=== PATIENT | female | born 1950 | race Caucasian/White ===

== ENCOUNTER 2021-05-07 15:55 | Outpatient (RCR) | payer SELFPAY ==
--- NOTE | 2021-10-12 13:32 | HP.PT.NRP ---
EFRAIN Omar CARTWRIGHT was seen in my office for initial evaluation on . The following Plan of Care was established for this patient: This patient was last seen in our office 05/07/21. Pertinent comments regarding their Physical therapy will appear below: Pt. was seen in PT for DN. She has not been seen in several months and will be DC from PT at this point in time. At this point I will be discontinuing this patient from physical therapy. I would be happy to see this patient again in the future if found appropriate by the physician. Thank you! Joseluis Mathis, ANNALISET
== END 2021-05-07 19:00 | disposition home or self-care (01) ==
LOC: PT 15:55
PROVIDERS: PCP Family Medicine
DX: R69 Illness, unspecified (principal)

== ENCOUNTER 2021-07-10 18:40 | Emergency (ER) | payer MEDICARE, SELFPAY ==
[2021-07-10 18:42] VITALS: BP 117/84; PULSE 64; RESP 16; TEMP 35.8; O2SAT 100; BMI 28.8
--- NOTE | 2021-07-10 18:45 | EKG12_ITS ---
Test Reason : CP Blood Pressure : / mmHG Vent. Rate : 062 BPM Atrial Rate : 062 BPM P-R Int : 158 ms QRS Dur : 084 ms QT Int : 392 ms P-R-T Axes : 020 -01 038 degrees QTc Int : 397 ms Normal sinus rhythm Poor R wave progression Reconfirmed by FELIX DREW, CASSIUS ([id number]), index editor MIO SOTO ([id number]) on 07/12/2021 8:56:16 AM Referred By: TAHIR Confirmed By:CASSIUS WASHINGTON MD
[2021-07-10 19:12] LABS: Absolute Lymphocyte Count 2.64 X10^3/uL (0.83-4.51); Absolute Neutrophil Count 3.7 X10^3/uL (2.0-7.7); Basophil# 0.03 X10^3/uL; Basophil% 0.4 % (0-1); Eosinophil# 0.26 X10^3/uL; Eosinophils% 3.6 % (0-5); Hematocrit 39.6 % (37-47); Lymphocyte # 2.64 X10^3/ul (0.83-4.51); Lymphocyte % 36.6 % (19-41); Mean Corp Hgb Conc 32.8 g/dL (32-36); Mean Corpuscular Hgb 30.3 pg (27.0-32.0); Mean Corpuscular Volume 92.3 fL (81-99); Mean Platelet Vol. 10.1 fl (6.2-12.0); Monocyte# 0.55 X10^3/uL; Monocyte% 7.6 % (0-10); NRBC Flagged by Analyzer 0 % (0-5); Neutrophil # 3.72 X10^3/uL (2.7-7.7); Neutrophil % 51.7 % (47-70); Platelet Count 226 K/mm3 (150-450); RBC Distribution Width CV 12.4 % (11.6-14.6); RBC Distribution Width SD 41.2 fl (35.1-43.9); Red Blood Count 4.29 M/mm3 (4.2-5.4); White Blood Count 7.2 K/mm3 (4.4-11.0)
--- NOTE | 2021-07-10 19:20 | RAD_ITS ---
STUDY: X-RAY CHEST REASON FOR EXAM: Female, 71 years old. Chest pain TECHNIQUE: Frontal view COMPARISON: 09/21/2013 FINDINGS: The lungs are clear and expanded. There is no demonstrated pleural abnormality. Normal size heart. Normal mediastinum and cristohper. Normal visualized pulmonary arteries. Normal visualized aortic arch and descending thoracic aorta. Normal visualized thoracic spine. Normal visualized ribs, clavicles, and shoulders. There is no demonstrated abnormality of the visualized soft tissue structures of the upper abdomen. RAD/Chest 1 View (Portable) IMPRESSION: Normal x-ray examination of the chest. Electronically Signed: Mark Hurd DO at 20:45 EDT Tel [phone], Service support ,
[2021-07-10 19:30] LABS: Anion Gap 7 (5-15); BUN 28 mg/dL (7-18); BUN/Creat Ratio 33.8 RATIO (10-20); Calcium,Total 9.3 mg/dL (8.5-10.1); Chloride 105 mmol/L (98-107); Creatinine, Serum 0.83 mg/dL (0.55-1.02); EST Glomerular Filtration Rate 72 mL/min (>60); Est Glom Filt Rate - Afr Amer 88 mL/min (>60); Estimated Creatinine Clearance 65.91 ml/min; Glucose 114 mg/dL (74-106); Potassium 4.2 mmol/L (3.5-5.1); Sodium Level 138 mmol/L (136-145); Troponin-I HS 6 pg/mL (3.0-54.0)
--- NOTE | 2021-07-10 20:18 | EDS_ITS ---
HPI History of Present Illness Chief Complaint: Chest Pain Narrative Narrative: 71-year-old female presenting with left-sided chest pain which radiated to the left sternum. Patient states this started about 6 PM. Patient states she has history of PTSD and this feels somewhat similar although not the same location. She was doing breathing exercises and the symptoms went away. She states the symptoms came back. She describes the symptoms as sharp and aching. Patient does state that she was a little short of breath and sweating but states she gets this way with PTSD. She has no cardiac history. She does have hypertension, hyperlipidemia. No history of DVT/PE. She states her family has a strong cardiac history [facility] Medical History (Updated 07/10/21 @ 20:21 by Annalee Pérez) Anxiety Depression GERD (gastroesophageal reflux disease) HTN (hypertension) Hypercholesteremia Nightmare disorder PTSD (post-traumatic stress disorder) Home Medications aspirin 81 mg PO DAILY@0800 09/16/13 [History Last Taken Unknown] cholecalciferol (vitamin D3) [Vitamin D3] 5,000 mg PO DAILY 09/16/13 [History Last Taken Unknown] multivitamin with folic acid [Thera] 1 tab PO DAILY 09/16/13 [History Last Taken Unknown] fexofenadine-pseudoephedrine [Phoebe-D 24 Hour Tablet] 1 tab.sr PO DAILY 06/10/14 [History Last Taken Unknown] omega-3 fatty acids-fish oil 1 ea PO DAILY 06/10/14 [History Last Taken Unknown] atorvastatin 07/10/21 [History Last Taken Unknown] cyproheptadine 4 mg PO DAILY 07/10/21 [History Last Taken Unknown] gabapentin 300 mg PO DAILY 07/10/21 [History Last Taken Unknown] hydrochlorothiazide 25 mg PO DAILY 07/10/21 [History Last Taken Unknown] irbesartan-hydrochlorothiazide 1 tab PO QHS 07/10/21 [History Last Taken Unknown] lisinopril 20 mg PO DAILY 07/10/21 [History Last Taken Unknown] meloxicam 7.5 mg PO BID 07/10/21 [History Last Taken Unknown] omeprazole-sodium bicarbonate 1 cap PO DAILY 07/10/21 [History Last Taken Unk nown] sertraline 50 mg PO DAILY 07/10/21 [History Last Taken Unknown] Allergy/AdvReac Type Severity Reaction Status Date / Time amoxicillin [Amoxicillin] AdvReac Rash Verified 07/10/21 18:41 codeine AdvReac Rash Verified 07/10/21 18:41 naproxen [From Naprosyn] AdvReac Nausea Verified 07/10/21 18:41 Penicillins AdvReac Rash Verified 07/10/21 18:41 NARCOTICS AdvReac Nausea Uncoded 07/10/21 18:41 Surgical History (Updated 07/10/21 @ 20:21 by Annalee Pérez) S/P TKR (total knee replacement) Social History Smoking Status: Never smoker ROS ROS ED Constitutional Constitutional ED: Reports sweats; Denies chills or fever(s) Eyes Eyes: Denies blurry vision or change in vision ENT ENT ED: Denies rhinorrhea or sore throat Cardiovascular Cardiovascular: Reports chest pain and palpitations Respiratory/Chest Respiratory/Chest: Reports dyspnea; Denies cough or sputum Gastrointestinal Gastrointestinal: Denies abdominal pain, nausea or vomiting Genitourinary Genitourinary ED: Denies dysuria Musculoskeletal Musculoskeletal: Denies arthralgias, myalgias or neck pain Integumentary Denies abscess or rash Neurologic Neurologic: Denies headache(s) or paresthesias EXAM Physical Exam Const Vital Signs: 07/10/21 18:42 07/10/21 20:26 07/10/21 20:48 Temperature 96.5 F L Temperature Source Temporal Pulse Rate 64 Respiratory Rate 16 17 Respiratory Effort Normal Non-Labored Blood Pressure 117/84 H 115/91 H Blood Pressure Mean 95 99 Pulse Ox 100 Oxygen Delivery Method Room Air Room Air Positive well nourished General Appearance ED: NAD HEENT normocephalic and trauma Eyes PERRL General Eye ED: Yes pale conjunctiva Resp normal respiratory effort Effort and Inspection: respiratory distress Cardio regular rate and regular rhythm Extremity normal to inspection General Extremety ED: Negative for tenderness Neuro oriented x3 Sensorium / Orientation: awake and alert Psych mental status grossly normal Mood & Affect: anxious Skin no rashes or lesions noted and no wounds Heart Score History: Slightly/Non-Suspicious ECG: Normal Age: >/= 65 years Risk Factors: 1 or 2 Risk Factors Troponin: </= Normal Limit Score: 3 MDM MDM MDM Narrative Medical decision making narrative: Patient presenting with chest discomfort and anxiety. She is concerned that its PTSD but also concerned that it could be cardiac in nature. EKG on arrival shows a normal sinus rhythm at ventricular rate of 62 bpm without sign of ischemic change. Chest x-ray on my interpretation shows no acute cardiopulmonary process the radiologist does agree. Lab work is otherwise unremarkable. First high-sensitivity troponin is 6 the second one is 5. Given this I feel she can be discharged home. I have low suspicion for PE given the patient's pain and she has no risk factors. Patient can return precautions. Impression: 1. Chest pain noncardiac Lab Data Attestation: I reviewed the patient's lab results. Labs: Laboratory Results - last 24 hr 07/10/21 07/10/21 07/10/21 19:10 19:10 20:57 WBC 7.2 RBC 4.29 Hgb 13.0 Hct 39.6 MCV 92.3 MCH 30.3 MCHC 32.8 RDW Std Deviation 41.2 RDW Coeff of Gisela 12.4 Plt Count 226 MPV 10.1 Immature Gran % (Auto) 0.100 Neut % (Auto) 51.7 Lymph % (Auto) 36.6 [place] % (Auto) 7.6 Eos % (Auto) 3.6 Baso % (Auto) 0.4 Absolute Neuts (auto) 3.7 Absolute Lymphs (auto) 2.64 Nucleated RBC % 0 Sodium 138 Potassium 4.2 Chloride 105 Carbon Dioxide 26.0 Anion Gap 7 BUN 28 H Creatinine 0.83 Estim Creat Clear Calc 65.91 Est GFR (MDRD) Af Amer 88 Est GFR (MDRD) Non-Af 72 BUN/Creatinine Ratio 33.8 H Glucose 114 H Calcium 9.3 Troponin I High Sens 6 5 Radiography Diagnostic Testing: Radiology Impression Chest X-Ray 07/10/21 19:20 IMPRESSION: Normal x-ray examination of the chest. Electronically Signed: Mark Hurd DO at 20:45 EDT Tel [phone], Service support , Discharge Plan Triage Chief Complaint: Chest Pain ED Provider: Pop Neri Dx/Rx/DC Orders Instructions: ED Chest Pain, Noncardiac Prescriptions: No Action aspirin 81 MG Tab.Chew 81 mg PO DAILY@0800 RF: 0 cholecalciferol (vitamin D3) [Vitamin D3] 2,000 UNIT tablet 5,000 mg PO DAILY RF: 0 multivitamin with folic acid [Thera] 1 TABLET tablet 1 tab PO DAILY RF: 0 fexofenadine-pseudoephedrine [Phoebe-D 24 Hour] 1 TAB.SR Tab.Sr.24h 1 tab.sr PO DAILY RF: 0 omega-3 fatty acids-fish oil 1 EACH capsule 1 ea PO DAILY RF: 0 gabapentin 300 mg capsule 300 mg PO DAILY RF: 0 hydrochlorothiazide 25 mg tablet 25 mg PO DAILY RF: 0 irbesartan-hydrochlorothiazide 150-12.5 mg tablet 1 tab PO QHS RF: 0 atorvastatin 10 mg tablet RF: 0 lisinopril 20 mg tablet 20 mg PO DAILY RF: 0 cyproheptadine 4 mg tablet 4 mg PO DAILY RF: 0 meloxicam 7.5 mg tablet 7.5 mg PO BID RF: 0 sertraline 50 mg tablet 50 mg PO DAILY RF: 0 omeprazole-sodium bicarbonate 20-1.1 mg-gram capsule 1 cap PO DAILY RF: 0 Primary Care Provider: Ramya Ayala Referrals: Ramya Ayala DO [Primary Care Provider] - Disposition Disposition: Home, Self Care
[2021-07-10 20:48] VITALS: BP 115/91; RESP 17
[2021-07-10 21:29] LABS: Troponin-I HS 5 pg/mL (3.0-54.0)
[2021-07-10 22:11] VITALS: BP 132/74; PULSE 78; RESP 16; O2SAT 98
== END 2021-07-10 22:14 | disposition home or self-care (01) ==
PROVIDERS: Emergency Provider Student in an Organized Health Care Education/Training Program; PCP Family Medicine
DX: R07.89 Other chest pain (principal); I10 Essential (primary) hypertension; K21.9 Gastro-esophageal reflux disease without esophagitis; E78.00 Pure hypercholesterolemia, unspecified; E78.5 Hyperlipidemia, unspecified; Z79.899 Other long term (current) drug therapy
CPT/HCPCS: 71045; 80048; 84484; 85025; 93005; 99284; A4216

== ENCOUNTER 2023-07-17 09:39 | Observation (INO) | payer MEDICARE, OTHER, SELFPAY ==
[2023-07-17] VITALS (13 sets, daily range): BP systolic 102–148; BP diastolic 67–98; PULSE 58–88; RESP 14–19; TEMP 36.2–37; O2SAT 95–100; BMI 28.2
--- NOTE | 2023-07-17 | GASB_PTH ---
PATIENT: EFRAIN CARTWRIGHT LOC: [facility] U#:[id number] AGE/SX: 73/F ROOM: [facility] RE07/17/[address]: Dr. Vazquez Crowley MD : [id number] BED: 1 DIS: 07/18/2023 SPEC #: [id number] RECD: 07/18/23 09:40 STATUS: TERESA REObi #: [id number] UMU: 07/17/23 00:[address]: Amador Montano DEPT: SURGICAL PATHOLOGY RECD BY: Sylvester Krause ENTERED: 07/18/23 09:41 SP TYPE: Gastric Bx OTHR DR: Dr. Ramya Ayala, DO Dr. Vazquez Crowley MD Tissues: A - Duodenum, NOS B - Gastric mucous membrane Procedures: Surgery Specimen Level IV Comments: @ Ordering doctor for SUIV edited from to @ by RGOOD at 07/18/23 1003 @ Submitting doctor edited from to @ by RGOOD at 07/18/23 1003 HEADER OPERATION: EGD PRE-OP DIAGNOSIS: GI bleed TISSUE SUBMITTED: A - Duodenum ulcer biopsy, B - Gastric antrum for H. pylori and path MICROSCOPIC DIAGNOSIS A. Duodenal ulcer, biopsy: Gastric metaplasia. Acute and chronic inflammation consistent with ulcer. B. Gastric antrum, biopsy: Chronic gastritis. See comment. AM:rao 07/21/2023 COMMENT B. The results of immunohistochemistry for Helicobacter pylori will be reported separately ([id number]). MICROSCOPIC DESCRIPTION Slides are reviewed. GROSS DESCRIPTION A - Received in fixative is one container labeled with the patient's name and designated duodenal ulcer biopsy. The specimen consists of multiple irregular fragments of light adams soft tissue that in aggregate measure 1.5 x 0.3 x 0.1 cm. The specimen is totally submitted in one cassette. B - Received in fixative is one container labeled with the patient's name and designated gastric antrum. The specimen consists of two irregular fragments of light adams soft tissue that in aggregate measure 0.6 x 0.3 x 0.1 cm. The specimen is totally submitted in one cassette. / CHRISTIANNE:rao 07/18/2023 TC:3 CPT: 82339 x2
--- NOTE | 2023-07-17 10:14 | EX.ED.DYSGE1 ---
HPI History of Present Illness Chief Complaint: General Illness Detail of Chief Complaint: Black stool. Nausea and vomiting. Informant: patient and spouse/S.O. Onset/Context/Timing Onset: Days Context: Gradual Onset Timing: Continuous Current Severity: Mild Maximum Severity: Mild Narrative Narrative: 73-year-old female history of anxiety, depression, PTSD, hypertension. She is not on any blood thinners. Her and her were vacationing up in [place]. She had nausea and vomiting. No hematemesis. Says for the last 5 to 6 days she has had black stool. Is never had a GI bleed. Denies abdominal pain. Prior similar symptoms: No Recent Illness/Hospitalization: No PFSH PFS Medical History Anxiety Depression GERD (gastroesophageal reflux disease) HTN (hypertension) Hypercholesteremia Nightmare disorder PTSD (post-traumatic stress disorder) Home Medications aspirin 81 mg chewable tablet 81 mg PO DAILY@0800 09/16/13 [History Last Taken Unknown] cholecalciferol (vitamin D3) 50 mcg (2,000 unit) tablet (Vitamin D3) 5,000 mg PO DAILY 09/16/13 [History Last Taken Unknown] multivitamin with folic acid 400 mcg tablet (Thera) 1 tab PO DAILY 09/16/13 [History Last Taken Unknown] fexofenadine-pseudoephedrine ER 180 mg-240 mg tablet,ext.release 24 hr (Phoebe-D 24 Hour) 1 tab.sr PO DAILY 06/10/14 [History Last Taken Unknown] omega-3 fatty acids-fish oil 300 mg-1,000 mg capsule 1 ea PO DAILY 06/10/14 [History Last Taken Unknown] atorvastatin 10 mg tablet 07/10/21 [History Last Taken Unknown] cyproheptadine 4 mg tablet 4 mg PO DAILY 07/10/21 [History Last Taken Unknown] gabapentin 300 mg capsule 300 mg PO DAILY 07/10/21 [History Last Taken Unknown] hydrochlorothiazide 25 mg tablet 25 mg PO DAILY 07/10/21 [History Last Taken Unknown] irbesartan 150 mg-hydrochlorothiazide 12.5 mg tablet 1 tab PO QHS 07/10/21 [History Last Taken Unknown] lisinopril 20 mg tablet 20 mg PO DAILY 07/10/21 [History Last Taken Unknown] meloxicam 7.5 mg tablet 7.5 mg PO BID 07/10/21 [History Last Taken Unknown] omeprazole 20 mg-sodium bicarbonate 1.1 gram capsule 1 cap PO DAILY 07/10/21 [History Last Taken Unknown] sertraline 50 mg tablet 50 mg PO DAILY 07/10/21 [History Last Taken Unknown] Allergy/AdvReac Type Severity Reaction Status Date / Time amoxicillin [Amoxicillin] AdvReac Rash Verified 07/17/23 09:40 codeine AdvReac Rash Verified 07/17/23 09:40 naproxen [From Naprosyn] AdvReac Nausea Verified 07/17/23 09:40 Penicillins AdvReac Rash Verified 07/17/23 09:40 Surgical History S/P TKR (total knee replacement) Social History Smoking Status: Never smoker ROS ROS ED ROS Narrative Vomiting. Black stool. Review of Systems ROS Unobtainable: Denies due to encephalopathy Constitutional Constitutional ED: Denies chills or fever(s) Eyes Eyes: Denies blurry vision ENT ENT ED: Denies ear pain Cardiovascular Cardiovascular: Denies chest pain Respiratory/Chest Respiratory/Chest: Denies cough or dyspnea Gastrointestinal Gastrointestinal: Reports nausea, vomiting and other Details: Black stool. ; Denies abdominal pain Genitourinary Genitourinary ED: Denies dysuria Musculoskeletal Musculoskeletal: Denies arthralgias or back pain Integumentary Denies abscess Neurologic Neurologic: Denies headache(s) Psychiatric Psychiatric: Denies anxiety Endocrine Endocrinology: Denies cold intolerance Hematologic/Lymphatic Hematologic/Lymphatic: Reports none Allergic/Immunologic Allergic/Immunologic ED: Denies mouth swelling, tongue swelling or urticaria EXAM Physical Exam Narrative Exam Narrative: 73-year-old female vital signs stable afebrile. Does not look septic toxic. No distress. Very emotionally upset and tearful. at bedside. H EENT exam unremarkable. Moist extremities. Neck nontender no lymphadenopathy. Lungs clear to auscultation bilaterally. Heart regular rhythm rate about 85 no murmur. Chest wall nontender. Abdomen soft nontender. No peritoneal signs. Moving all 4 extremities. Nontender no edema. Neurologically she is awake and alert with no focal motor deficits. Const Vital Signs: 07/17/23 09:40 07/17/23 11:05 07/17/23 11:06 Temperature 97.6 F L Temperature Source Temporal Pulse Rate 88 65 Respiratory Rate 14 18 Respiratory Effort Normal Non-Labored Respiratory Pattern Normal Blood Pressure 148/98 H 109/69 Blood Pressure Mean 114 82 Pulse Ox 100 95 Oxygen Delivery Method Room Air Room Air Positive well nourished and well developed; Negative for cachectic, contractures or unkempt General Appearance ED: well developed; Negative for unkempt, cachectic, contractures, cyanotic, diaphoretic or pallor Nutritional Appearance: Negative for cachectic HEENT Reports moist mucous membranes Negative for trauma or tenderness Eyes PERRL and EOMs intact bilaterally General Eye ED: Negative for pale conjunctiva, scleral icterus or other Neck no lymphadenopathy, supple and no JVD General: Negative for tenderness Lymph Lymphatic: Negative for other Chest Wall inspection of chest normal and palpation of chest normal Chest: Negative for other Resp normal respiratory effort and clear to auscultation bilaterally Effort and Inspection: Negative for retractions Auscultation: Negative for rales, rhonchi or wheezes Cardio regular rate, regular rhythm, S1 normal heart sound, S2 normal heart sound and no murmurs Palpation: Negative for palpable S3 or palpable S4 Rate: Negative for bradycardia Rhythm: Negative for abnormal rhythm GI normal to inspection, nondistended, normoactive bowel sounds, non-tender, non-distended and no masses Inspection: Negative for abdominal distention Auscultation: normoactive bowel sounds Palpation: soft; Negative for tender, guarding, splenomegaly or mass Back/Spine no CVA tenderness General Back: Negative for CVA tenderness Cervical Spine: Negative for cervical spine tenderness Thoracic Spine / Upper Back: Negative for thoracic spinal tenderness or paraspinal muscle tenderness Lumbar Spine / Lower Back: Negative for lumbar spinal tenderness Extremity normal to inspection General Extremety ED: Negative for edema or tenderness General Extremity: Negative for edema Neuro CN's II-XII intact bilaterally Neuro Narrative: Strength except left leg which is chronically weak from prior surgeries according to the patient. Sensorium / Orientation: alert; Negative for orientation impaired, lethargic or stuporous Motor Exam: strength abnormal; Negative for strength 5/5 throughout Psych mental status grossly normal Appearance: Negative for unkempt Attitude: No agitated Mood & Affect: Negative for depressed, anxious or tearful Skin no rashes or lesions noted, no wounds and skin turgor normal General Skin Exam: elasticity normal; Negative for jaundice, pallor or other Lesions: No lesion noted Rashes: No rashes noted Trauma: Negative for abrasion Wounds: Negative for wounds noted MDM MDM MDM Narrative Medical decision making narrative: 73-year-old female very anxious and upset. Complaining of black stool. She will be worked up for potential GI bleed. Otherwise her exam is benign. Exam patient is doing well at 12:05 PM. She is much more calm after the Ativan. We went over her test results. I did do a rectal exam and there is really minimal stool I only see any blood at this time or black stool but again is in no stool. We discussed the possibility of an upper GI bleed due to black stool. She is not on iron. Her last hemoglobin was 13.12 years ago. I spoke to the hospitalist she will be admitted for further evaluation for possible upper GI bleed. Patient and are comfortable with the plan. History & Record Review Discussion w/independent historian: Patient and Family Additional record(s) reviewed:: Prior inpatient record, Prior outpatient record, Prior ED visit and Prior labs Lab Data Attestation: I reviewed the patient's lab results. Lab results narrative: BC shows a white count 6.4. H&H of 10.2 and 30.7. Platelets of 248. Electrolytes show a gap of 6. BUN and creatinine 23 and 0.8. Liver enzymes are unremarkable. Blood type so positive. Labs: Laboratory Results - last 24 hr 07/17/23 10:15 WBC 6.4 RBC 3.22 L Hgb 10.2 L Hct 30.7 L MCV 95.3 MCH 31.7 MCHC 33.2 RDW Std Deviation 45.2 H RDW Coeff of Gisela 13.2 Plt Count 248 MPV 10.3 Immature Gran % (Auto) 0.500 Neut % (Auto) 60.5 Lymph % (Auto) 28.9 [place] % (Auto) 8.1 Eos % (Auto) 1.4 Baso % (Auto) 0.6 Absolute Neuts (auto) 3.9 Absolute Lymphs (auto) 1.85 Nucleated RBC % 0 Sodium 137 Potassium 4.1 Chloride 107 Carbon Dioxide 24.0 Anion Gap 6 BUN 23 H Creatinine 0.88 Estim Creat Clear Calc 2.30 Est GFR (MDRD) Af Amer 81 Est GFR (MDRD) Non-Af 67 BUN/Creatinine Ratio 26.0 H Glucose 100 Calcium 9.4 Total Bilirubin 0.70 AST 17 ALT 24 Alkaline Phosphatase 79 Total Protein 6.9 Albumin 3.6 Globulin 3.3 Albumin/Globulin Ratio 1.1 Blood Type O POSITIVE Antibody Screen NEGATIVE Discharge Plan Triage Chief Complaint: General Illness ED Provider: Vicente Jasso Dx/Rx/DC Orders Prescriptions: No Action aspirin 81 MG tablet,chewable 81 mg PO DAILY@0800 cholecalciferol (vitamin D3) [Vitamin D3] 2,000 UNIT tablet 5,000 mg PO DAILY multivitamin with folic acid [Thera] 1 TABLET tablet 1 tab PO DAILY fexofenadine-pseudoephedrine [Phoebe-D 24 Hour] 1 TAB.SR tablet extended release 24 hr 1 tab.sr PO DAILY omega-3 fatty acids-fish oil 1 EACH capsule 1 ea PO DAILY gabapentin 300 mg capsule 300 mg PO DAILY Patient Comments: TAKE 1 CAPSULE BY MOUTH 2 TIMES DAILY FOR 90 DAYS. hydrochlorothiazide 25 mg tablet 25 mg PO DAILY Patient Comments: TAKE 1 TABLET BY MOUTH EVERY DAY irbesartan-hydrochlorothiazide 150-12.5 mg tablet 1 tab PO QHS Patient Comments: 1 tablet once daily atorvastatin 10 mg tablet Patient Comments: 1 tablet once daily lisinopril 20 mg tablet 20 mg PO DAILY Patient Comments: TAKE 1 TABLET BY MOUTH EVERY DAY cyproheptadine 4 mg tablet 4 mg PO DAILY Patient Comments: 1 tablet once daily meloxicam 7.5 mg tablet 7.5 mg PO BID sertraline 50 mg tablet 50 mg PO DAILY Patient Comments: 1 tablet once daily omeprazole-sodium bicarbonate 20-1.1 mg-gram capsule 1 cap PO DAILY Patient Comments: 1 capsule once daily Primary Care Provider: aRmya Ayala Referrals: Ramya Ayala DO [Primary Care Provider] -
[2023-07-17] MEDS: LORazepam 2 MG/ML Syringe 1 MG IV (10:24)
[2023-07-17 10:30] LABS: Absolute Lymphocyte Count 1.85 X10^3/uL (0.83-4.51); Absolute Neutrophil Count 3.9 X10^3/uL (2.0-7.7); Basophil# 0.04 X10^3/uL; Basophil% 0.6 % (0-1); Eosinophil# 0.09 X10^3/uL; Eosinophils% 1.4 % (0-5); Hematocrit 30.7 % (37-47); Hemoglobin 10.2 g/dL (12.0-15.0); Lymphocyte # 1.85 X10^3/ul (0.83-4.51); Lymphocyte % 28.9 % (19-41); Mean Corp Hgb Conc 33.2 g/dL (32-36); Mean Corpuscular Hgb 31.7 pg (27.0-32.0); Mean Corpuscular Volume 95.3 fL (81-99); Mean Platelet Vol. 10.3 fl (6.2-12.0); Monocyte# 0.52 X10^3/uL; Monocyte% 8.1 % (0-10); NRBC Flagged by Analyzer 0 % (0-5); Neutrophil # 3.87 X10^3/uL (2.7-7.7); Neutrophil % 60.5 % (47-70); Platelet Count 248 K/mm3 (150-450); RBC Distribution Width CV 13.2 % (11.6-14.6); RBC Distribution Width SD 45.2 fl (35.1-43.9); Red Blood Count 3.22 M/mm3 (4.2-5.4); White Blood Count 6.4 K/mm3 (4.4-11.0)
[2023-07-17 10:48] LABS: ALB/GLOB Ratio 1.1 RATIO (0.9-2.4); AST(SGOT) 17 U/L (15-37); Alanine Aminotransfer ALT/SGPT 24 U/L (13-56); Albumin, Serum 3.6 g/dL (3.2-5.0); Alkaline Phosphatase 79 U/L (45-117); Anion Gap 6 (5-15); BUN 23 mg/dL (7-18); Calcium,Total 9.4 mg/dL (8.5-10.1); Chloride 107 mmol/L (98-107); Creatinine, Serum 0.88 mg/dL (0.55-1.02); EST Glomerular Filtration Rate 67 mL/min (>60); Est Glom Filt Rate - Afr Amer 81 mL/min (>60); Globulin 3.3 g/dL (2.2-4.2); Glucose 100 mg/dL (74-106); Potassium 4.1 mmol/L (3.5-5.1); Protein, Total 6.9 g/dL (6.4-8.2); Sodium Level 137 mmol/L (136-145)
--- NOTE | 2023-07-17 12:12 | PCM.HP.STD ---
HPI - General General Date of Admission: 07/17/23 Date of Service: 07/17/23 Chief Complaint: Black stool/melena for 6 days. Dizziness, tinnitus, panic attack HPI Narrative EFRAIN CARTWRIGHT, is a 73 F came to ED with dizziness tinnitus feeling terrible and crying. She also had headache. Patient had nausea and vomiting but no hematemesis. She she states he had black tarry stool for 6 days. Complain of mild lower abdominal discomfort or pain to 3?4/10 intensity intermittently. In ED, vitals in normal range. Hemoglobin 10.2/30.7. Liver chemistry unremarkable. 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 In ED patient had 1 mg IV Ativan which made her feel good and cope up with anxiety/panic attack. She states he was during the [place] War and has PTSD. She never had EGD but he states she gets screening colonoscopy last 1 5 years ago and was normal as per her GI doctor. Labs reviewed and discussed in assessment plan. [facility] Medical History Anxiety Depression GERD (gastroesophageal reflux disease) HTN (hypertension) Hypercholesteremia Nightmare disorder PTSD (post-traumatic stress disorder) Home Medications aspirin 81 mg chewable tablet 81 mg PO DAILY@0800 09/16/13 [History Last Taken 07/16/23] cholecalciferol (vitamin D3) 50 mcg (2,000 unit) tablet (Vitamin D3) 2,000 unit PO BID 09/16/13 [History Last Taken 07/17/23] multivitamin with folic acid 400 mcg tablet (Thera) 1 tab PO DAILY 09/16/13 [History Last Taken 07/17/23] omega-3 fatty acids-fish oil 300 mg-1,000 mg capsule 1 ea PO DAILY 06/10/14 [History Last Taken 07/17/23] atorvastatin 10 mg tablet 10 mg PO DAILY 07/10/21 [History Last Taken 07/16/23] cyproheptadine 4 mg tablet 4 mg PO DAILY 07/10/21 [History Last Taken 07/16/23] hydrochlorothiazide 25 mg tablet 25 mg PO DAILY 07/10/21 [History Last Taken 07/17/23] lisinopril 20 mg tablet 20 mg PO DAILY 07/10/21 [History Last Taken 07/16/23] sertraline 50 mg tablet 50 mg PO DAILY 07/10/21 [History Last Taken 07/16/23] albuterol sulfate 90 mcg/actuation aerosol inhaler 2 puff inhalation Q6H PRN shortness of breath or wheezing 07/17/23 [History Last Taken 07/17/23] cetirizine 10 mg tablet (All Day Allergy (cetirizine)) 10 mg PO DAILY 07/17/23 [History Last Taken 07/17/23] dextromethorphan-guaifenesin 30 mg-600 mg tablet extended [id number] hr (Mucinex DM) 1 tab PO BID PRN cough 07/17/23 [History Last Taken 07/17/23] docusate sodium 100 mg capsule (Colace) 100 mg PO BID 07/17/23 [History Last Taken 07/17/23] fluticasone propionate 50 mcg/actuation nasal spray,suspension 1 spray intranasal DAILY PRN allergy symptoms 07/17/23 [History Last Taken 07/17/23] omeprazole 20 mg capsule,delayed release 20 mg PO DAILY 07/17/23 [History Last Taken 07/17/23] promethazine 25 mg tablet 25 mg PO DAILY PRN PRN nausea 07/17/23 [History Last Taken 07/16/23] propranolol 80 mg capsule,extended release 24 hr (Inderal XL) 80 mg PO DAILY 07/17/23 [History Last Taken 07/17/23] trospium 20 mg tablet 20 mg PO BID 07/17/23 [History Last Taken 07/17/23] Allergy/AdvReac Type Severity Reaction Status Date / Time amoxicillin [Amoxicillin] AdvReac Rash Verified 07/17/23 09:40 codeine AdvReac Rash Verified 07/17/23 09:40 naproxen [From Naprosyn] AdvReac Nausea Verified 07/17/23 09:40 Penicillins AdvReac Rash Verified 07/17/23 09:40 Surgical History S/P TKR (total knee replacement) Social History Smoking Status: Former smoker ROS ROS Narrative Constitutional: Reports fatigue and weakness. Panic attack. No fever. HEENT: Headache nonspecific. Resolved. Bilateral tinnitus but denies vertigo or acute hearing impairment. Reports systems reviewed and no addt'l complaints, except as documented Respiratory/Chest: No acute shortness of breath or respiratory distress or wheezing. CVS: No chest pain tightness or pressure. Gastrointestinal: Denies coffee ground emesis, hematemesis or vomiting Genitourinary: Denies burning urination or new urinary tract symptoms Musculoskeletal: Denies acute joint pain or limited range of motion. No acute injury Neurologic: Denies seizure-like symptoms. Nonspecific numbness and tingling in hands and feet probably due to panic attack. No focal strokelike symptoms Psychiatric: History of PTSD and chronic generalized anxiety skin: No ulcer. No rash Endocrinology: Reports systems reviewed and no addt'l complaints, except as documented Hematologic/Lymphatic: Reports systems reviewed and no addt'l complaints, except as documented Rest 14 ROS are negative except as mentioned in HPI Vital Signs Vital Signs Vital Signs: 07/17/23 09:40 07/17/23 11:05 07/17/23 11:06 Temperature 97.6 F L Temperature Source Temporal Pulse Rate 88 65 Respiratory Rate 14 18 Respiratory Effort Normal Non-Labored Respiratory Pattern Normal Blood Pressure 148/98 H 109/69 Blood Pressure Mean 114 82 Pulse Ox 100 95 Oxygen Delivery Method Room Air Room Air Weight Weight: 5 lb 9 oz Body Mass Index (BMI) 0.8 Physical Exam Narrative General: Alert, Oriented x3, Cooperative HEENT: Atraumatic, PERRLA, EOMI, Normocephalic Oral: No Gingival or Mucosal Lesions/ Ulcerations Neck: Supple, No JVD, Negative Carotid Bruits Lungs: Air entry diminished in bilateral lung bases. No crepitation/rhonchi Cardiovascular: Regular rate, Regular Rhythm, Normal S1, Normal S2, systolic murmur LLSB Abdomen: Bowel Sounds Present, Soft, Non Tender, Non-Distended. No palpable mass : No renal angle tenderness. No suprapubic tenderness. Extremities: No edema, Capillary Refill Less than 3 Seconds Skin: No rashes, No breakdown Musculoskeletal: No Tenderness to Palpation of Joints or Extremities Neurological: Cranial nerves II-XII grossly intact, DTR 2+/4. No acute focal neurological deficit. Psych/Mental Status: Flat affect, anxious. Results Lab / Micro Data 07/17/23 10:15 07/17/23 10:15 Labs: Laboratory Results - last 24 hr 07/17/23 10:15: WBC 6.4, RBC 3.22 L, Hgb 10.2 L, Hct 30.7 L, MCV 95.3, MCH 31.7, MCHC 33.2, RDW Std Deviation 45.2 H, RDW Coeff of Gisela 13.2, Plt Count 248, MPV 10.3, Immature Gran % (Auto) 0.500, Neut % (Auto) 60.5, Lymph % (Auto) 28.9, Taylor % (Auto) 8.1, Eos % (Auto) 1.4, Baso % (Auto) 0.6, Absolute Neuts (auto) 3.9, Absolute Lymphs (auto) 1.85, Nucleated RBC % 0, Sodium 137, Potassium 4.1, Chloride 107, Carbon Dioxide 24.0, Anion Gap 6, BUN 23 H, Creatinine 0.88, Estim Creat Clear Calc 2.30, Est GFR (MDRD) Af Amer 81, Est GFR (MDRD) Non-Af 67, BUN/Creatinine Ratio 26.0 H, Glucose 100, Calcium 9.4, Total Bilirubin 0.70, AST 17, ALT 24, Alkaline Phosphatase 79, Total Protein 6.9, Albumin 3.6, Globulin 3.3, Albumin/Globulin Ratio 1.1, Blood Type O POSITIVE, Antibody Screen NEGATIVE Assessment & Plan Assessment/Plan (1) Acute upper GI bleed: PLAN: Plan 73-year-old female being admitted for further evaluation of black black tarry stool consistent with melena for 6 days. 1. Acute upper GI bleed: Exact etiology unclear. Patient is being admitted in PCU. Hemodynamically BP and heart, normal range. Started on IV fluid Ringer lactate 150 mill per hour. Patient baseline hemoglobin runs around 13.0 g but it was on 07/10/2021. Hemoglobin dropped to 10.2 g. No recent blood work in our EMR.ER physician tried to do rectal exam but there was no stool in rectum. H&H every 6 hourly. Type and crossmatch. GI consulted. Does not have significant abdominal pain. N.p.o. for EGD. Hold baby aspirin. 2. PTSD/SHANE with acute panic attack: Symptoms are better after Ativan 1 mg IV. Patient on Zoloft continued. Started on BuSpar 10 mg twice daily. 3. Hypertension: Patient on lisinopril and HCTZ, lisinopril continued but hold HCTZ. 4. Dyslipidemia: On atorvastatin. 5. Multiple medications including cetirizine, cyproheptadine, Mucinex DM multivitamin, omega-3 fatty acid and Inderal XL. Exact indication unclear. Patient will be taking Relaxyl for hypertension. Living will/advanced directive/end of life care: Patient does have living will or advanced directive. Her at the bedside is power of prosecuting attorney for health. after discussion of benefits/risks procedures involved with full code, DNR CC arrest and DNR CC, the patient opted for DNRCC arrest with no intubation Patient does't want artificial life support including intubation, tube feed, ventilator and/chest compression, central venous catheter, vasopressor and DC shock if needed Total time spent in [id number] encounter in discussion of advanced directive 17 minutes. Charges/Coding Visit Charges Inpatient E&M: 03722 Init Hosp L3 Procedures Hospitalists Procedures: 43489 Advncd Care Plan 30 Min
[2023-07-17 12:49] LABS: International Normalized Ratio 1.1; Prothrombin Time (Protime)PT. 13.8 SECONDS (11.7-14.9)
--- NOTE | 2023-07-17 13:03 | NURSING ---
MED SURG SAILAJA UPPER GI BLEED, ANEMIA
[2023-07-17] MEDS: Lactated Ringers 1,000 ML 150 ML IV (14:25)
--- NOTE | 2023-07-17 15:09 | CON.PCM.GI_ITS ---
HPI Consult Data Date of Consult: 07/17/23 HPI Narrative Reason for Consultation: GI bleeding HPI Narrative: EFRAIN CARTWRIGHT, is a 73 yo womanwith history of anxiety, depression, PTSD, hypertension. She is not on any blood thinners. Her and her were vacationing up in [place]. She had nausea and vomiting. No hematemesis. Says for the last 5 to 6 days she has had black stool. Denies abdominal pain. I Reviewed her baseline hemoglobin ranges between 13 and 14 when she came into the hospital her blood count was 10.6. She does not take any nonsteroidals on a daily basis 6 except for aspirin therapy. She has never been checked for H. pylori. [facility] Medical History Anxiety Depression GERD (gastroesophageal reflux disease) HTN (hypertension) Hypercholesteremia Nightmare disorder PTSD (post-traumatic stress disorder) Home Medications aspirin 81 mg chewable tablet 81 mg PO DAILY@0800 09/16/13 [History Last Taken 07/16/23] cholecalciferol (vitamin D3) 50 mcg (2,000 unit) tablet (Vitamin D3) 2,000 unit PO BID 09/16/13 [History Last Taken 07/17/23] multivitamin with folic acid 400 mcg tablet (Thera) 1 tab PO DAILY 09/16/13 [History Last Taken 07/17/23] omega-3 fatty acids-fish oil 300 mg-1,000 mg capsule 1 ea PO DAILY 06/10/14 [History Last Taken 07/17/23] atorvastatin 10 mg tablet 10 mg PO DAILY 07/10/21 [History Last Taken 07/16/23] cyproheptadine 4 mg tablet 4 mg PO DAILY 07/10/21 [History Last Taken 07/16/23] hydrochlorothiazide 25 mg tablet 25 mg PO DAILY 07/10/21 [History Last Taken 07/17/23] lisinopril 20 mg tablet 20 mg PO DAILY 07/10/21 [History Last Taken 07/16/23] sertraline 50 mg tablet 50 mg PO DAILY 07/10/21 [History Last Taken 07/16/23] albuterol sulfate 90 mcg/actuation aerosol inhaler 2 puff inhalation Q6H PRN shortness of breath or wheezing 07/17/23 [History Last Taken 07/17/23] cetirizine 10 mg tablet (All Day Allergy (cetirizine)) 10 mg PO DAILY 07/17/23 [History Last Taken 07/17/23] dextromethorphan-guaifenesin 30 mg-600 mg tablet extended [id number] hr (Mucinex DM) 1 tab PO BID PRN cough 07/17/23 [History Last Taken 07/17/23] docusate sodium 100 mg capsule (Colace) 100 mg PO BID 07/17/23 [History Last Taken 07/17/23] fluticasone propionate 50 mcg/actuation nasal spray,suspension 1 spray intranasal DAILY PRN allergy symptoms 07/17/23 [History Last Taken 07/17/23] omeprazole 20 mg capsule,delayed release 20 mg PO DAILY 07/17/23 [History Last Taken 07/17/23] promethazine 25 mg tablet 25 mg PO DAILY PRN PRN nausea 07/17/23 [History Last Taken 07/16/23] propranolol 80 mg capsule,extended release 24 hr (Inderal XL) 80 mg PO DAILY 07/17/23 [History Last Taken 07/17/23] trospium 20 mg tablet 20 mg PO BID 07/17/23 [History Last Taken 07/17/23] Allergy/AdvReac Type Severity Reaction Status Date / Time amoxicillin [Amoxicillin] AdvReac Rash Verified 07/17/23 09:40 codeine AdvReac Rash Verified 07/17/23 09:40 naproxen [From Naprosyn] AdvReac Nausea Verified 07/17/23 09:40 Penicillins AdvReac Rash Verified 07/17/23 09:40 Surgical History S/P TKR (total knee replacement) Social History Smoking Status: Former smoker ROS ROS Narrative Constitutional: Reports fatigue and weakness. Panic attack. No fever. HEENT: Headache nonspecific. Resolved. Bilateral tinnitus but denies vertigo or acute hearing impairment. Reports systems reviewed and no addt'l complaints, except as documented Respiratory/Chest: No acute shortness of breath or respiratory distress or wheezing. CVS: No chest pain tightness or pressure. Gastrointestinal: Denies coffee ground emesis, hematemesis or vomiting Genitourinary: Denies burning urination or new urinary tract symptoms Musculoskeletal: Denies acute joint pain or limited range of motion. No acute injury Neurologic: Denies seizure-like symptoms. Nonspecific numbness and tingling in hands and feet probably due to panic attack. No focal strokelike symptoms Psychiatric: History of PTSD and chronic generalized anxiety skin: No ulcer. No rash Endocrinology: Reports systems reviewed and no addt'l complaints, except as documented Hematologic/Lymphatic: Reports systems reviewed and no addt'l complaints, except as documented Rest 14 ROS are negative except as mentioned in HPI Physical Exam Narrative General: Alert, Oriented x3, Cooperative HEENT: Atraumatic, PERRLA, EOMI, Normocephalic Oral: No Gingival or Mucosal Lesions/ Ulcerations Neck: Supple, No JVD, Negative Carotid Bruits Lungs: Air entry diminished in bilateral lung bases. No crepitation/rhonchi Cardiovascular: Regular rate, Regular Rhythm, Normal S1, Normal S2, systolic murmur LLSB Abdomen: Bowel Sounds Present, Soft, Non Tender, Non-Distended. No palpable mass : No renal angle tenderness. No suprapubic tenderness. Extremities: No edema, Capillary Refill Less than 3 Seconds Skin: No rashes, No breakdown Musculoskeletal: No Tenderness to Palpation of Joints or Extremities Neurological: Cranial nerves II-XII grossly intact, DTR 2+/4. No acute focal neurological deficit. Psych/Mental Status: Flat affect, anxious. Lab / Micro Data 07/17/23 10:15 07/17/23 10:15 Labs: Laboratory Results - last 24 hr 07/17/23 10:15: WBC 6.4, RBC 3.22 L, Hgb 10.2 L, Hct 30.7 L, MCV 95.3, MCH 31.7, MCHC 33.2, RDW Std Deviation 45.2 H, RDW Coeff of Gisela 13.2, Plt Count 248, MPV 10.3, Immature Gran % (Auto) 0.500, Neut % (Auto) 60.5, Lymph % (Auto) 28.9, Menard % (Auto) 8.1, Eos % (Auto) 1.4, Baso % (Auto) 0.6, Absolute Neuts (auto) 3.9, Absolute Lymphs (auto) 1.85, Nucleated RBC % 0, Sodium 137, Potassium 4.1, Chloride 107, Carbon Dioxide 24.0, Anion Gap 6, BUN 23 H, Creatinine 0.88, Estim Creat Clear Calc 2.30, Est GFR (MDRD) Af Amer 81, Est GFR (MDRD) Non-Af 67, BUN/Creatinine Ratio 26.0 H, Glucose 100, Calcium 9.4, Magnesium 2.0, Total Bilirubin 0.70, AST 17, ALT 24, Alkaline Phosphatase 79, Total Protein 6.9, Albumin 3.6, Globulin 3.3, Albumin/Globulin Ratio 1.1, Blood Type O POSITIVE, Antibody Screen NEGATIVE 07/17/23 12:23: PT 13.8, INR 1.1 Assessment & Plan Assessment/Plan (1) Acute upper GI bleed: PLAN: Plan 73-year-old female being admitted for further evaluation of black black tarry stool consistent with melena for 6 days. Acute upper vs lower GI bleed: Exact etiology unclear. Differential diagnosis includes H. pylori associated gastritis, peptic ulcer disease as she does take her aspirin at night., Angiodysplasia, telangiectasias. Hemoglobin dropped to 10.2 g. No recent blood work in our EMR.ER physician tried to do rectal exam but there was no stool in rectum. H&H every 6 hourly. Type and crossmatch. Does not have significant abdominal pain. N.p.o. for EGD. Hold baby aspirin. Charges/Coding Visit Charges Inpatient E&M: 00461 Init Hosp L3
[2023-07-17] MEDS: Lactated Ringers 1,000 ML 15 ML IV (15:35)
--- NOTE | 2023-07-17 16:15 | IMM_PTH ---
PATIENT: EFRAIN CARTWRIGHT LOC: [facility] U#:[id number] AGE/SX: 73/F ROOM: [facility] RE07/17/[address]: Dr. Vazquez Crowley MD : 1950 BED: 1 DIS: 07/18/2023 SPEC #: [id number] RECD: 07/18/23 10:02 STATUS: TERESA REObi #: [id number] UMU: 07/17/23 16:[address]: Ra Dustyhsaan DEPT: IMMUNOHISTOCHEMISTRY RECD BY: Yanna Floyd ENTERED: 07/18/23 10:03 SP TYPE: IMMUNO OTHR DR: DO Dr. Vazquez Gonzales MD Tissues: B - Stomach, NOS Procedures: H Pylori (initial) PHYSICIAN & INSTITUTION [facility] [place] [id number] SPECIMEN INFORMATION: Tissue Source: EGD Clinical Info: GI bleed Specimen Number: [id number] CPT code: 17839 METHODOLOGY: Deparaffinized sections of prefer/formalin-fixed tissue or PAP/DQ stained slides are incubated with monoclonal/polyclonal antibodies/oligonucleotide probes. Localization is made via biotin free immunoperoxidase method. Appropriate controls are performed and reacted as expected. Results on target cell population are indicated in the following table: RESULTS: ANTIBODY / CLONE RESULT Block B H Pylori (polyclonal) negative These tests were developed and their performance characteristics determined by [facility]. They may not have been cleared or approved by the U.S. Food and Drug Administration. The FDA has determined that such clearance or approval is not necessary. The above immunohistochemical/dualISH markers are ordered and reviewed by the Pathologist. INTERPRETATION: B. Gastric antrum, biopsy: Negative for Helicobacter pylori organisms. AM:rao 07/21/2023
[2023-07-17 16:25] LABS: Hematocrit 28.3 % (37-47); Hemoglobin 9.4 g/dL (12.0-15.0)
--- NOTE | 2023-07-17 16:53 | OP.EGD_ITS ---
Patient Name: Meera Anderson Procedure Date: 07/17/2023 4:25 PM Date of : 1950 Age: 73 Procedure: Upper GI endoscopy Indications: Iron deficiency anemia, Melena Providers: Amador Montano DO Medicines: Monitored Anesthesia Care Patient Profile: This is a 73 year old female. Refer to note in patient chart for documentation of history and physical. Patient has symptoms of acute epigastric abdominal pain. Complications: No immediate complications. Procedure: Pre-Anesthesia Assessment: - Prior to the procedure, a History and Physical was performed, and patient medications and allergies were reviewed. The risks and benefits of the procedure and the sedation options and risks were discussed with the patient. All questions were answered and informed consent was obtained. Patient identification and proposed procedure were verified by the physician. Mental Status Examination: normal. Respiratory Examination: clear to auscultation. Prophylactic Antibiotics: The patient does not require prophylactic antibiotics. Prior Anticoagulants: The patient has taken no anticoagulant or antiplatelet agents. ASA Grade Assessment: II - A patient with mild systemic disease. After reviewing the risks and benefits, the patient was deemed in satisfactory condition to undergo the procedure. The anesthesia plan was to use monitored anesthesia care (MAC). Immediately prior to administration of medications, the patient was re-assessed for adequacy to receive sedatives. The heart rate, respiratory rate, oxygen saturations, blood pressure, adequacy of pulmonary ventilation, and response to care were monitored throughout the procedure. The physical status of the patient was re-assessed after the procedure. After obtaining informed consent, the endoscope was passed under direct vision. Throughout the procedure, the patient's blood pressure, pulse, and oxygen saturations were monitored continuously. The Endoscope was introduced through the mouth, and advanced to the second part of duodenum. The upper GI endoscopy was accomplished without difficulty. The patient tolerated the procedure well. Scope In: 4:34:35 PM Scope Out: 4:41:29 PM Total Procedure Duration Time 0 hours 6 minutes 54 seconds Findings: The examined esophagus was normal. Patchy moderate inflammation characterized by erosions and erythema was found in the gastric body. Biopsies were taken with a cold forceps for histology. Verification of patient identification for the specimen was done. Estimated blood loss was minimal. Biopsies were taken with a cold forceps for histology. Verification of patient identification for the specimen was done. Estimated blood loss was minimal. Eight oozing cratered duodenal ulcers with pigmented material were found in the duodenal bulb. The largest lesion was 6 mm in largest dimension. Area was successfully injected with 5 mL of a 0.1 mg/mL solution of epinephrine for drug delivery. Coagulation for hemostasis using heater probe was successful. Estimated blood loss was minimal. Biopsies were taken with a cold forceps for histology. Verification of patient identification for the specimen was done. Estimated blood loss was minimal. Biopsies were taken with a cold forceps for Helicobacter pylori testing. Verification of patient identification for the specimen was done. Estimated blood loss was minimal. Impression: - Normal esophagus. - Acute gastritis. Biopsied. - Oozing duodenal ulcers with pigmented material. Injected. Treated with a heater probe. Biopsied. Recommendation: - [facility]. - Full liquid diet today. - No aspirin, ibuprofen, naproxen, or other non-steroidal anti-inflammatory drugs for 12 weeks. - Await pathology results. - Repeat upper endoscopy in 3 months to check healing. - Use Protonix (pantoprazole) 40 mg PO BID for 12 weeks. - Use sucralfate tablets 1 gram PO TID for 8 weeks. Procedure Code(s): --- Professional --- 50328, 59, Esophagogastroduodenoscopy, flexible, transoral; with control of bleeding, any method 14889, Esophagogastroduodenoscopy, flexible, transoral; with biopsy, single or multiple 25360, 59,51, Esophagogastroduodenoscopy, flexible, transoral; with directed submucosal injection(s), any substance CPT copyright 2021 [employer]. All rights reserved. The codes documented in this report are preliminary and upon student records specialist review may be revised to meet current compliance requirements. Amador Montano DO 07/17/2023 4:53:20 PM This report has been signed electronically. Number of Addenda: 0 Note Initiated On: 07/17/2023 4:25 PM
--- NOTE | 2023-07-17 16:53 | OP.CCLET_ITS ---
07/17/2023 Ramya Estevez Do Re : Upper GI endoscopy procedure for Meera Anderson Dear Zenaida This procedure was performed on July. My impressions and recommendations are as follows: Impressions : - Normal esophagus. - Acute gastritis. Biopsied. - Oozing duodenal ulcers with pigmented material. Injected. Treated with a heater probe. Biopsied. Recommendations : - Return patient to [facility]. - Full liquid diet today. - No aspirin, ibuprofen, naproxen, or other non-steroidal anti-inflammatory drugs for 12 weeks. - Await pathology results. - Repeat upper endoscopy in 3 months to check healing. - Use Protonix (pantoprazole) 40 mg PO BID for 12 weeks. - Use sucralfate tablets 1 gram PO TID for 8 weeks. My findings are described in the full procedure note, which is enclosed. If I can be of further assistance, please feel free to contact me at . Sincerely, Amador Montano, 07/17/2023 4:53:20 PM This report has been signed electronically.
[2023-07-17] MEDS: Sucralfate 1 GM Tablet PO (21:35)
[2023-07-17] MEDS: Cholecalciferol (VIT D3) 25 MCG TABLET (1,000 UNITS) 50 MCG PO (21:35)
[2023-07-17] MEDS: busPIRone 5 MG Tablet 10 MG PO (21:36)
[2023-07-18 03:30] VITALS: BP 117/71; PULSE 69; RESP 16; TEMP 36.7; O2SAT 97
[2023-07-18 06:41] LABS: Anion Gap 4 (5-15); BUN 16 mg/dL (7-18); BUN/Creat Ratio 18.9 RATIO (10-20); Calcium,Total 8.9 mg/dL (8.5-10.1); Chloride 109 mmol/L (98-107); Creatinine, Serum 0.85 mg/dL (0.55-1.02); EST Glomerular Filtration Rate 70 mL/min (>60); Est Glom Filt Rate - Afr Amer 85 mL/min (>60); Estimated Creatinine Clearance 62.52 ml/min; Glucose 87 mg/dL (74-106); Sodium Level 139 mmol/L (136-145)
[2023-07-18] MEDS: Sucralfate 1 GM Tablet PO (06:45)
--- NOTE | 2023-07-18 08:36 | PCM.DC ---
Discharge Instructions Diet Discharge Diet: Light diet - advance as tolerated Activity Discharge Activity: Return to Normal Activity Weight Bearing Status: Weight bearing as tolerated Dressing / Incision Call your doctor if you observe: Fever of 101 or Higher, Coldness, Increased Pain, Numbness or Tingling, Change in Color, Inability to urinate, Inability to have a bowel movement, Using more than 1 pad per hour, Shortness of breath, Dizziness, Fainting spells, Swelling in the ankles, Chest pain, Prolonged hiccupping, Increased palpitations (irregular heartbeat) and Calf discomfort Follow Up Care When: IN 2 WEEKS Test Results: Test results from this visit will be discussed in further detail at your follow-up appointment, if applicable. Discharge Plan Admission Admit Date/Time: 07/17/23 12:04 Attending Provider: Vazquez Crowley Primary Care Provider: Ramya Ayala Discharge Orders/Prescriptions Prescriptions: New sucralfate 1 gram Tablet 1 g PO TID@0700,1100,1600 30 Days Qty: 90 1RF pantoprazole [Protonix] 40 mg tablet,delayed release (DR/EC) 40 mg PO BID 30 Days Qty: 60 2RF Rx Instructions: 40 mg twice daily for 12 weeks. Continued cholecalciferol (vitamin D3) [Vitamin D3] 2,000 UNIT tablet 2,000 unit PO BID multivitamin with folic acid [Thera] 1 TABLET tablet 1 tab PO DAILY omega-3 fatty acids-fish oil 1 EACH capsule 1 ea PO DAILY hydrochlorothiazide 25 mg tablet 25 mg PO DAILY Patient Comments: TAKE 1 TABLET BY MOUTH EVERY DAY atorvastatin 10 mg tablet 10 mg PO DAILY Patient Comments: 1 tablet once daily lisinopril 20 mg tablet 20 mg PO DAILY Patient Comments: TAKE 1 TABLET BY MOUTH EVERY DAY cyproheptadine 4 mg tablet 4 mg PO DAILY Patient Comments: 1 tablet once daily sertraline 50 mg tablet 50 mg PO DAILY Patient Comments: 1 tablet once daily Mucinex DM 30-600 mg tablet extended release 12 hr 1 tab PO BID PRN (Reason: cough) Inderal XL 80 mg capsule,extended release 24hr 80 mg PO DAILY trospium 20 mg tablet 20 mg PO BID Rx Instructions: administer on an empty stomach fluticasone propionate 50 mcg/actuation spray,suspension 1 spray intranasal DAILY PRN (Reason: allergy symptoms) Rx Instructions: administer into each nostril promethazine 25 mg tablet 25 mg PO DAILY PRN PRN (Reason: nausea ) albuterol sulfate 90 mcg/actuation HFA aerosol inhaler 2 puff INHALATION Q6H PRN (Reason: shortness of breath or wheezing) Patient Comments: INHALE 2 PUFFS BY MOUTH EVERY 6 HOURS NEEDED FOR WHEEZING docusate sodium [Colace] 100 mg capsule 100 mg PO BID cetirizine [All Day Allergy (cetirizine)] 10 mg tablet 10 mg PO DAILY Held aspirin 81 MG tablet,chewable 81 mg PO DAILY@0800 Hold Instructions: Hold aspirin for 12 weeks. Discontinued omeprazole 20 mg capsule,delayed release(DR/EC) 20 mg PO DAILY Referrals / Follow Up: Ramya Ayala DO [Primary Care Provider] - Within 2 Weeks FriendAmador DO [Med Staff - Active Staff] - Within 1 Month (Repeat EGD in 3 months to check duodenal ulcer healing.) Disposition Disposition (needs filled in before D/C Order can be placed): Home, Self Care
--- NOTE | 2023-07-18 08:44 | DS.PCM_ITS ---
Providers Date of Admission: 07/17/23 Date of Discharge: 07/18/23 Primary Care Physician: Dr. Ramya Ayala, DO Consultations 07/17/23 13:38 Consult: Gastroenterology Routine Consulting Provider: [facility] Reason for Consult: GI bleed EMERGENT Consult: No MD Notified: Yes Date Notified: 07/17/23 Time Notified: 12:06 Method of Notification: Text Reason For Visit: GI BLEED Diagnosis Discharge Diagnosis (1) Acute upper GI bleed: Status: Acute Code(s): K92.2 - Gastrointestinal hemorrhage, unspecified Plan 73-year-old female being admitted for further evaluation of black black tarry stool consistent with melena for 6 days. 1. Acute blood loss anemia due to acute upper GI bleed: Exact etiology unclear. Patient is being admitted in PCU. Hemodynamically BP and heart, normal range. Started on IV fluid Ringer lactate 150 mill per hour. Patient hemoglobin runs around 13.0 g but it was on 07/10/2021. Hemoglobin dropped to 10.2 g. No recent blood work in our EMR.ER physician tried to do rectal exam but there was no stool in rectum. H&H every 6 hourly. Type and crossmatch. GI consulted. Does not have significant abdominal pain. N.p.o. for EGD. Hold baby aspirin. 07/18/2023: Acute blood loss anemia due to upper GI bleed patient hemoglobin did not had significant drop in hemoglobin. Admitting hemoglobin 10.2 g and decreased to 9.0 but patient is stated in September 2022 her hemoglobin was about 12 g%. EGD was done. It was reported oozing duodenal ulcers with pigmented material, injected treated with heater probe. Patient recommended Protonix 40 mg p.o. twice daily for 12 weeks and sucralfate 1 tablet p.o. 3 times daily for 8 weeks, went over the medications and prescription sent to the patient's preferred pharmacy. Patient also given prescription for ferrous sulfate and ascorbic acid. Patient advised not to take aspirin at least for 3 months or even discontinued as she was taking for preventative/wellbeing health. No history of CAD or stroke or peripheral vascular disease. Advised no NSAIDs. Pa hankcandido cannot take Tylenol. 2. PTSD/SHANE with acute panic attack: Symptoms are better after Ativan 1 mg IV. Patient on Zoloft continued. Started on BuSpar 10 mg twice daily. 3. Hypertension: Patient on lisinopril and HCTZ, discharge medications reconciliation done. 4. Dyslipidemia: On atorvastatin. 5. Multiple medications including cetirizine, cyproheptadine, Mucinex DM multivitamin, omega-3 fatty acid and Inderal XL. Exact indication unclear. Discharge medication reconciliation done. Discharge follow-up instructions completed. Discharge process discussed with the patient and all questions were answered to patient's satisfaction. Total time spent, exact 35 minutes on discharge meds reconciliation, examination, coordination of care with nurses and ancillary staff, review of imaging and blood test and discussion with the patient on follow-up instructions. Living will/advanced directive/end of life care: Patient does have living will or advanced directive. Her at the bedside is power of chief port director for health. after discussion of benefits/risks procedures involved with full code, DNR CC arrest and DNR CC, the patient opted for DNRCC arrest with no intubation Patient does't want artificial life support including intubation, tube feed, ventilator and/chest compression, central venous catheter, vasopressor and DC shock if needed Medications at Discharge Home Medications aspirin 81 mg chewable tablet 81 mg PO DAILY@0800 09/16/13 cholecalciferol (vitamin D3) 50 mcg (2,000 unit) tablet (Vitamin D3) 2,000 unit PO BID 09/16/13 multivitamin with folic acid 400 mcg tablet (Thera) 1 tab PO DAILY 09/16/13 omega-3 fatty acids-fish oil 300 mg-1,000 mg capsule 1 ea PO DAILY 06/10/14 atorvastatin 10 mg tablet 10 mg PO DAILY 07/10/21 cyproheptadine 4 mg tablet 4 mg PO DAILY 07/10/21 hydrochlorothiazide 25 mg tablet 25 mg PO DAILY 07/10/21 lisinopril 20 mg tablet 20 mg PO DAILY 07/10/21 sertraline 50 mg tablet 50 mg PO DAILY 07/10/21 albuterol sulfate 90 mcg/actuation aerosol inhaler 2 puff inhalation Q6H PRN shortness of breath or wheezing 07/17/23 cetirizine 10 mg tablet (All Day Allergy (cetirizine)) 10 mg PO DAILY 07/17/23 dextromethorphan-guaifenesin 30 mg-600 mg tablet extended [id number] hr (Mucinex DM) 1 tab PO BID PRN cough 07/17/23 docusate sodium 100 mg capsule (Colace) 100 mg PO BID 07/17/23 fluticasone propionate 50 mcg/actuation nasal spray,suspension 1 spray intranasal DAILY PRN allergy symptoms 07/17/23 promethazine 25 mg tablet 25 mg PO DAILY PRN PRN nausea 07/17/23 propranolol 80 mg capsule,extended release 24 hr (Inderal XL) 80 mg PO DAILY 07/17/23 trospium 20 mg tablet 20 mg PO BID 07/17/23 ascorbic acid (vitamin C) 500 mg tablet 500 mg PO BID #60 tabs 07/18/23 ferrous sulfate 325 mg (65 mg iron) tablet,delayed release 325 mg PO QODAY #30 tabs 07/18/23 pantoprazole 40 mg tablet,delayed release (Protonix) 40 mg PO BID 30 days #60 tabs 07/18/23 sucralfate 1 gram tablet 1 g PO TID@0700,1100,1600 30 days #90 tabs 07/18/23 Physical Exam Narrative General: Alert, Oriented x3, Cooperative HEENT: Atraumatic, PERRLA, EOMI, Normocephalic Oral: No Gingival or Mucosal Lesions/ Ulcerations Neck: Supple, No JVD, Negative Carotid Bruits Lungs: Air entry diminished in bilateral lung bases. No crepitation/rhonchi Cardiovascular: Regular rate, Regular Rhythm, Normal S1, Normal S2, systolic murmur LLSB Abdomen: Bowel Sounds Present, Soft, Non Tender, Non-Distended. No palpable mass : No renal angle tenderness. No suprapubic tenderness. Extremities: No edema, Capillary Refill Less than 3 Seconds Skin: No rashes, No breakdown Musculoskeletal: No Tenderness to Palpation of Joints or Extremities Neurological: Cranial nerves II-XII grossly intact, DTR 2+/4. No acute focal neurological deficit. Psych/Mental Status: Flat affect, anxious. Weight / BMI Weight Weight: 190 lb 14.725 oz Body Mass Index (BMI) 28.2 ABG / Lab / Microbiology Data 07/17/23 22:10 07/18/23 05:10 Laboratory: Laboratory Results - last 24 hr 07/17/23 10:15: WBC 6.4, RBC 3.22 L, Hgb 10.2 L, Hct 30.7 L, MCV 95.3, MCH 31.7, MCHC 33.2, RDW Std Deviation 45.2 H, RDW Coeff of Gisela 13.2, Plt Count 248, MPV 10.3, Immature Gran % (Auto) 0.500, Neut % (Auto) 60.5, Lymph % (Auto) 28.9, Island % (Auto) 8.1, Eos % (Auto) 1.4, Baso % (Auto) 0.6, Absolute Neuts (auto) 3.9, Absolute Lymphs (auto) 1.85, Nucleated RBC % 0, Sodium 137, Potassium 4.1, Chloride 107, Carbon Dioxide 24.0, Anion Gap 6, BUN 23 H, Creatinine 0.88, Estim Creat Clear Calc 2.30, Est GFR (MDRD) Af Amer 81, Est GFR (MDRD) Non-Af 67, BUN/Creatinine Ratio 26.0 H, Glucose 100, Calcium 9.4, Magnesium 2.0, Total Bilirubin 0.70, AST 17, ALT 24, Alkaline Phosphatase 79, Total Protein 6.9, Albumin 3.6, Globulin 3.3, Albumin/Globulin Ratio 1.1, Blood Type O POSITIVE, Antibody Screen NEGATIVE 07/17/23 12:23: PT 13.8, INR 1.1 07/17/23 16:05: Hgb 9.4 L, Hct 28.3 L 07/17/23 22:10: Hgb 9.0 L, Hct 28.0 L 07/18/23 05:10: Sodium 139, Potassium 4.0, Chloride 109 H, Carbon Dioxide 26.0, Anion Gap 4 L, BUN 16, Creatinine 0.85, Estim Creat Clear Calc 62.52, Est GFR (MDRD) Af Amer 85, Est GFR (MDRD) Non-Af 70, BUN/Creatinine Ratio 18.9, Glucose 87, Calcium 8.9 D/C Instructions Discharge Diet: Light diet - advance as tolerated Weight Bearing Status: Weight bearing as tolerated Call your doctor if you observe: Fever of 101 or Higher, Coldness, Increased Pain, Numbness or Tingling, Change in Color, Inability to urinate, Inability to have a bowel movement, Using more than 1 pad per hour, Shortness of breath, Dizziness, Fainting spells, Swelling in the ankles, Chest pain, Prolonged hiccupping, Increased palpitations (irregular heartbeat) and Calf discomfort When: IN 2 WEEKS Meaningful Use Info Meaningful Use Diagnoses (Choose all that apply): None applicable Discharge Plan Admission Admit Date/Time: 07/17/23 12:04 Primary Reason for Your Visit: Acute upper GI bleed Attending Provider: Vazquez Crowley Primary Care Provider: Ramya Ayala Discharge Orders/Prescriptions Prescriptions: New sucralfate 1 gram Tablet 1 g PO TID@0700,1100,1600 30 Days Qty: 90 1RF pantoprazole [Protonix] 40 mg tablet,delayed release (DR/EC) 40 mg PO BID 30 Days Qty: 60 2RF Rx Instructions: 40 mg twice daily for 12 weeks. ferrous sulfate 325 mg (65 mg iron) tablet,delayed release (DR/EC) 325 mg PO QODAY Qty: 30 0RF ascorbic acid (vitamin C) 500 mg tablet 500 mg PO BID Qty: 60 2RF Continued cholecalciferol (vitamin D3) [Vitamin D3] 2,000 UNIT tablet 2,000 unit PO BID multivitamin with folic acid [Thera] 1 TABLET tablet 1 tab PO DAILY omega-3 fatty acids-fish oil 1 EACH capsule 1 ea PO DAILY hydrochlorothiazide 25 mg tablet 25 mg PO DAILY Patient Comments: TAKE 1 TABLET BY MOUTH EVERY DAY atorvastatin 10 mg tablet 10 mg PO DAILY Patient Comments: 1 tablet once daily lisinopril 20 mg tablet 20 mg PO DAILY Patient Comments: TAKE 1 TABLET BY MOUTH EVERY DAY cyproheptadine 4 mg tablet 4 mg PO DAILY Patient Comments: 1 tablet once daily sertraline 50 mg tablet 50 mg PO DAILY Patient Comments: 1 tablet once daily Mucinex DM 30-600 mg tablet extended release 12 hr 1 tab PO BID PRN (Reason: cough) Inderal XL 80 mg capsule,extended release 24hr 80 mg PO DAILY trospium 20 mg tablet 20 mg PO BID Rx Instructions: administer on an empty stomach fluticasone propionate 50 mcg/actuation spray,suspension 1 spray intranasal DAILY PRN (Reason: allergy symptoms) Rx Instructions: administer into each nostril promethazine 25 mg tablet 25 mg PO DAILY PRN PRN (Reason: nausea ) albuterol sulfate 90 mcg/actuation HFA aerosol inhaler 2 puff INHALATION Q6H PRN (Reason: shortness of breath or wheezing) Patient Comments: INHALE 2 PUFFS BY MOUTH EVERY 6 HOURS NEEDED FOR WHEEZING docusate sodium [Colace] 100 mg capsule 100 mg PO BID cetirizine [All Day Allergy (cetirizine)] 10 mg tablet 10 mg PO DAILY Held aspirin 81 MG tablet,chewable 81 mg PO DAILY@0800 Hold Instructions: Hold aspirin for 12 weeks. Discontinued omeprazole 20 mg capsule,delayed release(DR/EC) 20 mg PO DAILY Referrals / Follow Up: Ramya Ayala DO [Primary Care Provider] - Within 2 Weeks FriendAmador DO [Med Staff - Active Staff] - Within 1 Month (Repeat EGD in 3 months to check duodenal ulcer healing.) Disposition Disposition (needs filled in before D/C Order can be placed): Home, Self Care Charges/Coding Visit Charges Inpatient E&M: 92372 Disch Hosp >30min
[2023-07-18 09:15] VITALS: BP 108/74; PULSE 68; RESP 15; TEMP 36.6; O2SAT 97
[2023-07-18] MEDS: busPIRone 5 MG Tablet 10 MG PO (09:56)
[2023-07-18] MEDS: Pantoprazole Sodium 40 MG Tablet PO (09:56)
[2023-07-18] MEDS: Multivitamins,Therapeutic Tablet 1 TABLET PO (09:57)
[2023-07-18] MEDS: Omega-3 Acid Ethyl Esters 1 GM Capsule PO (09:57)
[2023-07-18] MEDS: Cholecalciferol (VIT D3) 25 MCG TABLET (1,000 UNITS) 50 MCG PO (09:57)
[2023-07-18] MEDS: Sertraline 50 MG Tablet PO (09:57)
[2023-07-18] MEDS: Tolterodine Tartrate 2 MG CAP.SA PO (09:58)
[2023-07-18] MEDS: Propranolol LA 80 MG Capsule PO (09:58)
[2023-07-18] MEDS: Atorvastatin Calcium 10 MG Tablet PO (09:58)
[2023-07-18] MEDS: Lisinopril 20 MG Tablet PO (10:02)
[2023-07-18] MEDS: Acetaminophen 325 MG Tablet 650 MG PO (10:11)
--- NOTE | 2023-07-18 11:52 | CHAPLAIN ---
Type of Pastoral Visit _x__ Initial Visit ___ Follow-up Visit ___ On-call Visit ___ General Patient Visit ___ Spiritual Assessment ___ Family Conference ___ Bereavement ___ Rapid Response ___ Code Blue ___ Other (describe below) Pastoral Care Referral From _x__ Patient ___ Family ___ Nurse ___ Physician ___ Animal Physiology Teacher ___ Hose Suspender Cutter ___ Other (describe below) Sacrament/Intervention _x__ Active listening ___ Anointing ___ Tenriism ___ Bereavement ___ Communion _x__ Ashley exploration ___ _x__ Life review _x__ Prayer ___ Reconciliation ___ Sacrament of Sick ___ Supportive presence ___ Wedding ___ Other (describe below) Pastoral Comments supportive visit with patient and spouse prior to her discharge; presence and prayer requested and given
== END 2023-07-18 08:42 | disposition home or self-care (01) ==
LOC: ED 12:04 → PCU 12:17
PROVIDERS: Internal Medicine Gastroenterology; Admitting Provider Internal Medicine; Emergency Provider Emergency Medicine; PCP Family Medicine; Visit Provider Internal Medicine
PROC: 0DJ08ZZ Inspection of Upper Intestinal Tract, Via Natural or Artificial Opening Endoscopic (ICD-10-PCS; CPT 43235; principal; 2023-07-17 16:10)
DX: K26.4 Chronic or unspecified duodenal ulcer with hemorrhage (principal); R51.9 Headache, unspecified; K29.00 Acute gastritis without bleeding; D62 Acute posthemorrhagic anemia; Z79.82 Long term (current) use of aspirin; E78.00 Pure hypercholesterolemia, unspecified; F41.0 Panic disorder [episodic paroxysmal anxiety]; Z87.891 Personal history of nicotine dependence; I10 Essential (primary) hypertension; Z79.899 Other long term (current) drug therapy; K21.9 Gastro-esophageal reflux disease without esophagitis; F41.9 Anxiety disorder, unspecified; F32.A Depression, unspecified; F43.10 Post-traumatic stress disorder, unspecified; J45.909 Unspecified asthma, uncomplicated
CPT/HCPCS: 43255; 43239; 36415; 80048; 80053; 83735; 85014; 85018; 85025; 85610; 86850; 86900; 86901; 88305; 88342; 94668; 96361; 96365; 96366; 96375; 99221; 99285; J7050; J7120; A4216; G0378; J2405

== ENCOUNTER 2023-11-11 00:17 | Emergency (ER) | payer MEDICARE, SELFPAY ==
[2023-11-11 00:18] VITALS: BP 155/105; PULSE 54; RESP 16; TEMP 36.3; O2SAT 99; BMI 29.0
[2023-11-11] MEDS: Ondansetron ODT 4 MG Tablet PO (00:53)
[2023-11-11] MEDS: HYDROmorphone 1 MG/ML Syringe IM (00:54)
--- OUTSIDE RECORDS SUMMARY | 2023-11-11 01:00 | XMS RPT_ITS | CCD ---
Author Name Unknown Address [id number] [facility] [address] [place] [address] Organization [facility] Care Team Providers Care Therapist Respiratory Name Role Phone REFERRINGMUSHTAQ ID Unavailable Unavailable KEYONA POST Unavailable Unavailable BLAIRE DANIELS Unavailable Unavailable Jeffery WYMAN, Chris Zaragoza Unavailable [phone] BLAIRE ESTEBAN DO Primary Care Physician MARISELA CANTOR DO Attending Unavailable BLAIRE ESTEBAN DO Primary Care Unavailable BLAIRE ESTEBAN DO Attending Unavailable BLAIRE ESTEBAN DO Primary Care Unavailable BLAIRE ESTEBAN DO Attending Unavailable BLAIRE ESTEBAN DO Primary Care Unavailable MARISELA CANTOR DO Attending Unavailable BLAIRE ESTEBAN DO Primary Care Unavailable Allergies Allergy Classification Reported Allergen(s) Allergy Type Date of Onset Reaction(s) Facility (2 sources) Codeine Drug Allergy 1 [facility] Work Phone: (2 sources) Kingdom Animalia; Translations: [ANIMALS] allergy to substance 1 [facility] Work Phone: (2 sources) Mold Extract; Translations: [MOLD] Drug Allergy 8 [facility] Work Phone: (2 sources) Opioid Agonists drug allergy 8 sensitivity (per patient) [facility] Work Phone: (6 sources) Penicillin G; Translations: [penicillin] Drug Allergy 8 hives and rash, Welts [facility] Work Phone: (2 sources) Sulfacetamide Drug Allergy 8 rash and hives [facility] Work Phone: (2 sources) STINGING INSECTS; Translations: [STINGING INSECTS] allergy to substance 1 [facility] Work Phone: (2 sources) PLANT POLLENS (HAY FEVER); Translations: [PLANT POLLENS (HAY FEVER)] allergy to substance 8 [facility] Work Phone: (4 sources) Cephalexin; Translations: [cephalexin] Drug Allergy Unknown (qualifier value) [facility] (4 sources) Codeine; Translations: [codeine] Drug Allergy Nausea [facility] Medications Current Medications Medication Drug Class(es) Dates Sig (Normalized) Sig (Original) albuterol MDI (90 mcg/inh) CFC free inhalation aerosol (6 sources) Start: 11-14-2022 take 2 puff(s) by inhalation every six hours as needed for wheezing albuterol MDI (90 mcg/inh) CFC free inhalation aerosol 2 puff(s), Inhalation, q6hr, PRN as needed for wheezing, # 1 EA, 1 Refill(s), Pharmacy: [facility]/pharmacy #[id number], COVID-19 kim krishnan manifesting chronic cough Seasonal allergy, 173.5, cm, 11/14/22 14:15:00 EST, Height Start Date: 11/14/22 Status: Ordered Completed/Discontinued Medications Medication Drug Class(es) Dates Sig (Normalized) Sig (Original) acetaminophen 325 mg oral tablet (2 sources) Start: 09-08-2018 ACETAMINOPHEN 325 MG TABS 2 tablets twice a day as needed ACETAMINOPHEN [id number] Marcelino FELIPE aspirin 81 mg delayed release oral tablet (6 sources) Platelet Aggregation Inhibitor, Nonsteroidal Anti-inflammatory Drug Start: 11-24-2020 ASPIRIN 81 MG TBEC 1 tablet once daily ASPIRIN [id number] Bailee Willingham Problems Active Problems Problem Classification Problem Date Documented Da te Episodic/Chronic Abdominal pain (4 sources) Abdominal pain - cause unknown 03-21-2021 Episodic Anxiety disorders (8 sources) Anxiety; Translations: [Posttraumatic stress disorder] 03-02-2018 Chronic Past or Other Problems Problem Classification Problem Date Documented Da te Episodic/Chronic Other connective tissue disease (2 sources) Tendinitis; Translations: [Iliotibial band syndrome, right leg] Onset: 09-09-2020 09-09-2020 Episodic Other connective tissue disease (2 sources) Trochanteric bursitis; Translations: [Trochanteric bursitis, right hip] Onset: 09-09-2020 09-09-2020 Episodic Other connective tissue disease (2 sources) Trochanteric bursitis, left hip; Translations: [Enthesopathy of hip region] Onset: 09-08-2018 09-08-2018 Episodic Other non-traumatic joint disorders (2 sources) Other specified joint disorders, left hip; Translations: [Other specified disorders of joint, pelvic region and thigh] Onset: 04-28-2018 04-28-2018 Episodic Sprains and strains (4 sources) Strain of muscle of lower limb; Translations: [Strain of muscle, fascia and tendon of left hip, subsequent encounter] Onset: 04-28-2018 07-11-2021 Episodic Unclassified (1 source) OTHER BURSITIS OF HIP LEFT Onset: 05-22-2017 Unclassified (2 sources) Problem Results Test Name Value Interpretation Reference Range Facil ity Vital Signs Date Time Vital Sign Value Performing Clinician Facility 01-01-2023 16:24-0500 Diastolic Blood Pressure Non-Invasive 88 1 MARISELA JOHNSONTTLE DO [facility] 01-01-2023 16:24-0500 Heart rate 54 /min MARISELA JOHNSONTTLE DO [facility] 01-01-2023 16:24-0500 Respiratory rate 14 /min MARISELA STANTONLE DO [facility] 01-01-2023 16:24-0500 Systolic Blood Pressure Non-Invasive 143 1 MARISELA JOHNSONTTLE DO [facility] 01-01-2023 16:00-0500 Diastolic Blood Pressure Non-Invasive 80 1 MARISELA SPITTLE DO [facility] 01-01-2023 16:00-0500 Respiratory rate 12 /min MARISELA SPITTLE DO [facility] 01-01-2023 16:00-0500 Systolic Blood Pressure Non-Invasive 139 1 MARISELA SPITTLE DO [facility] 01-01-2023 15:45-0500 Diastolic Blood Pressure Non-Invasive 81 1 MARISELA SPITTLE DO [facility] 01-01-2023 15:45-0500 Heart rate 52 /min MARISELA SPITTLE DO [facility] 01-01-2023 15:45-0500 Respiratory rate 14 /min MARISELA SPITTLE DO [facility] 01-01-2023 15:45-0500 Systolic Blood Pressure Non-Invasive 151 1 MARISELA SPITTLE DO [facility] 01-01-2023 15:07-0500 Body temperature 95.18 [degF] MARISELA SPITTLE DO [facility] 01-01-2023 15:00-0500 Respiratory Rate - Anes 3 br/min MARISELA SPITTLE DO [facility] 01-01-2023 14:55-0500 Respiratory Rate - Anes 10 br/min MARISELA SPITTLE DO [facility] 01-01-2023 14:50-0500 Respiratory Rate - Anes 16 br/min MARISELA SPITTLE DO [facility] 01-01-2023 12:01-0500 Heart rate 59 /min MARISELA SPITTLE DO [facility] 01-01-2023 11:18-0500 Blood Pressure Cuff Size MARISELA SPITTLE DO [facility] 01-01-2023 11:18-0500 Blood Pressure Location MARISELA SPITTLE DO [facility] 01-01-2023 11:18-0500 Blood Pressure Method MARISELA SPITTLE DO [facility] 01-01-2023 11:18-0500 Body height 175.3 cm MARISELA SPITTLE DO [facility] 01-01-2023 11:18-0500 Body temperature 96.08 [degF] MARISELA SPITTLE DO [facility] 01-01-2023 11:18-0500 Body weight 88 kg MARISELA SPITTLE DO [facility] 01-01-2023 11:18-0500 Body weight 28.64 kg/m2 MARISELA SPITTLE DO [facility] 01-01-2023 11:18-0500 Heart rate 62 /min MARISELA SPITTLE DO [facility] 12-23-2022 13:15-0500 Blood Pressure Location MARISELA SPITTLE DO [facility] 12-23-2022 13:15-0500 Body height 175.3 cm MARISELA SPITTLE DO [facility] 12-23-2022 13:15-0500 Body weight 88.6 kg MARISELA SPITTLE DO [facility] 12-23-2022 13:15-0500 Body weight 28.83 kg/m2 MARISELA SPITTLE DO [facility] 12-23-2022 13:15-0500 Diastolic Blood Pressure Non-Invasive 68 1 MARISELA SPITTLE DO [facility] 12-23-2022 13:15-0500 Heart rate 66 /min MARISELA SPITTLE DO [facility] 12-23-2022 13:15-0500 Respiratory rate 18 /min MARISELA SPITTLE DO [facility] 12-23-2022 13:15-0500 Systolic Blood Pressure Non-Invasive 108 1 MARISELA SPITTLE DO [facility] NEGATED: Highlighted [id number] 09:47-0400 Body height 175.26 cm Lia Lucio AT [facility] Work Phone: NEGATED: Highlighted [id number] 09:47-0400 Body height 175 cm Lia Lucio AT [facility] Work Phone: NEGATED: Highlighted [id number] 09:47-0400 Body mass index (BMI) [Ratio] 28.9 kg/m2 Lia Lucio AT [facility] Work Phone: NEGATED: Highlighted [id number] 09:47-0400 Body weight 88.45 kg Lia Lucio AT [facility] Work Phone: NEGATED: Highlighted [id number] 09:47-0400 Body weight 89 kg Lia Lucio AT [facility] Work Phone: NEGATED: Highlighted [id number] 09:12-0500 Body height 175.26 cm Lia Lucio AT [facility] Work Phone: NEGATED: Highlighted [id number] 09:12-0500 Body height 175 cm Lia Lucio AT [facility] Work Phone: NEGATED: Highlighted [id number] 09:12-0500 Body mass index (BMI) [Ratio] 28.9 kg/m2 Lia Lucio AT [facility] Work Phone: NEGATED: Highlighted [id number] 09:12-0500 Body weight 88.45 kg Lia Lucio AT [facility] Work Phone: NEGATED: Highlighted [id number] 09:12-0500 Body weight 89 kg Lia Lucio AT [facility] Work Phone: Encounters Encounter Date Encounter Type Care Provider Facility Start: 01-22-2023 End: 01-27-2023 ambulatory BLAIRE ESTEBAN DO Facility:B Start: 01-22-2023 End: 01-26-2023 Outreach Lab BLAIRE ESTEBAN DO [facility] Start: 01-01-2023 End: 01-01-2023 ambulatory MARISELA SPITTLE DO Facility:B Start: 01-01-2023 End: 01-01-2023 SAME DAY STAY MARISELA SPITTLE DO [facility] Start: 12-23-2022 End: 12-24-2022 ambulatory MARISELA SPITTLE DO Facility:B Start: 12-23-2022 End: 12-23-2022 Admission to establishment MARISELA SPITTLE DO [facility] Start: 05-09-2022 End: 05-10-2022 ambulatory BLAIRE ESTEBAN DO Facility:B Start: 05-09-2022 End: 05-09-2022 Patient encounter procedure BLAIRE ESTEBAN DO [facility] Start: 05-22-2017 Ambulatory PHY WO ID REFERRING Fac ility:[facility] Procedures Date Procedure Procedure Detail Performing Clinician Start: 01-01-2023 Arthroscopy of shoulder MARISELA JOHNSONELISE DO Start: 02-05-2022 End: 02-05-2022 Arthrocentesis aspir&/inj major jt/bursa w/o us Chris Gil PA-C Work Phone: Start: 02-05-2022 End: 02-05-2022 Betamethasone acet&sod phosp [facility] Work Phone: Start: 02-05-2022 End: 02-05-2022 BP scrn no perf at interval [facility] Work Phone: Start: 02-05-2022 End: 02-05-2022 Calc BMI abv up volodymyr f/u Chris MATSON-C Work Phone: Start: 02-05-2022 End: 02-05-2022 Current tobacco non-user cad cap copd pv dm [facility] Work Phone: Start: 02-05-2022 End: 02-05-2022 Docrev cur meds by elig clin [facility] Work Phone: Start: 02-05-2022 End: 02-05-2022 Pain doc pos and plan Chris [facility] Work Phone: Start: 02-05-2022 End: 02-05-2022 Patient encounter procedure Chris [facility] Work Phone: Start: 12-25-2021 End: 12-25-2021 BP scrn no perf at interval [facility] Work Phone: Start: 12-25-2021 End: 12-25-2021 Calc BMI abv up volodymyr f/u Chris colby PA-C Work Phone: Start: 12-25-2021 End: 12-25-2021 Current tobacco non-user cad cap copd pv dm [facility] Work Phone: Start: 12-25-2021 End: 12-25-2021 Docrev cur meds by elig clin [facility] Work Phone: Start: 12-25-2021 End: 12-25-2021 Pain neg no plan Chris Gil PA-C Work Phone: Start: 12-25-2021 End: 12-25-2021 Patient encounter procedure Chris zuniga PA-C Work Phone: Start: 04-17-2021 Arthroplasty of knee LILIANA ESTEBAN DO Plan of Treatment Date Care Activity Detail Author Start: 02-05-2022 End: 02-05-2022 Patient encounter procedure Appointment [facility] Work Phone: Start: 12-25-2021 End: 12-25-2021 Patient encounter procedure Appointment [facility] Work Phone: Start: 12-25-2021 End: 12-25-2021 Radex hip unilateral with pelvis 2-3 views XR PELVIS W HIP 2-3 VWS-LT [facility] Work Phone: Immunizations Immunization Date Immunization Notes Care Provider Gema carrera 08-30-2021 pneumococcal polysaccharide vaccine, 23 valent; Translations: [Pneumovax 23] BLAIRE ESTEBAN DO [facility] 12-12-2020 SARS-CoV-2 (COVID-19 ) [id number] vaccine BLAIRE ESTEBAN DO [facility] Payers Date Payer Category Payer Medicare [id number] 2022 Private Health Insurance [id number] 2012 Unknown [id number] 1950 Unknown [id number] 1950 Unknown [id number] 1950 Unknown [id number] 1950 Unknown [id number] Social History Date Type Detail Facility Start: 12-25-2021 End: 02-05-2022 Assertion Unknown if ever smoked [facility] Work Phone: Start: 07-25-2020 Tobacco smoking status Never smoked tobacco (finding) [facility] Sex Assigned At Female [facility] NEGATED: Highlighted rowStart: 12-25-2021 End: 02-05-2022 Employment detail Employment detail [facility] Work Phone: Functional Status Date Assessment Result Facility 01-01-2023 Functional Status Activity Statu s ADL Up to bathroom [facility] 01-01-2023 Functional Status ice on [facility] 01-01-2023 Functional Status Maintained [facility] Mental Status Date Assessment Result Facility 01-01-2023 Mental Status Oriented x 4 [facility] Clinical Notes 01-01-2023 LaboratoryLaboratory Note Date & Type Note Facility 01-01-2023 Hospital Discharge instructions Patient Education 01/01/2023 16:19:16 Nausea and Vomiting, Adult Nausea and Vomiting, Adult Nausea is the feeling that you have an upset stomach or that you are about to vomit. Vomiting is when stomach contents are thrown up and out of the mouth as a result of nausea. Vomiting can make you feel weak and cause you to become dehydrated. Dehydration can make you feel tired and thirsty, cause you to have a dry mouth, and decrease how often you urinate. Older adults and people with other diseases or a weak disease-fighting system (immune system) are at higher risk for dehydration. It is important to treat your nausea and vomiting as told by your health care provider. Follow these instructions at home: Watch your symptoms for any changes. Tell your health care provider about them. Follow these instructions to care for yourself at home. Eating and drinking Take an oral rehydration solution (ORS). This is a drink that is sold at pharmacies and retail stores. Drink clear fluids slowly and in small amounts as you are able. Clear fluids include water, ice chips, low-calorie sports drinks, and fruit juice that has water added (diluted fruit juice). Eat bland, dpfj-dl-yvigrp foods in small amounts as you are able. These foods include bananas, applesauce, rice, lean meats, toast, and crackers. Avoid fluids that contain a lot of sugar or caffeine, such as energy drinks, sports drinks, and soda. Avoid alcohol. Avoid spicy or fatty foods. General instructions Take evow-hbq-xepszsr and prescription medicines only as told by your health care provider. Drink enough fluid to keep your urine pale yellow. Wash your hands often using soap and water. If soap and water are not available, use hand power sweeper operator. Make sure that all people in your household wash their hands well and often. Rest at home while you recover. Watch your condition for any changes. Breathe slowly and deeply when you feel nauseated. Keep all follow-up visits as told by your health care provider. This is important. Contact a health care provider if: Your symptoms get worse. You have new symptoms. You have a fever. You cannot drink fluids without vomiting. Your nausea does not go away after 2 days. You feel light-headed or dizzy. You have a headache. You have muscle cramps. You have a rash. You have pain while urinating. Get help right away if: You have pain in your chest, neck, arm, or jaw. You feel extremely weak or you faint. You have persistent vomiting. You have vomit that is bright red or looks like black coffee grounds. You have bloody or black stools or stools that look like tar. You have a severe headache, a stiff neck, or both. You have severe pain, cramping, or bloating in your abdomen. You have difficulty breathing, or you are breathing very quickly. Your heart is beating very quickly. Your skin feels cold and clammy. You feel confused. You have signs of dehydration, such as: ?Dark urine, very little urine, or no urine. ?Cracked lips. ?Dry mouth. ?Sunken eyes. ?Sleepiness. ?Weakness. These symptoms may represent a serious problem that is an emergency. Do not wait to see if the symptoms will go away. Get medical help right away. Call your local emergency services (911 in the [place] Do not drive yourself to the hospital. Summary Nausea is the feeling that you have an upset stomach or that you are about to vomit. As nausea gets worse, it can lead to vomiting. Vomiting can make you feel weak and cause you to become dehydrated. Follow instructions from your health care provider about eating and drinking to prevent dehydration. Take klak-kqm-loydlyk and prescription medicines only as told by your health care provider. Contact your health care provider if your symptoms get worse, or you have new symptoms. Keep all follow-up visits as told by your health care provider. This is important. This information is not intended to replace advice given to you by your health care provider. Make sure you discuss any questions you have with your health care provider. Document Released: 10/27/2006 Document Revised: 02/18/2020 Document Reviewed: 04/06/2019 [employer] Patient Education 2020 [employer]. 01/01/2023 16:19:03 General Anesthesia, Adult, Care After General Anesthesia, Adult, Care After This sheet gives you information about how to care for yourself after your procedure. Your health care provider may also give you more specific instructions. If you have problems or questions, contact your health care provider. What can I expect after the procedure? After the procedure, the following side effects are common: Pain or discomfort at the IV site. Nausea. Vomiting. Sore throat. Trouble concentrating. Feeling cold or chills. Weak or tired. Sleepiness and fatigue. Soreness and body aches. These side effects can affect parts of the body that were not involved in surgery. Follow these instructions at home: For at least 24 hours after the procedure: Have a responsible adult stay with you. It is important to have someone help care for you until you are awake and alert. Rest as needed. Do not: ?Participate in activities in which you could fall or become injured. ?Drive. ?Use heavy machinery. ?Drink alcohol. ?Take sleeping pills or medicines that cause drowsiness. ?Make important decisions or sign legal documents. ?Take care of children on your own. Eating and drinking Follow any instructions from your health care provider about eating or drinking restrictions. When you feel hungry, start by eating small amounts of foods that are soft and easy to digest (bland), such as toast. Gradually return to your regular diet. Drink enough fluid to keep your urine pale yellow. If you vomit, rehydrate by drinking water, juice, or clear broth. General instructions If you have sleep apnea, surgery and certain medicines can increase your risk for breathing problems. Follow instructions from your health care provider about wearing your sleep device: ?Anytime you are sleeping, including during daytime naps. ?While taking prescription pain medicines, sleeping medicines, or medicines that make you drowsy. Return to your normal activities as told by your health care provider. Ask your health care provider what activities are safe for you. Take xpgb-tqz-djawzer and prescription medicines only as told by your health care provider. If you smoke, do not smoke without supervision. Keep all follow-up visits as told by your health care provider. This is important. Contact a health care provider if: You have nausea or vomiting that does not get better with medicine. You cannot eat or drink without vomiting. You have pain that does not get better with medicine. You are unable to pass urine. You develop a skin rash. You have a fever. You have redness around your IV site that gets worse. Get help right away if: You have difficulty breathing. You have chest pain. You have blood in your urine or stool, or you vomit blood. Summary After the procedure, it is common to have a sore throat or nausea. It is also common to feel tired. Have a responsible adult stay with you for the first 24 hours after general anesthesia. It is important to have someone help care for you until you are awake and alert. When you feel hungry, start by eating small amounts of foods that are soft and easy to digest (bland), such as toast. Gradually return to your regular diet. Drink enough fluid to keep your urine pale yellow. Return to your normal activities as told by your health care provider. Ask your health care provider what activities are safe for you. This information is not intended to replace advice given to you by your health care provider. Make sure you discuss any questions you have with your health care provider. Document Released: 02/02/2002 Document Revised: 10/30/2018 Document Reviewed: 06/12/2018 [employer] Patient Education 2020 [employer]. 01/01/2023 16:18:39 Shoulder Arthroscopy, Care After Shoulder Arthroscopy, Care After This sheet gives you information about how to care for yourself after your procedure. Your health care provider may also give you more specific instructions. If you have problems or questions, contact your health care provider. What can I expect after the procedure? After the procedure, it is common to have: Pain that can be relieved by taking pain medicine. Swelling. A small amount of fluid from the incision. Stiffness that improves over time. Follow these instructions at home: If you have a sling or immobilizer: Wear the sling or immobilizer as told by your health care provider. Remove it only as told by your health care provider. These devices protect your shoulder and help it heal by keeping it in place. Loosen the sling or immobilizer if your fingers tingle, become numb, or turn cold and blue. Keep the sling or immobilizer clean. Ask if you may remove the sling or immobilizer for bathing. If you need to keep it on while bathing and it is not waterproof: ?Do not let it get wet. ?Cover it with a watertight covering when you take a bath or a shower. Incision care Follow instructions from your health care provider about how to take care of your incisions. Make sure you: ?Wash your hands with soap and water before you change your bandage (dressing). If soap and water are not available, use hand power sweeper operator. ?Change your dressing as told by your health care provider. ?Leave stitches (sutures), mikal, skin glue, or adhesive strips in place. These skin closures may need to stay in place for 2 weeks or longer. If adhesive strip edges start to loosen and curl up, you may trim the loose edges. Do not remove adhesive strips completely unless your health care provider tells you to do that. Check your incision areas every day for signs of infection. Check for: ?Redness ?More swelling or pain. ?Blood or more fluid. ?Warmth. ?Pus or a bad smell. Bathing Do not take baths, swim, or use a hot tub until your health care provider approves. Ask your health care provider if you may take showers. You may only be allowed to take sponge baths. Activity Ask your health care provider what activities are safe for you during recovery, and ask what activities you need to avoid. Do not lift with your affected shoulder until your health care provider approves. Avoid pulling and pushing with the arm on your affected side. If physical therapy was prescribed, do exercises as directed. Doing exercises may help to improve shoulder movement and flexibility (range of motion). Driving Do not drive until your health care provider approves. Do not drive or use heavy machinery while taking prescription pain medicine. Managing pain, stiffness, and swelling If lying down flat causes shoulder discomfort, it may help to sleep in a sitting position for a few days after your procedure. Try sleeping in a reclining chair or propping yourself up with extra pillows in bed. If directed, put ice on the affected area: ?Put ice in a plastic bag or use the icing device (cold therapy unit) that you were given. Follow instructions from your health care provider about how to use the icing device. ?Place a towel between your skin and the bag or between your skin and the icing device. ?Leave the ice on for 20 minutes, 2 3 times a day. Move your fingers often to avoid stiffness and to lessen swelling. General instructions Take igly-uxh-fkkxrxu and prescription medicines only as told by your health care provider. If you are taking prescription pain medicine, take actions to prevent or treat constipation. Your health care provider may recommend that you: ?Drink enough fluid to keep your urine pale yellow. ?Eat foods that are high in fiber, such as fresh fruits and vegetables, whole grains, and beans. ?Limit foods that are high in fat and processed sugars, such as fried or sweet foods. ?Take an nppv-cxz-ltpbciw or prescription medicine for constipation. Do not use any products that contain nicotine or tobacco, such as cigarettes and e-cigarettes. These can delay incision or bone healing. If you need help quitting, ask your health care provider. Keep all follow-up visits as told by your health care provider. This is important. Contact a health care provider if you: Have a fever. Have severe pain. Have redness around an incision. Have more swelling or pain in an incision area. Have blood or more fluid coming from an incision. Notice that an incision feels warm to the touch. Notice pus or a bad smell coming from an incision. Notice that an incision has opened up. Develop a rash. Get help right away if you: Have difficulty breathing. Have chest pain. Notice that your fingers tingle, are numb, or are cold and blue even after you loosen your sling or immobilizer. Develop pain in your lower leg or at the back of your knee. Summary If you have a sling or immobilizer, wear it as told by your health care provider. These devices protect your shoulder and help it heal by keeping it in place. If lying down flat causes shoulder discomfort, it may help to sleep in a sitting position for a few days after your procedure. Try sleeping in a reclining chair, or try propping yourself up with extra pillows in bed. If physical therapy was prescribed, do exercises as directed. Doing exercises may help to improve shoulder movement and flexibility (range of motion). Keep all follow-up visits as told by your health care provider. This is important. This information is not intended to replace advice given to you by your health care provider. Make sure you discuss any questions you have with your health care provider. Document Released: 05/24/2015 Document Revised: 10/09/2018 Document Reviewed: 09/11/2018 [employer] Patient Education 2020 [employer] Follow Up Care 12/18/2022 08:00:59 With:MARISELA CANTOR Address: [address] [place] [address], [address] [place] [phone] Business (1) When:01/17/2023 09:15:00 [facility] 01-01-2023 Summary of episode note Discharge Instructions Thank you for allowing [facility] to assist you with your healthcare needs. The following is important discharge information regarding your hospital visit. Your Care Team BLAIRE ESTEBAN DO, DR. Your Diagnosis Other acute postprocedural pain What to do next Scheduled Follow-Up Appointments Appointment Type When With Where Contact InformationPC OV Follow Up 01/22/2023 11:00 AM EDT BLAIRE ESTEBAN DO [facility] [address] [place] [address] Follow Up Appointments Follow Up with MARISELA CANTOR When 01/17/2023 09:15 AM EST Where: [address] [place] [address] [address] [place] [phone] Business (1) The Following Activity and Diet Have Been Ordered for You Discharge Activity - Ordered -- Follow the post-operative/post-procedure activity instructions provided by your physician's office., 01/01/23 15:48:00 EST Discharge Diet - Ordered -- Follow the post-operative/post-procedure diet instructions provided by your physician's office., 01/01/23 15:48:00 EST The Following Equipment Has Been Ordered for You Discharge Home Equipment Discharge Wound Care - Ordered -- Follow the post-operative/post-procedure wound care instructions provided by your physician's office., 01/01/23 15:48:00 EST Allergies Bactrim (Hives) Keflex (Unknown) Naprosyn (Dizziness) amoxicillin codeine (Nausea) penicillin (Welts) sulfamethoxazole (Welts) Medications Please ask your primary doctor or pharmacist before taking any other medication not listed, including over the counter drugs, herbal medications, vitamins and or supplements as they may interact with your home medications. What How Much When Why Instructions Last Dose New ondansetron (ondansetron 4 mg oral tablet, disintegrating) 1 tab(s) by mouth Every 8 hours as needed for as needed for nausea/vomiting Duration: 5 Days Pickup at [facility]/pharmacy #[id number] New oxyCODONE (oxyCODONE 5 mg oral tablet ( IMMEDIATE release )) See instructions Other acute postprocedural pain 1-2 tablets by mouth every 6 hours as needed for pain Pickup at [facility]/pharmacy #[id number] Unchanged albuterol (albuterol MDI (90 mcg/ inh) CFC free inhalation aerosol) 2 puff(s) by inhalation Every 6 hours as needed for as needed for wheezing COVID-19 long hasuzy manifesting chronic cough Seasonal allergy Unchanged albuterol (albuterol MDI (90 mcg/ inh) CFC free inhalation aerosol) 2 puff(s) by inhalation Every 4 hours as needed for as needed for wheezing Telehealth encounter for confirmed COVID-19 Unchanged aspirin (aspirin 81 mg oral delayed release tablet) 1 tab(s) by mouth Every day Unchanged atorvastatin (atorvastatin 10 mg oral tablet) 1 tab(s) by mouth Once a day Unchanged cholecalciferol (Vitamin D3 5000 intl units oral tablet) 1 tab(s) by mouth Once a day Unchanged cyproheptadine (cyproheptadine 4 mg oral tablet) 1 tab(s) by mouth Once a day Unchanged dextromethorphan-guaifenesin (Mucinex DM) by mouth Every 12 hours Unchanged docusate (Colace 100 mg oral capsule) 1 cap by mouth Two (2) times a day Unchanged fluticasone nasal (Flonase 50 mcg/ inh nasal spray) 1 spray(s) each nostril Two (2) times a day Unchanged hydroCHLOROthiazide (hydroCHLOROthiazide 25 mg oral tablet) 1 tab(s) by mouth Once a day Hypertension Unchanged lisinopril (lisinopril 20 mg oral tablet) 1 tab(s) by mouth Once a day Hypertension Unchanged multivitamin (Multivitamin) 1 tab(s) by mouth Every day Unchanged omega-3 polyunsaturated fatty acids ([place]-3 1000 mg oral capsule) 1 cap by mouth Once a day Unchanged omeprazole (omeprazole 20 mg oral delayed release capsule) 1 cap by mouth Once a day Unchanged promethazine See instructions 25 mg Oral as needed Unchanged propranolol 80 Milligram by mouth Once a day Unchanged sertraline (sertraline 50 mg oral tablet) 1 tab(s) by mouth Once a day Unchanged trospium (trospium 20 mg oral tablet) 1 tab(s) by mouth Two (2) times a day Pharmacy Information [facility]/pharmacy #[id number]: [address] [place], [place] [phone] Please take this list to your next doctor s visit. Bring all medications you take, including over the counter medications, herbals and other supplements with you to your doctor s visit. Patients and families are reminded to discard old lists and to update any records with all medication providers or retail pharmacies. Education Materials Nausea and Vomiting, Adult Nausea is the feeling that you have an upset stomach or that you are about to vomit. Vomiting is when stomach contents are thrown up and out of the mouth as a result of nausea. Vomiting can make you feel weak and cause you to become dehydrated. Dehydration can make you feel tired and thirsty, cause you to have a dry mouth, and decrease how often you urinate. Older adults and people with other diseases or a weak disease-fighting system (immune system) are at higher risk for dehydration. It is important to treat your nausea and vomiting as told by your health care provider. Follow these instructions at home: Watch your symptoms for any changes. Tell your health care provider about them. Follow these instructions to care for yourself at home. Eating and drinking Take an oral rehydration solution (ORS). This is a drink that is sold at pharmacies and retail stores. Drink clear fluids slowly and in small amounts as you are able. Clear fluids include water, ice chips, low-calorie sports drinks, and fruit juice that has water added (diluted fruit juice). Eat bland, wtox-bz-lhypzb foods in small amounts as you are able. These foods include bananas, applesauce, rice, lean meats, toast, and crackers. Avoid fluids that contain a lot of sugar or caffeine, such as energy drinks, sports drinks, and soda. Avoid alcohol. Avoid spicy or fatty foods. General instructions Take pglx-eae-zsizchk and prescription medicines only as told by your health care provider. Drink enough fluid to keep your urine pale yellow. Wash your hands often using soap and water. If soap and water are not available, use hand power sweeper operator. Make sure that all people in your household wash their hands well and often. Rest at home while you recover. Watch your condition for any changes. Breathe slowly and deeply when you feel nauseated. Keep all follow-up visits as told by your health care provider. This is important. Contact a health care provider if: Your symptoms get worse. You have new symptoms. You have a fever. You cannot drink fluids without vomiting. Your nausea does not go away after 2 days. You feel light-headed or dizzy. You have a headache. You have muscle cramps. You have a rash. You have pain while urinating. Get help right away if: You have pain in your chest, neck, arm, or jaw. You feel extremely weak or you faint. You have persistent vomiting. You have vomit that is bright red or looks like black coffee grounds. You have bloody or black stools or stools that look like tar. You have a severe headache, a stiff neck, or both. You have severe pain, cramping, or bloating in your abdomen. You have difficulty breathing, or you are breathing very quickly. Your heart is beating very quickly. Your skin feels cold and clammy. You feel confused. You have signs of dehydration, such as: ? Dark urine, very little urine, or no urine. ? Cracked lips. ? Dry mouth. ? Sunken eyes. ? Sleepiness. ? Weakness. These symptoms may represent a serious problem that is an emergency. Do not wait to see if the symptoms will go away. Get medical help right away. Call your local emergency services (911 in the [place] Do not drive yourself to the hospital. Summary Nausea is the feeling that you have an upset stomach or that you are about to vomit. As nausea gets worse, it can lead to vomiting. Vomiting can make you feel weak and cause you to become dehydrated. Follow instructions from your health care provider about eating and drinking to prevent dehydration. Take vbqf-jhe-syylwcc and prescription medicines only as told by your health care provider. Contact your health care provider if your symptoms get worse, or you have new symptoms. Keep all follow-up visits as told by your health care provider. This is important. This information is not intended to replace advice given to you by your health care provider. Make sure you discuss any questions you have with your health care provider. Document Released: 10/27/2006 Document Revised: 02/18/2020 Document Reviewed: 04/06/2019 [employer] Patient Education 2020 [employer] General Anesthesia, Adult, Care After This sheet gives you information about how to care for yourself after your procedure. Your health care provider may also give you more specific instructions. If you have problems or questions, contact your health care provider. What can I expect after the procedure? After the procedure, the following side effects are common: Pain or discomfort at the IV site. Nausea. Vomiting. Sore throat. Trouble concentrating. Feeling cold or chills. Weak or tired. Sleepiness and fatigue. Soreness and body aches. These side effects can affect parts of the body that were not involved in surgery. Follow these instructions at home: For at least 24 hours after the procedure: Have a responsible adult stay with you. It is important to have someone help care for you until you are awake and alert. Rest as needed. Do not: ? Participate in activities in which you could fall or become injured. ? Drive. ? Use heavy machinery. ? Drink alcohol. ? Take sleeping pills or medicines that cause drowsiness. ? Make important decisions or sign legal documents. ? Take care of children on your own. Eating and drinking Follow any instructions from your health care provider about eating or drinking restrictions. When you feel hungry, start by eating small amounts of foods that are soft and easy to digest (bland), such as toast. Gradually return to your regular diet. Drink enough fluid to keep your urine pale yellow. If you vomit, rehydrate by drinking water, juice, or clear broth. General instructions If you have sleep apnea, surgery and certain medicines can increase your risk for breathing problems. Follow instructions from your health care provider about wearing your sleep device: ? Anytime you are sleeping, including during daytime naps. ? While taking prescription pain medicines, sleeping medicines, or medicines that make you drowsy. Return to your normal activities as told by your health care provider. Ask your health care provider what activities are safe for you. Take iani-zrh-bfyptln and prescription medicines only as told by your health care provider. If you smoke, do not smoke without supervision. Keep all follow-up visits as told by your health care provider. This is important. Contact a health care provider if: You have nausea or vomiting that does not get better with medicine. You cannot eat or drink without vomiting. You have pain that does not get better with medicine. You are unable to pass urine. You develop a skin rash. You have a fever. You have redness around your IV site that gets worse. Get help right away if: You have difficulty breathing. You have chest pain. You have blood in your urine or stool, or you vomit blood. Summary After the procedure, it is common to have a sore throat or nausea. It is also common to feel tired. Have a responsible adult stay with you for the first 24 hours after general anesthesia. It is important to have someone help care for you until you are awake and alert. When you feel hungry, start by eating small amounts of foods that are soft and easy to digest (bland), such as toast. Gradually return to your regular diet. Drink enough fluid to keep your urine pale yellow. Return to your normal activities as told by your health care provider. Ask your health care provider what activities are safe for you. This information is not intended to replace advice given to you by your health care provider. Make sure you discuss any questions you have with your health care provider. Document Released: 02/02/2002 Document Revised: 10/30/2018 Document Reviewed: 06/12/2018 [employer] Patient Education 2020 [employer]. Shoulder Arthroscopy, Care After This sheet gives you information about how to care for yourself after your procedure. Your health care provider may also give you more specific instructions. If you have problems or questions, contact your health care provider. What can I expect after the procedure? After the procedure, it is common to have: Pain that can be relieved by taking pain medicine. Swelling. A small amount of fluid from the incision. Stiffness that improves over time. Follow these instructions at home: If you have a sling or immobilizer: Wear the sling or immobilizer as told by your health care provider. Remove it only as told by your health care provider. These devices protect your shoulder and help it heal by keeping it in place. Loosen the sling or immobilizer if your fingers tingle, become numb, or turn cold and blue. Keep the sling or immobilizer clean. Ask if you may remove the sling or immobilizer for bathing. If you need to keep it on while bathing and it is not waterproof: ? Do not let it get wet. ? Cover it with a watertight covering when you take a bath or a shower. Incision care Follow instructions from your health care provider about how to take care of your incisions. Make sure you: ? Wash your hands with soap and water before you change your bandage (dressing). If soap and water are not available, use hand power sweeper operator. ? Change your dressing as told by your health care provider. ? Leave stitches (sutures), mikal, skin glue, or adhesive strips in place. These skin closures may need to stay in place for 2 weeks or longer. If adhesive strip edges start to loosen and curl up, you may trim the loose edges. Do not remove adhesive strips completely unless your health care provider tells you to do that. Check your incision areas every day for signs of infection. Check for: ? Redness ? More swelling or pain. ? Blood or more fluid. ? Warmth. ? Pus or a bad smell. Bathing Do not take baths, swim, or use a hot tub until your health care provider approves. Ask your health care provider if you may take showers. You may only be allowed to take sponge baths. Activity Ask your health care provider what activities are safe for you during recovery, and ask what activities you need to avoid. Do not lift with your affected shoulder until your health care provider approves. Avoid pulling and pushing with the arm on your affected side. If physical therapy was prescribed, do exercises as directed. Doing exercises may help to improve shoulder movement and flexibility (range of motion). Driving Do not drive until your health care provider approves. Do not drive or use heavy machinery while taking prescription pain medicine. Managing pain, stiffness, and swelling If lying down flat causes shoulder discomfort, it may help to sleep in a sitting position for a few days after your procedure. Try sleeping in a reclining chair or propping yourself up with extra pillows in bed. If directed, put ice on the affected area: ? Put ice in a plastic bag or use the icing device (cold therapy unit) that you were given. Follow instructions from your health care provider about how to use the icing device. ? Place a towel between your skin and the bag or between your skin and the icing device. ? Leave the ice on for 20 minutes, 2 3 times a day. Move your fingers often to avoid stiffness and to lessen swelling. General instructions Take tlpb-uev-zurahoi and prescription medicines only as told by your health care provider. If you are taking prescription pain medicine, take actions to prevent or treat constipation. Your health care provider may recommend that you: ? Drink enough fluid to keep your urine pale yellow. ? Eat foods that are high in fiber, such as fresh fruits and vegetables, whole grains, and beans. ? Limit foods that are high in fat and processed sugars, such as fried or sweet foods. ? Take an ggej-dmk-dmuifar or prescription medicine for constipation. Do not use any products that contain nicotine or tobacco, such as cigarettes and e-cigarettes. These can delay incision or bone healing. If you need help quitting, ask your health care provider. Keep all follow-up visits as told by your health care provider. This is important. Contact a health care provider if you: Have a fever. Have severe pain. Have redness around an incision. Have more swelling or pain in an incision area. Have blood or more fluid coming from an incision. Notice that an incision feels warm to the touch. Notice pus or a bad smell coming from an incision. Notice that an incision has opened up. Develop a rash. Get help right away if you: Have difficulty breathing. Have chest pain. Notice that your fingers tingle, are numb, or are cold and blue even after you loosen your sling or immobilizer. Develop pain in your lower leg or at the back of your knee. Summary If you have a sling or immobilizer, wear it as told by your health care provider. These devices protect your shoulder and help it heal by keeping it in place. If lying down flat causes shoulder discomfort, it may help to sleep in a sitting position for a few days after your procedure. Try sleeping in a reclining chair, or try propping yourself up with extra pillows in bed. If physical therapy was prescribed, do exercises as directed. Doing exercises may help to improve shoulder movement and flexibility (range of motion). Keep all follow-up visits as told by your health care provider. This is important. This information is not intended to replace advice given to you by your health care provider. Make sure you discuss any questions you have with your health care provider. Document Released: 05/24/2015 Document Revised: 10/09/2018 Document Reviewed: 09/11/2018 [employer] Patient Education 2020 [employer] Additional Information VACCINATE! IT SAVES LIVES! Members of the community who have not yet received the COVID-19 vaccine and would like to receive it can visit one of [facility] vaccine clinics. There are many vaccine clinic locations within the [facility]. For locations and available times, please visit https://gettheshot.coronavirus.[place].gov/. It is important to note that some COVID mobile vaccine clinics are held outdoors and may be canceled in rainy or stormy conditions. To learn more about pediatric vaccinations (ages 5-11), we invite you to visit the [facility] webpage. https://www.[facility].org/pa ges/2581-Vetmj-Xoebkmvafsd-Freque erhd-Exusg-Rfhevolfj.html To learn more about the COVID-19 vaccine, we invite you to visit the CDC website for a list of frequently asked questions. https://www.cdc.gov/coronavirus/2 019-ncov/vaccines/faq.html [email or web address] Patient Portal Access Instructions: Stay connected with your healthcare team and access your personal medical information anytime with the [facility] Patient Portal.If you would like a full copy of your medical records, please contact the [facility] Medical Records Department, Friday through Friday between 8a.m. and 4:30p.m. Please follow the directions below to access the portal: 1.Access the email account you provided upon registration to the [facility].2.Look for an invitation email from [facility].3.Open the email and access the invitation link: Accept Invitation to [facility].Fill in the required reyes to create your account. Sign into [email or web address] with your username and password that you created in the above steps to stay up to date. You can then view a summary of results, a summary of your visits, and the ability to download your summaries to your computer or send the information securely to a physician. Remember that your healthcare information is confidential, so carefully consider who you will allow to register on the [facility] Patient Portal for access to your information. You can also access the [employer] Patient Portal on the [employer] deandre. Simply click on Health Records under Health Data and then click on the [employer] logo. HOW TO SAFELY DISPOSE OF PRESCRIPTION MEDICATIONS Please use one of the following methods to safely dispose of your unused medications. 1.Use a drug disposal kit: the drug disposal pouch allows you to safely discard your old and unused drugs. Ask your nurse to give you one when you are discharged.2.Visit a local take-back location: Many local pharmacies and police departments have programs that collect old and unwanted prescription drugs. Call your local pharmacy or go to http://Radico.The Chapar/3D0Et8m to find one close to you.3.Make use of household items: Use cat litter or old coffee grounds to dispose medications if other options are not available. Mix your drugs with these household products, seal them in an airtight container and throw it into the garbage. Call [facility]: [phone] to be sure your drugs can be disposed of in this way. Some medicines may require a different approach.4.Never flush your medications down the toilet. IF YOU HAVE BEEN PRESCRIBED AN OPIOID FOR PAIN If you have been prescribed an opioid (such as hydrocodone, oxycodone or morphine), it is critical to understand the possible side effects and risks of opioid pain medications. Even when taken as directed, opioids can have several side effects including: Tolerance, meaning you might need to take more of a medication for the same pain relief. Nausea, vomiting and/or constipation. Sleepiness, dizziness, dry mouth, confusion, depression or itching. Physical dependence, meaning you have withdrawal symptoms when a medication is stopped, can develop within a few days. KNOW YOUR RESPONSIBILITIES It is important to know exactly how much and how often to take the opioid pain medications you are prescribed. Never take opioids in higher amounts or more often than prescribed. Do not combine opioids with alcohol or other drugs that cause drowsiness, such as benzodiazepines, also known as benzos, including diazepam and alprazolam, muscle relaxants or sleep aids. Never sell or share prescription opioids. This is illegal. Store opioids in a secure place and out of reach of others (including children, family, friends and visitors). The last page of this document has been signed and retained as a CHART COPY. Signatures Patient Education Materials Nausea and Vomiting, Adult General Anesthesia, Adult, Care After Shoulder Arthroscopy, Care After Medication Leaflets My discharge plan and instructions have been reviewed and explained to me and IGABBIE ROBERTA B understand my current condition and have read and understand these discharge instructions. I have received a written copy of the plan/instructions. If I have questions, I am aware that I should contact my doctor. 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 Family's history: negative. Review of Systems Ear/Nose/Mouth/Throat: Negative. Respiratory: Negative. Cardiovascular: htn. Gastrointestinal: obese. Genitourinary: Negative. Endocrine: Negative. Musculoskeletal: OP. Integumentary: Negative. Neurologic: anxiety. Health Status Allergies: Allergic Reactions (Selected) Severity Not Documented Amoxicillin- No reactions were documented. Bactrim- Hives. Keflex- Unknown. Naprosyn- Dizziness. Penicillin- Welts. Sulfamethoxazole- Welts. Nonallergic Reactions (Selected) Severity Not Documented Codeine- Nausea., Allergies (7) ActiveReaction amoxicillinNone Documented BactrimHives codeineNausea KeflexUnknown NaprosynDizziness penicillinWelts sulfamethoxazoleWelts Current medications: (Selected) Inpatient Medications Ordered Bicitra: 30 mL, Oral, PREOP pharm Kefzol: 2 gram(s), 200 mL/hr, IV Piggyback, PREOP pharm LR 1000 mL: 125 mL/hr, Intravenous, Stop: 01/02/23 17:59:00 EST LR 1000 mL: 20 mL/hr, Intravenous Zofran ( PACU ): 4 mg, 2 mL, IV Push, AsDirected, PRN: Nausea/Vomiting morphine ( PACU ): 2 mg, 1 mL, IV Push, q5min, PRN: Pain, scale 4-6 Prescriptions Prescribed albuterol MDI (90 mcg/inh) CFC free inhalation aerosol: 2 puff(s), Inhalation, q4h, PRN: as needed for wheezing, 18 gram(s), 0 Refill(s) albuterol MDI (90 mcg/inh) CFC free inhalation aerosol: 2 puff(s), Inhalation, q6hr, PRN: as needed for wheezing, 1 EA, 1 Refill(s) hydroCHLOROthiazide 25 mg oral tablet: 25 mg, 1 tab(s), Oral, qDay, 90 tab(s), 1 Refill(s) lisinopril 20 mg oral tablet: 20 mg, 1 tab(s), Oral, qDay, 90 tab(s), 1 Refill(s) Documented Medications Documented Colace 100 mg oral capsule: 100 mg, 1 cap(s), Oral, BID, 20 cap(s), 0 Refill(s) Flonase 50 mcg/inh nasal spray: 1 spray(s), Nostril, each, BID, 0 Refill(s) Mucinex DM: Oral, q12h, 0 Refill(s) Multivitamin: 1 tab(s), Oral, Daily, 0 Refill(s) [place]-3 1000 mg oral capsule: 1,000 mg, 1 cap(s), Oral, qDay, 0 Refill(s) Vitamin D3 5000 intl units oral tablet: 5,000 International_Unit, 1 tab(s), Oral, qDay, 100 tab(s), 0 Refill(s) aspirin 81 mg oral delayed release tablet: 81 mg, 1 tab(s), Oral, Daily, 0 Refill(s) atorvastatin 10 mg oral tablet: 10 mg, 1 tab(s), Oral, qDay, 30 tab(s), 0 Refill(s) cyproheptadine 4 mg oral tablet: 4 mg, 1 tab(s), Oral, qDay, 0 Refill(s) omeprazole 20 mg oral delayed release capsule: 20 mg, 1 cap(s), Oral, qDay, 30 cap(s), 0 Refill(s) promethazine: See Instructions, 25 mg Oral as needed, 0 Refill(s) propranolol: 80 mg, Oral, qDay, 0 Refill(s) sertraline 50 mg oral tablet: 50 mg, 1 tab(s), Oral, qDay, 30 tab(s), 0 Refill(s) trospium 20 mg oral tablet: 20 mg, 1 tab(s), Oral, BID, 180 tab(s), 0 Refill(s), Medications (6) Active Scheduled: (2) ceFAZolin 2 gram(s), IV Piggyback, PREOP pharm citric acid-sodium citrate 334 mg-500 mg/5 mL (30 mL) Jamilah UD 30 mL, Oral, PREOP pharm Continuous: (2) Lactated Ringers 1000 mL 1,000 mL, Intravenous, 125 mL/hr Lactated Ringers Infusion 1000 mL 1,000 mL, Intravenous, 20 mL/hr PRN: (2) morphine 2 mg/mL 1 mL syringe 2 mg 1 mL, IV Push, q5min ondansetron 2 mg/ 1 mL 2 mL INJ 4 mg 2 mL, IV Push, AsDirected Problem list: Medical Left-sided abdominal pain of unknown etiology / SNOMED CT 483359735 / Confirmed Allergy-induced asthma / SNOMED CT 3566916496 / Confirmed Anxiety / SNOMED CT 17196513 / Confirmed 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 / SNOMED CT 1176623105 / Confirmed GI symptoms / SNOMED CT 6829586864 / Confirmed Glasses / SNOMED CT 1709508886 / Confirmed H/O osteopenia / SNOMED CT 092219213 / Confirmed Tear of left hamstring / SNOMED CT 799011613 / Confirmed Headache / SNOMED CT 65841306 / Confirmed Pain in left hip / SNOMED CT 96474178 / Confirmed Hypercholesterolemia / SNOMED CT 07086034 / Confirmed Hypertension / SNOMED CT 6464255468 / Confirmed Right knee pain / SNOMED CT 94934928 / Confirmed Need for influenza vaccination / SNOMED CT 445155052 / Confirmed Never used tobacco / SNOMED CT 0881564156 / Confirmed Osteoarthritis / SNOMED CT 0495223301 / Confirmed Osteopenia / SNOMED CT 596403661 / Confirmed BMI 29.0-29.9,adult / SNOMED CT 4068249315 / Confirmed Pain of finger of right hand / SNOMED CT 72875659 / Confirmed Preop examination / SNOMED CT 150500960 / Confirmed Medicare annual wellness visit, initial / SNOMED CT 311601834 / Confirmed Screening for ischemic heart disease / SNOMED CT 282522888 / Confirmed Screening for diabetes mellitus / SNOMED CT 032500792 / Confirmed Screening for breast cancer / SNOMED CT 784127648 / Confirmed Screening for osteoporosis / SNOMED CT 084989350 / Confirmed Screening for colon cancer / SNOMED CT 383932650 / Confirmed Medicare annual wellness visit, subsequent / SNOMED CT 823927630 / Confirmed PPD positive / SNOMED CT 00879101 / Confirmed Post traumatic stress disorder (PTSD) / SNOMED CT 06540087 / Confirmed 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 / Confirmed Need for Streptococcus pneumoniae vaccination / SNOMED CT 8543513003 / Confirmed Seasonal allergy / SNOMED CT 9384882620 / Confirmed TMJ (temporomandibular joint disorder) / SNOMED CT 79468456 / Confirmed Urinary calculus / SNOMED CT 0171264377 / Confirmed Need for hepatitis C screening test / SNOMED CT 606352378 / Confirmed Viral wart on finger / SNOMED CT 7346360141 / Confirmed, Active Problems (36) Allergy-induced asthma Anxiety BMI 29.0-29.9,adult 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 GI symptoms Glasses H/O osteopenia Headache Hypercholesterolemia Hypertension Left-sided abdominal pain of unknown etiology Medicare annual wellness visit, initial Medicare annual wellness visit, subsequent Need for hepatitis C screening test Need for influenza vaccination Need for Streptococcus pneumoniae vaccination Never used tobacco Osteoarthritis Osteopenia Pain in left hip Pain of finger of right hand Post traumatic stress disorder (PTSD) PPD positive Preop examination Pudendal neuralgia Right knee pain Screening for breast cancer Screening for colon cancer Screening for diabetes mellitus Screening for ischemic heart disease Screening for osteoporosis Seasonal allergy Tear of left hamstring TMJ (temporomandibular joint disorder) Urinary calculus Viral wart on finger Histories Past Medical History: Active 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 Comments: 03/02/2018 EDT 12:23 EDT FLOR Gregory was treated 03/02/2018 EDT 12:32 NAKITAT FLOR Gregory 04/13/2012 CXR KATHERYN CANDACE: NO EVIDENCE OF ACTIVE PULMONARY TUBERCULOSIS, MILD CHRONIC CHANGES ARE STABLE, NO ACUTE PROCESS Hypercholesterolemia (23782851) Seasonal allergy (0563381937) Headache (11530226) Comments: 09/12/2016 EDT 10:39 EDT - FLOR Weber Yolis SINUS Glasses (3874287636) Post traumatic stress disorder (PTSD) (92406498) Comments: 03/02/2018 EDT 12:32 FLOR Francisco IS IN THERAPY, NO MEDS TMJ (temporomandibular joint disorder) (93226623) Osteoarthritis (3232132666) Urinary calculus (9621804055) Allergy-induced asthma (1894745764) Comments: 03/02/2018 EDT 12:18 FLOR Francisco no inhaler H/O osteopenia (164416688) Anxiety (67786725) Tear of left hamstring (207467453) Resolved Sinusitis (23199176): Resolved. Comments: 09/12/2016 EDT 10:37 FLOR Barnes ALLERGY INDUCED Constipation (47531615): Resolved. Urinary incontinence (9508069567): Resolved. Increased urinary frequency (058077562): Resolved. Comments: 03/02/2018 EDT 12:16 FLOR Francisco had a sling Cataract (179041319): Resolved. Family History: Kidney stone Brother Heart disease Father Arthritis Mother Brother Stroke Father HTN - Hypertension Father Procedure history: Arthroscopy of shoulder (615451155) on 01/01/2023 at 72 Years. Arthroplasty of knee (46895569) on 04/17/2021 at 70 Years. Comments: 04/17/2021 8:09 Heaven Monge RN Right, with bursectomy Cystoscopy (46159275) in the month of 02/2018 at 67 Years. Comments: 07/25/2020 15:34 Nikki Smith LPN w/ removal of left ureteral stent, bilateral retrograde ureteral pyelograms Bunionectomy (14335546) in the month of 10/2017 at 67 Years. Comments: 07/25/2022 11:21 Nikki Smith LPN and left 03/02/2018 12:20 FLOR Francisco right Hysterectomy (475837374) on 09/24/2016 at 66 Years. Osteoplasty of carpal or metacarpal (022836897) on 10/13/2010 at 60 Years. Comments: 02/26/2018 15:00 FLOR Francisco LEFT THUMB Phacoemulsification with intraocular lens implantation (9848567487). Comments: 03/02/2018 12:21 FLOR Francisco both eyes section (67451660). Comments: 09/12/2016 10:42 FLOR Barnes TWO ORIF - Open reduction and internal fixation of fracture (905728482). Comments: 03/02/2018 12:21 FLOR Francisco right forearm 09/12/2016 10:43 FLOR Barnes RFA Thumb (149754263). Comments: 09/12/2016 10:44 FLOR Barnes RIGHT Colonoscopy (929561024). History of tonsillectomy (8684681358). Hamstring release procedure (9540824714). Comments: 07/25/2022 11:20 Nikki Smith LPN done twice 07/25/2020 15:09 Nikki Smith LPN left Knee replacement (829461305). 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 Physical Examination Vital Signs 01/01/2023 12:45 EST Heart Rate Monitored 56 bpm bpm Respiratory Rate - Anes 10 br/min br/min Systolic Blood Pressure Non-Invasive 74 mmHg mmHg Diastolic Blood Pressure Non-Invasive 50 mmHg mmHg 01/01/2023 12:40 EST Heart Rate Monitored 62 bpm bpm Respiratory Rate - Anes 10 br/min br/min Systolic Blood Pressure Non-Invasive 95 mmHg mmHg Diastolic Blood Pressure Non-Invasive 62 mmHg mmHg 01/01/2023 12:35 EST Heart Rate Monitored 72 bpm bpm Respiratory Rate - Anes 10 br/min br/min Systolic Blood Pressure Non-Invasive 126 mmHg mmHg Diastolic Blood Pressure Non-Invasive 72 mmHg mmHg 01/01/2023 12:32 EST Systolic Blood Pressure Non-Invasive 158 mmHg mmHg Diastolic Blood Pressure Non-Invasive 96 mmHg mmHg 01/01/2023 12:30 EST Heart Rate Monitored 82 bpm bpm Respiratory Rate - Anes 0 br/min br/min 01/01/2023 12:25 EST Heart Rate Monitored 57 bpm bpm Respiratory Rate - Anes 0 br/min br/min 01/01/2023 12:01 EST Apical Heart Rate 59 bpm LOW 01/01/2023 11:18 EST Temperature Temporal Artery 35.6 DegC Temperature Oral 35.6 DegC LOW Apical Heart Rate 62 bpm Respiratory Rate 10 br/min Systolic Blood Pressure Non-Invasive 98 mmHg Diastolic Blood Pressure Non-Invasive 64 mmHg Blood Pressure Method Automatic Blood Pressure Location Left arm Blood Pressure Cuff Size Large Vital Signs(last 24 hrs) Last Charted Temp OralL 35.6DegC (JAN 01 11:18) Heart Rate Vfzbeycdl73 bpm (JAN 01 12:45) Resp Rate C 10br/min (JAN 01 11:18) SBP74 mmHg (JAN 01 12:45) DBP50 mmHg (JAN 01 12:45) BMI28.64 (JAN 01 11:18) Measurements from flowsheet : Measurements 01/01/2023 11:18 EST Height 175.3 cm Admission Weight 88 kg Weight Method Stated [place] Body Weight 66.24 kg BSA Admission 2.04 Body Mass Index 28.64 kg/m2 Pain assessment: Pain Assessment 01/01/2023 11:18 EST Primary Pain Location Shoulder Primary Pain Laterality Right Primary Pain Intensity 3 Pain Scale Type 0-10 Pain scale . General: Alert and oriented. Airway: Normal temporomandibular joint mobility. Mallampati classification: II (soft palate, fauces, uvula visible). Head: Normocephalic. Dentition Evaluation: Own teeth. Neck: Supple. Respiratory: Lungs are clear to auscultation. Cardiovascular: Normal rate. Heart Sounds: Normal. Gastrointestinal: Soft. Musculoskeletal Normal range of motion. Integumentary: Intact. Neurologic: Alert, Oriented. Review / Management Results review: No qualifying data available , Lab results 01/01/2023 12:55 EST SN - Implant - Implant/Explant Implant 01/01/2023 12:52 EST SN - Proc - Anesthesia Type General, Regional 01/01/2023 12:52 EST SN - PP - Body Position Lateral Right Side-up Standard Intra-op 01/01/2023 12:51 EST SN - GCD - Post-operative Diagnosis SUPERIOR GLENOID LABRUM LESION OF RIGHT SHOULDER, INITIAL ENCOUNTER; STRAIN OF MUSCLE AND TENDON OF THE ROTATOR CUFF OF RIGHT SHOULDER, INITIAL ENCOUNTER; PRIMARY OSTEOARTHRITIS RIGHT SHOULDER; IMPINGEMENT SYNDROME OF RIGHT SHOULDER; BICIPITAL TENDINITIS 01/01/2023 12:51 EST SN - Cul - Culture Type No Specimen per Surgeon 01/01/2023 12:51 EST SN - GCD - ASA Class 3 01/01/2023 12:50 EST SN - PTCare - Thermals Forced Air Warming Device Lower Body 01/01/2023 12:49 EST SN - PTCare - Anti-thromboembolism Ariela Sequential Compression Device (SCD) 01/01/2023 12:49 EST SN - Irl - Irrigant Normal Saline SN - Irl - Additive EPINEPHRINE 1ML PF (LAO REG 01/01/2023 12:49 EST SN - SP - Prep Agents Chloraprep SN - SP - HR - Method N/A 01/01/2023 12:48 EST SN - CAt - Case Attendee SN - CAt - Case Attendee SN - CAt - Role Performed Entertainment Dancer 2 01/01/2023 12:47 EST SN - CTm - Surgery Start 01/01/2023 12:45 01/01/2023 12:45 EST Heart Rate Monitored 56 bpm bpm Respiratory Rate - Anes 10 br/min br/min Systolic Blood Pressure Non-Invasive 74 mmHg mmHg Diastolic Blood Pressure Non-Invasive 50 mmHg mmHg Oxygen Saturation 97.8 % % SN - CTm - Surgery Start Surgery Start Set Rate Anes 10 br/min br/min 01/01/2023 12:44 EST dexamethasone 4 mg mg ondansetron 4 mg mg 01/01/2023 12:40 EST Heart Rate Monitored 62 bpm bpm Respiratory Rate - Anes 10 br/min br/min Systolic Blood Pressure Non-Invasive 95 mmHg mmHg Diastolic Blood Pressure Non-Invasive 62 mmHg mmHg Oxygen Saturation 100 % % Set Rate Anes 10 br/min br/min 01/01/2023 12:35 EST Heart Rate Monitored 72 bpm bpm Respiratory Rate - Anes 10 br/min br/min Systolic Blood Pressure Non-Invasive 126 mmHg mmHg Diastolic Blood Pressure Non-Invasive 72 mmHg mmHg Oxygen Saturation 100 % % Set Rate Anes 10 br/min br/min 01/01/2023 12:32 EST Systolic Blood Pressure Non-Invasive 158 mmHg mmHg Diastolic Blood Pressure Non-Invasive 96 mmHg mmHg 01/01/2023 12:30 EST Heart Rate Monitored 82 bpm bpm Respiratory Rate - Anes 0 br/min br/min Oxygen Saturation 100 % % Set Rate Anes 10 br/min br/min 01/01/2023 12:26 EST lidocaine 80 mg mg propofol 150 mg mg rocuronium 30 mg mg 01/01/2023 12:25 EST Heart Rate Monitored 57 bpm bpm Respiratory Rate - Anes 0 br/min br/min Oxygen Saturation 100 % % 01/01/2023 12:21 EST SN - CTm - Anesthesia Start Time Anesthesia Start 01/01/2023 12:20 EST Armstrong History and Physical History and Physical Update Note 01/01/2023 12:09 EST SN - Proc - Actual Procedure RIGHT SHOULDER DIAGNOSTIC AND OPERATIVE ARTHROSCOPY WITH ROTATOR CUFF DEBRIDEMENT VERSUS REPAIR, SUBACROMIAL DECOMPRESSION, DISTAL CLAVICLE EXCISION, BICEPS TENODESIS VERSUS TENOTOMY 01/01/2023 12:06 EST SN - GCD - Case Level Level 3 01/01/2023 12:02 EST SN - Assess - LOC Alert, Awake SN - Assess - Orientation Oriented X 3 SN - Assess - Post-op Skin Integrity Intact/Dry 01/01/2023 12:02 EST SN - CAt - Case Attendee SN - CAt - Case Attendee SN - CAt - Case Attendee SN - CAt - Case Attendee SN - CAt - Case Attendee SN - CAt - Case Attendee SN - CAt - Case Attendee SN - CAt - Case Attendee SN - CAt - Case Attendee SN - CAt - Case Attendee SN - CAt - Case Attendee SN - CAt - Case Attendee SN - CAt - Role Performed Primary Surgeon SN - CAt - Role Performed PROFESSIONAL VOLLEYBALL PLAYER SN - CAt - Role Performed Field Geologist 1 SN - CAt - Role Performed Scrub 1 SN - CAt - Role Performed Entertainment Dancer 1 SN - CAt - Role Performed Peanut Farmer 01/01/2023 12:01 EST Apical Heart Rate 59 bpm LOW Time Out Procedure Verified Time Out Procedure Site Verified Yes Time Out Correct Patient Position Yes Heart Rhythm Regular Oxygen Therapy Nasal cannula 0L-6L Oxygen Saturation 99 % Oxygen Flow Rate 4 Consent Form Signed Yes Bedside Procedure Nerve Block Provider #1 Bedside Time Out Keila Mancilla RN Provider #2 Bedside Time Out CHELLE STEARNS ASSISTANT MEDIA BUYER-PROFESSIONAL VOLLEYBALL PLAYER NPO Status Maintained Allergy Band on and Verified Yes Patient ID Band on and Verified Yes Anesthesia Consent Signed Yes Blood Consent Signed Yes 01/01/2023 11:58 EST SN - Preop - CTm Pt in SDS Room 01/01/2023 11:01 SN - Preop - CTm Pt Ready for OR/Proced 01/01/2023 11:58 01/01/2023 11:54 EST famotidine 20 mg mg 01/01/2023 11:50 EST Lactated Ringers Injection Begin Bag 1,000 mL mL 01/01/2023 11:47 EST Antecubital Left 01/01/2023 20 gauge Peripheral IV Activity: Insert new site Peripheral IV Dressing Condition: Clean, Dry, Intact Peripheral IV Dressing Activity: Applied, Transparent dressing Peripheral IV Line Status/Patency: Flushes easily Peripheral IV Line Care: Secured with tape Peripheral IV Site Condition: No complications Peripheral IV Equipment: Extension set, PRN Adaptor Peripheral IV Number of Attempts: 1 01/01/2023 11:18 EST Designated Person #1 We May Share [facility] Designated Person #1 We May Share [facility] Designated Person #1 Relationship Spouse Height 175.3 cm Admission Weight 88 kg Weight Method Stated [place] Body Weight 66.24 kg BSA Admission 2.04 Body Mass Index 28.64 kg/m2 Temperature Temporal Artery 35.6 DegC Temperature Oral 35.6 DegC LOW Apical Heart Rate 62 bpm Respiratory Rate 10 br/min Systolic Blood Pressure Non-Invasive 98 mmHg Diastolic Blood Pressure Non-Invasive 64 mmHg Blood Pressure Method Automatic Blood Pressure Location Left arm Blood Pressure Cuff Size Large Primary Pain Location Shoulder Primary Pain Laterality Right Primary Pain Intensity 3 Pain Scale Type 0-10 Pain scale Heart Rhythm Regular Oxygen Therapy Room air Oxygen Saturation 97 % Abdomen Description Non-distended, Soft Bowel Sounds All Quadrants Present Status N/A Skin Integrity Intact IV Present Present Neurological Symptoms Patient denies Characteristics of Speech Clear Level of Consciousness Alert Sensation All Extremities Intact Affect/Behavior Appropriate, Calm, Cooperative Orientation Oriented x 4 Sensory Deficits None Infectious Disease Symptoms Patient states no symptoms Infectious Disease Recent Exposure No Alcohol and Drug Use No Employee of Institutional Living No Health Care Employee Yes History of Exposure to TB Yes History of Positive Chest X-Ray for TB Yes 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 Homeless No Known Immunosuppression No Recent Immigrant No Resident of Institutional Living No Bloody Sputum No Fatigue No Fever No Loss of Appetite No Night Sweats No Persistent Cough > 3 Weeks No Weight Loss No 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 Consent Form Signed Yes Patient Dressed In Hospital gown CHG Preoperative Wash/Wipe Night before procedure, Day of procedure, Site specific wipe CHG Skin Prep Completed for Eligible Surgery History & Physical Update On Chart Yes History & Physical On Chart Yes Obstructive Sleep Apnea Assess Completed Yes Orientation Assessment Oriented x 4 Barriers to Learning None evident Teaching Method Explanation Preferred Written Language [place]e Preferred Spoken Language [place]e Information Given by Patient Patient's Current Physicians Patient's Current Physicians Discharge To, Anticipated Home with family care Activity Status ADL Awake, Repositions self SCD On/Re-applied bilateral knee high Antiembolism Stocking On/Re-applied bilateral knee high NPO Status Maintained, More than 8 hours Standard Safety ID band on, Allergy Band on, Call device within reach, Bed in low position, Wheels locked, Visitor at bedside, Safety level maintained Prev Test Positive/Diagnosis w/COVID-19 Yes Previous COVID-19 Positive Date 08/31 Current Quarantine/Isolated any Illness No Any Contact with Sick Animals/Birds No Traveled Anywhere in Last 30 Days No Allergy Band on and Verified Yes Patient ID Band on and Verified Yes Implants Verified Yes Pacemaker/AICD Verified No Anesthesia Consent Signed Yes Blood Consent Signed Yes Last Fluid Intake 12/31/2022 22:00 Last Food Intake 12/31/2022 22:00 Last Void 01/01/2023 10:30 N/A Personal Devices, Patient Valuables None Admission Note-Nursing Procedure/Therapy Intake . Assessment and Plan [place] [employer]hesi[employer] (ASA) physical status classification: Class III. Anesthetic Preoperative Plan Premedication: intravenous. Anesthetic technique: General. Induction: intravenously. Maintenance airway: Oral endotracheal tube. Regional: Interscalene Block. Postoperative pain management: Per surgeon. Risks discussed: nausea, vomiting, sore throat. Informed consent: signed by patient. Digitally Signed by CHELLE STEARNS on 01/01/2023 12:57 PM [facility] 01-01-2023 Note Date of Service 01/01/23 History and Physical Update I have examined the patient; reviewed the History and Physical and there are no changes to the History and Physical unless noted below. Digitally Signed by MARISELA CANTOR DO on 01/01/2023 12:21 PM [facility] 01-01-2023 Anesthesiology Consult note CHELLE STEARNS: PERFORM, SIGN, VERIFY Event Display: Anesthesiology Consultation Authored Date: [id number] Patient: EFRAIN CARTWRIGHT Age: 72 years Sex: Female : 1950 Associated Diagnoses: None Author: CHELLE STEARNS Preoperative Information Time of last food or liquid consumption: 01/01/2023 00:00:00 Anesthesia history Patient's history: nausea and vomiting with anesthesia. Family's history: negative. Review of Systems Ear/Nose/Mouth/Throat: Negative. Respiratory: Negative. Cardiovascular: htn. Gastrointestinal: obese. Genitourinary: Negative. Endocrine: Negative. Musculoskeletal: OP. Integumentary: Negative. Neurologic: anxiety. Health Status Allergies: Allergic Reactions (Selected) Severity Not Documented Amoxicillin- No reactions were documented. Bactrim- Hives. Keflex- Unknown. Naprosyn- Dizziness. Penicillin- Welts. Sulfamethoxazole- Welts. Nonallergic Reactions (Selected) Severity Not Documented Codeine- Nausea., Allergies (7) ActiveReaction amoxicillinNone Documented BactrimHives codeineNausea KeflexUnknown NaprosynDizziness penicillinWelts sulfamethoxazoleWelts Current medications: (Selected) Inpatient Medications Ordered Bicitra: 30 mL, Oral, PREOP pharm Kefzol: 2 gram(s), 200 mL/hr, IV Piggyback, PREOP pharm LR 1000 mL: 125 mL/hr, Intravenous, Stop: 01/02/23 17:59:00 EST LR 1000 mL: 20 mL/hr, Intravenous Zofran ( PACU ): 4 mg, 2 mL, IV Push, AsDirected, PRN: Nausea/Vomiting morphine ( PACU ): 2 mg, 1 mL, IV Push, q5min, PRN: Pain, scale 4-6 Prescriptions Prescribed albuterol MDI (90 mcg/inh) CFC free inhalation aerosol: 2 puff(s), Inhalation, q4h, PRN: as needed for wheezing, 18 gram(s), 0 Refill(s) albuterol MDI (90 mcg/inh) CFC free inhalation aerosol: 2 puff(s), Inhalation, q6hr, PRN: as needed for wheezing, 1 EA, 1 Refill(s) hydroCHLOROthiazide 25 mg oral tablet: 25 mg, 1 tab(s), Oral, qDay, 90 tab(s), 1 Refill(s) lisinopril 20 mg oral tablet: 20 mg, 1 tab(s), Oral, qDay, 90 tab(s), 1 Refill(s) Documented Medications Documented Colace 100 mg oral capsule: 100 mg, 1 cap(s), Oral, BID, 20 cap(s), 0 Refill(s) Flonase 50 mcg/inh nasal spray: 1 spray(s), Nostril, each, BID, 0 Refill(s) Mucinex DM: Oral, q12h, 0 Refill(s) Multivitamin: 1 tab(s), Oral, Daily, 0 Refill(s) [place]-3 1000 mg oral capsule: 1,000 mg, 1 cap(s), Oral, qDay, 0 Refill(s) Vitamin D3 5000 intl units oral tablet: 5,000 International_Unit, 1 tab(s), Oral, qDay, 100 tab(s), 0 Refill(s) aspirin 81 mg oral delayed release tablet: 81 mg, 1 tab(s), Oral, Daily, 0 Refill(s) atorvastatin 10 mg oral tablet: 10 mg, 1 tab(s), Oral, qDay, 30 tab(s), 0 Refill(s) cyproheptadine 4 mg oral tablet: 4 mg, 1 tab(s), Oral, qDay, 0 Refill(s) omeprazole 20 mg oral delayed release capsule: 20 mg, 1 cap(s), Oral, qDay, 30 cap(s), 0 Refill(s) promethazine: See Instructions, 25 mg Oral as needed, 0 Refill(s) propranolol: 80 mg, Oral, qDay, 0 Refill(s) sertraline 50 mg oral tablet: 50 mg, 1 tab(s), Oral, qDay, 30 tab(s), 0 Refill(s) trospium 20 mg oral tablet: 20 mg, 1 tab(s), Oral, BID, 180 tab(s), 0 Refill(s), Medications (6) Active Scheduled: (2) ceFAZolin 2 gram(s), IV Piggyback, PREOP pharm citric acid-sodium citrate 334 mg-500 mg/5 mL (30 mL) Jamilah UD 30 mL, Oral, PREOP pharm Continuous: (2) Lactated Ringers 1000 mL 1,000 mL, Intravenous, 125 mL/hr Lactated Ringers Infusion 1000 mL 1,000 mL, Intravenous, 20 mL/hr PRN: (2) morphine 2 mg/mL 1 mL syringe 2 mg 1 mL, IV Push, q5min ondansetron 2 mg/ 1 mL 2 mL INJ 4 mg 2 mL, IV Push, AsDirected Problem list: Medical Left-sided abdominal pain of unknown etiology / SNOMED CT 079799916 / Confirmed Allergy-induced asthma / SNOMED CT 3723001209 / Confirmed Anxiety / SNOMED CT 69296577 / Confirmed 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 / SNOMED CT 7377203533 / Confirmed GI symptoms / SNOMED CT 4003129639 / Confirmed Glasses / SNOMED CT 6608128425 / Confirmed H/O osteopenia / SNOMED CT 985544245 / Confirmed Tear of left hamstring / SNOMED CT 248388618 / Confirmed Headache / SNOMED CT 34106018 / Confirmed Pain in left hip / SNOMED CT 31729916 / Confirmed Hypercholesterolemia / SNOMED CT 73100711 / Confirmed Hypertension / SNOMED CT 9039821092 / Confirmed Right knee pain / SNOMED CT 69485456 / Confirmed Need for influenza vaccination / SNOMED CT 296058175 / Confirmed Never used tobacco / SNOMED CT 3027761350 / Confirmed Osteoarthritis / SNOMED CT 2827727612 / Confirmed Osteopenia / SNOMED CT 922441213 / Confirmed BMI 29.0-29.9,adult / SNOMED CT 9866868439 / Confirmed Pain of finger of right hand / SNOMED CT 28933055 / Confirmed Preop examination / SNOMED CT 521331398 / Confirmed Medicare annual wellness visit, initial / SNOMED CT 098841236 / Confirmed Screening for ischemic heart disease / SNOMED CT 695231379 / Confirmed Screening for diabetes mellitus / SNOMED CT 999849600 / Confirmed Screening for breast cancer / SNOMED CT 892850959 / Confirmed Screening for osteoporosis / SNOMED CT 307190254 / Confirmed Screening for colon cancer / SNOMED CT 925718911 / Confirmed Medicare annual wellness visit, subsequent / SNOMED CT 268681887 / Confirmed PPD positive / SNOMED CT 12943770 / Confirmed Post traumatic stress disorder (PTSD) / SNOMED CT 47503524 / Confirmed 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 / Confirmed Need for Streptococcus pneumoniae vaccination / SNOMED CT 4632164299 / Confirmed Seasonal allergy / SNOMED CT 0144570344 / Confirmed TMJ (temporomandibular joint disorder) / SNOMED CT 75129626 / Confirmed Urinary calculus / SNOMED CT 0667483293 / Confirmed Need for hepatitis C screening test / SNOMED CT 271950285 / Confirmed Viral wart on finger / SNOMED CT 0359254431 / Confirmed, Active Problems (36) Allergy-induced asthma Anxiety BMI 29.0-29.9,adult 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 GI symptoms Glasses H/O osteopenia Headache Hypercholesterolemia Hypertension Left-sided abdominal pain of unknown etiology Medicare annual wellness visit, initial Medicare annual wellness visit, subsequent Need for hepatitis C screening test Need for influenza vaccination Need for Streptococcus pneumoniae vaccination Never used tobacco Osteoarthritis Osteopenia Pain in left hip Pain of finger of right hand Post traumatic stress disorder (PTSD) PPD positive Preop examination Pudendal neuralgia Right knee pain Screening for breast cancer Screening for colon cancer Screening for diabetes mellitus Screening for ischemic heart disease Screening for osteoporosis Seasonal allergy Tear of left hamstring TMJ (temporomandibular joint disorder) Urinary calculus Viral wart on finger Histories Past Medical History: Active 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 Comments: 03/02/2018 EDT 12:23 FLOR Francisco was treated 03/02/2018 EDT 12:32 FLOR Francisco 04/13/2012 CXR KATHERYN MARIA: NO EVIDENCE OF ACTIVE PULMONARY TUBERCULOSIS, MILD CHRONIC CHANGES ARE STABLE, NO ACUTE PROCESS Hypercholesterolemia (37830791) Seasonal allergy (4065837272) Headache (18018687) Comments: 09/12/2016 EDT 10:39 NAKITAT - FLOR Weber SINUS Glasses (5248403276) Post traumatic stress disorder (PTSD) (41263032) Comments: 03/02/2018 EDT 12:32 FLOR Francisco IS IN THERAPY, NO MEDS TMJ (temporomandibular joint disorder) (59785594) Osteoarthritis (7406184868) Urinary calculus (1911849868) Allergy-induced asthma (1642935300) Comments: 03/02/2018 EDT 12:18 FLOR Francisco no inhaler H/O osteopenia (666146950) Anxiety (20674121) Tear of left hamstring (971186733) Resolved Sinusitis (43434309): Resolved. Comments: 09/12/2016 EDT 10:37 EDT - FLOR Weber ALLERGY INDUCED Constipation (09276504): Resolved. Urinary incontinence (8356891245): Resolved. Increased urinary frequency (772601996): Resolved. Comments: 03/02/2018 EDT 12:16 FLOR Francisco Lindsay had a sling Cataract (628770062): Resolved. Family History: Kidney stone Brother Heart disease Father Arthritis Mother Brother Stroke Father HTN - Hypertension Father Procedure history: Arthroscopy of shoulder ([id number]) on 01/01/2023 at 72 Years. Arthroplasty of knee ([id number]) on 04/17/2021 at 70 Years. Comments: 04/17/2021 8:09 EDT - Heaven Lara RN Right, with bursectomy Cystoscopy ([id number]) in the month of 02/2018 at 67 Years. Comments: 07/25/2020 15:34 EDT - Nikki Sanchez LPN w/ removal of left ureteral stent, bilateral retrograde ureteral pyelograms Bunionectomy ([id number]) in the month of 10/2017 at 67 Years. Comments: 07/25/2022 11:21 Nikki Smith LPN and left 03/02/2018 12:20 FLOR Francisco right Hysterectomy ([id number]) on 09/24/2016 at 66 Years. Osteoplasty of carpal or metacarpal (203232350) on 10/13/2010 at 60 Years. Comments: 02/26/2018 15:00 FLOR Francisco LEFT THUMB Phacoemulsification with intraocular lens implantation (8258536452). Comments: 03/02/2018 12:21 FLOR Francisco both eyes section (37050521). Comments: 09/12/2016 10:42 FLOR Barnes TWO ORIF - Open reduction and internal fixation of fracture (587862741). Comments: 03/02/2018 12:21 FLOR Francisco right forearm 09/12/2016 10:43 FLOR Barnes RFA Thumb (846658990). Comments: 09/12/2016 10:44 FLOR Barnes RIGHT Colonoscopy (610654134). History of tonsillectomy (2986891009). Hamstring release procedure (5185070579). Comments: 07/25/2022 11:20 Nikki Smith LPN done twice 07/25/2020 15:09 Nikki Smith LPN left Knee replacement ([id number]). 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 Physical Examination Vital Signs 01/01/2023 12:45 EST Heart Rate Monitored 56 bpm bpm Respiratory Rate - Anes 10 br/min br/min Systolic Blood Pressure Non-Invasive 74 mmHg mmHg Diastolic Blood Pressure Non-Invasive 50 mmHg mmHg 01/01/2023 12:40 EST Heart Rate Monitored 62 bpm bpm Respiratory Rate - Anes 10 br/min br/min Systolic Blood Pressure Non-Invasive 95 mmHg mmHg Diastolic Blood Pressure Non-Invasive 62 mmHg mmHg 01/01/2023 12:35 EST Heart Rate Monitored 72 bpm bpm Respiratory Rate - Anes 10 br/min br/min Systolic Blood Pressure Non-Invasive 126 mmHg mmHg Diastolic Blood Pressure Non-Invasive 72 mmHg mmHg 01/01/2023 12:32 EST Systolic Blood Pressure Non-Invasive 158 mmHg mmHg Diastolic Blood Pressure Non-Invasive 96 mmHg mmHg 01/01/2023 12:30 EST Heart Rate Monitored 82 bpm bpm Respiratory Rate - Anes 0 br/min br/min 01/01/2023 12:25 EST Heart Rate Monitored 57 bpm bpm Respiratory Rate - Anes 0 br/min br/min 01/01/2023 12:01 EST Apical Heart Rate 59 bpm LOW 01/01/2023 11:18 EST Temperature Temporal Artery 35.6 DegC Temperature Oral 35.6 DegC LOW Apical Heart Rate 62 bpm Respiratory Rate 10 br/min <LLOW Systolic Blood Pressure Non-Invasive 98 mmHg Diastolic Blood Pressure Non-Invasive 64 mmHg Blood Pressure Method Automatic Blood Pressure Location Left arm Blood Pressure Cuff Size Large Vital Signs(last 24 hrs) Last Charted Temp OralL 35.6DegC (JAN 01 11:18) Heart Rate Byatehajc18 bpm (JAN 01 12:45) Resp Rate C 10br/min (JAN 01 11:18) SBP74 mmHg (JAN 01 12:45) DBP50 mmHg (JAN 01 12:45) BMI28.64 (JAN 01 11:18) Measurements from flowsheet : Measurements 01/01/2023 11:18 EST Height 175.3 cm Admission Weight 88 kg Weight Method Stated [place] Body Weight 66.24 kg BSA Admission 2.04 Body Mass Index 28.64 kg/m2 Pain assessment: Pain Assessment 01/01/2023 11:18 EST Primary Pain Location Shoulder Primary Pain Laterality Right Primary Pain Intensity 3 Pain Scale Type 0-10 Pain scale . General: Alert and oriented. Airway: Normal temporomandibular joint mobility. Mallampati classification: II (soft palate, fauces, uvula visible). Head: Normocephalic. Dentition Evaluation: Own teeth. Neck: Supple. Respiratory: Lungs are clear to auscultation. Cardiovascular: Normal rate. Heart Sounds: Normal. Gastrointestinal: Soft. Musculoskeletal Normal range of motion. Integumentary: Intact. Neurologic: Alert, Oriented. Review / Management Results review: No qualifying data available , Lab results 01/01/2023 12:55 EST SN - Implant - Implant/Explant Implant 01/01/2023 12:52 EST SN - Proc - Anesthesia Type General, Regional 01/01/2023 12:52 EST SN - PP - Body Position Lateral Right Side-up Standard Intra-op 01/01/2023 12:51 EST SN - GCD - Post-operative Diagnosis SUPERIOR GLENOID LABRUM LESION OF RIGHT SHOULDER, INITIAL ENCOUNTER; STRAIN OF MUSCLE AND TENDON OF THE ROTATOR CUFF OF RIGHT SHOULDER, INITIAL ENCOUNTER; PRIMARY OSTEOARTHRITIS RIGHT SHOULDER; IMPINGEMENT SYNDROME OF RIGHT SHOULDER; BICIPITAL TENDINITIS 01/01/2023 12:51 EST SN - Cul - Culture Type No Specimen per Surgeon 01/01/2023 12:51 EST SN - GCD - ASA Class 3 01/01/2023 12:50 EST SN - PTCare - Thermals Forced Air Warming Device Lower Body 01/01/2023 12:49 EST SN - PTCare - Anti-thromboembolism Ariela Sequential Compression Device (SCD) 01/01/2023 12:49 EST SN - Irl - Irrigant Normal Saline SN - Irl - Additive EPINEPHRINE 1ML PF (LAO REG 01/01/2023 12:49 EST SN - SP - Prep Agents Chloraprep SN - SP - HR - Method N/A 01/01/2023 12:48 EST SN - CAt - Case Attendee SN - CAt - Case Attendee SN - CAt - Role Performed Entertainment Dancer 2 01/01/2023 12:47 EST SN - CTm - Surgery Start 01/01/2023 12:45 01/01/2023 12:45 EST Heart Rate Monitored 56 bpm bpm Respiratory Rate - Anes 10 br/min br/min Systolic Blood Pressure Non-Invasive 74 mmHg mmHg Diastolic Blood Pressure Non-Invasive 50 mmHg mmHg Oxygen Saturation 97.8 % % SN - CTm - Surgery Start Surgery Start Set Rate Anes 10 br/min br/min 01/01/2023 12:44 EST dexamethasone 4 mg mg ondansetron 4 mg mg 01/01/2023 12:40 EST Heart Rate Monitored 62 bpm bpm Respiratory Rate - Anes 10 br/min br/min Systolic Blood Pressure Non-Invasive 95 mmHg mmHg Diastolic Blood Pressure Non-Invasive 62 mmHg mmHg Oxygen Saturation 100 % % Set Rate Anes 10 br/min br/min 01/01/2023 12:35 EST Heart Rate Monitored 72 bpm bpm Respiratory Rate - Anes 10 br/min br/min Systolic Blood Pressure Non-Invasive 126 mmHg mmHg Diastolic Blood Pressure Non-Invasive 72 mmHg mmHg Oxygen Saturation 100 % % Set Rate Anes 10 br/min br/min 01/01/2023 12:32 EST Systolic Blood Pressure Non-Invasive 158 mmHg mmHg Diastolic Blood Pressure Non-Invasive 96 mmHg mmHg 01/01/2023 12:30 EST Heart Rate Monitored 82 bpm bpm Respiratory Rate - Anes 0 br/min br/min Oxygen Saturation 100 % % Set Rate Anes 10 br/min br/min 01/01/2023 12:26 EST lidocaine 80 mg mg propofol 150 mg mg rocuronium 30 mg mg 01/01/2023 12:25 EST Heart Rate Monitored 57 bpm bpm Respiratory Rate - Anes 0 br/min br/min Oxygen Saturation 100 % % 01/01/2023 12:21 EST SN - CTm - Anesthesia Start Time Anesthesia Start 01/01/2023 12:20 EST Evy History and Physical History and Physical Update Note 01/01/2023 12:09 EST SN - Proc - Actual Procedure RIGHT SHOULDER DIAGNOSTIC AND OPERATIVE ARTHROSCOPY WITH ROTATOR CUFF DEBRIDEMENT VERSUS REPAIR, SUBACROMIAL DECOMPRESSION, DISTAL CLAVICLE EXCISION, BICEPS TENODESIS VERSUS TENOTOMY 01/01/2023 12:06 EST SN - GCD - Case Level Level 3 01/01/2023 12:02 EST SN - Assess - LOC Alert, Awake SN - Assess - Orientation Oriented X 3 SN - Assess - Post-op Skin Integrity Intact/Dry 01/01/2023 12:02 EST SN - CAt - Case Attendee SN - CAt - Case Attendee SN - CAt - Case Attendee SN - CAt - Case Attendee SN - CAt - Case Attendee SN - CAt - Case Attendee SN - CAt - Case Attendee SN - CAt - Case Attendee SN - CAt - Case Attendee SN - CAt - Case Attendee SN - CAt - Case Attendee SN - CAt - Case Attendee SN - CAt - Role Performed Primary Surgeon SN - CAt - Role Performed PROFESSIONAL VOLLEYBALL PLAYER SN - CAt - Role Performed Field Geologist 1 SN - CAt - Role Performed Scrub 1 SN - CAt - Role Performed Entertainment Dancer 1 SN - CAt - Role Performed Peanut Farmer 01/01/2023 12:01 EST Apical Heart Rate 59 bpm LOW Time Out Procedure Verified Time Out Procedure Site Verified Yes Time Out Correct Patient Position Yes Heart Rhythm Regular Oxygen Therapy Nasal cannula 0L-6L Oxygen Saturation 99 % Oxygen Flow Rate 4 Consent Form Signed Yes Bedside Procedure Nerve Block Provider #1 Bedside Time Out Keila Mancilla RN Provider #2 Bedside Time Out CHELLE STEARNS APRN-PROFESSIONAL VOLLEYBALL PLAYER NPO Status Maintained Allergy Band on and Verified Yes Patient ID Band on and Verified Yes Anesthesia Consent Signed Yes Blood Consent Signed Yes 01/01/2023 11:58 EST SN - Preop - CTm Pt in SDS Room 01/01/2023 11:01 SN - Preop - CTm Pt Ready for OR/Proced 01/01/2023 11:58 01/01/2023 11:54 EST famotidine 20 mg mg 01/01/2023 11:50 EST Lactated Ringers Injection Begin Bag 1,000 mL mL 01/01/2023 11:47 EST Antecubital Left 01/01/2023 20 gauge Peripheral IV Activity: Insert new site Peripheral IV Dressing Condition: Clean, Dry, Intact Peripheral IV Dressing Activity: Applied, Transparent dressing Peripheral IV Line Status/Patency: Flushes easily Peripheral IV Line Care: Secured with tape Peripheral IV Site Condition: No complications Peripheral IV Equipment: Extension set, PRN Adaptor Peripheral IV Number of Attempts: 1 01/01/2023 11:18 EST Designated Person #1 We May Share PHI Designated Person #1 We May Share PHI Designated Person #1 Relationship Spouse Height 175.3 cm Admission Weight 88 kg Weight Method Stated [place] Body Weight 66.24 kg BSA Admission 2.04 Body Mass Index 28.64 kg/m2 Temperature Temporal Artery 35.6 DegC Temperature Oral 35.6 DegC LOW Apical Heart Rate 62 bpm Respiratory Rate 10 br/min <LLOW Systolic Blood Pressure Non-Invasive 98 mmHg Diastolic Blood Pressure Non-Invasive 64 mmHg Blood Pressure Method Automatic Blood Pressure Location Left arm Blood Pressure Cuff Size Large Primary Pain Location Shoulder Primary Pain Laterality Right Primary Pain Intensity 3 Pain Scale Type 0-10 Pain scale Heart Rhythm Regular Oxygen Therapy Room air Oxygen Saturation 97 % Abdomen Description Non-distended, Soft Bowel Sounds All Quadrants Present Status N/A Skin Integrity Intact IV Present Present Neurological Symptoms Patient denies Characteristics of Speech Clear Level of Consciousness Alert Sensation All Extremities Intact Affect/Behavior Appropriate, Calm, Cooperative Orientation Oriented x 4 Sensory Deficits None Infectious Disease Symptoms Patient states no symptoms Infectious Disease Recent Exposure No Alcohol and Drug Use No Employee of Institutional Living No 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 Employee Yes History of Exposure to TB Yes History of Positive Chest X-Ray for TB Yes 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 Homeless No Known Immunosuppression No Recent Immigrant No Resident of Institutional Living No Bloody Sputum No Fatigue No Fever No Loss of Appetite No Night Sweats No Persistent Cough > 3 Weeks No Weight Loss No 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 Consent Form Signed Yes Patient Dressed In Hospital gown CHG Preoperative Wash/Wipe Night before procedure, Day of procedure, Site specific wipe CHG Skin Prep Completed for Eligible Surgery History & Physical Update On Chart Yes History & Physical On Chart Yes Obstructive Sleep Apnea Assess Completed Yes Orientation Assessment Oriented x 4 Barriers to Learning None evident Teaching Method Explanation Preferred Written Language [place]e Preferred Spoken Language [place]amese Information Given by Patient Patient's Current Physicians Patient's Current Physicians Discharge To, Anticipated Home with family care Activity Status ADL Awake, Repositions self SCD On/Re-applied bilateral knee high Antiembolism Stocking On/Re-applied bilateral knee high NPO Status Maintained, More than 8 hours Standard Safety ID band on, Allergy Band on, Call device within reach, Bed in low position, Wheels locked, Visitor at bedside, Safety level maintained Prev Test Positive/Diagnosis w/COVID-19 Yes Previous COVID-19 Positive Date 08/31 Current Quarantine/Isolated any Illness No Any Contact with Sick Animals/Birds No Traveled Anywhere in Last 30 Days No Allergy Band on and Verified Yes Patient ID Band on and Verified Yes Implants Verified Yes Pacemaker/AICD Verified No Anesthesia Consent Signed Yes Blood Consent Signed Yes Last Fluid Intake 12/31/2022 22:00 Last Food Intake 12/31/2022 22:00 Last Void 01/01/2023 10:30 N/A Personal Devices, Patient Valuables None Admission Note-Nursing Procedure/Therapy Intake . Assessment and Plan [place] [employer]esthesiologists (ASA) physical status classification: Class III. Anesthetic Preoperative Plan Premedication: intravenous. Anesthetic technique: General. Induction: intravenously. Maintenance airway: Oral endotracheal tube. Regional: Interscalene Block. Postoperative pain management: Per surgeon. Risks discussed: nausea, vomiting, sore throat. Informed consent: signed by patient. Digitally Signed by CHELLE STEARNS on 01/01/2023 12:57 PM [facility] Evaluation + Plan note Future Appointments Appointment Date:07/25/2022 11:00:00 AM Scheduled Provider:BLAIRE ESTEBAN DO Location:[facility] Appointment Type:PC Wellness Medicare [facility] Evaluation + Plan note Future Appointments Appointment Date:01/22/2023 11:00:00 AM Scheduled Provider:BLAIRE ESTEBAN DO Location:[facility] Appointment Type:[facility] Follow Up Future Scheduled TestsThyroid Stimulating Hormone 07/25/22Lipid Profile 07/25/22Hepatitis C Antibody IgG 07/25/22Complete Metabolic Panel 07/25/22 [facility] Evaluation + Plan note Future Appointments Appointment Date:07/29/2023 11:00:00 AM Scheduled Provider:BLAIRE ESTEBAN DO Location:[facility] Appointment Type:PC Wellness Medicare Future Scheduled TestsThyroid Stimulating Hormone 07/25/22Lipid Profile 07/25/22Hepatitis C Antibody IgG 07/25/22Complete Metabolic Panel 07/25/22 [facility] Evaluation note There may be informa tion available, but it has not been provided by the sender. [facility] Work Phone: Hospital course Narrative No data available for this section [facility] Hospital Discharge instructions No data available for this section [facility] Work Phone: Instructions* Instruction Description Start Date CompletedPatient advised to follow-up with Primary Care Physician for BMI management. [facility] Work Phone: Progress note No data available for this section [facility] Summary Purpose Family History No Family History Records FoundNo Family History Records FoundThere may be information available, but it has not been provided by the sender.There may be information available, but it has not been provided by the sender.No Family History Records Found Advance Directives No Advanced Directives Records FoundNo Advanced Directives Records FoundThere may be information available, but it has not been provided by the sender.There may be information available, but it has not been provided by the sender.No Advanced Directives Records Found Chief Complaint Chief Complaint Description Start Date left hip post Left hip flakito ion with gluteus medius and minimus repair.Allograft augmentation 28 x 28 x 2.2 mm thickness rotium augmentation Trochanteric bursectomy. Iliotibial band resection. on 09/27/2021 Preliminary chief co mplaint data, not yet signed by the author as of Chief Complaint Description Start Date left hip post Left hip flakito ion with gluteus medius and minimus repair.Allograft augmentation 28 x 28 x 2.2 mm thickness rotium augmentation Trochanteric bursectomy. Iliotibial band resection. on 09/27/2021 Preliminary chief co mplaint data, not yet signed by the author as of Additional Source Comments INFORMATION SOURCE (unrecogn ized section and content) DATE CREATED AUTHOR AUTHOR'S ORGANIZ ATION 07/16/2019 [facility] Margarita Vogel DATE CREATED AUTHOR AUTHOR'S ORGANIZ ATION 01/26/2023 [facility] ([place]) Reason for Visit (unrecogniz ed section and content) Reason For Visit Description Start Date Postop - 1st visit Preliminary reason f or visit data, not yet signed by the author as of left hip post Left hip flakito ion with gluteus medius and minimus repair.Allograft augmentation 28 x 28 x 2.2 mm thickness rotium augmentation Trochanteric bursectomy. Iliotibial band resection. on 09/27/2021 Care Team (unrecognized sect ion and content) Care Team Personnel Name: APOORVA LOPEZ PA-C Position: Physician Pressure Control Supervisor Med Service: Admitting Member Role: Orthopaedist Address: Address: [facility] [address] [address]- Name: RICCARDO ROGERS MD Member Role: Surgeon Address: Address: [address] [place] [address] Name: BLAIRE ESTEBAN DO Position: P4 Physician - Primary Care Med Service: Active Provider Member Role: Primary Care Physician Address: Address: [address] [place] [address] [place] [address]- [facility]: [facility] [place] Med Service: Hospitalist Medicine Member Role: Family Medicine Address: Address: [address] [address] Name: KEYONA POST MD Position: P3 Physician - Orthopedics Med Service: Admitting Member Role: Orthopaedist Address: Address: [address] [place] [address] [facility] [place] [address]- Care Team Related Persons Name: MARGARITA CARTWRIGHT Address: Home [address] [place] [phone] Care Team Personnel Name: APOORVA LOPEZ PA-C Position: Physician Pressure Control Supervisor Member Role: Orthopaedist Address: Address: [facility] [address] [place] [id number] Name: RICCARDO ROGERS MD Member Role: Surgeon Address: Address: [address] [place] [id number] [place] [address] Name: BLAIER ESTEBAN DO Position: P4 Physician - Primary Care Member Role: Primary Care Physician Address: Address: [address] [place] [address] [place] [address]- Name: NIYA NAVARRO MSN, GASTROENTEROLOGY TECHNICIAN Member Role: Family Medicine Address: Address: [address] [address]- [place] Name: MELVIN NAVARRO DPM Position: Physician Member Role: Public Address Announcer Address: Address: [address] [place] [address], [address] [facility] [place] [id number]- [place] Name: KEYONA POST MD Position: P3 Physician - Orthopedics Member Role: Orthopaedist Address: Address: [address] [place] [address] [facility] [place] [address]- Care Team Related Persons Name: GABBIE MARGARITA Address: Home [address] [facility], [phone] Care Team Personnel Name: APOORVA LOPEZ PA-C Position: Physician Pressure Control Supervisor Member Role: Orthopaedist Address: Address: [facility] [address] [place] [address]- [place] Name: RICCARDO ROGERS MD Member Role: Surgeon Address: Address: [address] [place] [address]- Name: BLAIRE ESTEBAN DO Position: P4 Physician - Primary Care Member Role: Primary Care Physician Address: Address: [address] [place], [place] [address]- Name: NIYA NAVARRO, GASTROENTEROLOGY TECHNICIAN Member Role: Family Medicine Address: Address: [place] [id number]- [place] Name: MELVIN NAVARRO DPM Position: Physician Member Role: Public Address Announcer Address: Address: [address] [place] [address], [address] [facility] [place] [address]- [place] Name: KEYONA POST MD Position: P3 Physician - Orthopedics Member Role: Orthopaedist Address: Address: [address] [place] [address] [address] [facility] [place] [address]- [place] Care Team Related Persons Name: MARGARITA CARTWRIGHT Address: Home [address] [place], [place] [id number] Patient Care team informatio n (unrecognized section and content) Care Team Personnel Name: APOORVA LOPEZ PA-C Position: [facility] [employer] Member Role: Orthopaedist Address: Address: [facility] [address] [place] [id number] Name: RICCARDO ROGERS MD Member Role: Surgeon Address: Address: [address] [place] [address]- Name: BLAIRE ESTEBAN DO Position: P4 Physician - Primary Care Member Role: Primary Care Physician Address: Address: [address] [place] [address] [place] [address]- Name: NIYA NAVARRO MSN, GASTROENTEROLOGY TECHNICIAN Member Role: Family Medicine Address: Address: [address] [address] Name: MELVIN NAVARRO DPM Position: Physician Member Role: Public Address Announcer Address: Address: [address] [place] [address], [address] [facility] [place], [place] [id number] [place] [address] Name: KEYONA POST MD Position: P3 Physician - Orthopedics Member Role: Orthopaedist Address: Address: [address] [place] [address] [place] [address]- Care Team Related Persons Name: MARGARITA CARTWRIGHT Address: Home [address] [place] [phone] FOR RECORDS PERTAINING TO PATIENTS WHO ARE OR HAVE BEEN ENROLLED IN A CHEMICAL DEPENDENCY/SUBSTANCEABUSE PROGRAM, SOME INFORMATION MAY BE OMITTED. This clinical summary was aggregated from multiple sources. Caution should be exercised in using it in the provision of clinical care. This summary normalizes information from multiple sources, and as a consequence, information in this document may materially change the coding, format and clinical context of patient data. In addition, data may be omitted in some cases. CLINICAL DECISIONS SHOULD BE BASED ON THE PRIMARY CLINICAL RECORDS. [employer] provides no warranty or guarantee of the accuracy or completeness of information in this document.
--- NOTE | 2023-11-11 01:06 | EX.ED.DYSGE1 ---
HPI History of Present Illness Chief Complaint: Chest Other Informant: patient and spouse/S.O. Narrative Narrative: Patient is a 73-year-old female with past medical history of hypertension hyperlipidemia and GERD. She states roughly 30 minutes prior to arrival she was in the kitchen when she got tripped up by her dog. She states that she lost her balance and stumbled backwards and struck the table or counter with the right side of her lower ribs. She states she had instantaneous pain and since that time has not been able to get comfortable or take deep breaths and without any severe pain. She states she urinated roughly 20 minutes after the event and there was no blood or pain with this. She denies striking her head or any loss of consciousness or history of bleeding disorder but secondary concern for rib fracture and associated pain control she presents for evaluation [facility] Medical History Anxiety Arthritis Depression GERD (gastroesophageal reflux disease) HTN (hypertension) Hypercholesteremia Nightmare disorder PTSD (post-traumatic stress disorder) Home Medications cholecalciferol (vitamin D3) 50 mcg (2,000 unit) tablet (Vitamin D3) 2,000 unit PO BID 09/16/13 [History Last Taken 07/17/23] omega-3 fatty acids-fish oil 300 mg-1,000 mg capsule 1 ea PO DAILY 06/10/14 [History Last Taken 07/17/23] atorvastatin 10 mg tablet 10 mg PO DAILY 07/10/21 [History Last Taken 07/16/23] cyproheptadine 4 mg tablet 4 mg PO DAILY 07/10/21 [History Last Taken 07/16/23] hydrochlorothiazide 25 mg tablet 25 mg PO DAILY 07/10/21 [History Last Taken 07/17/23] lisinopril 20 mg tablet 20 mg PO DAILY 07/10/21 [History Last Taken 07/16/23] sertraline 50 mg tablet 50 mg PO DAILY 07/10/21 [History Last Taken 07/16/23] albuterol sulfate 90 mcg/actuation aerosol inhaler 2 puff inhalation Q6H PRN shortness of breath or wheezing 07/17/23 [History Last Taken 07/17/23] cetirizine 10 mg tablet (All Day Allergy (cetirizine)) 10 mg PO DAILY 07/17/23 [History Last Taken 07/17/23] dextromethorphan-guaifenesin 30 mg-600 mg tablet extended [id number] hr (Mucinex DM) 1 tab PO BID PRN cough 07/17/23 [History Last Taken 07/17/23] docusate sodium 100 mg capsule (Colace) 100 mg PO BID 07/17/23 [History Last Taken 07/17/23] fluticasone propionate 50 mcg/actuation nasal spray,suspension 1 spray intranasal DAILY PRN allergy symptoms 07/17/23 [History Last Taken 07/17/23] promethazine 25 mg tablet 25 mg PO DAILY PRN PRN nausea 07/17/23 [History Last Taken 07/16/23] propranolol 80 mg capsule,extended release 24 hr (Inderal XL) 80 mg PO DAILY 07/17/23 [History Last Taken 07/17/23] trospium 20 mg tablet 20 mg PO BID 07/17/23 [History Last Taken 07/17/23] ferrous sulfate 325 mg (65 mg iron) tablet,delayed release 325 mg PO QODAY #30 tabs 07/18/23 [Rx Last Taken Unknown] pantoprazole 40 mg tablet,delayed release (Protonix) 40 mg PO BID 30 days #60 tabs 07/18/23 [Rx Last Taken Unknown] sucralfate 1 gram tablet 1 g PO TID@0700,1100,1600 30 days #90 tabs 07/18/23 [Rx Last Taken Unknown] diazepam 5 mg tablet (Valium) 5 mg PO TID PRN muscle spasm 5 days #15 tabs 11/11/23 [Rx Last Taken Unknown] ondansetron 4 mg disintegrating tablet 4 mg PO TID PRN nausea and vomiting #21 tabs 11/11/23 [Rx Last Taken Unknown] oxycodone-acetaminophen 5 mg-325 mg tablet (Percocet) 1 tab PO Q6H PRN pain 5 days #20 tabs 11/11/23 [Rx Last Taken Unknown] tramadol 50 mg tablet 50 mg PO Q6H PRN pain 11/11/23 [History Last Taken Unknown] Allergy/AdvReac Type Severity Reaction Status Date / Time amoxicillin [Amoxicillin] AdvReac Rash Verified 11/11/23 00:18 codeine AdvReac Rash Verified 11/11/23 00:18 naproxen [From Naprosyn] AdvReac Nausea Verified 11/11/23 00:18 Penicillins AdvReac Rash Verified 11/11/23 00:18 Surgical History (Updated 11/11/23 @ 00:21 by Kimberly Deleon) H/O toe surgery S/P TKR (total knee replacement) Social History Smoking Status: Former smoker ROS ROS ED Constitutional Constitutional ED: Denies chills or fever(s) Eyes Eyes: Denies blurry vision or change in vision ENT ENT ED: Denies sore throat Cardiovascular Cardiovascular: Denies chest pain Respiratory/Chest Respiratory/Chest: Denies cough or dyspnea Gastrointestinal Gastrointestinal: Denies abdominal pain, diarrhea, nausea or vomiting Genitourinary Genitourinary ED: Denies dysuria or hematuria Musculoskeletal Musculoskeletal: Reports back pain; Denies neck pain Integumentary Reports Abrasions Neurologic Neurologic: Denies headache(s) or paresthesias Hematologic/Lymphatic Hematologic/Lymphatic: Denies easy bleeding or easy bruising EXAM Physical Exam Const Vital Signs: 11/11/23 00:18 Temperature 97.3 F L Temperature Source Temporal Pulse Rate 54 L Respiratory Rate 16 Blood Pressure 155/105 H Blood Pressure Mean 121 Pulse Ox 99 Positive well nourished and well developed General Appearance ED: well developed HEENT HEENT Narrative: Normocephalic atraumatic Eyes PERRL and EOMs intact bilaterally Neck supple Chest Wall Chest Narrative: On the right posterior rib cage regions 10-12 there is pain with palpation without bony deformity or crepitance. There is also overlying superficial abrasion consistent with a history of trauma. Resp normal respiratory effort and clear to auscultation bilaterally Resp Narrative: Breath sounds are diminished secondary to recent injury/pain but overall clear to auscultation without signs of distress Cardio regular rate and regular rhythm Back/Spine Back/Spine Narrative: No bony deformity or step-off of the thoracic or lumbar spine no midline pain on palpation Extremity normal to inspection Neuro oriented x3, CN's II-XII intact bilaterally and no sensory deficits noted Sensorium / Orientation: alert Motor Exam: strength 5/5 throughout Psych mental status grossly normal Skin Skin Narrative: Superficial abrasion to the right mid back/lower rib cage as documented above MDM MDM MDM Narrative Medical decision making narrative: Patient presented to the ER mildly hypertensive but this is most likely secondary to pain and otherwise with stable vitals. She reported a accidental fall leading to direct trauma to her lower back/rib cage region. With the sudden onset of pain following this there is concern for rib fracture versus pulmonary contusion versus pneumothorax or kidney laceration. As the patient reported a mechanical fall I felt no need for cardiac or syncope workup. Without pain in the abdomen my concern for liver injury is low and as the patient states she did not urinate blood I have low concern for a kidney laceration. A right rib series was ordered and this shows an 8th and 9th rib fracture without pneumothorax. Therefore at this time as patient does not have signs of internal injury and pain has improved with treatment in the ER I feel she is safe for discharge with symptomatic medications and can follow-up on an outpatient basis Radiography Diagnostic Testing: Clinical Impression(s) from Imaging Studies Ribs w/Chest X-Ray 11/11/23 01:10 IMPRESSION: 1. Fractures of the right 8th and ninth ribs. 2. No evidence for acute cardiopulmonary pathology. Electronically Signed: Oziel Rocha MD at 2:09 EST Reading Location ID and State: [facility] / [place] , Service support , Right rib series with 1 view chest as interpreted by the emergency medicine physician reveals a displaced eighth and ninth rib fracture without pneumothorax or pulmonary contusion Discharge Plan Triage Chief Complaint: Chest Other ED Provider: Bijan Odell Dx/Rx/DC Orders Clinical Impression: Multiple fractures of ribs of right side with routine healing, Accidental fall, Hypertension Instructions: ED Rib Fracture Prescriptions: New oxycodone-acetaminophen [Percocet] 5-325 mg tablet 1 tab PO Q6H PRN (Reason: pain) 5 Days Qty: 20 0RF ondansetron 4 mg tablet,disintegrating 4 mg PO TID PRN (Reason: nausea and vomiting) Qty: 21 0RF diazepam [Valium] 5 mg tablet 5 mg PO TID PRN (Reason: muscle spasm) 5 Days Qty: 15 0RF No Action cholecalciferol (vitamin D3) [Vitamin D3] 2,000 UNIT tablet 2,000 unit PO BID omega-3 fatty acids-fish oil 1 EACH capsule 1 ea PO DAILY hydrochlorothiazide 25 mg tablet 25 mg PO DAILY Patient Comments: TAKE 1 TABLET BY MOUTH EVERY DAY atorvastatin 10 mg tablet 10 mg PO DAILY Patient Comments: 1 tablet once daily lisinopril 20 mg tablet 20 mg PO DAILY Patient Comments: TAKE 1 TABLET BY MOUTH EVERY DAY cyproheptadine 4 mg tablet 4 mg PO DAILY Patient Comments: 1 tablet once daily sertraline 50 mg tablet 50 mg PO DAILY Patient Comments: 1 tablet once daily Mucinex DM 30-600 mg tablet extended release 12 hr 1 tab PO BID PRN (Reason: cough) Inderal XL 80 mg capsule,extended release 24hr 80 mg PO DAILY trospium 20 mg tablet 20 mg PO BID Rx Instructions: administer on an empty stomach fluticasone propionate 50 mcg/actuation spray,suspension 1 spray intranasal DAILY PRN (Reason: allergy symptoms) Rx Instructions: administer into each nostril promethazine 25 mg tablet 25 mg PO DAILY PRN PRN (Reason: nausea ) albuterol sulfate 90 mcg/actuation HFA aerosol inhaler 2 puff INHALATION Q6H PRN (Reason: shortness of breath or wheezing) Patient Comments: INHALE 2 PUFFS BY MOUTH EVERY 6 HOURS NEEDED FOR WHEEZING docusate sodium [Colace] 100 mg capsule 100 mg PO BID cetirizine [All Day Allergy (cetirizine)] 10 mg tablet 10 mg PO DAILY sucralfate 1 gram Tablet 1 g PO TID@0700,1100,1600 30 Days Qty: 90 1RF pantoprazole [Protonix] 40 mg tablet,delayed release (DR/EC) 40 mg PO BID 30 Days Qty: 60 2RF Rx Instructions: 40 mg twice daily for 12 weeks. ferrous sulfate 325 mg (65 mg iron) tablet,delayed release (DR/EC) 325 mg PO QODAY Qty: 30 0RF tramadol 50 mg tablet 50 mg PO Q6H PRN (Reason: pain) Patient Comments: TAKE 1 CAPSULE BY MOUTH EVERY 6 HOURS NEEDED Primary Care Provider: Ramya Ayala Referrals: Ramya Ayala DO [Primary Care Provider] - Activity Restrictions/Additional Instructions: Your x-ray shows that you have 2 broken ribs causing your pain but no signs of internal injury. In order to prevent pneumonia using incentive spirometer every hour while awake to make sure you are taking deep breaths in. Take the prescribed medication as directed to help control pain and follow-up with your family doctor for repeat evaluation and potential refill of medication. It would typically take 4 to 6 weeks for ribs to heal. Disposition Disposition: Home, Self Care Discharge Date/Time: 11/11/23 02:22
--- NOTE | 2023-11-11 01:10 | RAD_ITS ---
EXAM: XR RIGHT RIBS AND AP CHEST, 3 OR MORE VIEWS CLINICAL INDICATION: pain pain TECHNIQUE: Frontal and oblique views of the right ribs and frontal view of the chest. COMPARISON: Chest x-ray 07/10/2021. FINDINGS: LUNGS AND PLEURAL SPACES: There is mild bilateral basilar atelectasis. There is no visualized pulmonary infiltrate. No pneumothorax. No effusion. HEART: Unremarkable. Cardiac silhouette not enlarged. MEDIASTINUM: Central airways and mediastinal contour are unremarkable. BONES/JOINTS: There are acute traumatic fractures to the lateral segments of the right eighth and ninth ribs. RAD/Ribs Uni Min 3V w/PA Chest IMPRESSION: 1. Fractures of the right 8th and ninth ribs. 2. No evidence for acute cardiopulmonary pathology. Electronically Signed: Oziel Rocha MD at 2:09 EST Reading Location ID and State: [facility] / [place] , Service support ,
[2023-11-11] MEDS: diazePAM 5 MG Tablet PO (01:55)
== END 2023-11-11 02:22 | disposition home or self-care (01) ==
PROVIDERS: Emergency Provider Emergency Medicine; PCP Family Medicine; Visit Provider Emergency Medicine
DX: S22.41XA Multiple fractures of ribs, right side, initial encounter for closed fracture (principal); I10 Essential (primary) hypertension; W01.0XXA Fall on same level from slipping, tripping and stumbling without subsequent striking against object, initial encounter; E78.00 Pure hypercholesterolemia, unspecified; K21.9 Gastro-esophageal reflux disease without esophagitis; Z87.891 Personal history of nicotine dependence
CPT/HCPCS: 71101; 96372; 99283

== ENCOUNTER → 2025-05-26 | Outpatient (CLI) | payer MEDICARE, SELFPAY ==
--- NOTE | 2025-05-26 15:52 | CT_ITS ---
PROCEDURE: EXTREMITY UPPER WITHOUT CONTRA 05/26/2025 REASON FOR EXAM: CHRONIC SHOULDER PAIN/ OA TECHNIQUE: EXTREMITY UPPER WITHOUT CONTRA Coronal and Sagittal reconstruction series were provided. One or more dose reduction techniques were used (e.g., Automated exposure control, adjustment of the mA and/or kV according to patient size, use of iterative reconstruction technique. RADIATION DOSE SUMMARY: CTDlvol: 27.9 mGy DLP: 871 mGycm COMPARISON: None FINDINGS: No acute fracture or traumatic malalignment. Chronic appearing right-sided rib fractures, including an unfused fracture of the 9th rib. Moderate joint space narrowing and osteophyte formation at the acromioclavicular and glenohumeral joints. There is subchondral cystic formation in the humeral head. Prominent osteophyte at the inferomedial humeral head. There is a cyst located superior to the acromioclavicular joint which measures up to 2.4 cm (series 3, image 12) and contains a calcification inferiorly. Slightly high-riding humeral head. Atrophy of the supraspinatus muscle. Visualized right hemithorax is unremarkable. Coronary calcifications are partially seen. CT/Extremity Upper without Contra IMPRESSION: 1. Acromioclavicular joint cyst measuring up to 2.4 cm, suggestive of full-thi ckness rotator cuff tear (geyser sign). There is atrophy of the supraspinatus muscle body. 2. 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 Of note, there is a large osteophyte at the inferomedial humeral head. Reading Location: [facility]
== END | disposition home or self-care (01) ==
LOC: CT 15:50
PROVIDERS: PCP Family Medicine; Referring Provider Student in an Organized Health Care Education/Training Program; Visit Provider Student in an Organized Health Care Education/Training Program
DX: M19.011 Primary osteoarthritis, right shoulder (principal); G89.29 Other chronic pain
CPT/HCPCS: 73200

== ENCOUNTER 2025-06-16 05:44 | Day surgery (SDC) | payer MEDICARE, SELFPAY ==
--- NOTE | 2025-05-30 08:17 | EKG12_ITS ---
Test Reason : PREOP Blood Pressure : */* mmHG Vent. Rate : 58 BPM Atrial Rate : 58 BPM P-R Int : 158 ms QRS Dur : 80 ms QT Int : 402 ms P-R-T Axes : 33 27 52 degrees QTcB Int : 394 ms Sinus bradycardia Otherwise normal ECG Confirmed by Jian Johnson ([id number]), fan mail editor MIO SOTO ([id number]) on 05/31/2025 5:42:12 AM Referred By: Slava Salinas Confirmed By: Jian Johnson
[2025-05-30 09:59] LABS: Hematocrit 39.9 % (37-47); Hemoglobin 13.3 g/dL (12.0-15.0); Immature Granulocytes Count 0.010 X10^3/uL (0.0-0.0); Mean Corp Hgb Conc 33.3 g/dL (32-36); Mean Corpuscular Volume 93.4 fL (81-99); Mean Platelet Vol. 10.5 fl (6.2-12.0); NRBC Flagged by Analyzer 0 % (0-5); Platelet Count 206 K/mm3 (150-450); RBC Distribution Width CV 12.3 % (11.6-14.6); RBC Distribution Width SD 42.1 fl (35.1-43.9); Red Blood Count 4.27 M/mm3 (4.2-5.4); White Blood Count 5.5 K/mm3 (4.4-11.0)
[2025-05-30 10:56] LABS: Albumin, Serum 4.3 g/dL (3.4-4.8); Anion Gap 12 (5-15); BUN 30 mg/dL (4-19); BUN/Creat Ratio 32.9 RATIO (10-20); Calcium,Total 9.6 mg/dL (7.6-11.0); Carbon Dioxide 23.2 mmol/L (21.0-32.0); Chloride 103 mmol/L (98-108); Glucose 69 mg/dL (70-99); Potassium 4.3 mmol/L (3.3-5.1)
[2025-06-16] VITALS (11 sets, daily range): BP systolic 118–155; BP diastolic 62–83; PULSE 64–75; RESP 16–18; TEMP 36.1–37; O2SAT 93–100; BMI 29.3
--- OUTSIDE RECORDS SUMMARY | 2025-06-16 05:47 | XMS RPT_ITS | CCD ---
Author Organization [facility] Care Team Providers Care [employer] Name Role Phone REFERRING, MUSHTAQ IBARRA Unavailable Unavailable KEYONA POST Elo Unavailable Unavailable BLAIRE DANIELS Unavailable Unavailable Jeffery WYMAN, Chris Zaragoza Unavailable [phone] BLAIRE ESTEBAN DO Primary Care Physician [phone] Dr. Blaire Esteban Primary Care Provider Dr. Vicente Jasso Emergency Provider Dr. Vazquez Crowley Admit Provider [phone] Dr. Vazquez Crowley Attending Provider [phone] Vazquez Crowley Other Provider [phone] Dr. Amador Montano Attending Provider Dr. Blaire Esteban Primary Care Provider Dr. Vicente Jasso Emergency Provider Dr. Vazquez Crowley Admit Provider Dr. Vazquez Crowley Attending Provider Dr. Vazquez Crowley Other Provider Dr. Vazquez Crowley Referring Provider [phone] Amador Montano Attending Provider Dr. Blaire Esteban Referring Provider [phone] BLAIRE ESTEBAN DO Primary Care Physician [phone] BLAIRE ESTEBAN DO Unavailable BLAIRE ESTEBAN DO Primary Care Unavailable BLAIRE ESTEBAN DO Primary Care Unavailable BLAIRE ESTEBAN DO Attending Unavailable BLAIRE ESTEBAN DO Unavailable BLAIRE ESTEBAN DO Primary Care Unavailable BLAIRE ESTEBAN DO Attending Unavailable BLAIRE ESTEBAN DO Primary Care Unavailable Dr. Blaire Esteban DO Primary Care Provider [phone] Brad CHAVEZ, Dr. Pedersen Attending Provider Brad CHAVEZ, Dr. Pedersen Referring Provider Blaire Esteban Primary Care Unavailable Slava Cantor Referring Unavailable Slava Cantor Attending Unavailable Slava Cantor Referring Unavailable Slava Cantor Attending Unavailable Blaire Esteban Primary Care Unavailable Nova Lua Referring Unavailable Nova Lua Attending Unavailable Blaire Esteban Primary Care Unavailable Blaire Esteban Primary Care Unavailable Slava Cantor Referring Unavailable Jian Johnson Attending Unavailable Allergies Allergy Classification Reported Allergen(s) Allergy Type Date of Onset Reaction(s) Facility (2 sources) Codeine Drug Allergy 03-15-20 21 [facility] Work Phone: (2 sources) [employer] Animal[employer]; Translations: [ANIMALS] allergy to substance 03-15-20 [facility] Work Phone: (2 sources) Mold Extract; Translations: [MOLD] Drug Allergy 04-28-20 18 [facility] Work Phone: (2 sources) Opioid Agonists drug allergy 04-28-20 18 sensitivity (per patient) [facility] Work Phone: (9 sources) Penicillin G; Translations: [penicillin] Drug Allergy 04-28-20 18 hives and rash, Welts [facility] Work Phone: (2 sources) Sulfacetamide Drug Allergy 04-28-20 18 rash and hives [facility] Work Phone: (2 sources) STINGING INSECTS; Translations: [STINGING INSECTS] allergy to substance 03-15-20 [facility] Work Phone: (2 sources) PLANT POLLENS (HAY FEVER); Translations: [PLANT POLLENS (HAY FEVER)] allergy to substance 04-28-20 [facility] Work Phone: (7 sources) Cephalexin; Translations: [cephalexin] Drug Allergy Unknown (qualifier value) [facility] (11 sources) Codeine; Translations: [codeine] Drug Allergy 07-17-20 Nausea, Rash [facility] Comment on above: n/v (11 sources) Naproxen; Translations: [naproxen] Drug Allergy 07-17-20 Dizziness, Nausea [facility] (7 sources) Sulfamethoxazole; Translations: [sulfamethoxazole] Drug Allergy [facility] (7 sources) Sulfamethoxazole / Trimethoprim; Translations: [sulfamethoxazole-t rimethoprim] Drug Allergy Weal (disorder) [facility] (9 sources) Amoxicillin; Translations: [amoxicillin] Drug Allergy 07-17-20 Rash [facility] (4 sources) Penicillins Propensity to adverse reactions 07-17-20 [facility] (1 source) Amoxicillin Drug Allergy 05-27-20 25 [facility] (1 source) Codeine Drug Allergy 05-27-20 25 [facility] (1 source) Naproxen Drug Allergy 05-27-20 25 [facility] (1 source) Penicillins Drug allergy (disorder) 05-27-20 25 [facility] Medications Current Medications Medication Drug Class(es) Dates Sig (Normalized) Sig (Original) acetaminophen 325 mg oral capsule (3 sources) Start: 05-27-2025 take 2 capsules by mouth twice daily Acetaminophen 325 mg capsule Active 650 mg PO TWICE A DAY May 27, 2025 12:00am Start: 09-08-2018 ACETAMINOPHEN 325 MG TABS 2 tablets twice a day as needed ACETAMINOPHEN [id number] Marcelino Elo [facility] [id number] 200 actuat albuterol 0.09 mg/actuat metered dose inhaler (4 sources) beta2-Adrenergic Agonist Start: 07-17-2023 Albut davida Sulfate 90 mcg/actuation HFA aerosol inhaler Active 2 NMA INHALATION EVERY 6 HOURS as needed for shortness of breath or wheezing July 17, 2023 12:00am Start: 07-17-2023 take 1 puff(s) by in halation every six hours Albuterol Sulfate Active 2 PUFF INHALATION EVERY 6 HOURS July 16, 2023 11:00pm albuterol MDI (90 mcg/inh) CFC free inhalation aerosol (8 sources) Start: 02-01-2023 take 2 puff(s) by inhalation every six hours as needed for wheezing albuterol MDI (90 mcg/inh) CFC free inhalation aerosol 2 puff(s), Inhalation, q6hr, PRN as needed for wheezing, # 1 EA, 1 Refill(s), Pharmacy: [facility]/pharmacy #[id number], Acute bronchitis Allergy-induced asthma, 175, cm, 01/22/23 11:07:00 EDT, Height, kg, 02/01/23 9:02:00 EDT, Dosing Weight Start Date: 02/01/23 Status: Ordered Start: 11-14-2022 take 2 puff(s) by in halation every six hours as needed for wheezing albuterol MDI (90 mcg/inh) CFC free inhalation aerosol 2 puff(s), Inhalation, q6hr, PRN as needed for wheezing, # 1 EA, 1 Refill(s), Pharmacy: [facility]/pharmacy #[id number], 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 Seasonal allergy, 173.5, cm, 11/14/22 14:15:00 EST, Height Start Date: 11/14/22 Status: Ordered Start: 09-05-2022 take 2 puff(s) by in halation every four hours as needed for wheezing albuterol MDI (90 mcg/inh) CFC free inhalation aerosol 2 puff(s), Inhalation, q4h, PRN as needed for wheezing, # 18 gram(s), 0 Refill(s), Pharmacy: [facility]/pharmacy #[id number], Telehealth encounter for confirmed COVID-19, 173.5, cm, 09/05/22 8:58:00 EDT, Height Start Date: 09/05/22 Status: Ordered atorvastatin 10 mg oral tablet (12 sources) HMG-CoA Reductase Inhibitor Start: 07-25-2020 take 1 tablet by mouth at bedtime Atorvastatin 10 mg tablet Active 10 mg PO AT BEDTIME July 10, 2021 12:00am cetirizine hydrochloride 10 mg oral tablet (4 sources) Histamine-1 Receptor Antagonist Start: 07-17-2023 take 1 tablet by mouth once daily Cetirizine (All Day Allergy (Cetirizine)) 10 mg tablet Active 10 mg PO DAILY July 17, 2023 12:00am 12 hr dextromethorphan hydrobromide 30 mg / guaiFENesin 600 mg extended release oral tablet (4 sources) Uncompetitive G-ugpsbq-H-aspartat e Receptor Antagonist, Sigma-1 Agonist Start: 07-17-2023 Dextromethorphan- Guaifenesin (Mucinex Dm) 30-600 mg tablet extended release 12 hr Active 1 {tbl} PO TWICE A DAY as needed for cough July 17, 2023 12:00am docusate sodium 100 mg oral capsule (12 sources) Start: 03-02-2018 take 1 capsule by mouth twice daily Docusate Sodium (Colace) 100 mg capsule Active 100 mg PO TWICE A DAY July 17, 2023 12:00am ferrous sulfate 325 mg delayed release oral tablet (4 sources) Start: 08-18-2024 take 1 tablet by mouth once daily ferrous sulfate 325 mg (65 mg elemental iron) oral delayed release tablet mg = tab(s), Oral, qDay, 0 Refill(s) Start Date: 08/18/24 Status: Ordered Start: 07-18-2023 End: 05-27-2025 take 1 tablet by mouth every other day Ferrous Sulfate 325 mg (65 mg iron) tablet,delayed release (DR/EC) Discontinued 325 mg PO EVERY OTHER DAY 30 0 July 18, 2023 12:00am May 27, 2025 8:28am fluticasone propionate 0.05 mg/actuat metered dose nasal spray (13 sources) Corticosteroid Start: 07-17-2023 Fluticasone Pr opionate 50 mcg/actuation spray,suspension Active 1 NMA INTRANASAL DAILY as needed for allergy symptoms July 17, 2023 12:00am administer into each nostril Start: 07-17-2023 take 1 spray(s) nasa l route once daily Fluticasone Propionate Active 1 SPRAY INTRANASAL DAILY Shanell 6th, 2023 11:00pm administer into each nostril Start: 03-15-2021 FLONASE ALLERG Y RELIEF 50 MCG/ACT SUSP 1 spray once daily as directed FLUTICASONE PROPIONATE [id number] Bailee Willingham Start: 01-18-2021 take 1 dose nasal ro otoe-missouria twice daily Flonase 50 mcg/inh nasal spray Dose = 1 spray(s), Nostril, each, BID, 0 Refill(s) Start Date: 01/18/21 Status: Ordered guaiFENesin (5 sources) Start: 09-05-2022 Mucinex DM Oral, q12h, 0 Refill(s) Start Date: 09/05/22 Status: Ordered hydroCHLOROthiazide 25 mg oral tablet (10 sources) Thiazide Diuretic Start: 01-18-2021 take 1 tablet by mouth once daily Hydrochlorothiazide 25 mg tablet Active 25 mg PO DAILY July 10, 2021 12:00am ibuprofen 800 mg oral tablet (2 sources) Nonsteroidal Anti-inflammator y Drug Start: 04-14-2024 ibuprofen 800 mg oral tablet Dose : 800 mg = 1 tab(s), Oral, TID, PRN for pain, # 30 tab(s), 0 Refill(s) Start Date: 04/14/24 Status: Ordered lisinopril 20 mg oral tablet (10 sources) Angiotensin Converting Enzyme Inhibitor Start: 07-10-2021 take 1 tablet by mouth once daily Lisinopril 20 mg tablet Active 20 mg PO DAILY July 10, 2021 12:00am loratadine 10 mg oral capsule (1 source) Start: 07-29-2022 loratadine 10 mg oral capsule Dose : 10 mg = 1 cap(s), Oral, qDay, # 10 cap(s), 0 Refill(s), Pharmacy: [facility]/pharmacy #[id number], Dental abscess, 173.5, cm, 07/29/22 8:39:00 EDT, Height Start Date: 07/29/22 Status: Ordered magnesium oxide 400 mg oral tablet (1 source) Start: 08-18-2024 magnesium oxide 400 mg oral tablet Dose : 400 mg = 1 tab(s), Oral, qDay, 0 Refill(s) Start Date: 08/18/24 Status: Ordered meloxicam 15 mg oral tablet (6 sources) Nonsteroidal Anti-inflammator y Drug Start: 01-22-2023 meloxicam 15 mg oral tablet Dose : 15 mg = 1 tab(s), Oral, qDay, PRN, 0 Refill(s) Start Date: 01/22/23 Status: Ordered Start: 12-25-2021 take 1 tablet by raymond th once daily as needed for pain MELOXICAM 15 MG TABS Take 1 tablet by mouth once a day as needed for pain meloxicam [id number] Chris Gil PA-C Start: 07-10-2021 End: 07-17-2023 take 1 tablet by mouth twice daily Meloxicam 7.5 mg tablet Discontinued 7.5 mg PO TWICE A DAY July 10, 2021 12:00am July 17, 2023 12:16pm Multivitamin preparation (6 sources) Start: 09-12-2016 take 1 tablet by mouth once daily Multivitamin Dose = 1 tab(s), Oral, Daily, 0 Refill(s) Start Date: 09/12/16 Status: Ordered Multivitamin tablet (1 source) Start: 05-27-2025 Multivitamin t ablet Active 1 {tbl} PO DAILY May 27, 2025 12:00am Hendrum-3 1000 mg oral capsule (6 sources) Start: 09-12-2016 Hendrum-3 1000 m g oral capsule Dose : 1,000 mg = 1 cap(s), Oral, qDay, 0 Refill(s) Start Date: 09/12/16 Status: Ordered Hendrum-3 Fatty Acids-Fish Oil (3 sources) Start: 06-10-2014 Hendrum-3 Fatty Acids-Fish Oil Active 1 EACH PO DAILY June 09, 2014 11:00pm Start: 06-10-2014 Hendrum-3 Fatty Acids-Fish Oil Active 1 EACH PO DAILY June 10, 2014 12:00am Hendrum-3 Fatty Acids-Fish Oil 1 EACH capsule (1 source) Start: 06-10-2014 Hendrum-3 Fatty Acids-Fish Oil 1 EACH capsule Active 1 NMA PO DAILY June 10, 2014 12:00am oxyCODONE hydrochloride 5 mg oral tablet (1 source) Opioid Agonist Start: 01-01-2023 End: 01-08-2023 take 1-2 tablets by mouth every six hours as needed for pain oxyCODONE 5 mg oral tablet ( IMMEDIATE release ) See Instructions, PRN as needed for pain, 1-2 tablets by mouth every 6 hours as needed for pain, # 42 tab(s), 0 Refill(s), 01/08/23 16:15:00 EST, Pharmacy: [facility]/pharmacy #[id number], Other acute postprocedural pain, 175.3, cm, 01/01/23 11:18:00 EST, Height, 88 Start Date: 01/01/23 Stop Date: 01/08/23 Status: Ordered pantoprazole 40 mg delayed release oral tablet (6 sources) Proton Pump Inhibitor Start: 07-18-2023 End: 05-27-2025 take 1 tablet by mouth twice daily at bedtime Pantoprazole (Protonix) 40 mg tablet,delayed release (DR/EC) Active 40 mg PO AT BEDTIME May 27, 2025 12:00am 40 mg twice daily for 12 weeks. sertraline 50 mg oral tablet (12 sources) Serotonin Reuptake Inhibitor Start: 09-09-2020 take 1 tablet by mouth once daily Sertraline 50 mg tablet Active 50 mg PO DAILY July 10, 2021 12:00am sucralfate 1000 mg oral tablet (2 sources) Aluminum Complex Start: 07-18-2023 take 1 g by mouth three times daily Sucralfate Active 1 GM PO TID@0700,1100,1600 90 30 July 17, 2023 11:00pm traMADol hydrochloride 50 mg oral tablet (4 sources) Opioid Agonist Start: 11-11-2023 End: 05-27-2025 traMADol 50 mg oral tablet 0 Refill(s), 87.8 Start Date: 11/14/23 Status: Ordered Start: 01-22-2023 traMADol 50 mg oral tablet Dose : 50 mg = 1 tab(s), Oral, q6hr, PRN, 0 Refill(s), 88 Start Date: 01/22/23 Status: Ordered trospium chloride 20 mg oral tablet (12 sources) Cholinergic Muscarinic Antagonist Start: 01-18-2021 take 1 tablet by mouth twice daily Trospium 20 mg tablet Active 20 mg PO TWICE A DAY July 17, 2023 12:00am administer on an empty stomach Vitamin D3 5000 intl units oral tablet (6 sources) Start: 09-12-2016 Vitamin D3 500 0 intl units oral tablet Dose : 5,000 International_Unit = 1 tab(s), Oral, qDay, # 100 tab(s), 0 Refill(s) Start Date: 09/12/16 Status: Ordered Completed/Discontinued Medications Medication Drug Class(es) Dates Sig (Normalized) Sig (Original) acetaminophen 325 mg / oxyCODONE hydrochloride 5 mg oral tablet (2 sources) Opioid Agonist Start: 11-11-2023 End: 05-27-2025 Oxycodone-Acetamin ophen (Percocet) 5-325 mg tablet Discontinued 1 {tbl} PO EVERY 6 HOURS as needed for pain 20 5 0 November 11, 2023 May 27, 2025 8:29am Multiple fractures of ribs of right side with routine healing ascorbic acid 500 mg oral tablet (3 sources) Vitamin C Start: 07-18-2023 End: 11-11-2023 take 1 tablet by mouth twice daily Ascorbic Acid (Vitamin C) 500 mg tablet Discontinued 500 mg PO TWICE A DAY 60 2 July 18, 2023 12:00am November 11, 2023 1:23am aspirin 81 mg delayed release oral tablet (10 sources) Platelet Aggregation Inhibitor, Nonsteroidal Anti-inflammatory Drug Start: 11-24-2020 ASPIRIN 81 MG TBEC 1 tablet once daily ASPIRIN [id number] Bailee Willingham Start: 07-25-2020 aspirin 81 mg oral delayed release tablet Dose : 81 mg = 1 tab(s), Oral, Daily, 0 Refill(s) Start Date: 07/25/20 Status: Ordered Start: 09-16-2013 End: 11-11-2023 take 1 tablet by mouth once daily Aspirin 81 MG tablet,chewable Discontinued 81 mg PO DAILY@0800 September 16, 2013 1:00am November 11, 2023 1:23am On Hold: Hold aspirin for 12 weeks. baclofen 10 mg oral tablet (1 source) gamma-Aminobutyric Acid-ergic Agonist Start: 12-25-2021 take 1 tablet by mouth every eight hours as needed for muscle spasms BACLOFEN 10 MG TABS Take 1 tablet by mouth every eight hours as needed Take as needed for muscle spasm baclofen [id number] Chris Gil PA-C cholecalciferol 0.025 mg oral tablet (6 sources) Vitamin D Start: 11-24-2020 VITAMIN D 25 MCG (1000 UT) TABS 1 tablet three times daily as directed CHOLECALCIFEROL [id number] Bailee Willingham Start: 09-16-2013 End: 05-27-2025 take 1 tablet by mouth twice daily Cholecalciferol (Vitamin D3) (Vitamin D3) 2,000 UNIT tablet Discontinued 2000 U PO TWICE A DAY September 16, 2013 1:00am May 27, 2025 8:27am clindamycin 150 mg oral capsule (1 source) Lincosamide Antibacterial Start: 04-14-2024 clindamycin 150 mg oral capsule mg = cap(s), Oral, q6hr, 0 Refill(s), 90.1 Start Date: 04/14/24 Status: Ordered cyproheptadine hydrochloride 4 mg oral tablet (12 sources) Start: 12-26-2020 End: 05-27-2025 take 1 tablet by mouth once daily Cyproheptadine 4 mg tablet Discontinued 4 mg PO DAILY July 10, 2021 12:00am May 27, 2025 8:27am diazePAM 5 mg oral tablet (2 sources) Benzodiazepine Start: 11-11-2023 End: 05-27-2025 take 1 tablet by mouth three times daily as needed for muscle spasms Diazepam (Valium) 5 mg tablet Discontinued 5 mg PO THREE TIMES A DAY as needed for muscle spasm 15 5 0 November 11, 2023 2:41am May 27, 2025 8:28am Multiple fractures of ribs of right side with routine healing diclofenac sodium 75 mg delayed release oral tablet (1 source) Nonsteroidal Anti-inflammatory Drug Start: 11-14-2023 End: 01-13-2024 diclofenac sodium 75 mg oral delayed release tablet Dose : 75 mg = 1 tab(s), Oral, BID, # 60 tab(s), 1 Refill(s), Pharmacy: [facility]/pharmacy #[id number], Fracture of rib Pain, 175, cm, 11/14/23 13:21:00 EST, Height, kg, 11/14/23 13:21:00 EST, Dosing Weight Start Date: 11/14/23 Stop Date: 01/13/24 Status: Ordered famotidine 20 mg oral tablet (1 source) Histamine-2 Receptor Antagonist Start: 07-29-2022 End: 08-08-2022 Pepcid 20 mg oral tablet Dose : 20 mg = 1 tab(s), Oral, BID, # 20 tab(s), 0 Refill(s), Pharmacy: [facility]/pharmacy #[id number], Dental abscess, 173.5, cm, 07/29/22 8:39:00 EDT, Height Start Date: 07/29/22 Stop Date: 08/08/22 Status: Ordered Fexofenadine-Pseudoe phedrine (Phoebe-D 24 Hour Tablet) 1 TAB.SR tablet extended release 24 hr (4 sources) Start: 06-10-2014 End: 07-17-2023 take 1 tablet by mouth every twenty-four hours Fexofenadine-Pseudo ephedrine (Phoebe-D 24 Hour Tablet) 1 TAB.SR tablet extended release 24 hr Discontinued 1 NMA PO DAILY June 10, 2014 12:00am July 17, 2023 12:16pm Start: 06-10-2014 End: 07-17-2023 take 1 tablet by mouth once daily, then take 1 tablet by mouth every twenty-four hours Fexofenadine-Pseudoephedrine (Phoebe-D 24 Hour Tablet) 1 TAB.SR tablet extended release 24 hr Discontinued 1 TAB.SR PO DAILY June 09, 2014 11:00pm July 17, 2023 11:16am Start: 06-10-2014 End: 07-17-2023 take 1 tablet by mouth once daily, then take 1 tablet by mouth every twenty-four hours Fexofenadine-Pseudoephedrine (Phoebe-D 24 Hour Tablet) 1 TAB.SR tablet extended release 24 hr Discontinued 1 TAB.SR PO DAILY June 10, 2014 12:00am July 17, 2023 12:16pm gabapentin 300 mg oral capsule (6 sources) Anti-epileptic Agent Start: 07-10-2021 End: 07-17-2023 take 1 capsule by mouth once daily Gabapentin 300 mg capsule Discontinued 300 mg PO DAILY July 10, 2021 12:00am July 17, 2023 12:16pm Start: 02-06-2021 GABAPENTIN 300 MG CAPS 1 capsule three times daily GABAPENTIN [id number] Chris Gil PA-C [id number] C-MN (2 sources) Start: 09-29-2018 GLUCOSAMINE CHONDR 1500 COMPLX CAPS 1 capsule once daily [id number] C-MN [id number] Bailee Willingham hydroCHLOROthiazide 12.5 mg / irbesartan 150 mg oral tablet (6 sources) Thiazide Diuretic, Angiotensin 2 Receptor Amandeep Start: 07-10-2021 End: 07-17-2023 Irbesartan-Hydrochlorothiazi de 150-12.5 mg tablet Discontinued 1 {tbl} PO AT BEDTIME July 10, 2021 12:00am July 17, 2023 12:16pm Start: 07-10-2021 End: 07-17-2023 take 1 tablet by mouth at bedtime Irbesartan-Hydrochlorothiazide Discontin ued 1 TABLET PO AT BEDTIME July 09, 2021 11:00pm July 17, 2023 11:16am Start: 03-15-2021 IRBESARTAN-HYD ROCHLOROTHIAZIDE TABS 1 tablet once daily IRBESARTAN-HYDROCHLOROTHIAZIDE TABS [id number] Bailee Willingham MULTIPLE VITAMINS-MINERALS (2 sources) Start: 03-15-2021 ONE DAILY MULT IVITAMIN ADULT TABS 1 tablet once daily MULTIPLE VITAMINS-MINERALS [id number] Bailee Willingham Multivitamin With Folic Acid (Thera) 1 TABLET tablet (4 sources) Start: 09-16-2013 End: 11-11-2023 take 1 tablet by mouth once daily Multivitamin With Folic Acid (Thera) 1 TABLET tablet Discontinued 1 {tbl} PO DAILY September 16, 2013 1:00am November 11, 2023 1:24am Start: 09-16-2013 End: 11-11-2023 take 1 tablet by mouth once daily Multivitamin With Folic Acid (Thera) 1 TABLET tablet Discontinued 1 TABLET PO DAILY September 16, 2013 12:00am November 11, 2023 12:24am Start: 09-16-2013 take 1 tablet by raymond th once daily Multivitamin With Folic Acid (Thera) 1 TABLET tablet Active 1 TABLET PO DAILY September 16, 2013 1:00am OMEGA-3 FATTY ACIDS (4 sources) Start: 11-24-2020 OMEGA III EPA+ DHA 1000 MG CAPS 1 capsule once daily OMEGA-3 FATTY ACIDS [id number] Bailee Willingham Start: 11-24-2020 FISH OIL 500 M G CAPS 1 capsule once daily OMEGA-3 FATTY ACIDS [id number] Bailee Willingham omeprazole 20 mg delayed release oral capsule (8 sources) Proton Pump Inhibitor Start: 07-17-2023 End: 07-18-2023 take 1 capsule by mouth once daily Omeprazole 20 mg capsule,delayed release(DR/EC) Discontinued 20 mg PO DAILY July 17, 2023 12:00am July 18, 2023 8:38am Start: 01-18-2021 omeprazole 20 mg oral delayed release capsule Dose : 20 mg = 1 cap(s), Oral, qDay, # 30 cap(s), 0 Refill(s) Start Date: 01/18/21 Status: Ordered omeprazole 20 mg / sodium bicarbonate 1100 mg oral capsule (6 sources) Proton Pump Inhibitor Start: 07-10-2021 End: 07-17-2023 take 1 capsule by mouth once daily Omeprazole-Sodium Bicarbonate Discontinued 1 CAP PO DAILY July 09, 2021 11:00pm July 17, 2023 11:16am Start: 03-15-2021 End: 07-17-2023 Omeprazole-Sodium Bicarbonat e 20-1.1 mg-gram capsule Discontinued 1 NMA PO DAILY July 10, 2021 12:00am July 17, 2023 12:16pm ondansetron 4 mg disintegrating oral tablet (3 sources) Serotonin-3 Receptor Antagonist Start: 11-11-2023 End: 05-27-2025 take 1 tablet by mouth three times daily as needed for nausea and vomiting Ondansetron 4 mg tablet,disintegrating Discontinued 4 mg PO THREE TIMES A DAY as needed for nausea and vomiting 21 0 November 11, 2023 2:41am May 27, 2025 8:29am Start: 01-01-2023 End: 01-06-2023 ondansetron 4 mg oral tablet , disintegrating Dose : 4 mg = 1 tab(s), Oral, q8h, PRN as needed for nausea/vomiting, X 5 day(s), # 15 tab(s), 0 Refill(s), 01/06/23 15:31:00 EST, Pharmacy: [facility]/pharmacy #[id number], 175.3, cm, 01/01/23 11:18:00 EST, Height Start Date: 01/01/23 Stop Date: 01/06/23 Status: Ordered promethazine hydrochloride 25 mg oral tablet (10 sources) Phenothiazine Start: 07-17-2023 End: 05-27-2025 take 1 tablet by mouth once daily as needed for nausea Promethazine 25 mg tablet Discontinued 25 mg PO DAILY NEEDED as needed for nausea July 17, 2023 12:00am May 27, 2025 8:29am Start: 12-26-2020 promethazine S ee Instructions, 25 mg Oral as needed, 0 Refill(s) Start Date: 01/18/21 Status: Ordered 24 hr propranolol hydrochloride 80 mg extended release oral capsule (12 sources) beta-Adrenergic Amandeep Start: 07-17-2023 End: 05-27-2025 take 1 capsule by mouth once daily Propranolol (Inderal Xl) 80 mg capsule,extended release 24hr Discontinued 80 mg PO DAILY July 17, 2023 12:00am May 27, 2025 8:29am Start: 11-24-2020 take 1 dose by mouth once jasmina y propranolol Dose : 80 mg =, Oral, qDay, 0 Refill(s) Start Date: 01/18/21 Status: Ordered Problems Active Problems Problem Classification Problem Date Documented Date Episodic/Chronic Abdominal pain (7 sources) Abdominal pain - cause unknown 03-21-2021 Episodic Acute bronchitis (3 sources) Acute bronchitis 02-01-2023 Episodic Anxiety disorders (14 sources) Anxiety; Translations: [Posttraumatic stress disorder] 03-02-2018 Chronic Comment on above: IS IN THERAPY, NO ME DS Asthma (7 sources) Allergic asthma 03-02-2018 Chronic Comment on above: no inhaler Calculus of urinary tract (7 sources) Urolith 02-26-2018 Episodic Chronic kidney disease (3 sources) Chronic kidney disease stage 3A 08-01-2023 Chronic Deficiency and other anemia (3 sources) Anemia 08-01-2023 Episodic Disorders of lipid metabolism (7 sources) Hypercholesterolemia 09-12-2016 Chronic Disorders of teeth and jaw (7 sources) Temporomandibular joint disorder 09-29-2017 Episodic E Codes: Fall (2 sources) Accidental fall ; Translations: [Unspecified fall, initial encounter] 11-11-2023 Episodic Essential hypertension (13 sources) Hypertensive disorder; Translations: [Essential (primary) hypertension] Onset: 04-15-20 24 05-12-2016 Chronic Gastrointestinal hemorrhage (3 sources) Duodenal ulcer with hemorrhage 08-01-2023 Chronic Gastrointestinal hemorrhage (8 sources) Acute upper gastrointestinal hemorrhage; Translations: [Gastrointestinal hemorrhage, unspecified] 07-17-2023 Episodic Headache; including migraine (7 sources) Headache 09-12-2016 Episodic Comment on above: SINUS Nausea and vomiting (3 sources) Nausea 11-14-2023 Episodic Nutritional deficiencies (2 sources) Vitamin D deficiency 08-18-2024 Chronic Osteoarthritis (8 sources) Osteoarthritis; Translations: [Primary osteoarthritis, right shoulder] Onset: 05-31-20 25 09-29-2017 Chronic Other bone disease and musculoskeletal deformities (7 sources) Osteopenia 07-25-2020 Episodic Other connective tissue disease (9 sources) Hamstring injury; Translations: [Other specified enthesopathies of right lower limb, excluding foot] Onset: 09-09-20 20 09-09-2020 Episodic Other connective tissue disease (7 sources) H/O: musculoskeletal disease 03-02-2018 Episodic Other connective tissue disease (7 sources) Pain in finger 12-06-2020 Episodic Other fractures (1 source) Fracture of multiple ribs ; Translations: [Multiple fractures of ribs, right side, subsequent encounter for fracture with routine healing] 11-11-2023 Episodic Other fractures (3 sources) Fracture of rib 11-14-2023 Episodic Other fractures (1 source) Multiple fractures of ribs, right side, subsequent encounter for fracture with routine healing; Translations: [Multiple fractures of ribs of right side with routine healing] 11-19-2023 Episodic Other gastrointestinal disorders (7 sources) Gastrointestinal symptom 12-06-2020 Episodi c Other gastrointestinal disorders (3 sources) Constipation 11-14-2023 Episodic Other nervous system disorders (7 sources) 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 Other non-traumatic joint disorders (8 sources) Hip pain 08-30-2021 Episodic Other non-traumatic joint disorders (7 sources) Knee pain 04-11-2021 Episodic Other nutritional; endocrine; and metabolic disorders (6 sources) Overweight in adulthood with body mass index of 25 or more but less than 30 11-14-2022 Episodic Other screening for suspected conditions (not mental disorders or infectious disease) (13 sources) Positive skin test reaction; Translations: [Viral screening status] Onset: 11-10-18 79 03-02-2018 Episodic Comment on above: 04/13/2012 CXR JEWEL MARIA: NO EVIDENCE OF ACTIVE PULMONARY TUBERCULOSIS, MILD CHRONIC CHANGES ARE STABLE, NO ACUTE PROCESS was treated Other upper respiratory disease (7 sources) Seasonal allergy 09-12-2016 Chronic Residual codes; unclassified (7 sources) Needs influenza immunization 08-30-2021 Episodic Residual codes; unclassified (7 sources) Requires vaccination 08-30-2021 Episodic Residual codes; unclassified (3 sources) Pain 11-14-2023 Episodic Sprains and strains (8 sources) Strain of muscle of lower limb; Translations: [Strain of muscle, fascia and tendon of left hip, subsequent encounter] Onset: 04-28-20 18 07-11-2021 Episodic Unclassified (1 source) Unknown / UNK(Unknown) Onset: 05-22-20 17 Unclassified (7 sources) Eye glasses, device (physical object) 09-12-2016 Unclassified (20 sources) Patient encounter status 10-31-2020 Unclassified (6 sources) 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 AUREUS S. aureus Negative Normal [facility] Comment on above: Performed By: #### L 100.0100, L501.1800, M100.651, L500.2500 #### [facility] [address] [place], [address] 12 Lead EKGon 05-30-2025 12 Lead EKG [facility] Cardi[facility] Services [address] [place] [address] 12 Lead EKG 05/30/25 0823 MR#: [id number] Acct: [id number] Name: EFRAIN CARTWRIGHT Rep #: [id number] : 1950 75 From: Jian Johnson MD Attending Dr: Dr. Slava Cantor DO Status: PRE [facility] Ordering Dr: Slava Cantor DO Date: 05/30/25 Location: [facility] Sex: F C Admitted: Test Reason : PREOP Blood Pressure : */* mmHG Vent. Rate : 58 BPM Atrial Rate : 58 BPM P-R Int : 158 ms QRS Dur : 80 ms QT Int : 402 ms P-R-T Axes : 33 27 52 degrees QTcB Int : 394 ms Sinus bradycardia Otherwise normal ECG Confirmed by Jian Johnson ([id number]), make up editor MIO SOTO ([id number]) on 05/31/2025 5:42:12 AM Referred By: Slava Cantor Confirmed By: Jian Johnson 05/31/25 0542 Date Jian Johnson MD CC: Dr. Blaire Esteban, ; Dr. Slava Cantor DO Signed Normal [facility] Albumin, Serumon 05-30-2025 Albumin [Mass/Vol] 4.3 g/dL Normal 3.4-4.8 [facility] Comment on above: Performed By: #### L 100.0100, L501.1800, M100.651, L500.2500 #### [facility] [address] [place], [address] Basic Metabolic Profile (BMP )on 05-30-2025 BUN/CRE 32.9 RATIO High 10-20 [facility] Comment on above: Performed By: #### L 100.0100, L501.1800, M100.651, L500.2500 #### [facility] [address] [place], [address] Calcium [Mass/Vol] 9.6 mg/dL Normal 7.6-11.0 [facility] Comment on above: Performed By: #### L 100.0100, L501.1800, M100.651, L500.2500 #### [facility] [address] [place], [address] Chloride [Moles/Vol] 103 mmol/L Normal 98-108 [facility] Comment on above: Performed By: #### L 100.0100, L501.1800, M100.651, L500.2500 #### [facility] [address] [place], [address] CO2 [Moles/Vol] 23.2 mmol/L Normal 21.0-32.0 [facility] Comment on above: Performed By: #### L 100.0100, L501.1800, M100.651, L500.2500 #### [facility] [address] [place], [address] Creatinine [Mass/Vol] 0.90 mg/dL Normal 0.70-1.20 [facility] Comment on above: Performed By: #### L 100.0100, L501.1800, M100.651, L500.2500 #### [facility] [address] [place], [address] GAP 12 Normal 5-15 [facility] Comment on above: Performed By: #### L 100.0100, L501.1800, M100.651, L500.2500 #### [facility] [address] [place], [address] GFR/1.73 sq M.predicted among non-blacks MDRD (S/P/Bld) [Vol rate/Area] 67 mL/min/{1.73_m2} Normal >60 [facility] Comment on above: Result Comment: mL/m in/1.73m2 CKD-EPI Creatinine Equation (2020) Performed By: #### L 100.0100, L501.1800, M100.651, L500.2500 #### [facility] [address] [place], [address] Glucose [Mass/Vol] 69 mg/dL Low 70-99 [facility] Comment on above: Performed By: #### L 100.0100, L501.1800, M100.651, L500.2500 #### [facility] [address] [place], [address] Potassium [Moles/Vol] 4.3 mmol/L Normal 3.3-5.1 [facility] Comment on above: Result Comment: Hemo lysis present, Results??could be affected. ?? Performed By: #### L 100.0100, L501.1800, M100.651, L500.2500 #### [facility] [address] [place], [address] Sodium [Moles/Vol] 139 mmol/L Normal 133-145 [facility] Comment on above: Performed By: #### L 100.0100, L501.1800, M100.651, L500.2500 #### [facility] [address] [place], [address] Urea nitrogen [Mass/Vol] 30 mg/dL High 4-19 [facility] Comment on above: Performed By: #### L 100.0100, L501.1800, M100.651, L500.2500 #### [facility] [address] [place], [address] CBC W/Diff, Automatedon 07-2 Absolute Lymph 1.70 X10 3/uL Normal 0.83-4.51 [facility] Comment on above: Performed By: #### L 100.0100, L501.1800, M100.651, L500.2500 #### [facility] [address] [place], [address] Absolute Neut 3.2 X10 3/uL Normal 2.0-7.7 [facility] Comment on above: Performed By: #### L 100.0100, L501.1800, M100.651, L500.2500 #### [facility] [address] [place], [address] Basophils/100 WBC (Bld) 0.9 % Normal 0-1 [facility] Comment on above: Performed By: #### L 100.0100, L501.1800, M100.651, L500.2500 #### [facility] [address] [place], [address] Eosinophils/100 WBC (Bld) 2.4 % Normal 0-5 [facility] Comment on above: Performed By: #### L 100.0100, L501.1800, M100.651, L500.2500 #### [facility] [address] [place], [address] Erythrocyte distribution width (RBC) [Ratio] 12.3 % Normal 11.6-14.6 [facility] Comment on above: Performed By: #### L 100.0100, L501.1800, M100.651, L500.2500 #### [facility] [address] [place], [address] Hematocrit (Bld) [Volume fraction] 39.9 % Normal 37-47 [facility] Comment on above: Performed By: #### L 100.0100, L501.1800, M100.651, L500.2500 #### [facility] [address] [place], [address] Hemoglobin (Bld) [Mass/Vol] 13.3 g/dL Normal 12.0-15.0 [facility] Comment on above: Performed By: #### L 100.0100, L501.1800, M100.651, L500.2500 #### [facility] [address] [place] [place], [address] IG% 0.200 Normal 0.0-0.9 [facility] Comment on above: Result Comment: IG% - Immature Granulocytes (promyelocytes, myelocytes and metamyelocytes) > 1% indicates that a LEFT SHIFT is Present. Performed By: #### L 100.0100, L501.1800, M100.651, L500.2500 #### [facility] [address] [place], [address] Lymphocytes/100 WBC (Bld) 30.7 % Normal 19-41 [facility] Comment on above: Performed By: #### L 100.0100, L501.1800, M100.651, L500.2500 #### [facility] [address] [place], [address] MCH (RBC) [Entitic mass] 31.1 pg Normal 27.0-32.0 [facility] Comment on above: Performed By: #### L 100.0100, L501.1800, M100.651, L500.2500 #### [facility] [address] [place], [address] MCHC (RBC) [Mass/Vol] 33.3 g/dL Normal 32-36 [facility] Comment on above: Performed By: #### L 100.0100, L501.1800, M100.651, L500.2500 #### [facility] [address] [place], [address] MCV (RBC) [Entitic vol] 93.4 fL Normal 81-99 [facility] Comment on above: Performed By: #### L 100.0100, L501.1800, M100.651, L500.2500 #### [facility] [address] [place], [address] Monocytes/100 WBC (Bld) 7.6 % Normal 0-10 [facility] Comment on above: Performed By: #### L 100.0100, L501.1800, M100.651, L500.2500 #### [facility] [address] [place], [address] Neutrophils/100 WBC (Bld) 58.2 % Normal 47-70 [facility] Comment on above: Performed By: #### L 100.0100, L501.1800, M100.651, L500.2500 #### [facility] [address] [place], [address] Nucleated RBC (Bld) [#/Vol] 0 10*3/uL Normal 0-5 [facility] Comment on above: Performed By: #### L 100.0100, L501.1800, M100.651, L500.2500 #### [facility] [address] [place], [address] Platelet mean volume (Bld) [Entitic vol] 10.5 fL Normal 6.2-12.0 [facility] Comment on above: Performed By: #### L 100.0100, L501.1800, M100.651, L500.2500 #### [facility] [address] [place], [address] Platelets (Bld) [#/Vol] 206 10*3/uL Normal 150-450 [facility] Comment on above: Performed By: #### L 100.0100, L501.1800, M100.651, L500.2500 #### [facility] [address] [place], [address] RBC (Bld) [#/Vol] 4.27 10*6/uL Normal 4.2-5.4 [facility] Comment on above: Performed By: #### L 100.0100, L501.1800, M100.651, L500.2500 #### [facility] [address] [place], [address] RDW SD 42.1 fl Normal 35.1-43.9 [facility] Comment on above: Performed By: #### L 100.0100, L501.1800, M100.651, L500.2500 #### [facility] [address] [place], [address] WBC (Bld) [#/Vol] 5.5 10*3/uL Normal 4.4-11.0 [facility] Comment on above: Performed By: #### L 100.0100, L501.1800, M100.651, L500.2500 #### [facility] [address] [place], [address] Extremity Upper without Cont raon 05-26-2025 Extremity Upper without Contra [facility] Imaging Services [address] [place] [address] Extremity Upper without Contra MR#: [id number] Acct: [id number] Name: EFRAIN CARTWRIGHT Rep #: [id number] : 1950 F 75 From: Sea Sanchez MD PCP: Dr. Blaire Esteban, Status: REG CLI Study: Extremity Upper without Contra Date of Exam: 0 05/26/25 Exam# [id number] Ordering Dr: Slava Cantor DO PROCEDURE: EXTREMITY UPPER WITHOUT CONTRA 05/26/2025 REASON FOR EXAM: CHRONIC SHOULDER PAIN/ OA TECHNIQUE: EXTREMITY UPPER WITHOUT CONTRA Coronal and Sagittal reconstruction series were provided. One or more dose reduction techniques were used (e.g., Automated exposure control, adjustment of the mA and/or kV according to patient size, use of iterative reconstruction technique. RADIATION DOSE SUMMARY: CTDlvol: 27.9 mGy DLP: 871 mGycm COMPARISON: None FINDINGS: No acute fracture or traumatic malalignment. Chronic appearing right-sided rib fractures, including an unfused fracture of the 9th rib. Moderate joint space narrowing and osteophyte formation at the acromioclavicular and glenohumeral joints. There is subchondral cystic formation in the humeral head. Prominent osteophyte at the inferomedial humeral head. There is a cyst located superior to the acromioclavicular joint which measures up to 2.4 cm (series 3, image 12) and contains a calcification inferiorly. Slightly high-riding humeral head. Atrophy of the supraspinatus muscle. Visualized right hemithorax is unremarkable. Coronary calcifications are partially seen. CT/Extremity Upper without Contra IMPRESSION: 1. Acromioclavicular joint cyst measuring up to 2.4 cm, suggestive of full-thickness rotator cuff tear (geyser sign). There is atrophy of the supraspinatus muscle body. 2. 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 Of note, there is a large osteophyte at the inferomedial humeral head. Reading Location: [id number] CC: Dr. Blaire Esteban, DO; Dr. Slava Cantor, DO Application Manager: Signed Normal [facility] 02-16-2025 U Creatinine 65.1 mg/dL Normal [facility] Comment on above: Performed By: #### M ALBR #### [address] [address] U Microalb 5.4 mg/L Normal [facility] Comment on above: Performed By: #### M ALBR #### [address] [place], [place] [address] U Ratio Alb/Cre 8 mg/G Normal 0-30 [facility] Comment on above: Performed By: #### M ALBR #### [address] [place], [place] [address] .Auto Diffon 08-25-2024 Basophil, Absolute 0.0 10 3/mcL Normal 0.0-0.2 [facility] Comment on above: Performed By: #### C MP, LIPID, TSH, ANEU, ADIFF, VIDH, GFR, CBC #### [address] [address] #### HCV1 #### [address] [address] Basophils/100 WBC (Bld) 0.8 % Normal 0.0-2.5 [facility] Comment on above: Performed By: #### C MP, LIPID, TSH, ANEU, ADIFF, VIDH, GFR, CBC #### [address] [address] #### HCV1 #### [address] [address] Eosinophil, Absolute 0.2 10 3/mcL Normal 0.0-0.7 [facility] Comment on above: Performed By: #### C MP, LIPID, TSH, ANEU, ADIFF, VIDH, GFR, CBC #### [address] [address] #### HCV1 #### [address] [address] Eosinophils/100 WBC (Bld) 2.9 % Normal 0.0-7.0 [facility] Comment on above: Performed By: #### C MP, LIPID, TSH, ANEU, ADIFF, VIDH, GFR, CBC #### [place] [address] #### HCV1 #### [address] [address] Lymphocyte, Absolute 1.9 10 3/mcL Normal 0.9-4.3 [facility] Comment on above: Performed By: #### C MP, LIPID, TSH, ANEU, ADIFF, VIDH, GFR, CBC #### [address] [address] #### HCV1 #### [address] [address] Lymphocytes/100 WBC (Bld) 35.5 % Normal 20.0-40.0 [facility] Comment on above: Performed By: #### C MP, LIPID, TSH, ANEU, ADIFF, VIDH, GFR, CBC #### [address] [address] #### HCV1 #### [address] [address] Monocyte, Absolute 0.5 10 3/mcL Normal 0.1-1.4 [facility] Comment on above: Performed By: #### C MP, LIPID, TSH, ANEU, ADIFF, VIDH, GFR, CBC #### [address] [address] #### HCV1 #### [address] [address] Monocytes/100 WBC (Bld) 9.1 % Normal 2.0-13.0 [facility] Comment on above: Performed By: #### C MP, LIPID, TSH, ANEU, ADIFF, VIDH, GFR, CBC #### [address] [address] #### HCV1 #### [address] [address] Neutrophils/100 WBC (Bld) 51.7 % Normal 50.0-75.0 [facility] Comment on above: Performed By: #### C MP, LIPID, TSH, ANEU, ADIFF, VIDH, GFR, CBC #### [place] [address] #### HCV1 #### [address] [address] .GFRon 08-25-2024 GFR Non- 68 ml/min/1.73sqm Normal [facility] Comment on above: Result Comment: GFR Population mean for , Non- Americans Ages 20-29 = 116 mL/min/1.73 sq.m. Ages 30-39 = 107 mL/min/1.73 sq.m. Ages 40-49 = 99 mL/min/1.73 sq.m. Ages 50-59 = 93 mL/min/1.73 sq.m. Ages 60-69 = 85 mL/min/1.73 sq.m. Ages 70+ = 75 mL/min/1.73 sq.m. Chronic Kidney Disease: Less than 60 mL/min/1.73 square meters End Stage Renal Disease: Less than 15 mL/min/1.73 square meters Performed By: #### C MP, LIPID, TSH, ANEU, ADIFF, VIDH, GFR, CBC #### [address] [address] #### HCV1 #### [address] [address] GFR 83 ml/min/1.73sqm Normal [facility] Comment on above: Result Comment: GFR Population mean for , Non- Americans Ages 20-29 = 116 mL/min/1.73 sq.m. Ages 30-39 = 107 mL/min/1.73 sq.m. Ages 40-49 = 99 mL/min/1.73 sq.m. Ages 50-59 = 93 mL/min/1.73 sq.m. Ages 60-69 = 85 mL/min/1.73 sq.m. Ages 70+ = 75 mL/min/1.73 sq.m. Chronic Kidney Disease: Less than 60 mL/min/1.73 square meters End Stage Renal Disease: Less than 15 mL/min/1.73 square meters Performed By: #### C MP, LIPID, TSH, ANEU, ADIFF, VIDH, GFR, CBC #### [address] [address] #### HCV1 #### [address] [address] .NEUABSon 08-25-2024 Neutrophil, Absolute 2.8 10 3/mcL Normal 2.3-8.1 [facility] Comment on above: Performed By: #### C MP, LIPID, TSH, ANEU, ADIFF, VIDH, GFR, CBC #### [address] [address] #### HCV1 #### [address] [address] CBCon 08-25-2024 Erythrocyte distribution width (RBC) [Ratio] 12.3 % Normal 11.5-15.5 [facility] Comment on above: Performed By: #### C MP, LIPID, TSH, ANEU, ADIFF, VIDH, GFR, CBC #### [address] [address] #### HCV1 #### [place] [address] Hematocrit (Bld) [Volume fraction] 39.8 % Normal 34.0-46.0 [facility] Comment on above: Performed By: #### C MP, LIPID, TSH, ANEU, ADIFF, VIDH, GFR, CBC #### [place] [address] #### HCV1 #### [address] [place] [address] Hgb 13.5 G/dL Normal 12.0-16.0 [facility] Comment on above: Performed By: #### C MP, LIPID, TSH, ANEU, ADIFF, VIDH, GFR, CBC #### [place] [address] #### HCV1 #### [place] [address] MCH (RBC) [Entitic mass] 32.0 pg Normal 27.0-33.0 [facility] Comment on above: Performed By: #### C MP, LIPID, TSH, ANEU, ADIFF, VIDH, GFR, CBC #### [place] [address] #### HCV1 #### [place] [address] MCHC 34.0 G/dL Normal 32.0-36.0 [facility] Comment on above: Performed By: #### C MP, LIPID, TSH, ANEU, ADIFF, VIDH, GFR, CBC #### [place] [address] #### HCV1 #### [place] [address] MCV (RBC) [Entitic vol] 94.1 fL Normal 80.0-99.0 [facility] Comment on above: Performed By: #### C MP, LIPID, TSH, ANEU, ADIFF, VIDH, GFR, CBC #### [place] [address] #### HCV1 #### [place] [address] Platelet 204 10 3/mcL Normal 150-450 [facility] Comment on above: Performed By: #### C MP, LIPID, TSH, ANEU, ADIFF, VIDH, GFR, CBC #### [place] [address] #### HCV1 #### [place] [address] Platelet mean volume (Bld) [Entitic vol] 8.6 fL Normal 6.6-10.5 [facility] Comment on above: Performed By: #### C MP, LIPID, TSH, ANEU, ADIFF, VIDH, GFR, CBC #### [place] [address] #### HCV1 #### [place] [address] RBC 4.23 10 6/mcL Normal 4.10-5.30 [facility] Comment on above: Performed By: #### C MP, LIPID, TSH, ANEU, ADIFF, VIDH, GFR, CBC #### [place] [address] #### HCV1 #### [place] [address] WBC 5.3 10 3/mcL Normal 4.5-10.8 [facility] Comment on above: Performed By: #### C MP, LIPID, TSH, ANEU, ADIFF, VIDH, GFR, CBC #### [place] [address] #### HCV1 #### [address] [address] CMPon 08-25-2024 Albumin Level 3.8 G/dL Normal 3.4-4.8 [facility] Comment on above: Performed By: #### C MP, LIPID, TSH, ANEU, ADIFF, VIDH, GFR, CBC #### [address] [address] #### HCV1 #### [address] [address] Albumin/Globulin [Mass ratio] 1.4 {ratio} Normal 1.1-2.5 [facility] Comment on above: Performed By: #### C MP, LIPID, TSH, ANEU, ADIFF, VIDH, GFR, CBC #### [address] [address] #### HCV1 #### [address] [address] ALP [Catalytic activity/Vol] 86 U/L Normal 40-135 [facility] Comment on above: Performed By: #### C MP, LIPID, TSH, ANEU, ADIFF, VIDH, GFR, CBC #### [address] [address] #### HCV1 #### [address] [address] ALT [Catalytic activity/Vol] 32 U/L Normal 14-59 [facility] Comment on above: Performed By: #### C MP, LIPID, TSH, ANEU, ADIFF, VIDH, GFR, CBC #### [address] [address] #### HCV1 #### [address] [address] AST [Catalytic activity/Vol] 14 U/L Normal 10-40 [facility] Comment on above: Performed By: #### C MP, LIPID, TSH, ANEU, ADIFF, VIDH, GFR, CBC #### [address] [address] #### HCV1 #### [address] [address] Bili Total 0.7 mg/dL Normal 0.2-1.0 [facility] Comment on above: Result Comment: Use of this assay is not recommended for patients undergoing treatment with eltrombopag due to the potential for falsely elevated results. Performed By: #### C MP, LIPID, TSH, ANEU, ADIFF, VIDH, GFR, CBC #### [place] [address] #### HCV1 #### [place] [address] BUN/Creatinine Ratio 28 ratio High 7-27 [facility] Comment on above: Performed By: #### C MP, LIPID, TSH, ANEU, ADIFF, VIDH, GFR, CBC #### [place] [address] #### HCV1 #### [place] [address] Calcium [Mass/Vol] 9.3 mg/dL Normal 8.4-10.2 [facility] Comment on above: Performed By: #### C MP, LIPID, TSH, ANEU, ADIFF, VIDH, GFR, CBC #### [place] [address] #### HCV1 #### [place] [address] Chloride [Moles/Vol] 102 mmol/L Normal 98-107 [facility] Comment on above: Performed By: #### C MP, LIPID, TSH, ANEU, ADIFF, VIDH, GFR, CBC #### [place] [address] #### HCV1 #### [place] [id number] CO2 [Moles/Vol] 31 mmol/L Normal 23-31 [facility] Comment on above: Performed By: #### C MP, LIPID, TSH, ANEU, ADIFF, VIDH, GFR, CBC #### [place] [address] #### HCV1 #### [place] [address] Creatinine [Mass/Vol] 0.82 mg/dL Normal 0.55-1.02 [facility] Comment on above: Result Comment: Test ing performed on Siemens Dimension EXL analyzer using a modified kinetic Kevin technique. Performed By: #### C MP, LIPID, TSH, ANEU, ADIFF, VIDH, GFR, CBC #### [place] [address] #### HCV1 #### [place] [address] Electrolyte Balance 5.0 mEq/L Normal 4.0-15.0 [facility] [place] Comment on above: Performed By: #### C MP, LIPID, TSH, ANEU, ADIFF, VIDH, GFR, CBC #### [place] [address] #### HCV1 #### [place] [address] Globulin 2.7 G/dL Normal [facility] Comment on above: Performed By: #### C MP, LIPID, TSH, ANEU, ADIFF, VIDH, GFR, CBC #### [place] [address] #### HCV1 #### [place] [address] Glucose [Mass/Vol] 82 mg/dL Low 83-110 [facility] Comment on above: Performed By: #### C MP, LIPID, TSH, ANEU, ADIFF, VIDH, GFR, CBC #### [place] [address] #### HCV1 #### [place] [id number] Potassium [Moles/Vol] 4.4 mmol/L Normal 3.5-5.1 [facility] Comment on above: Performed By: #### C MP, LIPID, TSH, ANEU, ADIFF, VIDH, GFR, CBC #### [place] [address] #### HCV1 #### [place] [address] Sodium [Moles/Vol] 138 mmol/L Normal 136-145 [facility] Comment on above: Performed By: #### C MP, LIPID, TSH, ANEU, ADIFF, VIDH, GFR, CBC #### [place] [address] #### HCV1 #### [place] [address] Total Protein 6.5 G/dL Normal 6.4-8.2 [facility] Comment on above: Performed By: #### C MP, LIPID, TSH, ANEU, ADIFF, VIDH, GFR, CBC #### [place] [address] #### HCV1 #### [place] [address] Urea nitrogen [Mass/Vol] 23 mg/dL High 7-18 [facility] Comment on above: Performed By: #### C MP, LIPID, TSH, ANEU, ADIFF, VIDH, GFR, CBC #### [place] [address] #### HCV1 #### [place] [address] HCVon 08-25-2024 Hep C Ab Non-Reactive Normal Non-Reactive [facility] Comment on above: Performed By: #### C MP, LIPID, TSH, ANEU, ADIFF, VIDH, GFR, CBC #### [place] [address] #### HCV1 #### [place] [address] Hep C Ab Int Normal [facility] Comment on above: Result Comment: Nonr eactive: Samples with a value < 0.80 are considered nonreactive (negative) for antibodies to HCV. A negative test result does not exclude the possibility of exposure to or infection with HCV. HCV antibodies may be undetectable in some stages of the infection and in some clinical conditions. See Interp Performed By: #### C MP, LIPID, TSH, ANEU, ADIFF, VIDH, GFR, CBC #### [place] [id number] [place], [place] [address] #### HCV1 #### [address] [address] LABORATORYOrdered By: SYSTEM SYSTEM on 08-25-2024 25-hydroxyvitamin D3 [Mass/Vol] 60.7 ng/mL Invalid Interpretation Code AO ADM SS Comment on above: Interpretive Data: I nterpretive Values Based on Total 25(OH) Vitamin D: Deficient <20 ng/mL Insufficient 20 - <30 ng/mL Sufficient 30-100 ng/mL Albumin BCP dye [Mass/Vol] 3.8 G/dL Normal 3.4 - 4.8 G/dL AO ADM SS Albumin/Globulin [Mass ratio] 1.4 {ratio} Normal 1.1 - 2.5 ratio AO ADM SS ALP [Catalytic activity/Vol] 86 U/L Normal 40 - 135 U/L AO ADM SS ALT With P-5'-P [Catalytic activity/Vol] 32 U/L Normal 14 - 59 U/L AO ADM SS AST With P-5'-P [Catalytic activity/Vol] 14 U/L Normal 10 - 40 U/L AO ADM SS Basophils (Bld) [#/Vol] 0.0 103/mcL Normal 0.0 - 0.2 10^3/mcL AO Workflow SS Basophils/100 WBC (Bld) 0.8 % Normal 0.0 - 2.5 % AO Workflow SS Bilirubin [Mass/Vol] 0.7 mg/dL Normal 0.2 - 1 .0 mg/dL AO ADM SS Comment on above: Interpretive Data: U se of this assay is not recommended for patients undergoing treatment with eltrombopag due to the potential for falsely elevated results. Calcium [Mass/Vol] 9.3 mg/dL Normal 8.4 - 10. 2 mg/dL AO ADM SS Chloride [Moles/Vol] 102 mmol/L Normal 98 - 10 7 mmol/L AO ADM SS CO2 [Moles/Vol] 31 mmol/L Normal 23 - 31 mmol/L AO ADM SS Creatinine [Mass/Vol] 0.82 mg/dL Normal 0.55 - 1.02 mg/dL AO ADM SS Comment on above: Interpretive Data: T esting performed on Siemens Dimension EXL analyzer using a modified kinetic Kevin technique. Electrolyte Balance 5.0 mEq/L Normal 4.0 - 15 .0 mEq/L AO ADM SS Eosinophil, Absolute 0.2 103/mcL Normal 0.0 - 0 .7 10^3/mcL AO Workflow SS Eosinophils/100 WBC (Bld) 2.9 % Normal 0.0 - 7.0 % AO Workflow SS Erythrocyte distribution width (RBC) [Ratio] 12.3 % Normal 11.5 - 15.5 % AO Workflow SS GFR/1.73 sq M.predicted among blacks MDRD (S/P/Bld) [Vol rate/Area] 83 ml/min/1.73sqm Invalid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 Work Phone: [facility] 11-11-2023 00:18-0500 Diastolic blood pressure 105 mm[Hg] Dr. Blaire Esteban Work Phone: [facility] 11-11-2023 00:18-0500 Heart rate 54 /min Dr. Blaire Esteban Work Phone: [facility] 11-11-2023 00:18-0500 Respiratory rate 16 /min Dr. Blaire Esteban Work Phone: [facility] 11-11-2023 00:18-0500 SaO2% (BldA) [Mass fraction] 99 % Dr. Blaire Esteban Work Phone: [facility] 11-11-2023 00:18-0500 Systolic blood pressure 155 mm[Hg] Dr. Blaire Esteban Work Phone: [facility] 07-18-2023 09:15-0400 Body temperature 97.8 [degF] Dr. Blaire Esteban Work Phone: [facility] 07-18-2023 09:15-0400 Diastolic blood pressure 74 mm[Hg] Dr. Blaire Esteban Work Phone: [facility] 07-18-2023 09:15-0400 Heart rate 68 /min Dr. Blaire Esteban Work Phone: [facility] 07-18-2023 09:15-0400 Respiratory rate 15 /min Dr. Blaire Esteban Work Phone: [facility] 07-18-2023 09:15-0400 SaO2% (BldA) [Mass fraction] 97 % Dr. Blaire Esteban Work Phone: [facility] 07-18-2023 09:15-0400 Systolic blood pressure 108 mm[Hg] Dr. Blaire Esteban Work Phone: [facility] 07-17-2023 16:11-0400 Body height 175.[address] Blaire Esteban Work Phone: [facility] 07-17-2023 16:11-0400 Body weight 86.[address] Blaire Esteban Work Phone: [facility] 07-17-2023 13:39-0400 Body mass index (BMI) [Ratio] 28.2 kg/m2 Dr. Blaire Esteban Work Phone: [facility] 07-17-2023 13:08-0400 Diastolic blood pressure 98 mm[Hg] [facility] 07-17-2023 13:08-0400 Heart rate 58 /min [facility] 07-17-2023 13:08-0400 Respiratory rate 19 /min [facility] 07-17-2023 13:08-0400 Systolic blood pressure 111 mm[Hg] [facility] 07-17-2023 12:26-0400 Body temperature 97.8 [degF] [facility] 07-17-2023 11:05-0400 SaO2% (BldA) [Mass fraction] 95 % [facility] 07-17-2023 09:40-0400 Body height 175.26 cm [facility] 07-17-2023 09:40-0400 Body mass index (BMI) [Ratio] 0.8 kg/m2 [facility] 07-17-2023 09:40-0400 Body weight 2.52 kg [facility] 01-01-2023 16:24-0500 Diastolic Blood Pressure Non-Invasive 88 1 SLAVA SPITTLE DO [facility] 01-01-2023 16:24-0500 Heart rate 54 /min SLAVA SPITTLE DO [facility] 01-01-2023 16:24-0500 Respiratory rate 14 /min SLAVA SPITTLE DO [facility] 01-01-2023 16:24-0500 Systolic Blood Pressure Non-Invasive 143 1 SLAVA SPITTLE DO [facility] 01-01-2023 16:00-0500 Diastolic Blood Pressure Non-Invasive 80 1 SLAVA SPITTLE DO [facility] 01-01-2023 16:00-0500 Respiratory rate 12 /min SLAVA SPITTLE DO [facility] 01-01-2023 16:00-0500 Systolic Blood Pressure Non-Invasive 139 1 SLAVA SPITTLE DO [facility] 01-01-2023 15:45-0500 Diastolic Blood Pressure Non-Invasive 81 1 SLAVA SPITTLE DO [facility] 01-01-2023 15:45-0500 Heart rate 52 /min SLAVA SPITTLE DO [facility] 01-01-2023 15:45-0500 Respiratory rate 14 /min SLAVA SPITTLE DO [facility] 01-01-2023 15:45-0500 Systolic Blood Pressure Non-Invasive 151 1 SLAVA SPITTLE DO [facility] 01-01-2023 15:07-0500 Body temperature 95.18 [degF] SLAVA SPITTLE DO [facility] 01-01-2023 15:00-0500 Respiratory Rate - Anes 3 br/min SLAVA SPITTLE DO [facility] 01-01-2023 14:55-0500 Respiratory Rate - Anes 10 br/min SLAVA SPITTLE DO [facility] 01-01-2023 14:50-0500 Respiratory Rate - Anes 16 br/min SLAVA SPITTLE DO [facility] 01-01-2023 12:01-0500 Heart rate 59 /min SLAVA SPITTLE DO [facility] 01-01-2023 11:18-0500 Blood Pressure Cuff Size SLAVA SPITTLE DO [facility] 01-01-2023 11:18-0500 Blood Pressure Location SLAVA SPITTLE DO [facility] 01-01-2023 11:18-0500 Blood Pressure Method SLAVA SPITTLE DO [facility] 01-01-2023 11:18-0500 Body height 175.3 cm SLAVA SPITTLE DO [facility] 01-01-2023 11:18-0500 Body temperature 96.08 [degF] SLAVA SPITTLE DO [facility] 01-01-2023 11:18-0500 Body weight 88 kg SLAVA SPITTLE DO [facility] 01-01-2023 11:18-0500 Body weight 28.64 kg/m2 SLAVA SPITTLE DO [facility] 01-01-2023 11:18-0500 Heart rate 62 /min SLAVA SPITTLE DO [facility] 12-23-2022 13:15-0500 Blood Pressure Location SLAVA SPITTLE DO [facility] 12-23-2022 13:15-0500 Body height 175.3 cm SLAVA SPITTLE DO [facility] 12-23-2022 13:15-0500 Body weight 88.6 kg SLAVA SPITTLE DO [facility] 12-23-2022 13:15-0500 Body weight 28.83 kg/m2 SLAVA SPITTLE DO [facility] 12-23-2022 13:15-0500 Diastolic Blood Pressure Non-Invasive 68 1 SLAVA SPITTLE DO [facility] 12-23-2022 13:15-0500 Heart rate 66 /min SLAVA SPITTLE DO [facility] 12-23-2022 13:15-0500 Respiratory rate 18 /min SLAVA CANTOR DO [facility] 12-23-2022 13:15-0500 Systolic Blood Pressure Non-Invasive 108 1 SLAVA CANTOR DO [facility] NEGATED: Highlighted [id number] 09:47-0400 Body height 175.26 cm Lia Lucio AT [facility] Work Phone: NEGATED: Highlighted [id number] 09:47-0400 Body height 175 cm Lia Lucio AT [facility] Work Phone: NEGATED: Highlighted [id number] 09:47-0400 Body mass index (BMI) [Ratio] 28.9 kg/m2 Lia Lucio AT [facility] Work Phone: NEGATED: Highlighted [id number] 09:47-0400 Body weight 88.45 kg Lia Lucio AT [facility] Work Phone: NEGATED: Highlighted [id number] 09:47-0400 Body weight 89 kg Lia Lucio AT [facility] Work Phone: NEGATED: Highlighted [id number] 09:12-0500 Body height 175.26 cm Lia Lucio AT [facility] Work Phone: NEGATED: Highlighted [id number] 09:12-0500 Body height 175 cm Lia Lucio AT [facility] Work Phone: NEGATED: Highlighted [id number] 09:12-0500 Body mass index (BMI) [Ratio] 28.9 kg/m2 Lia Lucio AT [facility] Work Phone: NEGATED: Highlighted [id number] 09:12-0500 Body weight 88.45 kg Lia Valdes AT [facility] Work Phone: NEGATED: Highlighted [id number] 09:12-0500 Body weight 89 kg Lia Valdes AT [facility] Work Phone: Encounters Encounter Date Encounter Type Care Provider Facility Start: 07-01-2025 ambulatory Nova Lua Facility:[facility] Start: 06-16-2025 ambulatory Blaire Esteban Facility :[facility] Start: 06-06-2025 Encounter for other preprocedural examination Slava Cantor [facility] Start: 05-30-2025 End: 05-30-2025 ambulatory Blaire Esteban Facility:[facility] Start: 05-26-2025 End: 05-26-[address] Blaire Esteban DO Work Phone: -Cat Scan [facility] Start: 05-26-2025 End: 05-26-[address] Slava Cantor DO -Cat Scan [facility] [place] Work Phone: Start: 05-26-2025 End: 05-26-2025 ambulatory Slava Cantor Facility:[facility] Start: 02-16-2025 End: 02-20-2025 ambulatory BLAIRE ESTEBAN DO Facility:[facility] Start: 11-17-2024 End: 11-17-2024 ambulatory BLAIRE ESTEBAN DO Facility:[facility] Start: 11-17-2024 End: 11-17-2024 Patient encounter procedure BLAIRE ESTEBAN DO [facility] Start: 08-25-2024 End: 08-25-2024 ambulatory BLAIRE ESTEBAN DO Facility:[facility] Start: 08-25-2024 End: 08-25-2024 Patient encounter procedure BLAIER ESTEBAN DO [facility] Start: 04-15-2024 End: 04-19-2024 ambulatory BLAIRE ESTEBAN DO Facility:[facility] Start: 04-15-2024 End: 04-19-2024 Outreach Lab BLAIRE ESTEBAN DO [facility] Start: 11-11-2023 End: 11-11-2023 Emergency department patient visit Dr. Blaire Esteban Work Phone: [facility]-Emergency Department Work Phone: Start: 08-19-2023 End: 08-19-[address] Blaire Esteban Work Phone: [facility] Work Phone: Start: 07-18-2023 Non-patient / Non-visit Dr. Joe Esteban Work Phone: [facility] Work Phone: Start: 07-17-2023 Non-patient / Non-visit Dr. Joe Esteban Work Phone: [facility] Start: 07-17-2023 Non-patient / Non-visit Dr. Joe Esteban Work Phone: [facility] Work Phone: Start: 07-17-2023 End: 07-18-2023 Evaluation and management of inpatient [facility]-Progressive Care Unit Work Phone: Start: 07-17-2023 End: 07-18-[address] Blaire Esteban Work Phone: [facility] Work Phone: Start: 01-22-2023 End: 01-26-2023 Outreach Lab BLAIRE ESTEBAN DO [facility] Start: 01-01-2023 End: 01-01-2023 SAME DAY STAY SLAVA CANTOR DO [facility] Start: 12-23-2022 End: 12-23-2022 Admission to establishment SLAVA CANTOR DO [facility] Start: 05-09-2022 End: 05-09-2022 Patient encounter procedure BLAIRE ESTEBAN DO [facility] Start: 05-22-2017 Ambulatory PHY WO ID REFERRING Fac ility:[facility] Procedures Date Procedure Procedure Detail Performing Clinician Start: 05-26-2025 CT of upper limb without contrast Dr. Blaire Esteban DO Work Phone: Start: 11-11-2023 X-ray of chest poste roanterior view Dr. Blaire Esteban Work Phone: Start: 07-17-[address] Blaire Esteban Work Phone: Start: 01-01-2023 Arthroscopy of shoulder SLAVA CANTOR DO Start: 02-05-2022 End: 02-05-2022 Arthrocentesis aspir&/inj major jt/bursa w/o us Chris Gil PA-C Work Phone: Start: 02-05-2022 End: 02-05-2022 Betamethasone acet&sod phosp Chris pardo PA-C Work Phone: Start: 02-05-2022 End: 02-05-2022 BP scrn no perf at interval Chris campok PA-C Work Phone: Start: 02-05-2022 End: 02-05-2022 Calc BMI abv up volodymyr f/u Chris Zaragoza Clar k PA-C Work Phone: Start: 02-05-2022 End: 02-05-2022 Current tobacco non-user cad cap copd pv dm Chris Gil PA-C Work Phone: Start: 02-05-2022 End: 02-05-2022 Docrev cur meds by elmira pardo PA-C Work Phone: Start: 02-05-2022 End: 02-05-2022 Pain doc pos and plan Chris Gil PA-C Work Phone: Start: 02-05-2022 End: 02-05-2022 Patient encounter procedure Chris campok PA-C Work Phone: Start: 12-25-2021 End: 12-25-2021 BP scrn no perf at interval Chris campok PA-C Work Phone: Start: 12-25-2021 End: 12-25-2021 Calc BMI abv up volodymyr f/u Chris Collins k PA-C Work Phone: Start: 12-25-2021 End: 12-25-2021 Current tobacco non-user cad cap copd pv dm Chris Gil PA-C Work Phone: Start: 12-25-2021 End: 12-25-2021 Docrev cur meds by [facility] amada pardo PA-C Work Phone: Start: 12-25-2021 End: 12-25-2021 Pain neg no plan Chris Gil PA-C Work Phone: Start: 12-25-2021 End: 12-25-2021 Patient encounter procedure Chris campok PA-C Work Phone: Start: 04-17-2021 Arthroplasty of knee JOE ESTEBAN DO Comment on above: Right, with bursecto my Start: 02-08-2018 Cystoscopy BLAIRE BRAVO DO Comment on above: w/ removal of left u reteral stent, bilateral retrograde ureteral pyelograms Start: 10-10-2017 Excision of bunion PACO ESTEBAN DO Comment on above: right and left Start: 09-24-2016 Hysterectomy BLAIRE BRAVO DO Start: 10-13-2010 Osteoplasty of carpa l or metacarpal BLAIRE CARLITO DO Comment on above: LEFT THUMB Arthroplasty of knee SHAYLA CANTOR DO Comment on above: right Bleeding ulcer (morp hologic abnormality) BLAIRE CARLITO DO Comment on above: CAUTERIZED 8 BLEEDIN G ULCERS IN DUODENUM section BLAIRE SHAKA KENNETH DO Comment on above: TWO Colonoscopy BLAIRE CARLITO DO Entire thumb (body structure) BLAIRE CARLITO DO Comment on above: RIGHT Hamstring release procedure BLAIRE CARLITO DO Comment on above: left Hamstring release procedure SLAVA CANTOR DO Comment on above: done twice left History of tonsillectomy TATYANA ANDREWS CARLITO DO Open reduction of fr acture with internal fixation BLAIRE CARLITO DO Comment on above: RFA right forearm Small incision phacoemulsification of cataract and insertion of intraocular lens BLAIRE CARLITO DO Comment on above: both eyes NEGATED: Highlighted rowStart: 02-05-2022 End: 02-05-2022 Documentation of current medications Lia Lucio AT NEGATED: Highlighted rowStart: 12-25-2021 End: 12-25-2021 Documentation of current medications Lia Valdes AT Plan of Treatment Date Care Activity Detail Author Start: 11-11-2023 [facility] Start: 11-11-2023 Incentive spirometry [facility] Start: 07-18-2023 Patient discharge [facility] Start: 07-17-2023 Verification routine [facility] Start: 07-17-2023 Application of intermittent pneumatic compression device [facility] Start: 07-17-2023 Egd transoral biopsy single/multiple EGD BIOPSY SINGLE/MULTIPLE [facility] Start: 07-17-2023 Egd transoral control bleeding any method EGD CONTROL BLEEDING ANY [facility] Start: 07-17-2023 Following clinical pathway protocol [facility] Start: 07-17-2023 Ambulation without limitation [facility] Start: 07-17-2023 Assessment of risk of venous thromboembolism [facility] Start: 07-17-2023 Documentation procedure [facility] Start: 07-17-2023 Incentive spirometry [facility] Start: 07-17-2023 Insertion of catheter into peripheral vein [facility] Start: 07-17-2023 Measuring intake and output [facility] Start: 07-17-2023 Oxygen therapy [facility] Start: 07-17-2023 Providing care according to standard [facility] Start: 07-17-2023 Referral to gastroenterology service [facility] Start: 07-17-2023 [facility] Start: 07-17-2023 Catheterization of vein [facility] Start: 07-17-2023 Verification routine [facility] Start: 07-17-2023 Admission procedure [facility] Start: 07-17-2023 [facility] Start: 07-17-2023 Patient referral to dietitian [facility] Start: 02-05-2022 End: 02-05-2022 Patient encounter procedure Appointment [facility] Work Phone: Start: 12-25-2021 End: 12-25-2021 Patient encounter procedure Appointment [facility] Work Phone: Start: 12-25-2021 End: 12-25-2021 Radex hip unilateral with pelvis 2-3 views XR PELVIS W HIP 2-3 VWS-LT [facility] Work Phone: Bilirubin measuremen t, urine [facility] Hematocrit [Volume Fraction] of Blood [facility] Hemoglobin [Mass/vol ume] in Blood [facility] Hemoglobin [Presence ] in Urine [facility] Leukocytes [#/volume ] in Blood [facility] Mean corpuscular hem oglobin concentration determination [facility] Mean corpuscular hem oglobin determination [facility] Measurement of keton es in urine using dipstick [facility] Microscopic urinalysis [facility] Neutrophil count [facility] Neutrophil percent differential count [facility] Patient Education ED Rib Fracture [facility] Work Phone: Patient referral [facility] Work Phone: pH of Urine [facility] Platelets [#/volume] in Blood [facility] Red blood cell count [facility] Red cell distributio n width determination [facility] Specific gravity of Urine [facility] Urinalysis, blood, qualitative [facility] Urine dipstick for glucose [facility] Urine dipstick for leukocyte esterase [facility] Urine dipstick for nitrite [facility] Urine dipstick for protein [facility] Urine examination [facility] Urine microscopy: epithelial cells [facility] Urine Microscopy: wh ite cells [facility] Urobilinogen [Presen ce] in Urine [facility] Immunizations Immunization Date Immunization Notes Care Provider Gema carrera 08-27-2023 influenza virus vacc ine, unspecified formulation BLAIRE ESTEBAN DO [facility] Comment on above: Result Comment: [facility] 08-30-2021 pneumococcal polysaccharide vaccine, 23 valent; Translations: [Pneumovax 23] [facility] Sebastien Ratliff 12-12-2020 SARS-CoV-2 (COVID-19 ) mRNA-1273 vaccine BLAIRE ESTEBAN DO [facility] Comment on above: Result Comment: 2020: TPV17 11-16-2020 SARS-CoV-2 (COVID-19 ) mRNA-1273 vaccine BLAIRE ESTEBAN DO [facility] Comment on above: Result Comment: 2020: [id number] 08-10-2017 influenza virus vacc ine, unspecified formulation BLAIRE ESTEBAN DO [facility] 08-10-2016 influenza virus vacc ine, unspecified formulation BLAIRE ESTEBAN DO [facility] 01-09-2016 zoster vaccine, live BLAIRE ESTEBAN DO [facility] Payers Date Payer Category Payer Self-pay [id number] 2024 Unknown [id number] 2024 Medicare [id number] 2023 Unknown [id number] 2012 Unknown [id number] 1950 Unknown [id number] 1950 Unknown [id number] 1950 Unknown [id number] 1950 Unknown [id number] Medicare MEDICARE PART A B [id number] Private Health Insurance [id number] Unknown [employer] AUTH REQUIR ED SEE NOTE [id number] Unknown [facility] SEE NOTE [id number] Unknown [id number] Unknown [id number] Unknown [id number] Unknown [id number] Social History Date Type Detail Facility Start: 07-17-2023 End: 11-11-2023 Assertion Unknown if ever smoked [facility] Work Phone: Start: 07-25-2020 Tobacco smoking status Never s moked tobacco (finding) [facility] Start: 1950 Sex Assigned At Female A [facility] Sexual Orientation [facility] Start: 07-04-2020 Sex Female (finding) [facility] Start: 05-27-2025 [facility] NEGATED: Highlighted rowStart: 12-25-2021 End: 02-05-2022 Employment detail Employment detail [facility] Work Phone: Goals Date Patient Goal Desired Activity /State Functional Status Date Assessment Result Facility 07-18-2023 Functional status Up ad kaleb [facility] Work Phone: 01-01-2023 Functional Status Activity Statu s ADL Up to bathroom [facility] 01-01-2023 Functional Status ice on [facility] 01-01-2023 Functional Status Maintained [facility] Mental Status Date Assessment Result Facility 11-11-2023 Cognitive function Level Of Cons ciousness Awake;Alert;Appropriate [facility] Work Phone: 07-17-2023 Cognitive function Awake;Alert;F ollows Commands;Disoriented [facility] Work Phone: 01-01-2023 Mental Status Oriented x [address] [facility] 01-01-2023 to 05-28-2025 Note Date & Type Note Facility 05-28-2025 Radiology Diagnostic study note [facility] Imaging Services [address] [place], [place] [address] Extremity Upper without Contra MR#: [id number] Acct: [id number] Name: EFRAIN CARTWRIGHT Rep #: [id number] : 1950 F 75 From: Louisa Sanchez MD PCP: Dr. Blaire Esteban DO Status: REG CLI Study:Extremity Upper without Contra Date of Exam: 05/26/25 Exam# [id number] Ordering Dr: Slava Cantor DO PROCEDURE: EXTREMITY UPPER WITHOUT CONTRA 05/26/2025 REASON FOR EXAM: CHRONIC SHOULDER PAIN/ OA TECHNIQUE: EXTREMITY UPPER WITHOUT CONTRA Coronal and Sagittal reconstruction series were provided. One or more dose reduction techniques were used (e.g., Automated exposure control, adjustment of the mA and/or kV according to patient size, use of iterative reconstruction technique. RADIATION DOSE SUMMARY: CTDlvol: 27.9 mGy DLP: 871 mGycm COMPARISON: None FINDINGS: No acute fracture or traumatic malalignment. Chronic appearing right-sided rib fractures, including an unfused fracture of the 9th rib. Moderate joint space narrowing and osteophyte formation at the acromioclavicularand glenohumeral joints. There is subchondral cystic formation in the humeral head. Prominent osteophyte at the inferomedial humeral head. There is a cyst located superior to the acromioclavicular joint which measures up to 2.4 cm (series 3, image 12) and contains a calcification inferiorly. Slightly high-riding humeral head. Atrophy of the supraspinatus muscle. Visualized right hemithorax is unremarkable. Coronary calcifications are partially seen. CT/Extremity Upper without Contra IMPRESSION: 1. Acromioclavicular joint cyst measuring up to 2.4 cm, suggestive of full-thickness rotator cuff tear (geyser sign). There is atrophy of the supraspinatus muscle body. 2. 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 Of note, there is a large osteophyte at the inferomedial humeral head. Reading Location: [id number] CC: Dr. Blaire Esteban DO; Dr. Slava Cantor DO ~ Application Manager: Signed [facility] 07-18-2023 Discharge summary Note Date/Time July 18, 2023 10:16am [facility] Medical Records Department [address] [place] [address] Discharge Summary 07/18/23 0844 MR#: [id number] Acct: [id number] Name: EFRAIN CARTWRIGHT Rep #:[id number] : 1950 73 From: Vazquez Montilla PCP: Dr. Blaire Esteban DO Status:ADM LILY Location: PCU [place] [address] Providers Date of Admission: 07/17/23 Date of Discharge: 07/18/23 Primary Care Physician: Dr. Blaire Esteban DO Consultations 07/17/23 13:38 Consult: Gastroenterology Routine Consulting Provider: [facility] Reason for Consult: GI bleed EMERGENT Consult: No MD Notified: Yes Date Notified: 07/17/23 Time Notified: 12:06 Method of Notification: Text Reason For Visit: GI BLEED Diagnosis Discharge Diagnosis (1) Acute upper GI bleed: Status: Acute Code(s): K92.2 - Gastrointestinal hemorrhage, unspecified Plan 73-year-old female being admitted for further evaluation of black black tarry stool consistent with melena for 6 days. 1. Acute blood loss anemia due to acute upper GI bleed: Exact etiology unclear. Patient is being admitted in PCU. Hemodynamically BP and heart, normal range. Started on IV fluid Ringer lactate 150 mill per hour. Patient hemoglobin runs around 13.0 g but it was on 07/10/2021. Hemoglobin dropped to 10.2 g. No recentblood work in our EMR.ER physician tried to do rectal exam but there was no stool in rectum. H&H every 6 hourly. Type and crossmatch. GI consulted. Does nothave significant abdominal pain. N.p.o. for EGD. Hold baby aspirin. 07/18/2023: Acute blood loss anemia due to upper GI bleed patient hemoglobin did not had significant drop in hemoglobin. Admitting hemoglobin 10.2 g and decreased to 9.0 but patient is stated in September 2022 her hemoglobin was about12 g%. EGD was done. It was reported oozing duodenal ulcers with pigmented material, injected treated with heater probe. Patient recommended Protonix 40 mg p.o. twice daily for 12 weeks and sucralfate 1 tablet p.o. 3 times daily for 8 weeks, went over the medications and prescription sent to the patient's preferred pharmacy. Patient also given prescription for ferrous sulfate and ascorbicacid. Patient advised not to take aspirin at least for 3 months or even discontinued as she was taking for preventative/wellbeing health. No history ofCAD or stroke or peripheral vascular disease. Advised no NSAIDs. Patient cannot take Tylenol. 2. PTSD/SHANE with acute panic attack: Symptoms are better after Ativan 1 mg IV. Patient on Zoloft continued. Started on BuSpar 10 mg twice daily. 3. Hypertension: Patient on lisinopril and HCTZ, discharge medications reconciliation done. 4. Dyslipidemia: On atorvastatin. 5. Multiple medications including cetirizine, cyproheptadine, Mucinex DM multivitamin, omega-3 fatty acid and Inderal XL. Exact indication unclear. Discharge medication reconciliation done. Discharge follow-up instructions completed. Discharge process discussed with the patient and all questions wereanswered to patient's satisfaction. Total time spent, exact 35 minutes on discharge meds reconciliation, examination, coordination of care with nurses and ancillary staff, review of imaging and blood test and discussion with the patient on follow-up instructions. Living will/advanced directive/end of life care: Patient does have living will or advanced directive. Her at the bedside is power of marine steamfitter for health. after discussion of benefits/risks procedures involved with full code, DNR CC arrest and DNR CC, the patient opted for DNRCC arrest with no intubation Patient does't want artificial life support including intubation, tube feed, ventilator and/chest compression, central venous catheter, vasopressor and DC shock if needed Medications at Discharge Home Medications aspirin 81 mg chewable tablet 81 mg PO DAILY@0800 09/16/13 cholecalciferol (vitamin D3) 50 mcg (2,000 unit) tablet (Vitamin D3) 2,000 unit PO BID 09/16/13 multivitamin with folic acid 400 mcg tablet (Thera) 1 tab PO DAILY 09/16/13 omega-3 fatty acids-fish oil 300 mg-1,000 mg capsule 1 ea PO DAILY 06/10/14 atorvastatin 10 mg tablet 10 mg PO DAILY 07/10/21 cyproheptadine 4 mg tablet 4 mg PO DAILY 07/10/21 hydrochlorothiazide 25 mg tablet 25 mg PO DAILY 07/10/21 lisinopril 20 mg tablet 20 mg PO DAILY 07/10/21 sertraline 50 mg tablet 50 mg PO DAILY 07/10/21 albuterol sulfate 90 mcg/actuation aerosol inhaler 2 puff inhalation Q6H PRN shortness of breath or wheezing 07/17/23 cetirizine 10 mg tablet (All Day Allergy (cetirizine)) 10 mg PO DAILY 07/17/23 dextromethorphan-guaifenesin 30 mg-600 mg tablet extended [id number] hr (Mucinex DM) 1 tab PO BID PRN cough 07/17/23 docusate sodium 100 mg capsule (Colace) 100 mg PO BID 07/17/23 fluticasone propionate 50 mcg/actuation nasal spray,suspension 1 spray intranasal DAILY PRN allergy symptoms 07/17/23 promethazine 25 mg tablet 25 mg PO DAILY PRN PRN nausea 07/17/23 propranolol 80 mg capsule,extended release 24 hr (Inderal XL) 80 mg PO DAILY 07/17/23 trospium 20 mg tablet 20 mg PO BID 07/17/23 ascorbic acid (vitamin C) 500 mg tablet 500 mg PO BID #60 tabs 07/18/23 ferrous sulfate 325 mg (65 mg iron) tablet,delayed release 325 mg PO QODAY #30 tabs 07/18/23 pantoprazole 40 mg tablet,delayed release (Protonix) 40 mg PO BID 30 days #60 tabs 07/18/23 sucralfate 1 gram tablet 1 g PO TID@0700,1100,1600 30 days #90 tabs 07/18/23 Physical Exam Narrative General: Alert, Oriented x3, Cooperative HEENT: Atraumatic, PERRLA, EOMI, Normocephalic Oral: No Gingival or Mucosal Lesions/ Ulcerations Neck: Supple, No JVD, Negative Carotid Bruits Lungs: Air entry diminished in bilateral lung bases. No crepitation/rhonchi Cardiovascular: Regular rate, Regular Rhythm, Normal S1, Normal S2, systolic murmur LLSB Abdomen: Bowel Sounds Present, Soft, Non Tender, Non-Distended. No palpable mass : No renal angle tenderness. No suprapubic tenderness. Extremities: No edema, Capillary Refill Less than 3 Seconds Skin: No rashes, No breakdown Musculoskeletal: No Tenderness to Palpation of Joints or Extremities Neurological: Cranial nerves II-XII grossly intact, DTR 2+/4. No acute focal neurological deficit. Psych/Mental Status: Flat affect, anxious. Weight / BMI Weight Weight: 190 lb 14.725 oz Body Mass Index (BMI) 28.2 ABG / Lab / Microbiology Data 07/17/23 22:10 07/18/23 05:10 Laboratory: Laboratory Results - last 24 hr 07/17/23 10:15: WBC 6.4, RBC 3.22 L, Hgb 10.2 L, Hct 30.7 L, MCV 95.3, MCH 31.7,MCHC 33.2, RDW Std Deviation 45.2 H, RDW Coeff of Gisela 13.2, Plt Count 248, MPV 10.3, Immature Gran % (Auto) 0.500, Neut % (Auto) 60.5, Lymph % (Auto) 28.9, Bland % (Auto) 8.1, Eos % (Auto) 1.4, Baso % (Auto) 0.6, Absolute Neuts (auto) 3.9, Absolute Lymphs (auto) 1.85, Nucleated RBC % 0, Sodium 137, Potassium 4.1, Chloride 107, Carbon Dioxide 24.0, Anion Gap 6, BUN 23 H, Creatinine 0.88, EstimCreat Clear Calc 2.30, Est GFR (MDRD) Af Amer 81, Est GFR (MDRD) Non-Af 67, BUN/Creatinine Ratio 26.0 H, Glucose 100, Calcium 9.4, Magnesium 2.0, Total Bilirubin 0.70, AST 17, ALT 24, Alkaline Phosphatase 79, Total Protein 6.9, Albumin 3.6, Globulin 3.3, Albumin/Globulin Ratio 1.1, Blood Type O POSITIVE, Antibody Screen NEGATIVE 07/17/23 12:23: PT 13.8, INR 1.1 07/17/23 16:05: Hgb 9.4 L, Hct 28.3 L 07/17/23 22:10: Hgb 9.0 L, Hct 28.0 L 07/18/23 05:10: Sodium 139, Potassium 4.0, Chloride 109 H, Carbon Dioxide 26.0, Anion Gap 4 L, BUN 16, Creatinine 0.85, Estim Creat Clear Calc 62.52, Est GFR (MDRD) Af Amer 85, Est GFR (MDRD) Non-Af 70, BUN/Creatinine Ratio 18.9, Glucose 87, Calcium 8.9 D/C Instructions Discharge Diet: Light diet - advance as tolerated Weight Bearing Status: Weight bearing as tolerated Call your doctor if you observe: Fever of 101 or Higher, Coldness, Increased Pain, Numbness or Tingling, Change in Color, Inability to urinate, Inability to have a bowel movement, Using more than 1 pad per hour, Shortness of breath, Dizziness, Fainting spells, Swelling in the ankles, Chest pain, Prolonged hiccupping, Increased palpitations (irregular heartbeat) and Calf discomfort When: IN 2 WEEKS Meaningful Use Info Meaningful Use Diagnoses (Choose all that apply): None applicable Discharge Plan Admission Admit Date/Time: 07/17/23 12:04 Primary Reason for Your Visit: Acute upper GI bleed Attending Provider: Vazquez Crowley Primary Care Provider: Blaire Esteban Discharge Orders/Prescriptions Prescriptions: New sucralfate 1 gram Tablet 1 g PO TID@0700,1100,1600 30 Days Qty: 90 1RF pantoprazole [Protonix] 40 mg tablet,delayed release (DR/EC) 40 mg PO BID 30 Days Qty: 60 2RF Rx Instructions: 40 mg twice daily for 12 weeks. ferrous sulfate 325 mg (65 mg iron) tablet,delayed release (DR/EC) 325 mg PO QODAY Qty: 30 0RF ascorbic acid (vitamin C) 500 mg tablet 500 mg PO BID Qty: 60 2RF Continued cholecalciferol (vitamin D3) [Vitamin D3] 2,000 UNIT tablet 2,000 unit PO BID multivitamin with folic acid [Thera] 1 TABLET tablet 1 tab PO DAILY omega-3 fatty acids-fish oil 1 EACH capsule 1 ea PO DAILY hydrochlorothiazide 25 mg tablet 25 mg PO DAILY Patient Comments: TAKE 1 TABLET BY MOUTH EVERY DAY atorvastatin 10 mg tablet 10 mg PO DAILY Patient Comments: 1 tablet once daily lisinopril 20 mg tablet 20 mg PO DAILY Patient Comments: TAKE 1 TABLET BY MOUTH EVERY DAY cyproheptadine 4 mg tablet 4 mg PO DAILY Patient Comments: 1 tablet once daily sertraline 50 mg tablet 50 mg PO DAILY Patient Comments: 1 tablet once daily Mucinex DM 30-600 mg tablet extended release 12 hr 1 tab PO BID PRN (Reason: cough) Inderal XL 80 mg capsule,extended release 24hr 80 mg PO DAILY trospium 20 mg tablet 20 mg PO BID Rx Instructions: administer on an empty stomach fluticasone propionate 50 mcg/actuation spray,suspension 1 spray intranasal DAILY PRN (Reason: allergy symptoms) Rx Instructions: administer into each nostril promethazine 25 mg tablet 25 mg PO DAILY PRN PRN (Reason: nausea ) albuterol sulfate 90 mcg/actuation HFA aerosol inhaler 2 puff INHALATION Q6H PRN (Reason: shortness of breath or wheezing) Patient Comments: INHALE 2 PUFFS BY MOUTH EVERY 6 HOURS NEEDED FOR WHEEZING docusate sodium [Colace] 100 mg capsule 100 mg PO BID cetirizine [All Day Allergy (cetirizine)] 10 mg tablet 10 mg PO DAILY Held aspirin 81 MG tablet,chewable 81 mg PO DAILY@0800 Hold Instructions: Hold aspirin for 12 weeks. Discontinued omeprazole 20 mg capsule,delayed release(DR/EC) 20 mg PO DAILY Referrals / Follow Up: Blaire Esteban DO [Primary Care Provider] - Within 2 Weeks FriendAmador DO [Med Staff - Active Staff] - Within 1 Month (Repeat EGD in 3 months to check duodenal ulcer healing.) Disposition Disposition (needs filled in before D/C Order can be placed): Home, Self Care Charges/Coding Visit Charges Inpatient E&M: 71226 Disch Hosp >30min 07/18/23 1016 <Electronically signed by Vazquez Crowley MD> Cosigner Signature (if applicable): CC: Dr. Blaire Esteban DO; Dr. Vazquez Crowley MD~ Signed [facility] Work Phone: 1(641) 781-934109-08-2023 Discharge summary Author Vazquez Crowley [facility] July 18, 2023 8:42am Note Date/Time July 18, 2023 8:37am [facility] Medical Records Department [address] [place] [address] Instructions for Home/Discharge Instructions 07/18/23 0836 MR#: [id number] Acct: [id number] Name: EFRAIN CARTWRIGHT Rep #:[id number] : 1950 73 From: Vazquez Montilla PCP: Dr. Blaire Esteban DO Status:ADM LIYL Discharge Instructions Diet Discharge Diet: Light diet - advance as tolerated Activity Discharge Activity: Return to Normal Activity Weight Bearing Status: Weight bearing as tolerated Dressing / Incision Call your doctor if you observe: Fever of 101 or Higher, Coldness, Increased Pain, Numbness or Tingling, Change in Color, Inability to urinate, Inability to have a bowel movement, Using more than 1 pad per hour, Shortness of breath, Dizziness, Fainting spells, Swelling in the ankles, Chest pain, Prolonged hiccupping, Increased palpitations (irregular heartbeat) and Calf discomfort Follow Up Care When: IN 2 WEEKS Test Results: Test results from this visit will be discussed in further detail at your follow- up appointment, if applicable. Discharge Plan Admission Admit Date/Time: 07/17/23 12:04 Attending Provider: Vazquez Crowley Primary Care Provider: Blaire Esteban Discharge Orders/Prescriptions Prescriptions: New sucralfate 1 gram Tablet 1 g PO TID@0700,1100,1600 30 Days Qty: 90 1RF pantoprazole [Protonix] 40 mg tablet,delayed release (DR/EC) 40 mg PO BID 30 Days Qty: 60 2RF Rx Instructions: 40 mg twice daily for 12 weeks. Continued cholecalciferol (vitamin D3) [Vitamin D3] 2,000 UNIT tablet 2,000 unit PO BID multivitamin with folic acid [Thera] 1 TABLET tablet 1 tab PO DAILY omega-3 fatty acids-fish oil 1 EACH capsule 1 ea PO DAILY hydrochlorothiazide 25 mg tablet 25 mg PO DAILY Patient Comments: TAKE 1 TABLET BY MOUTH EVERY DAY atorvastatin 10 mg tablet 10 mg PO DAILY Patient Comments: 1 tablet once daily lisinopril 20 mg tablet 20 mg PO DAILY Patient Comments: TAKE 1 TABLET BY MOUTH EVERY DAY cyproheptadine 4 mg tablet 4 mg PO DAILY Patient Comments: 1 tablet once daily sertraline 50 mg tablet 50 mg PO DAILY Patient Comments: 1 tablet once daily Mucinex DM 30-600 mg tablet extended release 12 hr 1 tab PO BID PRN (Reason: cough) Inderal XL 80 mg capsule,extended release 24hr 80 mg PO DAILY trospium 20 mg tablet 20 mg PO BID Rx Instructions: administer on an empty stomach fluticasone propionate 50 mcg/actuation spray,suspension 1 spray intranasal DAILY PRN (Reason: allergy symptoms) Rx Instructions: administer into each nostril promethazine 25 mg tablet 25 mg PO DAILY PRN PRN (Reason: nausea ) albuterol sulfate 90 mcg/actuation HFA aerosol inhaler 2 puff INHALATION Q6H PRN (Reason: shortness of breath or wheezing) Patient Comments: INHALE 2 PUFFS BY MOUTH EVERY 6 HOURS NEEDED FOR WHEEZING docusate sodium [Colace] 100 mg capsule 100 mg PO BID cetirizine [All Day Allergy (cetirizine)] 10 mg tablet 10 mg PO DAILY Held aspirin 81 MG tablet,chewable 81 mg PO DAILY@0800 Hold Instructions: Hold aspirin for 12 weeks. Discontinued omeprazole 20 mg capsule,delayed release(DR/EC) 20 mg PO DAILY Referrals / Follow Up: Blaire Esteban DO [Primary Care Provider] - Within 2 Weeks FriendAmador DO [Med Staff - Active Staff] - Within 1 Month (Repeat EGD in 3 months to check duodenal ulcer healing.) Disposition Disposition (needs filled in before D/C Order can be placed): Home, Self Care 07/18/23 0842<Electronically signed by Vazquez Crowley MD>Vazquez Crowley MD CC: Dr. Blaire Esteban DO ~ Signed [facility] Work Phone: [phone]) 389-255409-07-2023 Consult note Author Amador Friend [facility] July 17, 2023 3:13pm Note Date/Time July 17, 2023 3:13pm [facility] Medical Records Department [address] [place] [address] Consultation - GI 07/17/23 1509 MR#: [id number] Acct: [id number] Name: EFRAIN CARTWRIGHT Rep #:[id number] : 1950 73 From: Amador Friend DO PCP: Dr. Blaire Esteban, DO Status:ADM LILY Location: [place] [address] HPI Consult Data Date of Consult: 07/17/23 HPI Narrative Reason for Consultation: GI bleeding HPI Narrative: EFRAIN CARTWRIGHT, is a 73 yo womanwith history of anxiety, depression, PTSD, hypertension. She is not on any blood thinners. Her and her were vacationing up in [place]. She had nausea and vomiting. No hematemesis. Saysfor the last 5 to 6 days she has had black stool. Denies abdominal pain. I Reviewed her baseline hemoglobin ranges between 13 and 14 when she came into the hospital her blood count was 10.6. She does not take any nonsteroidals on adaily basis 6 except for aspirin therapy. She has never been checked for H. pylori. [facility] Medical History Anxiety Depression GERD (gastroesophageal reflux disease) HTN (hypertension) Hypercholesteremia Nightmare disorder PTSD (post-traumatic stress disorder) Home Medications aspirin 81 mg chewable tablet 81 mg PO DAILY@0800 09/16/13 [History Last Taken 07/16/23] cholecalciferol (vitamin D3) 50 mcg (2,000 unit) tablet (Vitamin D3) 2,000 unit PO BID 09/16/13 [History Last Taken 07/17/23] multivitamin with folic acid 400 mcg tablet (Thera) 1 tab PO DAILY 09/16/13 [History Last Taken 07/17/23] omega-3 fatty acids-fish oil 300 mg-1,000 mg capsule 1 ea PO DAILY 06/10/14 [History Last Taken 07/17/23] atorvastatin 10 mg tablet 10 mg PO DAILY 07/10/21 [History Last Taken 07/16/23] cyproheptadine 4 mg tablet 4 mg PO DAILY 07/10/21 [History Last Taken 07/16/23] hydrochlorothiazide 25 mg tablet 25 mg PO DAILY 07/10/21 [History Last Taken 07/17/23] lisinopril 20 mg tablet 20 mg PO DAILY 07/10/21 [History Last Taken 07/16/23] sertraline 50 mg tablet 50 mg PO DAILY 07/10/21 [History Last Taken 07/16/23] albuterol sulfate 90 mcg/actuation aerosol inhaler 2 puff inhalation Q6H PRN shortness of breath or wheezing 07/17/23 [History Last Taken 07/17/23] cetirizine 10 mg tablet (All Day Allergy (cetirizine)) 10 mg PO DAILY 07/17/23 [History Last Taken 07/17/23] dextromethorphan-guaifenesin 30 mg-600 mg tablet extended [id number] hr (Mucinex DM) 1 tab PO BID PRN cough 07/17/23 [History Last Taken 07/17/23] docusate sodium 100 mg capsule (Colace) 100 mg PO BID 07/17/23 [History Last Taken 07/17/23] fluticasone propionate 50 mcg/actuation nasal spray,suspension 1 spray intranasal DAILY PRN allergy symptoms 07/17/23 [History Last Taken 07/17/23] omeprazole 20 mg capsule,delayed release 20 mg PO DAILY 07/17/23 [History Last Taken 07/17/23] promethazine 25 mg tablet 25 mg PO DAILY PRN PRN nausea 07/17/23 [History Last Taken 07/16/23] propranolol 80 mg capsule,extended release 24 hr (Inderal XL) 80 mg PO DAILY 07/17/23 [History Last Taken 07/17/23] trospium 20 mg tablet 20 mg PO BID 07/17/23 [History Last Taken 07/17/23] Allergy/AdvReac Type Severity Reaction Status Date / Time amoxicillin [Amoxicillin] AdvReac Rash Verified 07/17/23 09:40 codeine AdvReac Rash Verified 07/17/23 09:40 naproxen [From Naprosyn] AdvReac Nausea Verified 07/17/23 09:40 Penicillins AdvReac Rash Verified 07/17/23 09:40 Surgical History S/P TKR (total knee replacement) Social History Smoking Status: Former smoker ROS ROS Narrative Constitutional: Reports fatigue and weakness. Panic attack. No fever. HEENT: Headache nonspecific. Resolved. Bilateral tinnitus but denies vertigo or acute hearing impairment. Reports systems reviewed and no addt'l complaints,except as documented Respiratory/Chest: No acute shortness of breath or respiratory distress or wheezing. CVS: No chest pain tightness or pressure. Gastrointestinal: Denies coffee ground emesis, hematemesis or vomiting Genitourinary: Denies burning urination or new urinary tract symptoms Musculoskeletal: Denies acute joint pain or limited range of motion. No acute injury Neurologic: Denies seizure-like symptoms. Nonspecific numbness and tingling in hands and feet probably due to panic attack. No focal strokelike symptoms Psychiatric: History of PTSD and chronic generalized anxiety skin: No ulcer. No rash Endocrinology: Reports systems reviewed and no addt'l complaints, except as documented Hematologic/Lymphatic: Reports systems reviewed and no addt'l complaints, exceptas documented Rest 14 ROS are negative except as mentioned in HPI Physical Exam Narrative General: Alert, Oriented x3, Cooperative HEENT: Atraumatic, PERRLA, EOMI, Normocephalic Oral: No Gingival or Mucosal Lesions/ Ulcerations Neck: Supple, No JVD, Negative Carotid Bruits Lungs: Air entry diminished in bilateral lung bases. No crepitation/rhonchi Cardiovascular: Regular rate, Regular Rhythm, Normal S1, Normal S2, systolic murmur LLSB Abdomen: Bowel Sounds Present, Soft, Non Tender, Non-Distended. No palpable mass : No renal angle tenderness. No suprapubic tenderness. Extremities: No edema, Capillary Refill Less than 3 Seconds Skin: No rashes, No breakdown Musculoskeletal: No Tenderness to Palpation of Joints or Extremities Neurological: Cranial nerves II-XII grossly intact, DTR 2+/4. No acute focal neurological deficit. Psych/Mental Status: Flat affect, anxious. Lab / Micro Data 07/17/23 10:15 07/17/23 10:15 Labs: Laboratory Results - last 24 hr 07/17/23 10:15: WBC 6.4, RBC 3.22 L, Hgb 10.2 L, Hct 30.7 L, MCV 95.3, MCH 31.7,MCHC 33.2, RDW Std Deviation 45.2 H, RDW Coeff of Gisela 13.2, Plt Count 248, MPV 10.3, Immature Gran % (Auto) 0.500, Neut % (Auto) 60.5, Lymph % (Auto) 28.9, Bland % (Auto) 8.1, Eos % (Auto) 1.4, Baso % (Auto) 0.6, Absolute Neuts (auto) 3.9, Absolute Lymphs (auto) 1.85, Nucleated RBC % 0, Sodium 137, Potassium 4.1, Chloride 107, Carbon Dioxide 24.0, Anion Gap 6, BUN 23 H, Creatinine 0.88, EstimCreat Clear Calc 2.30, Est GFR (MDRD) Af Amer 81, Est GFR (MDRD) Non-Af 67, BUN/Creatinine Ratio 26.0 H, Glucose 100, Calcium 9.4, Magnesium 2.0, Total Bilirubin 0.70, AST 17, ALT 24, Alkaline Phosphatase 79, Total Protein 6.9, Albumin 3.6, Globulin 3.3, Albumin/Globulin Ratio 1.1, Blood Type O POSITIVE, Antibody Screen NEGATIVE 07/17/23 12:23: PT 13.8, INR 1.1 Assessment & Plan Assessment/Plan (1) Acute upper GI bleed: PLAN: Plan 73-year-old female being admitted for further evaluation of black black tarry stool consistent with melena for 6 days. Acute upper vs lower GI bleed: Exact etiology unclear. Differential diagnosis includes H. pylori associated gastritis, peptic ulcer disease as she does take her aspirin at night., Angiodysplasia, telangiectasias. Hemoglobin dropped to10.2 g. No recent blood work in our EMR.ER physician tried to do rectal exam but there was no stool in rectum. H&H every 6 hourly. Type and crossmatch. Does not have significant abdominal pain. N.p.o. for EGD. Hold baby aspirin. Charges/Coding Visit Charges Inpatient E&M: 35472 Init Hosp L3 07/17/23 1516 <Electronically signed by Amador Montano DO> Cosigner Signature (if applicable): CC: Dr. Blaire Esteban DO~ Signed [facility] Work Phone: [phone]) 162-285209-07-2023 Procedure [facility] 07-17-2023 Procedure [facility]09-07-2023 History and physical note Author Vazquez Crowley [facility] July 17, 2023 2:40pm Note Date/Time July 17, 2023 2:35pm [facility] Medical Records Department [address] [place] [address] H&P Exam - Hospitalist 07/17/23 1212 MR#: [id number] Acct: [id number] Name: EFRAIN CARTWRIGHT Rep #:[id number] : 1950 73 From: Vazquez Montilla PCP: Dr. Blaire Esteban, DO Status:ADM LILY Location: [place] [address] HPI - General General Date of Admission: 07/17/23 Date of Service: 07/17/23 Chief Complaint: Black stool/melena for 6 days. Dizziness, tinnitus, panic attack HPI Narrative EFRAIN CARTWRIGHT, is a 73 F came to ED with dizziness tinnitus feeling terrible and crying. She also had headache. Patient had nausea and vomiting but no hematemesis. She she states he had black tarry stool for 6 days. Complain of mild lower abdominal discomfort or pain to 3?4/10 intensity intermittently. In ED, vitals in normal range. Hemoglobin 10.2/30.7. Liver chemistry unremarkable. 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 In ED patient had 1 mg IV Ativanwhich made her feel good and cope up with anxiety/panic attack. She states he was during the [place] War and has PTSD. She never had EGD but he states she gets screening colonoscopy last 1 5 years ago and was normal as per her GI doctor. Labs reviewed and discussed in assessment plan. [facility] Medical History Anxiety Depression GERD (gastroesophageal reflux disease) HTN (hypertension) Hypercholesteremia Nightmare disorder PTSD (post-traumatic stress disorder) Home Medications aspirin 81 mg chewable tablet 81 mg PO DAILY@0800 09/16/13 [History Last Taken 07/16/23] cholecalciferol (vitamin D3) 50 mcg (2,000 unit) tablet (Vitamin D3) 2,000 unit PO BID 09/16/13 [History Last Taken 07/17/23] multivitamin with folic acid 400 mcg tablet (Thera) 1 tab PO DAILY 09/16/13 [History Last Taken 07/17/23] omega-3 fatty acids-fish oil 300 mg-1,000 mg capsule 1 ea PO DAILY 06/10/14 [History Last Taken 07/17/23] atorvastatin 10 mg tablet 10 mg PO DAILY 07/10/21 [History Last Taken 07/16/23] cyproheptadine 4 mg tablet 4 mg PO DAILY 07/10/21 [History Last Taken 07/16/23] hydrochlorothiazide 25 mg tablet 25 mg PO DAILY 07/10/21 [History Last Taken 07/17/23] lisinopril 20 mg tablet 20 mg PO DAILY 07/10/21 [History Last Taken 07/16/23] sertraline 50 mg tablet 50 mg PO DAILY 07/10/21 [History Last Taken 07/16/23] albuterol sulfate 90 mcg/actuation aerosol inhaler 2 puff inhalation Q6H PRN shortness of breath or wheezing 07/17/23 [History Last Taken 07/17/23] cetirizine 10 mg tablet (All Day Allergy (cetirizine)) 10 mg PO DAILY 07/17/23 [History Last Taken 07/17/23] dextromethorphan-guaifenesin 30 mg-600 mg tablet extended hebmaxg78 hr (Mucinex DM) 1 tab PO BID PRN cough 07/17/23 [History Last Taken 07/17/23] docusate sodium 100 mg capsule (Colace) 100 mg PO BID 07/17/23 [History Last Taken 07/17/23] fluticasone propionate 50 mcg/actuation nasal spray,suspension 1 spray intranasal DAILY PRN allergy symptoms 07/17/23 [History Last Taken 07/17/23] omeprazole 20 mg capsule,delayed release 20 mg PO DAILY 07/17/23 [History Last Taken 07/17/23] promethazine 25 mg tablet 25 mg PO DAILY PRN PRN nausea 07/17/23 [History Last Taken 07/16/23] propranolol 80 mg capsule,extended release 24 hr (Inderal XL) 80 mg PO DAILY 07/17/23 [History Last Taken 07/17/23] trospium 20 mg tablet 20 mg PO BID 07/17/23 [History Last Taken 07/17/23] Allergy/AdvReac Type Severity Reaction Status Date / Time amoxicillin [Amoxicillin] AdvReac Rash Verified 07/17/23 09:40 codeine AdvReac Rash Verified 07/17/23 09:40 naproxen [From Naprosyn] AdvReac Nausea Verified 07/17/23 09:40 Penicillins AdvReac Rash Verified 07/17/23 09:40 Surgical History S/P TKR (total knee replacement) Social History Smoking Status: Former smoker ROS ROS Narrative Constitutional: Reports fatigue and weakness. Panic attack. No fever. HEENT: Headache nonspecific. Resolved. Bilateral tinnitus but denies vertigo or acute hearing impairment. Reports systems reviewed and no addt'l complaints,except as documented Respiratory/Chest: No acute shortness of breath or respiratory distress or wheezing. CVS: No chest pain tightness or pressure. Gastrointestinal: Denies coffee ground emesis, hematemesis or vomiting Genitourinary: Denies burning urination or new urinary tract symptoms Musculoskeletal: Denies acute joint pain or limited range of motion. No acute injury Neurologic: Denies seizure-like symptoms. Nonspecific numbness and tingling in hands and feet probably due to panic attack. No focal strokelike symptoms Psychiatric: History of PTSD and chronic generalized anxiety skin: No ulcer. No rash Endocrinology: Reports systems reviewed and no addt'l complaints, except as documented Hematologic/Lymphatic: Reports systems reviewed and no addt'l complaints, exceptas documented Rest 14 ROS are negative except as mentioned in HPI Vital Signs Vital Signs Vital Signs: 07/17/23 09:40 07/17/23 11:05 07/17/23 11:06 Temperature 97.6 F L Temperature Source Temporal Pulse Rate 88 65 Respiratory Rate 14 18 Respiratory Effort Normal Non-Labored Respiratory Pattern Normal Blood Pressure 148/98 H 109/69 Blood Pressure Mean 114 82 Pulse Ox 100 95 Oxygen Delivery Method Room Air Room Air Weight Weight: 5 lb 9 oz Body Mass Index (BMI) 0.8 Physical Exam Narrative General: Alert, Oriented x3, Cooperative HEENT: Atraumatic, PERRLA, EOMI, Normocephalic Oral: No Gingival or Mucosal Lesions/ Ulcerations Neck: Supple, No JVD, Negative Carotid Bruits Lungs: Air entry diminished in bilateral lung bases. No crepitation/rhonchi Cardiovascular: Regular rate, Regular Rhythm, Normal S1, Normal S2, systolic murmur LLSB Abdomen: Bowel Sounds Present, Soft, Non Tender, Non-Distended. No palpable mass : No renal angle tenderness. No suprapubic tenderness. Extremities: No edema, Capillary Refill Less than 3 Seconds Skin: No rashes, No breakdown Musculoskeletal: No Tenderness to Palpation of Joints or Extremities Neurological: Cranial nerves II-XII grossly intact, DTR 2+/4. No acute focal neurological deficit. Psych/Mental Status: Flat affect, anxious. Results Lab / Micro Data 07/17/23 10:15 07/17/23 10:15 Labs: Laboratory Results - last 24 hr 07/17/23 10:15: WBC 6.4, RBC 3.22 L, Hgb 10.2 L, Hct 30.7 L, MCV 95.3, MCH 31.7,MCHC 33.2, RDW Std Deviation 45.2 H, RDW Coeff of Gisela 13.2, Plt Count 248, MPV 10.3, Immature Gran % (Auto) 0.500, Neut % (Auto) 60.5, Lymph % (Auto) 28.9, Bland % (Auto) 8.1, Eos % (Auto) 1.4, Baso % (Auto) 0.6, Absolute Neuts (auto) 3.9, Absolute Lymphs (auto) 1.85, Nucleated RBC % 0, Sodium 137, Potassium 4.1, Chloride 107, Carbon Dioxide 24.0, Anion Gap 6, BUN 23 H, Creatinine 0.88, EstimCreat Clear Calc 2.30, Est GFR (MDRD) Af Amer 81, Est GFR (MDRD) Non-Af 67, BUN/Creatinine Ratio 26.0 H, Glucose 100, Calcium 9.4, Total Bilirubin 0.70, AST17, ALT 24, Alkaline Phosphatase 79, Total Protein 6.9, Albumin 3.6, Globulin 3.3, Albumin/Globulin Ratio 1.1, Blood Type O POSITIVE, Antibody Screen NEGATIVE Assessment & Plan Assessment/Plan (1) Acute upper GI bleed: PLAN: Plan 73-year-old female being admitted for further evaluation of black black tarry stool consistent with melena for 6 days. 1. Acute upper GI bleed: Exact etiology unclear. Patient is being admitted in PCU. Hemodynamically BP and heart, normal range. Started on IV fluid Ringer lactate 150 mill per hour. Patient baseline hemoglobin runs around 13.0 g but it was on 07/10/2021. Hemoglobin dropped to 10.2 g. No recent blood work in ourEMR.ER physician tried to do rectal exam but there was no stool in rectum. H&H every 6 hourly. Type and crossmatch. GI consulted. Does not have significant abdominal pain. N.p.o. for EGD. Hold baby aspirin. 2. PTSD/SHANE with acute panic attack: Symptoms are better after Ativan 1 mg IV. Patient on Zoloft continued. Started on BuSpar 10 mg twice daily. 3. Hypertension: Patient on lisinopril and HCTZ, lisinopril continued but hold HCTZ. 4. Dyslipidemia: On atorvastatin. 5. Multiple medications including cetirizine, cyproheptadine, Mucinex DM multivitamin, omega-3 fatty acid and Inderal XL. Exact indication unclear. Patient will be taking Relaxyl for hypertension. Living will/advanced directive/end of life care: Patient does have living will or advanced directive. Her at the bedside is power of marine steamfitter for health. after discussion of benefits/risks procedures involved with full code, DNR CC arrest and DNR CC, the patient opted for DNRCC arrest with no intubation Patient does't want artificial life support including intubation, tube feed, ventilator and/chest compression, central venous catheter, vasopressor and DC shock if needed Total time spent in pyht-by-fcfh encounter in discussion of advanced directive 17 minutes. Charges/Coding Visit Charges Inpatient E&M: 59058 Init Hosp L3 Procedures Hospitalists Procedures: 03278 Advncd Care Plan 30 Min 07/17/23 1440 <Electronically signed by Vazquez Crowley MD> Cosigner Signature (if applicable): CC: Dr. Blaire Esteban DO; Dr. Vazquez Crowley MD~ Signed [facility] Work Phone: 1(430) 786-529509-07-2023 Discharge summary Author Vicente Jasso [facility] July 17, 2023 12:07pm Note Date/Time July 17, 2023 10:20am [facility] Medical Records Department [address] [place] [address] Emergency Department Summary 07/17/23 MR#: [id number] Acct: [id number] Name: EFRAIN CARTWRIGHT Rep #:[id number] : 1950 73 From: Vicente Jasso MD PCP: Dr. Blaire Esteban, DO Status:REG ER Location: ED HPI History of Present Illness Chief Complaint: General Illness Detail of Chief Complaint: Black stool. Nausea and vomiting. Informant: patient and spouse/S.O. Onset/Context/Timing Onset: Days Context: Gradual Onset Timing: Continuous Current Severity: Mild Maximum Severity: Mild Narrative Narrative: 73-year-old female history of anxiety, depression, PTSD, hypertension. She is not on any blood thinners. Her and her were vacationing up in [place]. She had nausea and vomiting. No hematemesis. Says for the last 5 to 6 days she has had black stool. Is never had a GI bleed. Denies abdominal pain. Prior similar symptoms: No Recent Illness/Hospitalization: No PFSH PFSH Medical History Anxiety Depression GERD (gastroesophageal reflux disease) HTN (hypertension) Hypercholesteremia Nightmare disorder PTSD (post-traumatic stress disorder) Home Medications aspirin 81 mg chewable tablet 81 mg PO DAILY@0800 09/16/13 [History Last Taken Unknown] cholecalciferol (vitamin D3) 50 mcg (2,000 unit) tablet (Vitamin D3) 5,000 mg PODAILY 09/16/13 [History Last Taken Unknown] multivitamin with folic acid 400 mcg tablet (Thera) 1 tab PO DAILY 09/16/13 [History Last Taken Unknown] fexofenadine-pseudoephedrine ER 180 mg-240 mg tablet,ext.release 24 hr (Phoebe- D 24 Hour) 1 tab.sr PO DAILY 06/10/14 [History Last Taken Unknown] omega-3 fatty acids-fish oil 300 mg-1,000 mg capsule 1 ea PO DAILY 06/10/14 [History Last Taken Unknown] atorvastatin 10 mg tablet 07/10/21 [History Last Taken Unknown] cyproheptadine 4 mg tablet 4 mg PO DAILY 07/10/21 [History Last Taken Unknown] gabapentin 300 mg capsule 300 mg PO DAILY 07/10/21 [History Last Taken Unknown] hydrochlorothiazide 25 mg tablet 25 mg PO DAILY 07/10/21 [History Last Taken Unknown] irbesartan 150 mg-hydrochlorothiazide 12.5 mg tablet 1 tab PO QHS 07/10/21 [History Last Taken Unknown] lisinopril 20 mg tablet 20 mg PO DAILY 07/10/21 [History Last Taken Unknown] meloxicam 7.5 mg tablet 7.5 mg PO BID 07/10/21 [History Last Taken Unknown] omeprazole 20 mg-sodium bicarbonate 1.1 gram capsule 1 cap PO DAILY 07/10/21 [History Last Taken Unknown] sertraline 50 mg tablet 50 mg PO DAILY 07/10/21 [History Last Taken Unknown] Allergy/AdvReac Type Severity Reaction Status Date / Time amoxicillin [Amoxicillin] AdvReac Rash Verified 07/17/23 09:40 codeine AdvReac Rash Verified 07/17/23 09:40 naproxen [From Naprosyn] AdvReac Nausea Verified 07/17/23 09:40 Penicillins AdvReac Rash Verified 07/17/23 09:40 Surgical History S/P TKR (total knee replacement) Social History Smoking Status: Never smoker ROS ROS ED ROS Narrative Vomiting. Black stool. Review of Systems ROS Unobtainable: Denies due to encephalopathy Constitutional Constitutional ED: Denies chills or fever(s) Eyes Eyes: Denies blurry vision ENT ENT ED: Denies ear pain Cardiovascular Cardiovascular: Denies chest pain Respiratory/Chest Respiratory/Chest: Denies cough or dyspnea Gastrointestinal Gastrointestinal: Reports nausea, vomiting and other Details: Black stool. ; Denies abdominal pain Genitourinary Genitourinary ED: Denies dysuria Musculoskeletal Musculoskeletal: Denies arthralgias or back pain Integumentary Denies abscess Neurologic Neurologic: Denies headache(s) Psychiatric Psychiatric: Denies anxiety Endocrine Endocrinology: Denies cold intolerance Hematologic/Lymphatic Hematologic/Lymphatic: Reports none Allergic/Immunologic Allergic/Immunologic ED: Denies mouth swelling, tongue swelling or urticaria EXAM Physical Exam Narrative Exam Narrative: 73-year-old female vital signs stable afebrile. Does not look septic toxic. Nodistress. Very emotionally upset and tearful. at bedside. H EENT examunremarkable. Moist extremities. Neck nontender no lymphadenopathy. Lungs clear to auscultation bilaterally. Heart regular rhythm rate about 85 no murmur. Chest wall nontender. Abdomen soft nontender. No peritoneal signs. Moving all 4 extremities. Nontender no edema. Neurologically she is awake and alert with no focal motor deficits. Const Vital Signs: 07/17/23 09:40 07/17/23 11:05 07/17/23 11:06 Temperature 97.6 F L Temperature Source Temporal Pulse Rate 88 65 Respiratory Rate 14 18 Respiratory Effort Normal Non-Labored Respiratory Pattern Normal Blood Pressure 148/98 H 109/69 Blood Pressure Mean 114 82 Pulse Ox 100 95 Oxygen Delivery Method Room Air Room Air Positive well nourished and well developed; Negative for cachectic, contracturesor unkempt General Appearance ED: well developed; Negative for unkempt, cachectic, contractures, cyanotic, diaphoretic or pallor Nutritional Appearance: Negative for cachectic HEENT Reports moist mucous membranes Negative for trauma or tenderness Eyes PERRL and EOMs intact bilaterally General Eye ED: Negative for pale conjunctiva, scleral icterus or other Neck no lymphadenopathy, supple and no JVD General: Negative for tenderness Lymph Lymphatic: Negative for other Chest Wall inspection of chest normal and palpation of chest normal Chest: Negative for other Resp normal respiratory effort and clear to auscultation bilaterally Effort and Inspection: Negative for retractions Auscultation: Negative for rales, rhonchi or wheezes Cardio regular rate, regular rhythm, S1 normal heart sound, S2 normal heart sound and no murmurs Palpation: Negative for palpable S3 or palpable S4 Rate: Negative for bradycardia Rhythm: Negative for abnormal rhythm GI normal to inspection, nondistended, normoactive bowel sounds, non-tender, non-distended and no masses Inspection: Negative for abdominal distention Auscultation: normoactive bowel sounds Palpation: soft; Negative for tender, guarding, splenomegaly or mass Back/Spine no CVA tenderness General Back: Negative for CVA tenderness Cervical Spine: Negative for cervical spine tenderness Thoracic Spine / Upper Back: Negative for thoracic spinal tenderness or paraspinal muscle tenderness Lumbar Spine / Lower Back: Negative for lumbar spinal tenderness Extremity normal to inspection General Extremety ED: Negative for edema or tenderness General Extremity: Negative for edema Neuro CN's II-XII intact bilaterally Neuro Narrative: Strength except left leg which is chronically weak from prior surgeries according to the patient. Sensorium / Orientation: alert; Negative for orientation impaired, lethargic or stuporous Motor Exam: strength abnormal; Negative for strength 5/5 throughout Psych mental status grossly normal Appearance: Negative for unkempt Attitude: No agitated Mood & Affect: Negative for depressed, anxious or tearful Skin no rashes or lesions noted, no wounds and skin turgor normal General Skin Exam: elasticity normal; Negative for jaundice, pallor or other Lesions: No lesion noted Rashes: No rashes noted Trauma: Negative for abrasion Wounds: Negative for wounds noted MDM MDM MDM Narrative Medical decision making narrative: 73-year-old female very anxious and upset. Complaining of black stool. She will be worked up for potential GI bleed. Otherwise her exam is benign. Exam patient is doing well at 12:05 PM. She is much more calm after the Ativan. We went over her test results. I did do a rectal exam and there is really minimal stool I only see any blood at this time or black stool but again is in no stool. We discussed the possibility of an upper GI bleed due to black stool. She is not on iron. Her last hemoglobin was 13.12 years ago. I spoke to the hospitalist she will be admitted for further evaluation for possible upper GI bleed. Patient and are comfortable with the plan. History & Record Review Discussion w/independent historian: Patient and Family Additional record(s) reviewed:: Prior inpatient record, Prior outpatient record,Prior ED visit and Prior labs Lab Data Attestation: I reviewed the patient's lab results. Lab results narrative: BC shows a white count 6.4. H&H of 10.2 and 30.7. Platelets of 248. Electrolytes show a gap of 6. BUN and creatinine 23 and 0.8. Liver enzymes areunremarkable. Blood type so positive. Labs: Laboratory Results - last 24 hr 07/17/23 10:15 WBC 6.4 RBC 3.22 L Hgb 10.2 L Hct 30.7 L MCV 95.3 MCH 31.7 MCHC 33.2 RDW Std Deviation 45.2 H RDW Coeff of Gisela 13.2 Plt Count 248 MPV 10.3 Immature Gran % (Auto) 0.500 Neut % (Auto) 60.5 Lymph % (Auto) 28.9 Bland % (Auto) 8.1 Eos % (Auto) 1.4 Baso % (Auto) 0.6 Absolute Neuts (auto) 3.9 Absolute Lymphs (auto) 1.85 Nucleated RBC % 0 Sodium 137 Potassium 4.1 Chloride 107 Carbon Dioxide 24.0 Anion Gap 6 BUN 23 H Creatinine 0.88 Estim Creat Clear Calc 2.30 Est GFR (MDRD) Af Amer 81 Est GFR (MDRD) Non-Af 67 BUN/Creatinine Ratio 26.0 H Glucose 100 Calcium 9.4 Total Bilirubin 0.70 AST 17 ALT 24 Alkaline Phosphatase 79 Total Protein 6.9 Albumin 3.6 Globulin 3.3 Albumin/Globulin Ratio 1.1 Blood Type O POSITIVE Antibody Screen NEGATIVE Discharge Plan Triage Chief Complaint: General Illness ED Provider: Vicente Jasso Dx/Rx/DC Orders Prescriptions: No Action aspirin 81 MG tablet,chewable 81 mg PO DAILY@0800 cholecalciferol (vitamin D3) [Vitamin D3] 2,000 UNIT tablet 5,000 mg PO DAILY multivitamin with folic acid [Thera] 1 TABLET tablet 1 tab PO DAILY fexofenadine-pseudoephedrine [Phoebe-D 24 Hour] 1 TAB.SR tablet extended release 24 hr 1 tab.sr PO DAILY omega-3 fatty acids-fish oil 1 EACH capsule 1 ea PO DAILY gabapentin 300 mg capsule 300 mg PO DAILY Patient Comments: TAKE 1 CAPSULE BY MOUTH 2 TIMES DAILY FOR 90 DAYS. hydrochlorothiazide 25 mg tablet 25 mg PO DAILY Patient Comments: TAKE 1 TABLET BY MOUTH EVERY DAY irbesartan-hydrochlorothiazide 150-12.5 mg tablet 1 tab PO QHS Patient Comments: 1 tablet once daily atorvastatin 10 mg tablet Patient Comments: 1 tablet once daily lisinopril 20 mg tablet 20 mg PO DAILY Patient Comments: TAKE 1 TABLET BY MOUTH EVERY DAY cyproheptadine 4 mg tablet 4 mg PO DAILY Patient Comments: 1 tablet once daily meloxicam 7.5 mg tablet 7.5 mg PO BID sertraline 50 mg tablet 50 mg PO DAILY Patient Comments: 1 tablet once daily omeprazole-sodium bicarbonate 20-1.1 mg-gram capsule 1 cap PO DAILY Patient Comments: 1 capsule once daily Primary Care Provider: Blaire Esteban Referrals: Blaire Esteban DO [Primary Care Provider] - What to do if you have Problems For any increased pain, shortness of breath, bleeding, nausea or vomiting, chestpain, or any unexpected problems, contact your Primary Care Provider. Call [facility] ([phone]) or report to the closest Emergency Room. Call 911 if necessary. 07/17/23 1207 <Electronically signed by Vicente Jasso MD> Cosigner Signature (if applicable): CC: Dr. Blaire Esteban DO ~ Signed [facility] Work Phone: 1(353) 757-554009-07-2023 Discharge summary Author Vicente Jasso [facility] July 17, 2023 12:07pm Note Date/Time July 17, 2023 10:20am [facility] Medical Records Department [address] [place] [address] Emergency Department Summary 07/17/23 MR#: [id number] Acct: [id number] Name: EFRAIN CARTWRIGHT Rep #:[id number] : 1950 73 From: Vicente Jasso MD PCP: Dr. Blaire Esteban DO Status:REG ER Location: ED HPI History of Present Illness Chief Complaint: General Illness Detail of Chief Complaint: Black stool. Nausea and vomiting. Informant: patient and spouse/S.O. Onset/Context/Timing Onset: Days Context: Gradual Onset Timing: Continuous Current Severity: Mild Maximum Severity: Mild Narrative Narrative: 73-year-old female history of anxiety, depression, PTSD, hypertension. She is not on any blood thinners. Her and her were vacationing up in [place]. She had nausea and vomiting. No hematemesis. Says for the last 5 to 6 days she has had black stool. Is never had a GI bleed. Denies abdominal pain. Prior similar symptoms: No Recent Illness/Hospitalization: No PFSH PFSH Medical History Anxiety Depression GERD (gastroesophageal reflux disease) HTN (hypertension) Hypercholesteremia Nightmare disorder PTSD (post-traumatic stress disorder) Home Medications aspirin 81 mg chewable tablet 81 mg PO DAILY@0800 09/16/13 [History Last Taken Unknown] cholecalciferol (vitamin D3) 50 mcg (2,000 unit) tablet (Vitamin D3) 5,000 mg PODAILY 09/16/13 [History Last Taken Unknown] multivitamin with folic acid 400 mcg tablet (Thera) 1 tab PO DAILY 09/16/13 [History Last Taken Unknown] fexofenadine-pseudoephedrine ER 180 mg-240 mg tablet,ext.release 24 hr (Phoebe- D 24 Hour) 1 tab.sr PO DAILY 06/10/14 [History Last Taken Unknown] omega-3 fatty acids-fish oil 300 mg-1,000 mg capsule 1 ea PO DAILY 06/10/14 [History Last Taken Unknown] atorvastatin 10 mg tablet 07/10/21 [History Last Taken Unknown] cyproheptadine 4 mg tablet 4 mg PO DAILY 07/10/21 [History Last Taken Unknown] gabapentin 300 mg capsule 300 mg PO DAILY 07/10/21 [History Last Taken Unknown] hydrochlorothiazide 25 mg tablet 25 mg PO DAILY 07/10/21 [History Last Taken Unknown] irbesartan 150 mg-hydrochlorothiazide 12.5 mg tablet 1 tab PO QHS 07/10/21 [History Last Taken Unknown] lisinopril 20 mg tablet 20 mg PO DAILY 07/10/21 [History Last Taken Unknown] meloxicam 7.5 mg tablet 7.5 mg PO BID 07/10/21 [History Last Taken Unknown] omeprazole 20 mg-sodium bicarbonate 1.1 gram capsule 1 cap PO DAILY 07/10/21 [History Last Taken Unknown] sertraline 50 mg tablet 50 mg PO DAILY 07/10/21 [History Last Taken Unknown] Allergy/AdvReac Type Severity Reaction Status Date / Time amoxicillin [Amoxicillin] AdvReac Rash Verified 07/17/23 09:40 codeine AdvReac Rash Verified 07/17/23 09:40 naproxen [From Naprosyn] AdvReac Nausea Verified 07/17/23 09:40 Penicillins AdvReac Rash Verified 07/17/23 09:40 Surgical History S/P TKR (total knee replacement) Social History Smoking Status: Never smoker ROS ROS ED ROS Narrative Vomiting. Black stool. Review of Systems ROS Unobtainable: Denies due to encephalopathy Constitutional Constitutional ED: Denies chills or fever(s) Eyes Eyes: Denies blurry vision ENT ENT ED: Denies ear pain Cardiovascular Cardiovascular: Denies chest pain Respiratory/Chest Respiratory/Chest: Denies cough or dyspnea Gastrointestinal Gastrointestinal: Reports nausea, vomiting and other Details: Black stool. ; Denies abdominal pain Genitourinary Genitourinary ED: Denies dysuria Musculoskeletal Musculoskeletal: Denies arthralgias or back pain Integumentary Denies abscess Neurologic Neurologic: Denies headache(s) Psychiatric Psychiatric: Denies anxiety Endocrine Endocrinology: Denies cold intolerance Hematologic/Lymphatic Hematologic/Lymphatic: Reports none Allergic/Immunologic Allergic/Immunologic ED: Denies mouth swelling, tongue swelling or urticaria EXAM Physical Exam Narrative Exam Narrative: 73-year-old female vital signs stable afebrile. Does not look septic toxic. Nodistress. Very emotionally upset and tearful. at bedside. H EENT examunremarkable. Moist extremities. Neck nontender no lymphadenopathy. Lungs clear to auscultation bilaterally. Heart regular rhythm rate about 85 no murmur. Chest wall nontender. Abdomen soft nontender. No peritoneal signs. Moving all 4 extremities. Nontender no edema. Neurologically she is awake and alert with no focal motor deficits. Const Vital Signs: 07/17/23 09:40 07/17/23 11:05 07/17/23 11:06 Temperature 97.6 F L Temperature Source Temporal Pulse Rate 88 65 Respiratory Rate 14 18 Respiratory Effort Normal Non-Labored Respiratory Pattern Normal Blood Pressure 148/98 H 109/69 Blood Pressure Mean 114 82 Pulse Ox 100 95 Oxygen Delivery Method Room Air Room Air Positive well nourished and well developed; Negative for cachectic, contracturesor unkempt General Appearance ED: well developed; Negative for unkempt, cachectic, contractures, cyanotic, diaphoretic or pallor Nutritional Appearance: Negative for cachectic HEENT Reports moist mucous membranes Negative for trauma or tenderness Eyes PERRL and EOMs intact bilaterally General Eye ED: Negative for pale conjunctiva, scleral icterus or other Neck no lymphadenopathy, supple and no JVD General: Negative for tenderness Lymph Lymphatic: Negative for other Chest Wall inspection of chest normal and palpation of chest normal Chest: Negative for other Resp normal respiratory effort and clear to auscultation bilaterally Effort and Inspection: Negative for retractions Auscultation: Negative for rales, rhonchi or wheezes Cardio regular rate, regular rhythm, S1 normal heart sound, S2 normal heart sound and no murmurs Palpation: Negative for palpable S3 or palpable S4 Rate: Negative for bradycardia Rhythm: Negative for abnormal rhythm GI normal to inspection, nondistended, normoactive bowel sounds, non-tender, non-distended and no masses Inspection: Negative for abdominal distention Auscultation: normoactive bowel sounds Palpation: soft; Negative for tender, guarding, splenomegaly or mass Back/Spine no CVA tenderness General Back: Negative for CVA tenderness Cervical Spine: Negative for cervical spine tenderness Thoracic Spine / Upper Back: Negative for thoracic spinal tenderness or paraspinal muscle tenderness Lumbar Spine / Lower Back: Negative for lumbar spinal tenderness Extremity normal to inspection General Extremety ED: Negative for edema or tenderness General Extremity: Negative for edema Neuro CN's II-XII intact bilaterally Neuro Narrative: Strength except left leg which is chronically weak from prior surgeries according to the patient. Sensorium / Orientation: alert; Negative for orientation impaired, lethargic or stuporous Motor Exam: strength abnormal; Negative for strength 5/5 throughout Psych mental status grossly normal Appearance: Negative for unkempt Attitude: No agitated Mood & Affect: Negative for depressed, anxious or tearful Skin no rashes or lesions noted, no wounds and skin turgor normal General Skin Exam: elasticity normal; Negative for jaundice, pallor or other Lesions: No lesion noted Rashes: No rashes noted Trauma: Negative for abrasion Wounds: Negative for wounds noted MDM MDM MDM Narrative Medical decision making narrative: 73-year-old female very anxious and upset. Complaining of black stool. She will be worked up for potential GI bleed. Otherwise her exam is benign. Exam patient is doing well at 12:05 PM. She is much more calm after the Ativan. We went over her test results. I did do a rectal exam and there is really minimal stool I only see any blood at this time or black stool but again is in no stool. We discussed the possibility of an upper GI bleed due to black stool. She is not on iron. Her last hemoglobin was 13.12 years ago. I spoke to the hospitalist she will be admitted for further evaluation for possible upper GI bleed. Patient and are comfortable with the plan. History & Record Review Discussion w/independent historian: Patient and Family Additional record(s) reviewed:: Prior inpatient record, Prior outpatient record,Prior ED visit and Prior labs Lab Data Attestation: I reviewed the patient's lab results. Lab results narrative: BC shows a white count 6.4. H&H of 10.2 and 30.7. Platelets of 248. Electrolytes show a gap of 6. BUN and creatinine 23 and 0.8. Liver enzymes areunremarkable. Blood type so positive. Labs: Laboratory Results - last 24 hr 07/17/23 10:15 WBC 6.4 RBC 3.22 L Hgb 10.2 L Hct 30.7 L MCV 95.3 MCH 31.7 MCHC 33.2 RDW Std Deviation 45.2 H RDW Coeff of Gisela 13.2 Plt Count 248 MPV 10.3 Immature Gran % (Auto) 0.500 Neut % (Auto) 60.5 Lymph % (Auto) 28.9 Bland % (Auto) 8.1 Eos % (Auto) 1.4 Baso % (Auto) 0.6 Absolute Neuts (auto) 3.9 Absolute Lymphs (auto) 1.85 Nucleated RBC % 0 Sodium 137 Potassium 4.1 Chloride 107 Carbon Dioxide 24.0 Anion Gap 6 BUN 23 H Creatinine 0.88 Estim Creat Clear Calc 2.30 Est GFR (MDRD) Af Amer 81 Est GFR (MDRD) Non-Af 67 BUN/Creatinine Ratio 26.0 H Glucose 100 Calcium 9.4 Total Bilirubin 0.70 AST 17 ALT 24 Alkaline Phosphatase 79 Total Protein 6.9 Albumin 3.6 Globulin 3.3 Albumin/Globulin Ratio 1.1 Blood Type O POSITIVE Antibody Screen NEGATIVE Discharge Plan Triage Chief Complaint: General Illness ED Provider: Vicente Jasso Dx/Rx/DC Orders Prescriptions: No Action aspirin 81 MG tablet,chewable 81 mg PO DAILY@0800 cholecalciferol (vitamin D3) [Vitamin D3] 2,000 UNIT tablet 5,000 mg PO DAILY multivitamin with folic acid [Thera] 1 TABLET tablet 1 tab PO DAILY fexofenadine-pseudoephedrine [Phoebe-D 24 Hour] 1 TAB.SR tablet extended release 24 hr 1 tab.sr PO DAILY omega-3 fatty acids-fish oil 1 EACH capsule 1 ea PO DAILY gabapentin 300 mg capsule 300 mg PO DAILY Patient Comments: TAKE 1 CAPSULE BY MOUTH 2 TIMES DAILY FOR 90 DAYS. hydrochlorothiazide 25 mg tablet 25 mg PO DAILY Patient Comments: TAKE 1 TABLET BY MOUTH EVERY DAY irbesartan-hydrochlorothiazide 150-12.5 mg tablet 1 tab PO QHS Patient Comments: 1 tablet once daily atorvastatin 10 mg tablet Patient Comments: 1 tablet once daily lisinopril 20 mg tablet 20 mg PO DAILY Patient Comments: TAKE 1 TABLET BY MOUTH EVERY DAY cyproheptadine 4 mg tablet 4 mg PO DAILY Patient Comments: 1 tablet once daily meloxicam 7.5 mg tablet 7.5 mg PO BID sertraline 50 mg tablet 50 mg PO DAILY Patient Comments: 1 tablet once daily omeprazole-sodium bicarbonate 20-1.1 mg-gram capsule 1 cap PO DAILY Patient Comments: 1 capsule once daily Primary Care Provider: Blaire Esteban Referrals: Blaire Esteban, [Primary Care Provider] - What to do if you have Problems For any increased pain, shortness of breath, bleeding, nausea or vomiting, chestpain, or any unexpected problems, contact your Primary Care Provider. Call [facility] ([phone]) or report to the closest Emergency Room. Call 911 if necessary. 07/17/23 1207 <Electronically signed by Vicente Jasso MD> Cosign Signature (if applicable): CC: Dr. Blaire Esteban DO ~ Signed [facility] Work Phone: [phone]) 858-618102-22-2023 Hospital Discharge instructions Patient Education 01/01/2023 16:19:16 [...] water added (diluted fruit juice). Eat bland, swva-ju-xtqisn foods in small amounts as you are able. These foods include bananas, applesauce, rice, lean meats, toast, and crackers. Avoid fluids that contain a lot of sugar or caffeine, such as energy drinks, sports drinks, and soda. Avoid alcohol. Avoid spicy or fatty foods. General instructions Take mpyt-amw-lfxnybg and prescription medicines only as told by your health care provider. Drink enough fluid to keep your urine pale yellow. Wash your hands often using soap and water. If soap and water are not available, use hand wood coater. Make sure that all people in your [...] you are about to vomit. As nausea getsworse, it can lead to vomiting. Vomiting can make you feel weak and cause you to become dehydrated. Follow instructions from your health care provider about eating and drinking to prevent dehydration. Take qebu-bzd-zvxwbjy and prescription medicines only as told by [...] 10/27/2006 Document Revised: 02/18/2020 Document Reviewed: 04/06/2019 [employer] Patient Education 2020 [employer]raxis. 01/01/2023 16:19:03 General Anesthesia, Adult, Care After [...] have someone help care for you until youare awake and alert. Rest as needed. Do [...] what activities are safe for you. Take utgx-uns-otieflz and prescription medicines only as told by [...] 02/02/2002 Document Revised: 10/30/2018 Document Reviewed: 06/12/2018 [employer] Patient Education 2020 Phraxis. 01/01/2023 16:18:39 Shoulder Arthroscopy, Care After Shoulder [...] you need to keep it on while bathingand it is not waterproof: ?Do not let [...] and water are not available, use hand wood coater. ?Change your dressing as told by your health care provider. ?Leave stitches (sutures), mikal, skin glue, or adhesive strips in place. These skin closures mayneed to stay in place for 2 weeks [...] your health care provider approves. Ask your healthcare provider if you may take showers. You [...] sleep in a sitting position for a fewdays after your procedure. Try sleeping in a [...] and to lessen swelling. General instructions Take oqmq-qga-ifndgca and prescription medicines only as told by [...] as fried or sweet foods. ?Take an ykbt-pae-rniveho or prescription medicine for constipation. Do not [...] blue even after you loosen your sling orimmobilizer. Develop pain in your lower leg or at the back of your knee. Summary If you have a sling or immobilizer, wear it as told by your health care provider. These devices protect your shoulder and help it heal by keeping it in place. If lying down flat causes shoulder discomfort, it may help to sleep in a sitting position for a fewdays after your procedure. Try sleeping in a [...] 05/24/2015 Document Revised: 10/09/2018 Document Reviewed: 09/11/2018 Formspring Patient Education 2020 Phraxis. Follow Up Care 12/18/2022 08:00:59 With:SLAVA CANTOR Address: [address] [place] [address], [facility] [address] [place] [address]- [phone] Business (1) When:01/17/2023 09:15:00 [facility] 02-22-2023 Summary of episode note Discharge Instructions Thank you for allowing [facility] to assist you with your healthcare needs. The following is importantdischarge information regarding your hospital visit. Your Care Team BLAIRE ESTEBAN DO, DR. Your Diagnosis Other acute postprocedural pain What to do next Scheduled Follow-Up Appointments Appointment Type When With Where Contact InformationPC OV Follow Up 01/22/2023 11:00 AM EDT BLAIRE ESTEBAN DO [address] [id number] Follow Up Appointments Follow Up with SLAVA CANTOR When 01/17/2023 09:15 AM EST Where: [address] [place] [address], [facility] [address] [place] [address]- [phone] Business (1) The Following Activity and Diet Have Been Ordered for You Discharge Activity - Ordered -- Follow the post-operative/post-procedure activity instructions provided by your physician's office., 01/01/23 15:48:00 EST Discharge Diet - Ordered -- Follow the post-operative/post-procedure diet instructions provided by your physician's office.,01/01/23 15:48:00 EST The Following Equipment Has Been [...] and or supplements as they may interact withyour home medications. What How Much When Why Instructions Last Dose New ondansetron (ondansetron 4 mg oral tablet, disintegrating) 1 tab(s) by mouth Every 8 hours as needed for as needed for nausea/vomiting Duration: 5 Days Pickup at [facility]/pharmacy #[id number] New oxyCODONE (oxyCODONE 5 mg oral tablet ( IMMEDIATE release )) See instructions Other acute postprocedural pain 1-2 tablets by mouth every 6 hours as needed for pain Pickup at [facility]/pharmacy #[id number] Unchanged albuterol (albuterol MDI (90 mcg/ inh) CFC free inhalation aerosol) 2 puff(s) by inhalation Every 6 hours as needed for as needed for wheezing COVID-19 kim krishnan manifesting chronic cough Seasonal allergy Unchanged albuterol [...] Every day Unchanged omega-3 polyunsaturated fatty acids (Hendrum-3 1000 mg oral capsule) 1 cap by [...] Two (2) times a day Pharmacy Information [facility]/pharmacy #[id number]: [address], [place] [phone] Please take this list to your next [...] water added (diluted fruit juice). Eat bland, iaps-rq-wmvpom foods in small amounts as you are able. These foods include bananas, applesauce, rice, lean meats, toast, and crackers. Avoid fluids that contain a lot of sugar or caffeine, such as energy drinks, sports drinks, and soda. Avoid alcohol. Avoid spicy or fatty foods. General instructions Take oenb-sex-inaniod and prescription medicines only as told by your health care provider. Drink enough fluid to keep your urine pale yellow. Wash your hands often using soap and water. If soap and water are not available, use hand wood coater. Make sure that all people in your [...] you are about to vomit. As nausea getsworse, it can lead to vomiting. Vomiting can make you feel weak and cause you to become dehydrated. Follow instructions from your health care provider about eating and drinking to prevent dehydration. Take lhpl-fya-ncosorz and prescription medicines only as told by [...] 10/27/2006 Document Revised: 02/18/2020 Document Reviewed: 04/06/2019 Formspring Patient Education 2020 Phraxis. General Anesthesia, Adult, Care After This sheet [...] have someone help care for you until youare awake and alert. Rest as needed. Do [...] what activities are safe for you. Take sfyb-jtu-pmodfqo and prescription medicines only as told by [...] 02/02/2002 Document Revised: 10/30/2018 Document Reviewed: 06/12/2018 Formspring Patient Education 2020 [employer] Inc. Shoulder Arthroscopy, Care After This sheet gives [...] you need to keep it on while bathingand it is not waterproof: ? Do not [...] and water are not available, use hand wood coater. ? Change your dressing as told by [...] your health care provider approves. Ask your healthcare provider if you may take showers. You [...] sleep in a sitting position for a fewdays after your procedure. Try sleeping in a [...] and to lessen swelling. General instructions Take tjqk-twm-bfuhkog and prescription medicines only as told by [...] fried or sweet foods. ? Take an hzah-cda-sxuemdq or prescription medicine for constipation. Do not [...] blue even after you loosen your sling orimmobilizer. Develop pain in your lower leg or at the back of your knee. Summary If you have a sling or immobilizer, wear it as told by your health care provider. These devices protect your shoulder and help it heal by keeping it in place. If lying down flat causes shoulder discomfort, it may help to sleep in a sitting position for a fewdays after your procedure. Try sleeping in a [...] 05/24/2015 Document Revised: 10/09/2018 Document Reviewed: 09/11/2018 Formspring Patient Education 2020 Phraxis. Additional Information VACCINATE! IT SAVES LIVES! Members of the community who have not yet received the COVID-19 vaccine and would like to receive it can visit one of [facility] vaccine clinics. There are many vaccine clinic locations within the [facility]. For locations and available times, please visit [email or web address].[place].gov/. It is important to note that some COVID mobile vaccine clinics are held outdoors and may be canceled in rainy or stormy conditions. To learn more about pediatric vaccinations (ages 5-11), we invite you to visit the [facility] webpage. [email or web address] learn more about the COVID-19 vaccine, we invite you to visit the CDC website for a list of frequently asked questions. https://www.cdc.gov/coronavirus/2019-ncov/vaccines/faq.html [facility] Patient Portal Access Instructions: Stay connected with your healthcare team and access your personal medical information anytime with the [facility] Patient Portal.If you would like a full copy of your medical records, please contact the [facility] Medical Records Department, Friday through Friday between 8a.m. and 4:30p.m. Please follow the directions below to access the portal: 1.Access the email account you provided upon registration to the hospital.2.Look for an invitation email from [facility].3.Open the email and access the invitation link: Accept Invitation to [facility]4.Fill in the required reyes to create your account. Sign into [email or web address] with your username and password that you [...] you will allow to register on the [facility] Patient Portal for access to your information. You can also access the [facility] Patient Portal on the [employer]. Simply click on Health Records under [employer] and then click on the [employer] logo. HOW TO SAFELY DISPOSE OF PRESCRIPTION MEDICATIONS Please use one of the following methods to safely dispose of your unused medications. 1.Use a drug disposal kit: the drug disposal pouch allows you to safely discard your old and unuseddrugs. Ask your nurse to give you one when you are discharged.2.Visit a local take-back location: Many local pharmacies and police departments have programs that collect old and unwanted prescriptiondrugs. Call your local pharmacy or go to http://[employer]Money Mover/5T8Vv4l to find one close to you.3.Make use of household items: Use cat litter or old coffee grounds to dispose medications if other options arenot available. Mix your drugs with these household products, seal them in an airtight container andthrow it into the garbage. Call [facility]: [phone] to be sure your drugs can be [...] been reviewed and explained to me and I,EFRAIN CARTWRIGHT understand my current condition and have read and understand these discharge instructions. I have received a written copy of the plan/instructions. If I have questions, I am aware that I should contact my doctor. Patient/Appian Bpm Developer Signature: Date/Time: Relationship to Patient: Witness Name/Signature: Date/Time: [facility]02-22-2023 Anesthesiology Consult note Patient: EFRAIN CARTWRIGHT Age: 72 years Sex: Female : 1950 Associated Diagnoses: None Author: CHELLE STEARNS ACADEMIC ADVISEMENT DIRECTOR-TIME BROKER Preoperative Information Time of last food or [...] aerosol: 2 puff(s), Inhalation, q6hr, PRN: as neededfor wheezing, 1 EA, 1 Refill(s) hydroCHLOROthiazide 25 [...] Multivitamin: 1 tab(s), Oral, Daily, 0 Refill(s) Hendrum-3 1000 mg oral capsule: 1,000 mg, 1 cap(s), Oral, qDay, 0 Refill(s) Vitamin D3 5000 intl units oral tablet: 5,000 International_Unit, 1 tab(s), Oral, qDay, 100 tab(s),0 Refill(s) aspirin 81 mg oral delayed release [...] pain of unknown etiology / SNOMED CT 216372018 / Confirmed Allergy-induced asthma / SNOMED CT 3345526331 / Confirmed Anxiety / SNOMED CT 18626201 / Confirmed 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 / SNOMED CT 5110285867 / Confirmed GI symptoms / SNOMED CT 3943419785 / Confirmed Glasses / SNOMED CT 2807576339 / Confirmed H/O osteopenia / SNOMED CT 500593259 / Confirmed Tear of left hamstring / SNOMED CT 411151743 / Confirmed Headache / SNOMED CT 01834591 / Confirmed Pain in left hip / SNOMED CT 46269024 / Confirmed Hypercholesterolemia / SNOMED CT 61341696 / Confirmed Hypertension / SNOMED CT 4565041534 / Confirmed Right knee pain / SNOMED CT 28690746 / Confirmed Need for influenza vaccination / SNOMED CT 588035881 / Confirmed Never used tobacco / SNOMED CT 6231084180 / Confirmed Osteoarthritis / SNOMED CT 3281076658 / Confirmed Osteopenia / SNOMED CT 974087788 / Confirmed BMI 29.0-29.9,adult / SNOMED CT 3834142706 / Confirmed Pain of finger of right hand / SNOMED CT 37788356 / Confirmed Preop examination / SNOMED CT 053470430 / Confirmed Medicare annual wellness visit, initial / SNOMED CT 736412227 / Confirmed Screening for ischemic heart disease / SNOMED CT 997302931 / Confirmed Screening for diabetes mellitus / SNOMED CT 954817760 / Confirmed Screening for breast cancer / SNOMED CT 624257432 / Confirmed Screening for osteoporosis / SNOMED CT 904607838 / Confirmed Screening for colon cancer / SNOMED CT 401512828 / Confirmed Medicare annual wellness visit, subsequent / SNOMED CT 344594771 / Confirmed PPD positive / SNOMED CT 45392652 / Confirmed Post traumatic stress disorder (PTSD) / SNOMED CT 87072892 / Confirmed 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 Comments: 03/02/2018 EDT 12:23 FLOR Francisco was treated 03/02/2018 EDT 12:32 FLOR Francisco 04/13/2012 [facility]: NO EVIDENCE OF ACTIVE PULMONARY TUBERCULOSIS, MILD CHRONIC CHANGES ARE STABLE, NO ACUTE PROCESS Hypercholesterolemia (26719457) Seasonal allergy (5121443545) Headache (32043551) Comments: 09/12/2016 EDT 10:39 FLOR Barnes SINUS Glasses (9860106230) Post traumatic stress disorder (PTSD) (64305108) Comments: 03/02/2018 EDT 12:32 FLOR Francisco IS IN THERAPY, NO MEDS TMJ (temporomandibular joint disorder) (91582959) Osteoarthritis (7694193878) Urinary calculus (1994119879) Allergy-induced asthma (3472649739) Comments: 03/02/2018 EDT 12:18 FLOR Francisco no inhaler H/O osteopenia (589061660) Anxiety (24009775) Tear of left hamstring (805364971) Resolved Sinusitis (36926176): Resolved. Comments: 09/12/2016 EDT 10:37 FLOR Banres ALLERGY INDUCED Constipation (27008872): Resolved. Urinary incontinence (2457979294): Resolved. Increased urinary frequency (186859308): Resolved. Comments: 03/02/2018 EDT 12:16 FLOR Francisco had a sling Cataract ([id number]): Resolved. Family History: Kidney stone Brother Heart disease Father Arthritis Mother Brother Stroke Father HTN - Hypertension Father Procedure history: Arthroscopy of shoulder ([id number]) on 01/01/2023 at 72 Years. Arthroplasty of knee ([id number]) on 04/17/2021 at 70 Years. Comments: 04/17/2021 8:09 Heaven Monge RN Right, with bursectomy Cystoscopy ([id number]) in the month of 02/2018 at 67 Years. Comments: 07/25/2020 15:34 Nikki Smith LPN w/ removal of left ureteral stent, bilateral retrograde ureteral pyelograms Bunionectomy ([id number]) in the month of 10/2017 at 67 Years. Comments: 07/25/2022 11:21 Nikki Smith LPN and left 03/02/2018 12:20 FLOR Francisco right Hysterectomy ([id number]) on 09/24/2016 at 66 Years. Osteoplasty of carpal or metacarpal ([id number]) on 10/13/2010 at 60 Years. Comments: 02/26/2018 15:00 FLOR Francisco LEFT THUMB Phacoemulsification with intraocular lens implantation ([id number]). Comments: 03/02/2018 12:21 FLOR Francisco both eyes section ([id number]). Comments: 09/12/2016 10:42 FLOR Barnes TWO ORIF - Open reduction and internal fixation of fracture ([id number]). Comments: 03/02/2018 12:21 FLOR Francisco right forearm 09/12/2016 10:43 FLOR Barnes RFA Thumb ([id number]). Comments: 09/12/2016 10:44 PATRICK - FLOR Weber RIGHT Colonoscopy ([id number]). History of tonsillectomy (5193162127). Hamstring release procedure (3686056819). Comments: 07/25/2022 11:20 Nikki Smith LPN done twice 07/25/2020 15:09 EDT - Nikki Sanchez LPN left Knee replacement ([id number]). Comments: 07/25/2022 11:22 EDT - Nikki Sanchez LPN right Social History Social & Psychosocial [...] OralL 35.6DegC (JAN 01 11:18) Heart Rate Gpzmtzfai61 bpm (JAN 01 12:45) Resp Rate C 10br/min (JAN 01 11:18) SBP74 mmHg (JAN 01 12:45) DBP50 mmHg (JAN 01 12:45) BMI28.64 (JAN 01 11:18) Measurements from flowsheet : Measurements 01/01/2023 11:18 EST Height 175.3 cm Admission Weight 88 kg Weight Method Stated Reeders Body Weight 66.24 kg BSA Admission 2.04 [...] OF THE ROTATOR CUFF OF RIGHT SHOULDER, INITIALENCOUNTER; PRIMARY OSTEOARTHRITIS RIGHT SHOULDER; IMPINGEMENT SYNDROME OF RIGHT SHOULDER; BICIPITALTENDINITIS 01/01/2023 12:51 EST SN - Cul - [...] - Irl - Additive EPINEPHRINE 1ML PF (RUSSIAN REG 01/01/2023 12:49 EST SN - SP - Prep Agents Chloraprep SN - SP - HR - Method N/A 01/01/2023 12:48 EST SN - CAt - Case Attendee SN - CAt - Case Attendee SN - CAt - Role Performed Stick Roller 2 01/01/2023 12:47 EST SN - CTm [...] Start Time Anesthesia Start 01/01/2023 12:20 EST [place] History and Physical History and Physical Update [...] Surgeon SN - CAt - Role Performed TIME BROKER SN - CAt - Role Performed Bushel Girl 1 SN - CAt - Role Performed Scrub 1 SN - CAt - Role Performed Stick Roller 1 SN - CAt - Role Performed Salesperson [employer] 01/01/2023 12:01 EST Apical Heart Rate 59 [...] Provider #2 Bedside Time Out CHELLE STEARNS APRN-TIME BROKER NPO Status Maintained Allergy Band on and [...] Admission Weight 88 kg Weight Method Stated Reeders Body Weight 66.24 kg BSA Admission 2.04 [...] Weeks No Weight Loss No Allergies Yes [place]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 Assessment and Plan [place] Society of Anesthesiologists (ASA) physical status classification: Class III. Anesthetic Preoperative Plan Premedication: intravenous. Anesthetic technique: General. Induction: intravenously. Maintenance airway: Oral endotracheal tube. Regional: Interscalene Block. Postoperative pain management: Per surgeon. Risks discussed: nausea, vomiting, sore throat. Informed consent: signed by patient. Digitally Signed by CHELLE STEARNS on 01/01/2023 12:57 PM [facility]02-22-2023 Note Date of Service 01/01/23 History and Physical Update I have examined the patient; reviewed the History and Physical and there are no changes to the History and Physical unless noted below. Digitally Signed by SLAVA CANTOR DO on 01/01/2023 12:21 PM [facility]02-22-2023 Anesthesiology Consult note* CHELLE STEARNS: PERFORM, SIGN, VERIFY Event Display: Anesthesiology Consultation Authored Date: [id number] Patient: EFRAIN CARTWRIGHT Age: 72 years Sex: [...] aerosol: 2 puff(s), Inhalation, q6hr, PRN: as neededfor wheezing, 1 EA, 1 Refill(s) hydroCHLOROthiazide 25 [...] Multivitamin: 1 tab(s), Oral, Daily, 0 Refill(s) Hendrum-3 1000 mg oral capsule: 1,000 mg, 1 cap(s), Oral, qDay, 0 Refill(s) Vitamin D3 5000 intl units oral tablet: 5,000 International_Unit, 1 tab(s), Oral, qDay, 100 tab(s),0 Refill(s) aspirin 81 mg oral delayed release [...] pain of unknown etiology / SNOMED CT 529460690 / Confirmed Allergy-induced asthma / SNOMED CT 9298643528 / Confirmed Anxiety / SNOMED CT 25491387 / Confirmed 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 / SNOMED CT 4553988732 / Confirmed GI symptoms / SNOMED CT 1414270660 / Confirmed Glasses / SNOMED CT 9834222241 / Confirmed H/O osteopenia / SNOMED CT 547535637 / Confirmed Tear of left hamstring / SNOMED CT 018213317 / Confirmed Headache / SNOMED CT 18639651 / Confirmed Pain in left hip / SNOMED CT 55931677 / Confirmed Hypercholesterolemia / SNOMED CT 29094494 / Confirmed Hypertension / SNOMED CT 1555710175 / Confirmed Right knee pain / SNOMED CT 20767389 / Confirmed Need for influenza vaccination / SNOMED CT 191304253 / Confirmed Never used tobacco / SNOMED CT 8445988860 / Confirmed Osteoarthritis / SNOMED CT 7644463813 / Confirmed Osteopenia / SNOMED CT 806710736 / Confirmed BMI 29.0-29.9,adult / SNOMED CT 4906474251 / Confirmed Pain of finger of right hand / SNOMED CT 20939274 / Confirmed Preop examination / SNOMED CT 434365749 / Confirmed Medicare annual wellness visit, initial / SNOMED CT 112434695 / Confirmed Screening for ischemic heart disease / SNOMED CT 983380057 / Confirmed Screening for diabetes mellitus / SNOMED CT 875761634 / Confirmed Screening for breast cancer / SNOMED CT 647845569 / Confirmed Screening for osteoporosis / SNOMED CT 158577464 / Confirmed Screening for colon cancer / SNOMED CT 889179024 / Confirmed Medicare annual wellness visit, subsequent / SNOMED CT 092508290 / Confirmed PPD positive / SNOMED CT 79901592 / Confirmed Post traumatic stress disorder (PTSD) / SNOMED CT 17711446 / Confirmed Pudendal neuralgia / SNOMED CT 1092856559 / Confirmed Need for Streptococcus pneumoniae vaccination / SNOMED CT 8720461778 / Confirmed Seasonal allergy / SNOMED CT 4283828893 / Confirmed TMJ (temporomandibular joint disorder) / SNOMED CT 95592967 / Confirmed Urinary calculus / SNOMED CT 2409342674 / Confirmed Need for hepatitis C screening test / SNOMED CT 678819997 / Confirmed Viral wart on finger / SNOMED CT 8392930344 / Confirmed, Active Problems (36) Allergy-induced asthma [...] Histories Past Medical History: Active PPD positive (61432729): Onset in 1978 at 28 years. Comments: 03/02/2018 EDT 12:23 FLOR Francisco was treated 03/02/2018 EDT 12:32 FLOR Francisco 04/13/2012 [facility]: NO EVIDENCE OF ACTIVE PULMONARY TUBERCULOSIS, MILD CHRONIC CHANGES ARE STABLE, NO ACUTE PROCESS Hypercholesterolemia (22700138) Seasonal allergy (4126669027) Headache (14459929) Comments: 09/12/2016 EDT 10:39 EDT Chepe Weber RN [place] SINUS Glasses (3053921162) Post traumatic stress disorder (PTSD) (23726406) Comments: 03/02/2018 EDT 12:32 FLOR Francisco IS IN THERAPY, NO MEDS TMJ (temporomandibular joint disorder) (32904676) Osteoarthritis (1927993831) Urinary calculus (4184746980) Allergy-induced asthma (5675220320) Comments: 03/02/2018 EDT 12:18 FLOR Francisco no inhaler H/O osteopenia (093447860) Anxiety (26612774) Tear of left hamstring (190083493) Resolved Sinusitis (57217995): Resolved. Comments: 09/12/2016 EDT 10:37 FLOR Barnes ALLERGY INDUCED Constipation (39934543): Resolved. Urinary incontinence (0334601639): Resolved. Increased urinary frequency (583885745): Resolved. Comments: 03/02/2018 EDT 12:16 FLOR Francisco had a sling Cataract (132726731): Resolved. Family History: Kidney stone Brother Heart disease Father Arthritis Mother Brother Stroke Father HTN - Hypertension Father Procedure history: Arthroscopy of shoulder ([id number]) on 01/01/2023 at 72 Years. Arthroplasty of knee ([id number]) on 04/17/2021 at 70 Years. Comments: 04/17/2021 8:09 Heaven Monge RN Right, with bursectomy Cystoscopy (49669323) in the month of 02/2018 at 67 Years. Comments: 07/25/2020 15:34 Nikki Smith LPN w/ removal of left ureteral stent, bilateral retrograde ureteral pyelograms Bunionectomy (62658155) in the month of 10/2017 at 67 Years. Comments: 07/25/2022 11:21 Nikki Smith LPN and left 03/02/2018 12:20 FLOR Francisco right Hysterectomy ([id number]) on 09/24/2016 at 66 Years. Osteoplasty of carpal or metacarpal (598114007) on 10/13/2010 at 60 Years. Comments: 02/26/2018 15:00 FLOR Francisco LEFT THUMB Phacoemulsification with intraocular lens implantation (7498682653). Comments: 03/02/2018 12:21 FLOR Francisco both eyes section (48512972). Comments: 09/12/2016 10:42 FLOR Barnes TWO ORIF - Open reduction and internal fixation of fracture (390696533). Comments: 03/02/2018 12:21 FLOR Francisco right forearm 09/12/2016 10:43 FLOR Barnes RFA Thumb ([id number]). Comments: 09/12/2016 10:44 FLOR Barnes RIGHT Colonoscopy (114369595). History of tonsillectomy (7569778645). Hamstring release procedure (2629090849). Comments: 07/25/2022 11:20 Nikki Smith LPN done twice 07/25/2020 15:09 Nikki Smith LPN left Knee replacement (939849732). Comments: 07/25/2022 11:22 Nikki Smith LPN right [...] OralL 35.6DegC (JAN 01 11:18) Heart Rate Awmvlbxes74 bpm (JAN 01 12:45) Resp Rate C 10br/min (JAN 01 11:18) SBP74 mmHg (JAN 01 12:45) DBP50 mmHg (JAN 01 12:45) BMI28.64 (JAN 01 11:18) Measurements from flowsheet : Measurements 01/01/2023 11:18 EST Height 175.3 cm Admission Weight 88 kg Weight Method Stated Reeders Body Weight 66.24 kg BSA Admission 2.04 [...] OF THE ROTATOR CUFF OF RIGHT SHOULDER, INITIALENCOUNTER; PRIMARY OSTEOARTHRITIS RIGHT SHOULDER; IMPINGEMENT SYNDROME OF RIGHT SHOULDER; BICIPITALTENDINITIS 01/01/2023 12:51 EST SN - Cul - [...] - Irl - Additive EPINEPHRINE 1ML PF (RUSSIAN REG 01/01/2023 12:49 EST SN - SP - Prep Agents Chloraprep SN - SP - HR - Method N/A 01/01/2023 12:48 EST SN - CAt - Case Attendee SN - CAt - Case Attendee SN - CAt - Role Performed Stick Roller 2 01/01/2023 12:47 EST SN - CTm [...] Start Time Anesthesia Start 01/01/2023 12:20 EST [place] History and Physical History and Physical Update [...] Surgeon SN - CAt - Role Performed TIME BROKER SN - CAt - Role Performed Bushel Girl 1 SN - CAt - Role Performed Scrub 1 SN - CAt - Role Performed Stick Roller 1 SN - CAt - Role Performed Salesperson [employer] 01/01/2023 12:01 EST Apical Heart Rate 59 [...] Provider #2 Bedside Time Out CHELLE STEARNS ACADEMIC ADVISEMENT DIRECTOR-TIME BROKER NPO Status Maintained Allergy Band on and [...] EST Designated Person #1 We May Share [facility] Designated Person #1 We May Share [facility] Designated Person #1 Relationship Spouse Height 175.3 cm Admission Weight 88 kg Weight Method Stated Reeders Body Weight 66.24 kg BSA Admission 2.04 [...] Weeks No Weight Loss No Allergies Yes [place]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 Assessment and Plan [place] Society of Anesthesiologists (ASA) physical status classification: Class III. Anesthetic Preoperative Plan Premedication: intravenous. Anesthetic technique: General. Induction: intravenously. Maintenance airway: Oral endotracheal tube. Regional: Interscalene Block. Postoperative pain management: Per surgeon. Risks discussed: nausea, vomiting, sore throat. Informed consent: signed by patient. Digitally Signed by CHELLE STEARNS on 01/01/2023 12:57 PM [facility] [place] Garmentaluation + Plan note Future Appointments Appointment Date:07/25/2022 11:00:00 AM Scheduled Provider:BLAIRE ESTEBAN DO Location:[facility] Appointment Type:PC Wellness Medicare [facility] [place] Garmentaluation + Plan note Future Appointments Appointment Date:01/22/2023 11:00:00 AM Scheduled Provider:BLAIRE ESTEBAN DO Location:[facility] Appointment Type: OV Follow Up Future Scheduled Tests Laboratory* Thyroid Stimulating Hormone 07/25/22 * Lipid Profile 07/25/22 * Hepatitis C Antibody IgG 07/25/22 * Complete Metabolic Panel 07/25/22 [facility] [place] Garmentaluation + Plan note Future Appointments Appointment Date:07/29/2023 11:00:00 AM Scheduled Provider:BLAIRE ESTEBAN DO Location:[facility] Appointment Type:PC Wellness Medicare Future Scheduled Tests Laboratory* Thyroid Stimulating Hormone 07/25/22 * Lipid Profile 07/25/22 * Hepatitis C Antibody IgG 07/25/22 * Complete Metabolic Panel 07/25/22 [facility] [place] Garmentaluation + Plan note Future Appointments Appointment Date:08/18/2024 09:30:00 AM Scheduled Provider:BLAIRE ESTEBAN DO Location:[facility] Appointment Type: OV Future Scheduled Tests Laboratory* Basic Metabolic Panel 08/01/23 * Thyroid Stimulating Hormone 10/07/23 * Complete Blood Count 08/01/23 * Complete Blood Count 10/07/23 * Lipid Profile 10/07/23 * Hepatitis C Antibody IgG 10/07/23 * Complete Metabolic Panel 10/07/23 Radiology* MA Mammo Screening Bilateral w/ Matthew 08/26/23 * BD Bone Density DEXA Axial Skeleton 08/26/23 [facility] [place] Garmentaluation + Plan note Future Appointments Appointment Date:02/16/2025 10:00:00 AM Scheduled Provider:BLAIRE ESTEBAN DO Location:[facility] Appointment Type:PC OV Future Scheduled Tests Laboratory* Thyroid Stimulating Hormone 10/07/23 * Complete Blood Count 10/07/23 * Lipid Profile 10/07/23 * Complete Metabolic Panel 10/07/23 [facility] Evaluation + Plan note Future Appointments Appointment Date:02/16/2025 10:00:00 AM Scheduled Provider:BLAIRE ESTEBAN DO Location:[facility] Appointment Type:PC OV [facility] Evaluation noteThere may be information available, but it has not been provided by the sender.[facility] Work Phone: Evaluation noteNo assessment information available [facility] Work Phone: Evaluation note* Diagnosis Onset Date Resolution Status Acute upper GI bleed acute [facility] Work Phone: Evaluation note* Diagnosis Onset Date Resolution Status Acute upper GI bleed resolve d GI bleed acute [facility] Work Phone: Hospital course Narrative No data available for this section [facility] Discharge instructions No data available for this section [facility] Discharge instructions Additional Instructions Your x-ray shows that you have 2 broken ribs causing your pain but no signs of internal injury. In order to prevent pneumonia using incentive spirometer every hour while awake to make sure you are taking deep breaths in. Take the prescribed medication as directed to help control pain and follow-up with your family doctor for repeat evaluation and potential refill of medication. It would typically take 4 to 6 weeks for ribs to heal.[facility] Work Phone: Instructions* Instruction Description Start Date CompletedPatient advised to follow-up with Primary Care Physician for BMI management. [facility] Work Phone: Instructions* Instruction Description Start Date CompletedPatient advised to follow-up with Primary Care Physician for BMI management. [facility] Work Phone: Progress note No data available for this section [facility] Reason for referral (narrative)No reason for referral information availableWCleveland Clinic Mer[facility] Work Phone: Summary Purpose Family History No Family History Records FoundNo Family History Records FoundThere may be information available, but it has not been provided by the sender.There may be information available, but it has not been provided by the sender. No data available for this section No Family History Records Found No data available for this section No data available for this section No Family History Records FoundNo Family History Records Found Advance Directives No Advanced Directives Records Found Advance Directive Response Recorded Date/ Time Advance Directives Yes June 10, 2 014 3:13pm Living Will Yes July 17, 2 023 11:06am Power of Integration Specialist Yes July 17, 2023 11:06am Name of Medical Power of Integration Specialist MARGARITA CARTWRIGHT - SPOUSE July 17, 2023 11:06am Advance Directive Response Recorded Date/ Time Name of Medical Power of Integration Specialist MARGARITA CARTWRIGHT - SPOUSE July 17, 2023 2:03pm Advance Directives Yes June 10, 2 014 3:13pm Living Will Yes July 17, 2 023 2:03pm Power of Integration Specialist Yes July 17, 2023 2:03pm Advance Directive Response Recorded Date/ Time Name of Medical Power of Integration Specialist MARGARITA CARTWRIGHT - SPOUSE July 17, 2023 1:03pm Name of Medical Power of Integration Specialist , Jose Cartwright November 11, 2023 12:21am Advance Directives Yes June 10, 2 014 2:13pm Living Will Yes November 11 12:21am Power of Integration Specialist Yes November 11, 024 12:21am Advance Directive Response Recorded Date/ Time Advance Directives Yes June 10, 2 014 3:13pm Chief Complaint Chief Complaint Description Start Date [...] by the author as of Chief Complaint and Reason for Visit Chief Complaint GI BLEED Chief Complaint GI BLEED GI BLEED GI BLEED GI BLEED Reason for Visit Acute upper GI bleed Chief Complaint GI BLEED GI BLEED GI BLEED GI BLEED H FU r rib pain Reason for Visit Acute upper GI bleed GI bleed Chief Complaint Admit Date BLUEPRINT PROTOCOL RIGHT SHOULDER May 102024 3:48pm Additional Source Comments INFORMATION SOURCE (unrecogn ized section and content) DATE CREATED AUTHOR 05/06/2018 [place] [employer] DATE CREATED AUTHOR AUTHOR'S ORGANIZ ATION 07/16/2019 [facility] DATE CREATED AUTHOR AUTHOR'S ORGANIZ ATION 06/11/2024 [facility] [place] [facility] ([place]) DATE CREATED AUTHOR AUTHOR'S ORGANIZ ATION 02/21/2025 [facility] DATE CREATED AUTHOR AUTHOR'S ORGANIZ ATION 06/11/2025 [facility] Reason for Visit (unrecogniz ed section and content) Reason For Visit Description Postop - subsequent visit Preliminary reason f or visit data, not yet signed by the author as of left hip post Left hip flakito ion with gluteus medius and minimus repair.Allograft augmentation 28 x 28 x 2.2 mm thickness rotium augmentation Trochanteric bursectomy. Iliotibial band resection. on 09/27/2021 Reason For Visit Description Start Date Postop [...] Personnel Name: APOORVA LOPEZ PA-C Position: Physician Supervisor [employer] Med Service: Admitting Member Role: Orthopaedist Address: Address: [facility] [place] [address]- Name: RICCARDO ROGERS MD Member Role: Surgeon Address: Address: [address] [place] [id number]- Name: BLAIRE ESTEBAN DO Position: P4 Physician - Primary Care Med Service: Active Provider Member Role: Primary Care Physician Address: Address: [address] [place] [address] Name: RONNIE NAVARRO APRN-[facility] Med Service: Hospitalist Medicine Member Role: Family Medicine Address: Address: [place] [address]- Name: KEYONA POST MD Position: P3 Physician - Orthopedics Med Service: Admitting Member Role: Orthopaedist Address: Address: [address] [place] [address] [facility] [place] [address]- Care Team Related Persons Name: MARGARITA CARTWRIGHT Address: Home [address] [place] [id number] Care Team Personnel Name: APOORVA LOPEZ PA-C Position: Physician Supervisor [employer] Member Role: Orthopaedist Address: Address: [facility] [address] [place] [address]- Name: RICCARDO ROGERS MD Member Role: Surgeon Address: Address: [address] [place] [address]- Name: BLAIRE ESTEBAN DO Position: P4 Physician - Primary Care Member Role: Primary Care Physician Address: Address: [address] [place] [id number] [place] [address] Name: NIYA NAVARRO [facility] INSTRUMENTATION AND CONTROL TECHNICIAN Member Role: Family Medicine Address: Address: [place] [id number]- Name: MELVIN NAVARRO DPM Position: Physician Member Role: Bad Cloth Checker Address: Address: [address] [place] [address], [address] [facility] [place] [phone]- Name: KEYONA POST MD Position: P3 Physician - Orthopedics Member Role: Orthopaedist Address: Address: [address] [place] [address] [place] [place] [address]- Care Team Related Persons Name: MARGARITA CARTWRIGHT Address: Home [address] [place] [phone] Care Team Personnel Name: APOORVA LOPEZ PA-C Position: Physician Supervisor [employer] Member Role: Orthopaedist Address: Address: [facility] [address] [place] [id number]- Name: RICCARDO ROGERS MD Member Role: Surgeon Address: Address: [address] [place] [id number] Name: BLAIRE ESTEBAN DO Position: P4 Physician - Primary Care Member Role: Primary Care Physician Address: Address: [address] [place] [address] [place] [address]- Name: NIYA NAVARRO MSN, INSTRUMENTATION AND CONTROL TECHNICIAN Member Role: Family Medicine Address: Address: [place] [id number]- Name: MELVIN NAVARRO DPM Position: Physician Member Role: Bad Cloth Checker Address: Address: [address] [place] [address], [address] [facility] [place] [address]- Name: KEYONA POST MD Position: P3 Physician - Orthopedics Member Role: Orthopaedist Address: Address: [address] [place] [address] [facility] [place] [place] [address]- Care Team Related Persons Name: MARGARITA CARTWRIGHT Address: Home [address] [place], [place] [phone] Patient Care team informatio n (unrecognized section and content) Team Status: Active Member Role Status Dates Chucho Hand MD Family Provider Active Dr. Blaire Esteban DO Primary Care Provider Active Team Status: Active Member Role Status Dates Dr. Blaire Esteban DO Primary Care Provider Active Dr. Vicente Jasso MD Emergency Provider Active Dr. Vazquez Crowley MD Admit Provider, Attending Provi arabella Active Team Status: Active Member Role Status Dates Dr. Blaire Esteban DO Primary Care Provider Active Dr. Vicente Jasso MD Emergency Provider Active Dr. Vazquez Crowley MD Admit Provider, A ttending Provider, Other Provider Active Team Status: Active Member Role Status Dates Dr. Blaire Esteban DO Primary Care Provider Active Dr. Vicente Jasso MD Emergency Provider Active Dr. Vazquez Crowley MD Admit Provider, Other Provider Active Dr. Amador Montano DO Attending Provider Active Team Status: Inactive Member Role Status Dates Dr. Blaire Esteban DO Primary Care Provider Active Dr. Vicente Jasso MD Emergency Provider Active Dr. Vazquez Crowley MD Admit Provider, Attending Provi arabella Active Team Status: Active Member Role Status Dates Dr. Blaire Esteban DO Primary Care Provider Active Dr. Vicente Jasso MD Emergency Provider Active Dr. Vazquez Crowley MD Admit Provider, R eferring Provider, Other Provider Active Dr. Amador Montano DO Attending Provider Active Team Status: Inactive Member Role Status Dates Dr. Blaire Esteban DO Primary Care Provider, Referri ng Provider Active Dr. Amador Montano DO Attending Provider Active Team Status: Inactive Member Role Status Dates Dr. Blaire Esteban DO Primary Care Provider Active Dr. Bijan Odell DO Emergency Provider Active Team Status: Active Member Role/Relationship Status Dates Dr. Blaire Esteban DO Primary Care Provider Active Team Status: Inactive Member Role/Relationship Status Dates Dr. Blaire Esteban DO Primary Care Provider Active Start: May 26, 2025 End: May 26, 2025 Dr. Slava Cantor DO Attending Provider Active Start: May 26, 2025 End: May 26, 2025 Dr. Slava Cantor DO Referring Provider Active Start: May 26, 2025 End: May 26, 2025 Goals (unrecognized section and content) Goals may be documented in a n alternate section FOR RECORDS PERTAINING TO PATIENTS WHO ARE [...] BE BASED ON THE PRIMARY CLINICAL RECORDS. [email or web address] [facility]. provides no warranty or guarantee of the accuracy or completeness of information in this document.
[2025-06-16] MEDS: LR 1,000 ML - BOLUS PREOP 999 ML IV (06:15)
[2025-06-16 06:58] LABS: Magnesium 1.8 mg/dL (1.5-2.2)
--- NOTE | 2025-06-16 06:59 | PRE.ANES_ITS ---
ASA Classification* ASA Classification ASA Classification: 2 Assessment & Plan Anesthesia* Anesthesia Assessment Anesthesia Assessment: Discussed sedation and/or anesthesia options, risks, benefits, and alternatives with patient/parents/legal guardian/POA. Questions invited. The patient/parents/legal guardian/POA seems to understand and agrees to proceed with anesthesia plan. Reviewed the physical assessment, medical history, allergy history and patient home medications list prior to surgery/procedure/anesthetic and documented any changes. Performed airway and anesthesia risk assessments. Anesthesia Type Anesthesia Type: General Anesthesia Focused Assessment* Temperature: 98.6 F Pulse Rate: 75 Blood Pressure: 118/65 Respiratory Rate: 18 Pulse Ox: 96 Airway Assessment Mouth opens: >3 cm Mallampati Score: II Labs Anesthesia Preop lab: CBC WBC 5.5 K/mm3 (4.4-11.0) 05/30/25 08:34 05/30/25 RBC 4.27 M/mm3 (4.2-5.4) 05/30/25 08:34 05/30/25 Hgb 13.3 g/dL (12.0-15.0) 05/30/25 08:34 05/30/25 Hct 39.9 % (37-47) 05/30/25 08:34 05/30/25 Plt Count 206 K/mm3 (150-450) 05/30/25 08:34 05/30/25 CHEMISTRY Potassium 4.3 mmol/L (3.3-5.1) 05/30/25 08:34 05/30/25 Sodium 139 mmol/L (133-145) 05/30/25 08:34 05/30/25 Magnesium 1.8 mg/dL (1.5-2.2) 06/16/25 06:28 06/16/25 BUN 30 mg/dL (4-19) H 05/30/25 08:34 05/30/25 Creatinine 0.90 mg/dL (0.70-1.20) 05/30/25 08:34 05/30/25 Glucose 69 mg/dL (70-99) L 05/30/25 08:34 05/30/25 COAG PT 13.8 SECONDS (11.7-14.9) 07/17/23 12:23 Pre-Assessment Diagnosis/Proposed Procedure Planned Operative Procedure(s): (R) RIGHT REVERSE TOTAL SHOULDER ARTHROPLASTY, ERAS Anesthesia History 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 When Was Last Pacemaker Check QUESTION #4 FULL TEXT: You/Your Family Experience fever (hyperthermia) with Anesthesia Last Oral Intake Last Oral intake: Last Oral Intake NPO since 21:00 06/16/25 06:05 Meds taken in AM with sips of No 06/16/25 06:05 water? 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 - pipe fitter helper: PONV - pipe fitter helper Female Yes 05/27/25 08:38 HX of Motion Sickness No 05/27/25 08:38 HX of N/V After Surgery Yes 05/27/25 08:38 Non-Smoker Yes 05/27/25 08:38 Duration of Surgery greater Yes 05/27/25 08:38 than 60 minutes Number of Risk Factors 4 05/27/25 08:38 PONV Score Severe Risk 05/27/25 08:38 Height & Weight Height & Weight: Anesthesia: Height & Weight Height 5 ft 9 in 06/16/25 06:05 Weight: 90.265 kg 06/16/25 06:05 Body Mass Index (BMI) 29.3 06/16/25 06:05 Respiratory Assessment Respiratory Assessment - pipe fitter helper: Respiratory Tract Infection Hx - pipe fitter helper Hx Respiratory Tract Infection No 05/27/25 08:38 STOP Sleep Apnea STOP Sleep Apnea - pipe fitter helper: STOP Sleep Apnea - pipe fitter helper Hx Hypertension Yes: per pt, controlled on 05/27/25 08:38 meds Hx Sleep Apnea Yes: uses dental appliance 05/27/25 08:38 CPAP No 05/27/25 08:38 BIPAP No 05/27/25 08:38 Do you snore loudly (louder than talking or can be heard Do you often feel tired/ fatigued/ sleepy during daytime? Has anyone observed you stop breathing during sleep? STOP Results Positive 05/27/25 08:38 QUESTION #5 FULL TEXT : Do you snore loudly (louder than talking or can be heard through closed doors)? 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 Specify any problems Hx of Preganancy in last 3 No 05/27/25 08:38 Months Nurse Filling Out Transfusion MGRIFFITH 05/27/25 08:38 & Questions: Date: 05/27/25 05/27/25 08:38 Time: 08:41 05/27/25 08:38 Patient unable to answer at this time (ie. confused, unrespo /Reproduction History /Reproductive History - pipe fitter helper: /Reproductive Hx- pipe fitter helper Hx Now No 05/27/25 08:38 Gestational Age (in weeks): EDC: Hx Hx Para Hx Section SAB No 05/27/25 08:38 Active Medications Active Medications: Current Medications Generic Name Dose Route Start Last Admin Trade Name Freq PRN Reason Stop Dose Admin Acetaminophen 1,000 mg 06/16/25 07:30 06/16/25 06:53 Acetaminophen 500 Mg Tablet PO 06/16/25 07:31 1,000 mg PREOP ONE Administration Celecoxib 400 mg 06/16/25 07:30 06/16/25 06:53 Celecoxib 200 Mg Capsule PO 06/16/25 07:31 400 mg PREOP ONE Administration Dexamethasone Sodium Phosphate 10 mg 06/16/25 07:30 Dexamethasone 10 Mg/Ml Vial IV 06/16/25 07:31 INTRAOP ONE Gabapentin 600 mg 06/16/25 07:30 06/16/25 06:53 Gabapentin 600 Mg Tablet PO 06/16/25 07:31 600 mg PREOP ONE Administration Lactated Ringer's 1,000 mls @ 999 mls/hr 06/16/25 07:30 06/16/25 06:15 IV 06/16/25 08:30 999 mls/hr .Q1H1M MARVIN Administration Cefazolin Sodium 2 gm/ Sodium 110 mls @ 150 mls/hr 06/16/25 07:30 Chloride IV 06/16/25 08:13 INTRAOP ONE Tranexamic Acid 1,000 mg/ 110 mls @ 660 mls/hr 06/16/25 07:30 Sodium Chloride IV 06/16/25 07:39 INTRAOP ONE Lactated Ringer's 1,000 mls @ 999 mls/hr 06/16/25 08:30 IV 06/16/25 09:30 .Q1H1M MARIVN Lactated Ringer's 1,000 mls @ 125 mls/hr 06/16/25 09:30 IV 06/16/25 17:29 .Q8H MARVIN Insulin Human Lispro 1 - 6 unit 06/16/25 07:30 Insulin Lispro 100 Unit/Ml Insuln.Pen SC 06/16/25 13:30 Q4H PRN PRN BG>/= 180, SEE PROTOCOL Protocol PFSH Medical History Wears hearing aid Wears glasses Alcohol use Ambulates with cane Bladder disease History of ulceration Former smoker On home oxygen therapy Asthma Shortness of breath on exertion Seasonal allergies Arthritis Nightmare disorder GERD (gastroesophageal reflux disease) PTSD (post-traumatic stress disorder) Depression Anxiety Hypercholesteremia HTN (hypertension) Home Medications ?Medication ?Instructions ?Recorded ?Last Taken ?Type omega-3 fatty acids-fish oil 300 1 ea PO DAILY 4 06/09/25 History mg-1,000 mg capsule atorvastatin 10 mg tablet 10 mg PO QHS 07/10/21 History hydrochlorothiazide 25 mg tablet 25 mg PO DAILY 07/17/23 History lisinopril 20 mg tablet 20 mg PO DAILY 07/10/2105/02 History sertraline 50 mg tablet 50 mg PO DAILY 07/10/2105/02 History albuterol sulfate 90 mcg/actuation 2 puff inhalation Q 6H PRN 07/17/23 07/17/23 History aerosol inhaler shortness of breath or wheez ing cetirizine 10 mg tablet (All Day 10 mg PO DAILY 07/17/23 History Allergy (cetirizine)) dextromethorphan-guaifenesin 30 1 tab PO BID PRN cough 07/17/23 07/17/23 History mg-600 mg tablet extended [id number] hr (Mucinex DM) docusate sodium 100 mg capsule 100 mg PO BID 07/17/23 07/17/23 History (Colace) fluticasone propionate 50 1 spray intranasal DAILY PRN 07/17/23 07/17/23 History mcg/actuation nasal allergy symptoms spray,suspension trospium 20 mg tablet 20 mg PO BID 07/17/23 History acetaminophen 325 mg capsule 650 mg PO BID 05/27/25 Un known History multivitamin 1 tab PO DAILY 05/27/25 Unkn own History pantoprazole 40 mg tablet,delayed 40 mg PO QHS 5 Unknown History release (Protonix) Allergy/AdvReac Type Severity Reaction Status Date / Time amoxicillin (Amoxicillin) Allergy Rash Verified 06/16/25 06:46 codeine Allergy Rash Verified 06/16/25 06:46 Penicillins Allergy Rash Verified 06/16/25 06:46 naproxen (From Naprosyn) AdvReac Nausea Verified 06/16/25 06:46 Surgical History History of eye surgery History of foot surgery History of surgery History of surgery on lower extremity History of thumb surgery History of surgery on arm History of hysterectomy History of cystoscopy History of arthroscopy of right shoulder History of gastric surgery History of hip surgery History of tubal ligation History of tonsillectomy H/O toe surgery S/P TKR (total knee replacement) Social History Smoking Status: Former smoker Review of Systems (Anesthesia) ROS Narrative System reviewed and no additional complaints, except as documented.
[2025-06-16] MEDS: Midazolam 2 MG/2 ML Syringe IV (07:16)
[2025-06-16] MEDS: Cefazolin 1 GM/5 ML Vial 2 GM IV (07:30)
[2025-06-16] MEDS: TRANEXAMIC ACID 1,000 MG/10 ML ML 1000 MG IV (07:40)
[2025-06-16] MEDS: Lactated Ringers 1,000 ML 1000 ML IV (07:49)
--- NOTE | 2025-06-16 09:32 | PCM.POST.ANE ---
Anesthesia: Postop Eval I Current Vital Signs Temperature: 97 F Pulse Rate: 71 Blood Pressure: 138/70 Respiratory Rate: 16 Pulse Ox: 94 Assessment Airway patent: Yes Spontaneous unlabored respirations: Yes nausea: No Vomiting: No Anesthesia Complication: No Fluid Hydration Crystalloid volume administer (ml): 1,000 Total IV fluid infused: 1,000 Progress Note Anesthesia document: Postop Eval 1 completed: Yes
[2025-06-16] MEDS: LR 1,000 ML - BOLUS POSTOP 999 ML IV (09:39)
--- NOTE | 2025-06-16 09:45 | RAD_ITS ---
EXAM: XR Right Shoulder Complete, 2 or More Views CLINICAL INDICATION: POST OP TECHNIQUE: Two or more views of the right shoulder. COMPARISON: No relevant prior studies available. FINDINGS: BONES/JOINTS: Shoulder replacement. Intact hardware. Anatomic position. No acute fracture. No dislocation. SOFT TISSUES: Soft tissue emphysema and swelling. RAD/Shoulder min 2 Views IMPRESSION: Postoperative changes as above. Reading Location: [facility]
--- NOTE | 2025-06-16 10:16 | OP.PCM_ITS ---
Operative Report (Standard) Operative Information Date of Procedure: 06/16/25 Pre-Operative Diagnosis: 1. Right shoulder primary glenohumeral joint osteoarthritis 2. Right shoulder rotator cuff tear Post-Operative Diagnosis: 1. Right shoulder primary glenohumeral joint oste oarthritis 2. Right shoulder rotator cuff tear Surgery/Procedure Performed: Right reverse total shoulder arthroplasty database administration manager: Yes Manager Van: Nova Lua Tasks completed by phlebotomy lab assistant: Opening & closing, Removing tissue, Implanting device and Hemostasis: Electrocautery Additional post production assistant?: No Type of Anesthesia: General/Regional RN Documented Start/Stop Times: Operation Date: 06/16/25 07:30 Case Time Into Pre-Op 06/16/25 05:47 Anesthesia Start 06/16/25 07:30 Into Room 06/16/25 07:30 Out of Pre-Op 06/16/25 07:30 Procedure Start 06/16/25 08:03 Procedure End 06/16/25 09:22 Anesthesia End 06/16/25 09:28 Out of Room 06/16/25 09:28 Into Recovery 06/16/25 09:30 Procedure Start Time: 08:03 Procedure Stop Time: 09:22 Select all DRAINS/GRAFTS/IMPLANTS that apply: Implanted device Implanted device details: Tornier Aequalis PerFORM+ reversed baseplate 25 mm diameter +3 mm lateralization, +3 glenosphere cobalt chrome 36 mm diameter, Tornier perform inlay stem size #3, + 0 mm retentive size number 3 36mm diameter polyethylene insert with 9 mm body spacer, short central post and peripheral screws x4. Estimated Blood Loss: 100 cc Specimen collected: No Description of surgery: Patient arrived to [facility] morning of the procedure and was greeted by the same day surgery staff. Prior to his procedure, I greeted the patient in the preoperative holding area I identified the patient by name, record number, and date of . Informed consent was confirmed. The operative extremity was marked. All questions were answered to patient satisfaction. An interscalene block was administered prior to procedure by anesthesia staff for postoperative and intraoperative analgesia. At time of his procedure, patient was brought to the operative suite and positioned supine on a standard table with a beachchair attachment. General anesthesia was induced after all bony prominences were well-padded. Endotracheal tube was placed. After adequate anesthesia and securing the tube, we prepared the patient to be positioned in the beachchair position. A well- padded overhead garage door hanger was applied. The nonoperative extremity was placed in a well arm aquino. He was then brought into the beachchair position after we confirmed an appropriate blood pressure. We then spun the bed 45 degrees. The operative extremity was then prepared. Then the butterfly wing of the bed was removed and a well-padded torso strap was applied to secure the patient to the bed. The operative extremity was now free. We then prepped and draped the right upper extremity in normal, sterile orthopedic fashion. We then performed a timeout with all parties in attendance in agreement with the side, site, and operation be performed. 2 g Ancef was administered prior to incision by anesthesia staff, as well as 1 g TXA IV. No concerns were voiced and we elected to proceed. I first marked a standard deltopectoral incision just lateral to the coracoid process in line with the long axis of the humerus. Skin was sharply incised with 10 blade scalpel. There was a suspected AC joint ganglion cyst noted as well which was excised by extending the incision proximally and laterally in a curvilinear fashion. I then dissected bluntly through the subcutaneous layers and found the fat stripe between the deltoid and pectoralis major. I turned my attention to the cyst. The cyst was cleared from surrounding adhesions measuring approximately 3 x 3 x 3 cm. The cyst was punctured and gelatinous fluid was expelled consistent with ganglion cyst. The totality of the cyst was noted. 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 The cephalic vein was then identified and protected. It was retracted laterally with the deltoid. I then bluntly dissected underneath the deltoid with a Dominguez elevator. Rosmery retractor was placed. The upper 1 cm of the pectoralis major was released. Remote biceps tenotomy was noted and biceps was not identified. Identified the lesser tuberosity. The supraspinatus was completely torn and retracted with an exposed greater tuberosity. I then performed a subscapularis peel while rotating the humerus externally. I tagged the subscapularis for possible repair later with a tagging suture. Humeral head was then dislocated anteriorly. Appropriate access to the humeral head was confirmed. I then subluxed the humeral head posteriorly with a Fukuda retractor placed around the posterior lip of the glenoid. Inferior capsule was tension. I was able to palpate the axillary nerve. Inferior capsule was then released to the 4 o'clock position of the glenoid face. 3 sided subscapularis release was performed with Bovie cautery. I then remove the Fukuda retractor and redislocated the shoulder anteriorly. I then made a anatomic neck cut of the cartilaginous surface of the humeral head. Sizing plate for a size # 3 stem was utilized to determine appropriate reaming size. A central pin was placed engaging the lateral cortex of the humerus. A size # 3 reamer was used to ream the humeral metaphysis and prepare for the inlay stem. A canal finding reamer was utilized prior to sequential broaching to a size # 3 short stem with excellent rotational and axial purchase in the humerus. I remove the broach handle left the size # [address] I then subluxed the humerus posterior to the glenoid. I then placed retractors around the posterior and anterior glenoid to expose the glenoid. Glenoid labrum was removed with Bovie cautery protecting the axillary nerve. We then used the 25 mm guide from Meghan to position our centering pin, exiting approximately 25 mm from the joint surface along the anterior scapula. Guide was removed and pin was analyzed and compared to preoperative planning. It appeared to be in appropriate position. The Nautilus shaped reamer was then placed over top of the centering pin. I reamed a flat surface of the glenoid. We then removed the reamer and used the cannulated drill for the short central post. Post and baseplate was assembled on the back table. We then inserted the baseplate and central post the assembled baseplate to an appropriate depth with good press-fit purchase. A [facility] was used to confirm depth. Cortical screws then were placed in the peripheral holes with good purchase. The baseplate had excellent purchase and the entire scapula would rotate with rotation of the baseplate. We then impacted the 36 mm glenosphere with a standard eccentricity and tightened the locking screw mechanism. We then removed retractors and turned our attention back to the humerus. I trialed multiple polyethylene options. There is significant laxity noted. I placed the 9 mm spacer and achieved appropriate tension with a 0 mm polyethylene. There was excellent range of motion and stability in all planes of motion. We selected this as our final size. We removed trials from the humerus after final dislocation. I copiously irrigated the canal. Broach was placed on hand and then impacted to an appropriate depth. Final + 0 mm retentive polyethylene insert was placed with the 9 mm spacer. Final reduction was then performed. The subscapularis was then identified with a tagging suture. Repair would have been likely under undue tension and likely failed. I elected to not perform a subscapularis repair. We then copiously irrigated the wound with sterile Betadine and normal saline solution. We reapproximated the interval with 0 Vicryl suture. Subcutaneous layers were reapproximated with 2 -0 Vicryl suture. Skin was finally running V- Loc 3-0 Monocryl suture and Dermabond. A sterile silver Mepilex dressing was applied. Patient was then placed in an ultra sling. Patient tolerated procedure well without complication. He was positioned back in the supine position extubated in the operative suite. He was [place] the [place] and subsequently to PACU in stable condition. Need for skilled post production assistant: Nova Lua PA-C was critical to the outcome of the case. During the course of the procedure the physician post production assistant played a vital role. Her intimate knowledge of my steps in the procedure aided in safe and expedient completion of the procedure. The PA played a vital role in position ing particularly in obtaining the appropriate positioning. The PA was also vital in the retraction of soft tissues during the exposure and protecting vital structures. The PA was also vital and protecting soft tissues during times of bony cuts. She also played a vital role in closure with my direct supervision. The PA was also important during reduction and dislocation of the joint and trials intraoperatively. Intraoperative medications: 2 g Ancef IV, 1 g TXA IV x2 Post Operative Plan: Plan for discharge home today. Weightbearing: Nonweightbearing left upper extremity, okay for pendulums. Range of motion of wrist elbow and hand as tolerated. Antibiotics: 2 g Ancef IV prior to incision, 1 dose prior to discharge DVT Prophylaxis: Aspirin enteric-coated 81 mg twice daily starting tomorrow Camargo: None Dressing: Maintain silver dressing x5 days. Okay to shower dressing on started on day 4 X-Rays: 2 weeks postop in the office Pain Medication: Patient declined oxycodone. Plan for tramadol, Tylenol and meloxicam oxycodone Rx upon discharge Follow-up: 2 weeks post-operatively with me in the office Surgical Findings: AC joint ganglion cyst 3 x 3 x 3 cm. Completely torn supraspinatus. Stable right shoulder following final reduction Complications Complications: No Admit VTE Documentation VTE Present on Admission: No VTE Mechan Device Prophylaxis: SCD's VTE Pharm Prophylaxis ordered?: Yes
--- NOTE | 2025-06-16 10:37 | POSTOPAN2_ITS ---
Anesthesia Postop Eval I Sum Postop Eval Completion status Anesthesia document: Postop Eval 1 completed: Yes Anesthesia Postop Eval I Summary Anesthesia Postop Eval I Summary: Anesthesia Postop Eval I: Assessment Summary Airway patent Yes 06/16/25 09:32 [email or web address] Spontaneous unlabored Yes 06/16/25 09:32 [email or web address] [email or web address] respirations Mental status nausea No 06/16/25 09:32 [email or web address] [email or web address] Vomiting No 06/16/25 09:32 [email or web address] [email or web address] Anesthesia Postop Eval I: Fluid Summary Crystalloid volume administer 1,000 06/16/25 09:32 [email or web address] (ml) Colloids volume administered ( ml) Blood Product volume administered (ml) Total IV fluid infused 1,000 06/16/25 09:32 [email or web address] [email or web address] Anesthesia Postop Eval I: Summary Notes Anesthesia Complication No 06/16/25 09:32 [email or web address] [email or web address] Anesthesia Complication Comment: Post-operative progress note Anesthesia: Postop Eval II Evaluation Mental status: Awake Pain Level: 0 nausea: No Vomiting: No
--- NOTE | 2025-06-16 10:37 | PCM.POSTANE2 ---
Anesthesia Postop Eval I Sum Postop Eval Completion status Anesthesia document: Postop Eval 1 completed: Yes Anesthesia Postop Eval I Summary Anesthesia Postop Eval I Summary: Anesthesia Postop Eval I: Assessment Summary Airway patent Yes 06/16/25 09:32 HEALTH UNIT [email or web address] Spontaneous unlabored Yes 06/16/25 09:32 HEALTH UNIT [email or web address] respirations Mental status nausea No 06/16/25 09:32 HEALTH UNIT [email or web address] Vomiting No 06/16/25 09:32 HEALTH UNIT [email or web address] Anesthesia Postop Eval I: Fluid Summary Crystalloid volume administer 1,000 06/16/25 09:32 HEALTH UNIT [email or web address] (ml) Colloids volume administered ( ml) Blood Product volume administered (ml) Total IV fluid infused 1,000 06/16/25 09:32 HEALTH UNIT [email or web address] Anesthesia Postop Eval I: Summary Notes Anesthesia Complication No 06/16/25 09:32 HEALTH UNIT [email or web address] Anesthesia Complication Comment: Post-operative progress note Anesthesia: Postop Eval II Evaluation Mental status: Awake Pain Level: 0 nausea: No Vomiting: No
[2025-06-16] MEDS: Cefazolin 1 GM/50 ML BAG IV (11:02)
== END 2025-06-16 12:50 | disposition home or self-care (01) ==
LOC: SDC 05:47 → AC 05:48
PROVIDERS: Anesthesiology; PCP Family Medicine; Referring Provider Student in an Organized Health Care Education/Training Program; Visit Provider Student in an Organized Health Care Education/Training Program
PROC: (CPT 23472; principal; 2025-06-16 07:00)
DX: M19.011 Primary osteoarthritis, right shoulder (principal); M75.101 Unspecified rotator cuff tear or rupture of right shoulder, not specified as traumatic; Z79.891 Long term (current) use of opiate analgesic; I10 Essential (primary) hypertension; Z87.442 Personal history of urinary calculi; K27.4 Chronic or unspecified peptic ulcer, site unspecified, with hemorrhage; Z79.82 Long term (current) use of aspirin; Z98.51 Tubal ligation status; F41.9 Anxiety disorder, unspecified; F32.A Depression, unspecified
CPT/HCPCS: 23472; 01638; 36415; 73030; 80048; 82040; 83735; 85025; 87081; 93005; C1713; C1776

== ENCOUNTER 2025-07-04 19:23 | Observation (INO) | payer MEDICARE, SELFPAY ==
[2025-07-04] VITALS (14 sets, daily range): BP systolic 111–136; BP diastolic 70–92; PULSE 77–115; RESP 14–19; TEMP 36.3–36.7; O2SAT 94–99; BMI 29.2; BMI 30.3
[2025-07-04] MEDS: LR 1,000 ML - BOLUS PREOP 999 ML IV (13:24)
[2025-07-04] MEDS: Magnesium 2 GM for ERAS IV (13:25)
--- NOTE | 2025-07-04 14:19 | PCM.PRE.AN2 ---
ASA Classification* ASA Classification ASA Classification: 3 Assessment & Plan Anesthesia* Anesthesia Assessment Anesthesia Assessment: Discussed sedation and/or anesthesia options, risks, benefits, and alternatives with patient/parents/legal guardian/POA. Questions invited. The patient/parents/legal guardian/POA seems to understand and agrees to proceed with anesthesia plan. Reviewed the physical assessment, medical history, allergy history and patient home medications list prior to surgery/procedure/anesthetic and documented any changes. Performed airway and anesthesia risk assessments. Anesthesia Type Anesthesia Type: General and Block History Source History Obtained from:: Patient and Chart Anesthesia Focused Assessment* Temperature: 98.0 F Pulse Rate: 77 Blood Pressure: 119/92 Respiratory Rate: 18 Pulse Ox: 99 Oxygen Delivery Method: Room Air Airway Assessment Mouth opens: 2 cm Mallampati Score: II Teeth Condition: Intact Neck Range of motion (ROM): Full ROM Labs Anesthesia Preop lab: CBC WBC 5.5 K/mm3 (4.4-11.0) 05/30/25 08:05/30/25 RBC 4.27 M/mm3 (4.2-5.4) 05/30/25 08:34 05/30/25 Hgb 13.3 g/dL (12.0-15.0) 05/30/25 08:34 05/30/25 Hct 39.9 % (37-47) 05/30/25 08:34 05/30/25 Plt Count 206 K/mm3 (150-450) 05/30/25 08:34 05/30/25 CHEMISTRY Potassium 4.3 mmol/L (3.3-5.1) 05/30/25 08:34 05/30/25 Sodium 139 mmol/L (133-145) 05/30/25 08:34 05/30/25 Magnesium 1.8 mg/dL (1.5-2.2) 06/16/25 06:28 06/16/25 BUN 30 mg/dL (4-19) H 05/30/25 08:34 05/30/25 Creatinine 0.90 mg/dL (0.70-1.20) 05/30/25 08:34 05/30/25 Glucose 69 mg/dL (70-99) L 05/30/25 08:34 05/30/25 COAG PT 13.8 SECONDS (11.7-14.9) 07/17/23 12:23 07/17/23 Pre-Assessment Diagnosis/Proposed Procedure Planned Operative Procedure(s): ORIF RIGHT HUMERUS/REVISION OF RIGHT TOTAL SHOULDER Anesthesia History Anesthesia History - busher helper: Anesthesia History - busher helper Hx Hospitalization Yes: RIGHT TOTAL SHOULDER 07/01/25 14:50 06/03 Any Problems With Anesthesia Yes: PONV 07/01/25 14:50 Cholinesterase deficiency No 07/01/25 14:50 You/Your Family Experience No 07/01/25 14:50 fever (hyperthermia) with Relationship Recent Exposure to Contagious No 07/04/25 13:19 Disease Does patient have nerve No 07/01/25 14:50 stimulator Patient instructed to have device shut off --Does patient have Pacemaker No 07/04/25 13:19 or ICD? When Was Last Pacemaker Check QUESTION #4 FULL TEXT: You/Your Family Experience fever (hyperthermia) with Anesthesia Last Oral Intake Last Oral intake: Last Oral Intake NPO since 04:00 07/04/25 13:19 Meds taken in AM with sips of Yes 07/04/25 13:19 water? Meds patient instructed to see medlist 07/04/25 13:19 take am of surgery PONV PONV - busher helper: PONV - busher helper Female Yes 07/01/25 14:50 HX of Motion Sickness No 07/01/25 14:50 HX of N/V After Surgery Yes 07/01/25 14:50 Non-Smoker Yes 07/01/25 14:50 Duration of Surgery greater Yes 07/01/25 14:50 than 60 minutes Number of Risk Factors 4 07/01/25 14:50 PONV Score Severe Risk 07/01/25 14:50 Height & Weight Height & Weight: Anesthesia: Height & Weight Height 5 ft 9 in 07/04/25 13:19 Weight: 90 kg 07/04/25 13:19 Body Mass Index (BMI) 29.2 07/04/25 13:19 Respiratory Assessment Respiratory Assessment - busher helper: Respiratory Tract Infection Hx - busher helper Hx Respiratory Tract Infection No 07/01/25 14:50 STOP Sleep Apnea STOP Sleep Apnea - busher helper: STOP Sleep Apnea - busher helper Hx Hypertension Yes 07/01/25 14:50 Hx Sleep Apnea No 07/01/25 14:50 CPAP No 06/16/25 09:30 BIPAP No 05/27/25 08:38 Do you snore loudly (louder No 07/01/25 14:50 than talking or can be heard Do you often feel tired/ No 07/01/25 14:50 fatigued/ sleepy during daytime? Has anyone observed you stop No 07/01/25 14:50 breathing during sleep? STOP Results Negative 07/01/25 14:50 QUESTION #5 FULL TEXT : Do you snore loudly (louder than talking or can be heard through closed doors)? Tobacco Use History Tobacco Use History - busher helper: Tobacco Use History - busher helper Tobacco Use Smoking Status Former smoker 07/01/25 14:50 Hx Tobacco Use No 07/01/25 14:50 Years Smoking Packs Smoked per Day Smoking Cessation Date was No - quit smoking greater 07/01/25 14:50 within the last 15 years than 15 years ago Hx Smoking Cessation Date Hx Smoking Cessation Counseling Hematologic Medial History Hematologic Hx - busher helper: Hematologic Medical Hx - endoscopy support specialist Hx of Blood Transfusion No 07/01/25 14:50 Hx of Transfusion in last 3 No 07/01/25 14:50 Months Date of Last Transfusion (if within last 3 months) Ever experience any problems No 07/01/25 14:50 with transfusion(s)? Specify any problems Hx of Preganancy in last 3 No 07/01/25 14:50 Months Nurse Filling Out Transfusion [facility] 07/01/25 14:50 & Questions: Date: 07/01/25 07/01/25 14:50 Time: 14:53 07/01/25 14:50 Patient unable to answer at this time (ie. confused, unrespo /Reproduction History /Reproductive History - busher helper: /Reproductive Hx- busher helper Hx Now No 07/01/25 14:50 Gestational Age (in weeks): EDC: Hx Hx Para Hx Section SAB No 07/01/25 14:50 Active Medications Active Medications: Current Medications Generic Name Dose Route Start Last Admin Trade Name Freq PRN Reason Stop Dose Admin Lactated Ringer's 1,000 mls @ 999 mls/hr 07/04/25 14:15 07/04/25 13:24 IV 07/04/25 15:15 999 mls/hr .Q1H1M MARVIN Administration Cefazolin Sodium 2 gm/ Sodium 110 mls @ 150 mls/hr 07/04/25 14:15 Chloride IV 07/04/25 14:58 INTRAOP ONE Tranexamic Acid 1,000 mg/ 110 mls @ 660 mls/hr 07/04/25 14:15 Sodium Chloride IV 07/04/25 14:24 INTRAOP ONE Tranexamic Acid 1,000 mg/ 110 mls @ 660 mls/hr 07/04/25 15:15 Sodium Chloride IV 07/04/25 15:24 INTRAOP ONE Lactated Ringer's 1,000 mls @ 999 mls/hr 07/04/25 15:15 IV 07/04/25 16:15 .Q1H1M MARVIN Lactated Ringer's 1,000 mls @ 125 mls/hr 07/04/25 16:15 IV 07/05/25 00:14 .Q8H MARVIN Insulin Human Lispro 1 - 6 unit 07/04/25 14:15 Insulin Lispro 100 Unit/Ml Insuln.Pen SC 07/04/25 20:15 Q4H PRN PRN BG>/= 180, SEE PROTOCOL Protocol PFSH Medical History Wears hearing aid Wears glasses Alcohol use Ambulates with cane Bladder disease History of ulceration Former smoker On home oxygen therapy Asthma Shortness of breath on exertion Seasonal allergies Arthritis Nightmare disorder GERD (gastroesophageal reflux disease) PTSD (post-traumatic stress disorder) Depression Anxiety Hypercholesteremia HTN (hypertension) Home Medications ?Medication ?Instructions ?Recorded ?Last Taken ?Type omega-3 fatty acids-fish oil 300 1 ea PO DAILY 06/10/14 06/09/25 History mg-1,000 mg capsule atorvastatin 10 mg tablet 10 mg PO QHS 07/10/21 07/03/25 History hydrochlorothiazide 25 mg tablet 25 mg PO DAILY 07/10/21 07/04/25 History lisinopril 20 mg tablet 20 mg PO DAILY 07/10/21 07/03/25 History sertraline 50 mg tablet 50 mg PO DAILY 07/10/21 07/03/25 History albuterol sulfate 90 mcg/actuation 2 puff inhalation Q6H PRN 07/17/23 07/17/23 History aerosol inhaler shortness of breath or wheezing cetirizine 10 mg tablet (All Day 10 mg PO DAILY 07/17/23 07/04/25 History Allergy (cetirizine)) dextromethorphan-guaifenesin 30 1 tab PO BID PRN cough 07/17/23 07/04/25 History mg-600 mg tablet extended hr (Mucinex DM) docusate sodium 100 mg capsule 300 mg PO BID 07/17/23 07/04/25 History (Colace) fluticasone propionate 50 1 spray intranasal DAILY PRN 07/17/23 06/06/25 History mcg/actuation nasal allergy symptoms spray,suspension trospium 20 mg tablet 20 mg PO BID 07/17/23 07/03/25 History acetaminophen 325 mg capsule 650 mg PO BID 05/27/25 07/04/25 History multivitamin 1 tab PO DAILY 05/27/25 06/16/25 History pantoprazole 40 mg tablet,delayed 40 mg PO QHS 05/27/25 07/03/25 History release (Protonix) ondansetron HCl 4 mg tablet 4 mg PO Q8H PRN PRN nausea 07/01/25 07/04/25 History tramadol 50 mg tablet 50 mg PO Q6H PRN PRN pain 07/01/25 07/04/25 History aspirin 81 mg tablet 81 mg PO DAILY 07/04/25 07/04/25 History meloxicam 15 mg tablet 15 mg PO DAILY 07/04/25 07/04/25 History Allergy/AdvReac Type Severity Reaction Status Date / Time amoxicillin (Amoxicillin) Allergy Rash Verified 07/04/25 12:46 codeine Allergy Rash Verified 07/04/25 12:46 Penicillins Allergy Rash Verified 07/04/25 12:46 naproxen (From Naprosyn) AdvReac Nausea Verified 07/04/25 12:46 Surgical History (Updated 07/01/25 @ 14:50 by Angela Bravo) History of right shoulder replacement History of eye surgery History of foot surgery History of surgery History of surgery on lower extremity History of thumb surgery History of surgery on arm History of hysterectomy History of cystoscopy History of arthroscopy of right shoulder History of gastric surgery History of hip surgery History of tubal ligation History of tonsillectomy H/O toe surgery S/P TKR (total knee replacement) Social History Smoking Status: Former smoker Review of Systems (Anesthesia) ROS Narrative System reviewed and no additional complaints, except as documented.
[2025-07-04] MEDS: Midazolam 2 MG/2 ML Syringe IV (15:00)
[2025-07-04] MEDS: Lactated Ringers 1,000 ML 1000 ML IV (15:18)
[2025-07-04] MEDS: Cefazolin 1 GM/5 ML Vial 2 GM IV (15:18)
--- NOTE | 2025-07-04 16:15 | RAD_ITS ---
PROCEDURE: SHOULDER MIN 2 VIEWS 07/04/2025 REASON FOR EXAM: REVISION RIGHT REVERSE TOTAL SHOULDER ARTHROPLASTY WITH FIXATION TECHNIQUE: Fluoroscopy. FINDINGS: Intraoperative fluoroscopy was performed. 22.2 seconds of fluoroscopic time. 1.34 mGy. See procedure report for full details. RAD/Shoulder min 2 Views IMPRESSION: As above. Reading Location: [id number]
[2025-07-04] MEDS: Vancomycin IV 1,000 MG/20 ML Vial 1000 MG OPERA.SITE (18:38)
[2025-07-04] MEDS: TRANEXAMIC ACID 1,000 MG/10 ML ML 2000 MG IV (18:45)
[2025-07-04] MEDS: LR 1,000 ML - BOLUS POSTOP 999 ML IV (19:21)
--- NOTE | 2025-07-04 19:31 | PCM.OPRPT ---
Operative Report (Standard) Operative Information Date of Procedure: 07/04/25 Pre-Operative Diagnosis: Right proximal humerus periprosthetic fracture Post-Operative Diagnosis: Right proximal humerus periprosthetic fracture Surgery/Procedure Performed: 1. Right revision total shoulder arthroplasty with revision of both humeral and glenoid components 2. Open reduction internal fixation right proximal humerus lump machine operator: Yes Pancake Professional: Nova Lua Tasks completed by general surgery physician assistant: Opening & closing, Implanting device and Retracting Type of Anesthesia: General/Regional RN Documented Start/Stop Times: Operation Date: 07/04/25 14:15 Case Time Into Pre-Op 07/04/25 12:28 Anesthesia Start 07/04/25 15:18 Into Room 07/04/25 15:18 Procedure Start 07/04/25 15:55 Procedure End 07/04/25 19:01 Anesthesia End 07/04/25 19:10 Out of Room 07/04/25 19:10 Into Recovery 07/04/25 19:14 Procedure Start Time: 15:55 Procedure Stop Time: 19:01 Select all DRAINS/GRAFTS/IMPLANTS that apply: Implanted device Implanted device details: [employer] proximal body 13 mm diameter, spacer 30 mm, distal stem 13 mm x 130 mm, reverse tray thickness 8 mm, retentive reversed insert +3 mm, [employer] beaded cable x 2, Tornier perform reverse glenoid 36 mm cobalt chrome, Arthrex suture cerclage x 2, Nataly 5 hole proximal humerus Variax plate and locking screws Estimated Blood Loss: 150 cc Specimen collected: No Description of surgery: Patient was greeted in the same-day surgery holding area. She was identified by name, medical record number, and date of . The operative extremity was marked. All questions were answered to the patient's satisfaction. Interscalene block was then administered by anesthesia staff. At time of her procedure, patient was brought to the operative suite positioned supine on a standard operating table. General anesthesia was induced and endotracheal tube placed. Patient was then positioned in the beachchair position with all bony prominences well-padded. We spun the bed 45 degrees. We prepped and draped the right upper extremity in normal, sterile orthopedic fashion. A timeout was called confirming the side, site, and operation to be performed. No concerns were voiced and elected to proceed with surgery. 2 g Ancef and 1 g IV TXA was administered prior to incision by anesthesia staff. Extended deltopectoral incision into an anterolateral approach was utilized. Extension was carried distally to the junction of the middle and distal thirds of the humeral shaft. Skin flaps were developed down to the level of the fascia. Interval between the biceps brachii and brachialis was developed distally. Fracture was encountered as was the loose proximal humerus stem which was removed by hand. Glenosphere appeared intact without evidence of injury. Fracture was debrided of hematoma. There was a spiral fracture at the inferior margin of the pectoralis major insertion. Proximally there was a sagittal split between the lesser and greater tuberosities. Provisional reduction was achieved with lobster-claw clamp distally. A suture cerclage was then placed and tension with excellent provisional fixation. An additional suture cerclage was placed proximally. I proceeded with reaming for our diaphyseal fit modular stem. A final diameter of 13 mm yielded excellent rotational and axial stability. We then built our modular body to plan the appropriate length of our modular stem. After determining appropriate length the stem trial was assembled. This appeared reasonable. The tension at the glenohumeral joint was significantly more than her index procedure and I made the decision to exchange her glenosphere for a standard as her prior implant was a +3 lateralized glenosphere. Glenosphere was exchanged in standard fashion and the new one was impacted and locking screw tightened with good purchase. Reduction of the trial was performed and tension appeared to be appropriate after the new glenosphere was installed. The shoulder was then dislocated. The trial was then utilized to select her final implants and the modular stem was billed on the back table. Stem was impacted to appropriate depth and version. The greater tuberosity containing fragment was still unstable at this point and I passed an additional fiber tape through the remaining rotator cuff tissue wrapping it around the calcar neck of the implant. I felt at this point additional fixation was needed and I selected a 5 hole proximal humerus locking plate. This was held the bone with 2 Dall[employer]Miles cables at the humeral shaft and locking screws were then placed in the proximal cluster where the stem allowed for fixation. Fracture and proximal humerus stem were stable to rotation at this time. I trialed multiple polyethylene options and settled upon a +3 mm retentive poly which best achieved stability and range of motion. Final fluoroscopic images were obtained. Wound soaked in a dilute sterile Betadine for 3 minutes and then copious irrigated normal saline solution. Final reduction was performed. 1 g vancomycin powder was sprinkled within the joints as well as in the fascial and subcutaneous layers. The fascia was reapproximated watertight with a #1 strata fix barbed suture. Dermis was reapproximated buried 2-0 Vicryl suture. Skin reapproximated with interrupted horizontal mattress 3-0 nylon suture. Sterile silver Mepilex compression dressing was applied. Patient was placed in an UltraSling. She was safely awakened and extubated in the operative suite. She tolerated the procedure well without apparent complication. She was transferred to her hospital bed and subsequent to PACU in stable condition. Need for skilled title assistant: Nova Lua PA-C was critical to the outcome of the case. During the course of the procedure the physician title assistant played a vital role. Her intimate knowledge of my steps in the procedure aided in safe and expedient completion of the procedure. The PA played a vital role in positioning particularly in obtaining the appropriate positioning. The PA was also vital in the retraction of soft tissues during the exposure and protecting vital structures. The PA was also vital and obtaining fracture reduction and assisting with hardware placement. She also played a vital role in closure and sling application with my direct supervision. Postoperative plan: Patient be nonweightbearing the operative extremity. Pendulums only x 2 weeks. Follow-up in 2 weeks for suture removal and x-rays. Patient be admitted overnight for observation and 24 hours IV antibiotics. 1 week home-going prophylactic antibiotics due to acute revision. Aspirin 81 mg twice daily for DVT prophylaxis x 2 weeks. Surgical Findings: Comminuted proximal humerus fracture unstable stem. Complications Complications: No Admit VTE Documentation VTE Present on Admission: No VTE Mechan Device Prophylaxis: SCD's and Knee High ANNIE Hose VTE Pharm Prophylaxis ordered?: Yes
--- NOTE | 2025-07-04 19:34 | PCM.POST.ANE ---
Anesthesia: Postop Eval I Current Vital Signs Temperature: 97.3 F Pulse Rate: 88 Blood Pressure: 131/75 Respiratory Rate: 16 Pulse Ox: 94 Oxygen Delivery Method: Room Air Assessment Airway patent: Yes Spontaneous unlabored respirations: Yes Mental status: Awake nausea: No Vomiting: No Anesthesia Complication: No Fluid Hydration Crystalloid volume administer (ml): 1,000 Total IV fluid infused: 1,000 Progress Note Anesthesia document: Postop Eval 1 completed: Yes
--- NOTE | 2025-07-04 19:35 | RAD_ITS ---
PROCEDURE: HUMERUS MIN 2 VIEWS 07/04/2025 REASON FOR EXAM: POST OP TECHNIQUE: HUMERUS MIN 2 VIEWS Laterality: Right COMPARISON: 06/16/2025 FINDINGS: Note that the laterality on these radiographs is labeled as the left side, which is likely in error as the imaging order specifies the right upper extremity. Status post total reverse RIGHT shoulder arthroplasty/hardware revision, with long intramedullary stem reinforced by plate and screw and cerclage wire fixation. Partially imaged plate and screw fixation hardware of the right radial shaft. Hardware appears intact without evidence for loosening or failure. Mild degenerative arthrosis of the right AC joint. Expected postoperative swelling and soft tissue gas about the right shoulder joint. RAD/Humerus min 2 Views IMPRESSION: Total reverse right shoulder arthroplasty as described above. No unexpected fi ndings. Reading Location: [id number]
--- NOTE | 2025-07-04 19:47 | PCM.POSTANE2 ---
Anesthesia Postop Eval I Sum Postop Eval Completion status Anesthesia document: Postop Eval 1 completed: Yes Anesthesia Postop Eval I Summary Anesthesia Postop Eval I Summary: Anesthesia Postop Eval I: Assessment Summary Airway patent Yes 07/04/25 19:35 Spontaneous unlabored Yes 07/04/25 19:35 respirations Mental status Awake 07/04/25 19:35 nausea No 07/04/25 19:35 Vomiting No 07/04/25 19:35 Anesthesia Postop Eval I: Fluid Summary Crystalloid volume administer 1,000 07/04/25 19:35 (ml) Colloids volume administered ( ml) Blood Product volume administered (ml) Total IV fluid infused 1,000 07/04/25 19:35 Anesthesia Postop Eval I: Summary Notes Anesthesia Complication No 07/04/25 19:35 Anesthesia Complication Comment: Post-operative progress note Anesthesia: Postop Eval II Evaluation Mental status: Awake Pain Level: 0 nausea: No Vomiting: No Complications Anesthesia Complication: No
--- OUTSIDE RECORDS SUMMARY | 2025-07-04 20:22 | XMS RPT_ITS | CCD ---
Author Organization [facility] Care Team Providers Care Street Light Wirer Name Role Phone REFERRING, MUSHTAQ IBARRA Unavailable Unavailable KEYONA POST Elo Unavailable Unavailable BLAIRE DANIELS Unavailable Unavailable Jeffery WYMAN, Chris Carter Unavailable BLAIRE AYALA DO Primary Care Physician [phone] Dr. Blaire Ayala Primary Care Provider Dr. Vicente Jasso Emergency Provider Dr. Vazquez Crowley Admit Provider [phone] Dr. Vazquez Crowley Attending Provider [phone] Vazquez Crowley Other Provider [phone] Dr. Amador Montano Attending Provider [phone] Dr. Blaire Ayala Primary Care Provider Dr. Vicente Jasso Emergency Provider Dr. Vazquez Crowley Admit Provider Dr. Vazquez Crowley Attending Provider Dr. Vazquez Crowley Other Provider Dr. Vazquez Crowley Referring Provider [phone] Amador Montano Attending Provider Dr. Blaire Ayala Referring Provider [phone] BLAIRE AYALA DO Primary Care Physician [phone] BLAIRE AYALA DO Unavailable BLAIRE AYALA DO Primary Care Unavailable BLAIRE AYALA DO Primary Care Unavailable BLAIRE AYALA DO Attending Unavailable BLAIRE AYALA DO Unavailable BLIARE AYALA DO Primary Care Unavailable BLAIRE AYALA DO Attending Unavailable BLAIRE AYALA DO Primary Care Unavailable Lucy CHAVEZ, Dr. Bui Primary Care Provider Brad CHAVEZ, Dr. Pedersen Attending Provider Dr. Slava Cantor DO Referring Provider Dr. Jian Johnson MD Attending Provider Blaire Ayala Primary Care Unavailable Slava Cantor Attending Unavailable Slava Cantor Referring Unavailable Blaire Ayala Primary Care Unavailable Slava Cantor Attending Unavailable Slava Cantor Referring Unavailable Lucy, Blaire Primary Care Unavailable Nova Lua Attending Unavailable Nova Lua Referring Unavailable Blaire Ayala Primary Care Unavailable Slava Cantor Attending Unavailable Slava Cantor Referring Unavailable Blaire Ayala Primary Care Unavailable Jian Johnson Attending Unavailable Slava Cantor Referring Unavailable Allergies Allergy Classification Reported Allergen(s) Allergy Type Date of Onset Reaction(s) Facility (2 sources) Codeine Drug Allergy 03-15-20 21 [facility] Work Phone: (2 sources) [facility] Animalia; Translations: [ANIMALS] allergy to substance 03-15-20 21 [facility] Work Phone: (2 sources) Mold Extract; Translations: [MOLD] Drug Allergy 04-28-20 18 [facility] Work Phone: (2 sources) Opioid Agonists drug allergy 04-28-20 18 sensitivity (per patient) [facility] Work Phone: (9 sources) Penicillin G; Translations: [penicillin] Drug Allergy 04-28-20 18 hives and rash, Welts [facility] Work Phone: (2 sources) Sulfacetamide Drug Allergy 04-28-20 18 rash and hives [facility] Work Phone: (2 sources) STINGING INSECTS; Translations: [STINGING INSECTS] allergy to substance 03-15-20 21 [facility] Work Phone: (2 sources) PLANT POLLENS (HAY FEVER); Translations: [PLANT POLLENS (HAY FEVER)] allergy to substance 04-28-20 18 [facility] Work Phone: (7 sources) Cephalexin; Translations: [cephalexin] Drug Allergy Unknown (qualifier value) [facility] (12 sources) Codeine; Translations: [codeine] Drug Allergy 07-17-20 Nausea, Rash [facility] Comment on above: n/v (12 sources) Naproxen; Translations: [naproxen] Drug Allergy 07-17-20 23 Dizziness, Nausea [facility] (7 sources) Sulfamethoxazole; Translations: [sulfamethoxazole] Drug Allergy [facility] (7 sources) Sulfamethoxazole / Trimethoprim; Translations: [sulfamethoxazole-t rimethoprim] Drug Allergy Weal (disorder) [facility] (10 sources) Amoxicillin; Translations: [amoxicillin] Drug Allergy 07-17-20 Rash [facility] (5 sources) Penicillins Propensity to adverse reactions 07-17-[address] [facility] (1 source) Amoxicillin Drug Allergy 07-01-20 25 [facility] (1 source) Codeine Drug Allergy 07-01-20 [facility] (1 source) Naproxen Drug Allergy 07-01-20 25 [facility] (1 source) Penicillins Drug allergy (disorder) 07-01-20 25 [facility] Medications Current Medications Medication Drug Class(es) Dates Sig (Normalized) Sig (Original) acetaminophen 325 mg oral capsule (4 sources) Start: 05-27-2025 take 2 capsules by mouth twice daily Acetaminophen 325 mg capsule Active 650 mg PO TWICE A DAY May 27, 2025 12:00am Start: 09-08-2018 ACETAMINOPHEN 325 MG TABS 2 tablets twice a day as needed ACETAMINOPHEN [id number] Amrcelino Elo [facility] PAC [id number] 200 actuat albuterol 0.09 mg/actuat metered dose inhaler (5 sources) beta2-Adrenergic Agonist Start: 07-17-2023 Albut davida [...] wheezing, # 1 EA, 1 Refill(s), Pharmacy: [facility]/pharmacy #[id number], Acute bronchitis Allergy-induced asthma, 175, cm, 01/22/23 11:07:00 EDT, Height, kg, 02/01/23 9:02:00 EDT, Dosing Weight Start Date: 02/01/23 Status: Ordered Start: 11-14-2022 take 2 puff(s) by in halation every six hours as needed for wheezing albuterol MDI (90 mcg/inh) CFC free inhalation aerosol 2 puff(s), Inhalation, q6hr, PRN as needed for wheezing, # 1 EA, 1 Refill(s), Pharmacy: [facility]/pharmacy #[id number], 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 Seasonal allergy, 173.5, cm, 11/14/22 14:15:00 EST, Height Start Date: 11/14/22 Status: Ordered Start: 09-05-2022 take 2 puff(s) by in halation every four hours as needed for wheezing albuterol MDI (90 mcg/inh) CFC free inhalation aerosol 2 puff(s), Inhalation, q4h, PRN as needed for wheezing, # 18 gram(s), 0 Refill(s), Pharmacy: [facility]/pharmacy #[id number], Telehealth encounter for confirmed COVID-19, 173.5, cm, 09/05/22 8:58:00 EDT, Height Start Date: 09/05/22 Status: Ordered atorvastatin 10 mg oral tablet (13 sources) HMG-CoA Reductase Inhibitor Start: 07-25-2020 take 1 tablet by mouth at bedtime Atorvastatin 10 mg tablet Active 10 mg PO AT BEDTIME July 10, 2021 12:00am cetirizine hydrochloride 10 mg oral tablet (5 sources) Histamine-1 Receptor Antagonist Start: 07-17-2023 take 1 tablet by mouth once daily Cetirizine (All Day Allergy (Cetirizine)) 10 mg tablet Active 10 mg PO DAILY July 17, 2023 12:00am 12 hr dextromethorphan hydrobromide 30 mg / guaiFENesin 600 mg extended release oral tablet (5 sources) Uncompetitive B-ckaflp-E-aspartat e Receptor Antagonist, Sigma-1 Agonist Start: 07-17-2023 Dextromethorphan- Guaifenesin (Mucinex Dm) 30-600 mg tablet extended release 12 hr Active 1 {tbl} PO TWICE A DAY as needed for cough July 17, 2023 12:00am docusate sodium 100 mg oral capsule (13 sources) Start: 03-02-2018 take 1 capsule by mouth twice daily Docusate Sodium (Colace) 100 mg capsule Active 100 mg PO TWICE A DAY July 17, 2023 12:00am ferrous sulfate 325 mg delayed release oral tablet (5 sources) Start: 08-18-2024 take 1 tablet by [...] propionate 0.05 mg/actuat metered dose nasal spray (14 sources) Corticosteroid Start: 07-17-2023 Fluticasone Pr opionate 50 mcg/actuation spray,suspension Active 1 NMA INTRANASAL DAILY as needed for allergy symptoms July 17, 2023 12:00am administer into each nostril Start: 07-17-2023 take 1 spray(s) nasa l route once daily Fluticasone Propionate Active 1 SPRAY INTRANASAL DAILY July 16, 2023 11:00pm administer into each nostril Start: 03-15-2021 FLONASE ALLERG Y RELIEF 50 MCG/ACT SUSP 1 spray once daily as directed FLUTICASONE PROPIONATE [id number] Bailee Willingham Start: 01-18-2021 take 1 dose nasal ro tori twice daily Flonase 50 mcg/inh nasal spray Dose = 1 spray(s), Nostril, each, BID, 0 Refill(s) Start Date: 01/18/21 Status: Ordered guaiFENesin (5 sources) Start: 09-05-2022 Mucinex DM Oral, q12h, 0 Refill(s) Start Date: 09/05/22 Status: Ordered hydroCHLOROthiazide 25 mg oral tablet (11 sources) Thiazide Diuretic Start: 01-18-2021 take 1 [...] Status: Ordered lisinopril 20 mg oral tablet (11 sources) Angiotensin Converting Enzyme Inhibitor Start: 07-10-2021 take 1 tablet by mouth once daily Lisinopril 20 mg tablet Active 20 mg PO DAILY July 10, 2021 12:00am loratadine 10 mg oral capsule (1 source) Start: 07-29-2022 loratadine 10 mg oral capsule Dose : 10 mg = 1 cap(s), Oral, qDay, # 10 cap(s), 0 Refill(s), Pharmacy: [facility]/pharmacy #[id number], Dental abscess, 173.5, cm, 07/29/22 8:39:00 EDT, Height Start Date: 07/29/22 Status: Ordered magnesium oxide 400 mg oral tablet (1 source) Start: 08-18-2024 magnesium oxide 400 mg oral tablet Dose : 400 mg = 1 tab(s), Oral, qDay, 0 Refill(s) Start Date: 08/18/24 Status: Ordered meloxicam 15 mg oral tablet (7 sources) Nonsteroidal Anti-inflammator y Drug Start: 01-22-2023 meloxicam 15 mg oral tablet Dose : 15 mg = 1 tab(s), Oral, qDay, PRN, 0 Refill(s) Start Date: 01/22/23 Status: Ordered Start: 12-25-2021 take 1 tablet by raymond th once daily as needed for pain MELOXICAM 15 MG TABS Take 1 tablet by mouth once a day as needed for pain meloxicam [id number] Chris Gil PA-C Start: 07-10-2021 End: 07-17-2023 take 1 tablet by mouth twice daily Meloxicam 7.5 mg tablet Discontinued 7.5 mg PO TWICE A DAY July 10, 2021 12:00am July 17, 2023 12:16pm Multivitamin preparation (6 sources) Start: 09-12-2016 take 1 tablet by mouth once daily Multivitamin Dose = 1 tab(s), Oral, Daily, 0 Refill(s) Start Date: 09/12/16 Status: Ordered Multivitamin tablet (2 sources) Start: 05-27-2025 Multivitamin t ablet Active 1 {tbl} PO DAILY May 27, 2025 12:00am Avella-3 1000 mg oral capsule (6 sources) Start: 09-12-2016 Avella-3 1000 m g oral capsule Dose : 1,000 mg = 1 cap(s), Oral, qDay, 0 Refill(s) Start Date: 09/12/16 Status: Ordered Avella-3 Fatty Acids-Fish Oil (3 sources) Start: 06-10-2014 Avella-3 Fatty Acids-Fish Oil Active 1 EACH PO DAILY June 09, 2014 11:00pm Start: 06-10-2014 Avella-3 Fatty Acids-Fish Oil Active 1 EACH PO DAILY June 10, 2014 12:00am Avella-3 Fatty Acids-Fish Oil 1 EACH capsule (2 sources) Start: 06-10-2014 Avella-3 Fatty Acids-Fish Oil 1 EACH capsule Active [...] tab(s), 0 Refill(s), 01/08/23 16:15:00 EST, Pharmacy: [facility]/pharmacy #[id number], Other acute postprocedural pain, 175.3, cm, 01/01/23 11:18:00 EST, Height, 88 Start Date: 01/01/23 Stop Date: 01/08/23 Status: Ordered pantoprazole 40 mg delayed release oral tablet (8 sources) Proton Pump Inhibitor Start: 07-18-2023 End: 05-27-2025 take 1 tablet by mouth twice daily at bedtime Pantoprazole (Protonix) 40 mg tablet,delayed release (DR/EC) Active 40 mg PO AT BEDTIME May 27, 2025 12:00am 40 mg twice daily for 12 weeks. sertraline 50 mg oral tablet (13 sources) Serotonin Reuptake Inhibitor Start: 09-09-2020 take 1 tablet by mouth once daily Sertraline 50 mg tablet Active 50 mg PO DAILY July 10, 2021 12:00am sucralfate 1000 mg oral tablet (2 sources) Aluminum Complex Start: 07-18-2023 take 1 g by mouth three times daily Sucralfate Active 1 GM PO TID@0700,1100,1600 90 30 July 17, 2023 11:00pm trospium chloride 20 mg oral tablet (13 sources) Cholinergic Muscarinic Antagonist Start: 01-18-2021 take 1 tablet by mouth twice daily Trospium 20 mg tablet Active 20 mg PO TWICE A DAY July 17, 2023 12:00am administer on an empty stomach Vitamin D3 5000 intl units oral tablet (6 sources) Start: 09-12-2016 Vitamin D3 5000 intl units oral tablet Dose : 5,000 International_Unit = 1 tab(s), Oral, qDay, # 100 tab(s), 0 Refill(s) Start Date: 09/12/16 Status: Ordered Completed/Discontinued Medications Medication Drug Class(es) Dates Sig (Normalized) Sig (Original) acetaminophen 325 mg / oxyCODONE hydrochloride 5 mg oral tablet (3 sources) Opioid Agonist Start: 11-11-2023 End: 05-27-2025 Oxycodone-Acetamin ophen (Percocet) 5-325 mg tablet Discontinued 1 {tbl} PO EVERY 6 HOURS as needed for pain 20 5 0 November 11, 2023 May 27, 2025 8:29am Multiple fractures of ribs of right side with routine healing ascorbic acid 500 mg oral tablet (4 sources) Vitamin C Start: 07-18-2023 End: 11-11-2023 take 1 tablet by mouth twice daily Ascorbic Acid (Vitamin C) 500 mg tablet Discontinued 500 mg PO TWICE A DAY 60 2 July 18, 2023 12:00am November 11, 2023 1:23am aspirin 81 mg delayed release oral tablet (11 sources) Platelet Aggregation Inhibitor, Nonsteroidal Anti-inflammatory Drug Start: 11-24-2020 ASPIRIN 81 MG TBEC 1 tablet once daily ASPIRIN [id number] Bailee Willingham Start: 07-25-2020 aspirin 81 mg [...] Take as needed for muscle spasm baclofen [id number] Chris Gil PA-C cholecalciferol 0.025 mg oral tablet (7 sources) Vitamin D Start: 11-24-2020 VITAMIN D 25 MCG (1000 UT) TABS 1 tablet three times daily as directed CHOLECALCIFEROL [id number] Bailee Willingham Start: 09-16-2013 End: 05-27-2025 take 1 tablet by mouth twice daily Cholecalciferol (Vitamin D3) (Vitamin D3) 2,000 UNIT tablet Discontinued 1999 U PO TWICE A DAY September 16, 2013 1:00am May 27, 2025 8:27am clindamycin 150 mg oral capsule (1 source) Lincosamide Antibacterial Start: 04-14-2024 clindamycin 150 mg oral capsule mg = cap(s), Oral, q6hr, 0 Refill(s), 90.1 Start Date: 04/14/24 Status: Ordered cyproheptadine hydrochloride 4 mg oral tablet (13 sources) Start: 12-26-2020 End: 05-27-2025 take 1 tablet by mouth once daily Cyproheptadine 4 mg tablet Discontinued 4 mg PO DAILY July 10, 2021 12:00am May 27, 2025 8:27am diazePAM 5 mg oral tablet (3 sources) Benzodiazepine Start: 11-11-2023 End: 05-27-2025 take [...] BID, # 60 tab(s), 1 Refill(s), Pharmacy: [facility]/pharmacy #[id number], Fracture of rib Pain, 175, cm, 11/14/23 13:21:00 EST, Height, kg, 11/14/23 13:21:00 EST, Dosing Weight Start Date: 11/14/23 Stop Date: 01/13/24 Status: Ordered famotidine 20 mg oral tablet (1 source) Histamine-2 Receptor Antagonist Start: 07-29-2022 End: 08-08-2022 Pepcid 20 mg oral tablet Dose : 20 mg = 1 tab(s), Oral, BID, # 20 tab(s), 0 Refill(s), Pharmacy: [facility]/pharmacy #[id number], Dental abscess, 173.5, cm, 07/29/22 8:39:00 EDT, Height Start Date: 07/29/22 Stop Date: 08/08/22 Status: Ordered Fexofenadine-Pseudoe phedrine (Phoebe-D 24 Hour Tablet) 1 TAB.SR tablet extended release 24 hr (5 sources) Start: 06-10-2014 End: 07-17-2023 take 1 [...] 2023 12:16pm gabapentin 300 mg oral capsule (7 sources) Anti-epileptic Agent Start: 07-10-2021 End: 07-17-2023 take 1 capsule by mouth once daily Gabapentin 300 mg capsule Discontinued 300 mg PO DAILY July 10, 2021 12:00am July 17, 2023 12:16pm Start: 02-06-2021 GABAPENTIN 300 MG CAPS 1 capsule three times daily GABAPENTIN [id number] Chris Gil PA-C [id number] C-MN (2 sources) Start: 09-29-2018 GLUCOSAMINE CHONDR 1500 COMPLX CAPS 1 capsule once daily [id number] C-MN [id number] Bailee Willingham hydroCHLOROthiazide 12.5 mg / irbesartan 150 mg oral tablet (7 sources) Thiazide Diuretic, Angiotensin 2 Receptor Amandeep [...] TABS 1 tablet once daily IRBESARTAN-HYDROCHLOROTHIAZIDE TABS [id number] Bailee Willingham MULTIPLE VITAMINS-MINERALS (2 sources) Start: 03-15-2021 ONE DAILY MULT IVITAMIN ADULT TABS 1 tablet once daily MULTIPLE VITAMINS-MINERALS [id number] Bailee Willingham Multivitamin With Folic Acid (Thera) 1 TABLET tablet (5 sources) Start: 09-16-2013 End: 11-11-2023 take 1 [...] Start: 09-16-2013 take 1 tablet by raymond once daily Multivitamin With Folic Acid (Thera) 1 TABLET tablet Active 1 TABLET PO DAILY September 16, 2013 1:00am OMEGA-3 FATTY ACIDS (4 sources) Start: 11-24-2020 OMEGA III EPA+ DHA 1000 MG CAPS 1 capsule once daily OMEGA-3 FATTY ACIDS [id number] Bailee Willingham Start: 11-24-2020 FISH OIL 500 M G CAPS 1 capsule once daily OMEGA-3 FATTY ACIDS [id number] Bailee Willingham omeprazole 20 mg delayed release oral capsule (9 sources) Proton Pump Inhibitor Start: 07-17-2023 End: [...] / sodium bicarbonate 1100 mg oral capsule (7 sources) Proton Pump Inhibitor Start: 07-10-2021 End: 07-17-2023 take 1 capsule by mouth once daily Omeprazole-Sodium Bicarbonate Discontinued 1 CAP PO DAILY July 09, 2021 11:00pm July 17, 2023 11:16am Start: 03-15-2021 End: 07-17-2023 Omeprazole-Sodium Bicarbonat e 20-1.1 mg-gram capsule Discontinued 1 NMA PO DAILY July 10, 2021 12:00am July 17, 2023 12:16pm ondansetron 4 mg disintegrating oral tablet (4 sources) Serotonin-3 Receptor Antagonist Start: 11-11-2023 End: 05-27-2025 take 1 tablet by mouth three times daily as needed for nausea and vomiting Ondansetron 4 mg tablet,disintegrating Discontinued 4 mg PO THREE TIMES A DAY as needed for nausea and vomiting 21 November 11, 2023 2:41am May 27, 2025 8:29am Start: 01-01-2023 End: 01-06-2023 ondansetron 4 mg oral tablet , disintegrating Dose : 4 mg = 1 tab(s), Oral, q8h, PRN as needed for nausea/vomiting, X 5 day(s), # 15 tab(s), 0 Refill(s), 01/06/23 15:31:00 EST, Pharmacy: [facility]/pharmacy #[id number], 175.3, cm, 01/01/23 11:18:00 EST, Height Start Date: 01/01/23 Stop Date: 01/06/23 Status: Ordered promethazine hydrochloride 25 mg oral tablet (11 sources) Phenothiazine Start: 07-17-2023 End: 05-27-2025 take [...] hydrochloride 80 mg extended release oral capsule (13 sources) beta-Adrenergic Amandeep Start: 07-17-2023 End: 05-27-2025 take 1 capsule by mouth once daily Propranolol (Inderal Xl) 80 mg capsule,extended release 24hr Discontinued 80 mg PO DAILY July 17, 2023 12:00am May 27, 2025 8:29am Start: 11-24-2020 take 1 dose by mouth once jasmina y propranolol Dose : 80 mg =, Oral, qDay, 0 Refill(s) Start Date: 01/18/21 Status: Ordered traMADol hydrochloride 50 mg oral tablet (5 sources) Opioid Agonist Start: 11-11-2023 End: 05-27-2025 take 1 tablet by mouth every six hours as needed for pain Tramadol 50 mg tablet Discontinued 50 mg PO EVERY 6 HOURS as needed for pain November 11, 2023 1:00am May 27, 2025 8:31am Start: 01-22-2023 traMADol 50 mg oral tablet Dose : 50 mg = 1 tab(s), Oral, q6hr, PRN, 0 Refill(s), 88 Start Date: 01/22/23 Status: Ordered Problems Active Problems Problem Classification [...] joint disorder 09-29-2017 Episodic E Codes: Fall (3 sources) Accidental fall ; Translations: [Unspecified fall, initial encounter] 11-11-2023 Episodic Essential hypertension (14 sources) Hypertensive disorder; Translations: [Essential (primary) hypertension] Onset: 04-15-2005-12-2016 Chronic Gastrointestinal hemorrhage (3 sources) Duodenal ulcer with hemorrhage 08-01-2023 Chronic Gastrointestinal hemorrhage (10 sources) Acute upper gastrointestinal hemorrhage; Translations: [Gastrointestinal hemorrhage, unspecified] 07-17-2023 Episodic Headache; including migraine (7 sources) Headache 09-12-2016 Episodic Comment on above: SINUS Nausea and vomiting (3 sources) Nausea 11-14-2023 Episodic Nutritional deficiencies (2 sources) Vitamin D deficiency 08-18-2024 Chronic Osteoarthritis (8 sources) Osteoarthritis; Translations: [Primary osteoarthritis, right shoulder] Onset: 06-22-2009-29-2017 Chronic Other bone disease and musculoskeletal deformities (7 sources) Osteopenia 07-25-2020 Episodic Other connective tissue disease (9 sources) Hamstring injury; Translations: [Other specified enthesopathies of right lower limb, excluding foot] Onset: 09-09-2009-09-2020 Episodic Other connective tissue disease (7 sources) H/O: musculoskeletal disease 03-02-2018 Episodic Other connective tissue disease (7 sources) Pain in finger 12-06-2020 Episodic Other fractures (1 source) Fracture of multiple ribs ; Translations: [Multiple fractures of ribs, right side, subsequent encounter for fracture with routine healing] 11-11-2023 Episodic Other fractures (3 sources) Fracture of rib 11-14-2023 Episodic Other fractures (2 sources) Multiple fractures of ribs, right side, subsequent [...] encounter status 10-31-2020 Unclassified (6 sources) 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, [address] BUN/CRE Normal 10-20 [facility] Comment on above: Result Comment: Canc elled via OM: Order cancelled - Patient discharged Performed By: #### L 500.2500, L100.0500 #### [facility] [address] [place], [address] Calcium Normal 7.6-11.0 [facility] Comment on above: Result Comment: Canc elled via OM: Order cancelled - Patient discharged Performed By: #### L 500.2500, L100.0500 #### [facility] [address] [place], [address] CL Normal 98-108 [facility] Comment on above: Result Comment: Canc elled via OM: Order cancelled - Patient discharged Performed By: #### L 500.2500, L100.0500 #### [facility] [address] [place], [address] CO2 Normal 21.0-32.0 [facility] Comment on above: Result Comment: Canc elled via OM: Order cancelled - Patient discharged Performed By: #### L 500.2500, L100.0500 #### [facility] [address] [place], [address] CREAT,SERUM Normal 0.70-1.20 [facility] Comment on above: Result Comment: Canc elled via OM: Order cancelled - Patient discharged Performed By: #### L 500.2500, L100.0500 #### [facility] [address] [place], [address] eGFR Normal >60 [facility] Comment on above: Result Comment: Canc elled via OM: Order cancelled - Patient discharged Performed By: #### L 500.2500, L100.0500 #### [facility] [address] [place], [address] GAP Normal 5-15 [facility] Comment on above: Result Comment: Canc elled via OM: Order cancelled - Patient discharged Performed By: #### L 500.2500, L100.0500 #### [facility] [address] [place], [address] GLU Normal 70-99 [facility] Comment on above: Result Comment: Canc elled via OM: Order cancelled - Patient discharged Performed By: #### L 500.2500, L100.0500 #### [facility] [address] [place], [address] Potassium Normal 3.3-5.1 [facility] Comment on above: Result Comment: Canc elled via OM: Order cancelled - Patient discharged Performed By: #### L 500.2500, L100.0500 #### [facility] [address] [place], [address] Basic Metabolic Profile (BMP) Normal 133-145 [facility] Comment on above: Result Comment: Canc elled via OM: Order cancelled - Patient discharged Performed By: #### L 500.2500, L100.0500 #### [facility] [address] [place], [address] CBC-Complete Blood Cnt No Di ffon 06-17-2025 HCT Normal 37-47 [facility] Comment on above: Result Comment: Canc elled via OM: Order cancelled - Patient discharged Performed By: #### L 500.2500, L100.0500 #### [facility] [address] [place], [address] HGB Normal 12.0-15.0 [facility] Comment on above: Result Comment: Canc elled via OM: Order cancelled - Patient discharged Performed By: #### L 500.2500, L100.0500 #### [facility] [address] [place], [address] MCH Normal 27.0-32.0 [facility] Comment on above: Result Comment: Canc elled via OM: Order cancelled - Patient discharged Performed By: #### L 500.2500, L100.0500 #### [facility] [address] [place], [address] MCHC Normal 32-36 [facility] Comment on above: Result Comment: Canc elled via OM: Order cancelled - Patient discharged Performed By: #### L 500.2500, L100.0500 #### [facility] Laboratory [address] [place], [address] MCV Normal 81-99 [facility] Comment on above: Result Comment: Canc elled via OM: Order cancelled - Patient discharged Performed By: #### L 500.2500, L100.0500 #### [facility] [address] [place], [address] PLT Normal 150-450 [facility] Comment on above: Result Comment: Canc elled via OM: Order cancelled - Patient discharged Performed By: #### L 500.2500, L100.0500 #### [facility] [address] [place], [address] RBC Normal 4.2-5.4 [facility] Comment on above: Result Comment: Canc elled via OM: Order cancelled - Patient discharged Performed By: #### L 500.2500, L100.0500 #### [facility] [address] [place], [address] RDW CV Normal 11.6-14.6 [facility] Comment on above: Result Comment: Canc elled via OM: Order cancelled - Patient discharged Performed By: #### L 500.2500, L100.0500 #### [facility] [address] [place], [address] RDW SD Normal 35.1-43.9 [facility] Comment on above: Result Comment: Canc elled via OM: Order cancelled - Patient discharged Performed By: #### L 500.2500, L100.0500 #### [facility] [address] [place], [address] WBC Normal 4.4-11.0 [facility] Comment on above: Result Comment: Canc elled via OM: Order cancelled - Patient discharged Performed By: #### L 500.2500, L100.0500 #### [facility] [address] [place], [address] MR/POSTOP.ANEon 06-16-2025 MR/POSTOP.[facility] Medical Records Department [address] [place] [address] Anesthesia Postop Eval I 06/16/25 0932 MR#: [id number] Acct: [id number] Name: EFRAIN CARTWRIGHT Rep #: [id number] : 1950 75 From: Rik Taylor CRNA PCP: Dr. Blaire Ayala, DO Status:REG VTC Y Race: C Location: [place] [address] Anesthesia: Postop Eval I Current Vital Signs Temperature: 97 F Pulse Rate: 71 Blood Pressure: 138/70 Respiratory Rate: 16 Pulse Ox: 94 Assessment Airway patent: Yes Spontaneous unlabored respirations: Yes nausea: No Vomiting: No Anesthesia Complication: No Fluid Hydration Crystalloid volume administer (ml): 1,000 Total IV fluid infused: 1,000 Progress Note Anesthesia document: Postop Eval 1 completed: Yes 06/16/25 0933 Date Riksue FarrisClaudia PERSONNEL SCHEDULER Cosigner Signature: Date CC: Signed Normal [facility] MR/[id number] 06-16-2025 MR/POSTOPAN2 [facility] Medical Records Department [address] [place] [address] Anesthesia Postop Eval II 06/16/25 1037 MR#: [id number] Acct: [id number] Name: EFRAIN CARTWRIGHT Rep #: [id number] : 1950 75 From: Sergei Betancourt MD PCP: Dr. Blaire Ayala, DO Status:REG SDC Y Race: C Location: [place] [address] Anesthesia Postop Eval I Sum Postop Eval Completion status Anesthesia document: Postop Eval 1 completed: Yes Anesthesia Postop Eval I Summary Anesthesia Postop Eval I Summary: Anesthesia Postop Eval I: Assessment Summary Airway patent Yes 06/16/25 09:32 PERSONNEL SCHEDULER.TNES Spontaneous unlabored Yes 06/16/25 09:32 PERSONNEL SCHEDULER.TNES respirations Mental status nausea No 06/16/25 09:32 PERSONNEL SCHEDULER.TNES Vomiting No 06/16/25 09:32 PERSONNEL SCHEDULER.TNES Anesthesia Postop Eval I: Fluid Summary Crystalloid volume administer 1,000 06/16/25 09:32 PERSONNEL SCHEDULER.TNES (ml) Colloids volume administered ( ml) Blood Product volume administered (ml) Total IV fluid infused 1,000 06/16/25 09:32 PERSONNEL SCHEDULER.TNES Anesthesia Postop Eval I: Summary Notes Anesthesia Complication No 06/16/25 09:32 PERSONNEL SCHEDULER.TNES Anesthesia Complication Comment: Post-operative progress note Anesthesia: Postop Eval II Evaluation Mental status: Awake Pain Level: 0 nausea: No Vomiting: No 06/16/25 1037 Date Sergei Betancourt MD Cosigner Signature: Date CC: Signed Normal [facility] Magnesiumon 06-16-2025 Magnesium [Mass/Vol] 1.8 mg/dL Normal 1.5-2.2 [facility] Comment on above: Performed By: #### L 501.5200 #### [facility] [address] [place], [address] Magnesium measurement (mass/ volume)Ordered By: Víctor Cunningham on 06-16-2025 Magnesium (Unsp spec) [Mass/Vol] 1.8 mg/dL 1.5-2.2 [facility] Operative Reporton 5 Operative Report [facility] Medical Records Department [address] [place] [address] Operative Report 06/16/25 1016 MR#: [id number] Acct: [id number] Name: EFRAIN CARTWRIGHT Rep #: [id number] : 1950 75 From: Slava Cantor DO PCP: Dr. Blaire Ayala DO Status:[facility] Location: [place] [address] Operative Report (Standard) Operative Information Date of Procedure: 06/16/25 Pre-Operative Diagnosis: 1. Right shoulder primary glenohumeral joint osteoarthritis 2. Right shoulder rotator cuff tear Post-Operative Diagnosis: 1. Right shoulder primary glenohumeral joint osteoarthritis 2. Right shoulder rotator cuff tear Surgery/Procedure Performed: Right reverse total shoulder arthroplasty logistics planning manager: Yes Head Track Coach: Nova Lua Tasks completed by communications assistant: Opening closing, Removing tissue, Implanting device and Hemostasis: Electrocautery Additional operating room assistant?: No Type of Anesthesia: General/Regional RN Documented Start/Stop Times: Operation Date: 06/16/25 07:30 Case Time Into Pre-Op 06/16/25 05:47 Anesthesia Start 06/16/25 07:30 Into Room 06/16/25 07:30 Out of Pre-Op 06/16/25 07:30 Procedure Start 06/16/25 08:03 Procedure End 06/16/25 09:22 Anesthesia End 06/16/25 09:28 Out of Room 06/16/25 09:28 Into Recovery 06/16/25 09:30 Procedure Start Time: 08:03 Procedure Stop Time: :22 Select all DRAINS/GRAFTS/IMPLAN TS that apply: Implanted device Implanted device details: Meghan Barnesalis PerFORM+ reversed baseplate 25 mm diameter +3 mm lateralization, +3 glenosphere cobalt chrome 36 mm diameter, Tornier perform inlay stem size #3, + 0 mm retentive size number 3 36mm diameter polyethylene insert with 9 mm body spacer, short central post and peripheral screws x4. Estimated Blood Loss: 100 cc Specimen collected: No Description of surgery: Patient arrived to [facility] morning of the procedure and was greeted by the same day surgery staff. Prior to his procedure, I greeted the patient in the preoperative holding area I identified the patient by name, record number, and date of . Informed consent was confirmed. The operative extremity was marked. All questions were answered to patient satisfaction. An interscalene block was administered prior to procedure by anesthesia staff for postoperative and intraoperative analgesia. At time of his procedure, patient was brought to the operative suite and positioned supine on a standard table with a beachchair attachment. General anesthesia was induced after all bony prominences were well-padded. Endotracheal tube was placed. After adequate anesthesia and securing the tube, we prepared the patient to be positioned in the beachchair position. A well-padded hogshead cooper was applied. The nonoperative extremity was placed in a well arm aquino. He was then brought into the beachchair position after we confirmed an appropriate blood pressure. We then spun the bed 45 degrees. The operative extremity was then prepared. Then the butterfly wing of the bed was removed and a well-padded torso strap was applied to secure the patient to the bed. The operative extremity was now free. We then prepped and draped the right upper extremity in normal, sterile orthopedic fashion. We then performed a timeout with all parties in attendance in agreement with the side, site, and operation be performed. 2 g Ancef was administered prior to incision by anesthesia staff, as well as 1 g TXA IV. No concerns were voiced and we elected to proceed. I first marked a standard deltopectoral incision just lateral to the coracoid process in line with the long axis of the humerus. Skin was sharply incised with 10 blade scalpel. There was a suspected AC joint ganglion cyst noted as well which was excised by extending the incision proximally and laterally in a curvilinear fashion. I then dissected bluntly through the subcutaneous layers and found the fat stripe between the deltoid and pectoralis major. I turned my attention to the cyst. The cyst was cleared from surrounding adhesions measuring approximately 3 x 3 x 3 cm. The cyst was punctured and gelatinous fluid was expelled consistent with ganglion cyst. The totality of the cyst was noted. 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 The cephalic vein was then identified and protected. It was retracted laterally with the deltoid. I then bluntly dissected underneath the deltoid with a Dominguez elevator. Rosmery retractor was placed. The upper 1 cm of the pectoralis major was released. Remote biceps tenotomy was noted and biceps was not identified. Identified the lesser tuberosity. The supraspinatus was completely torn and retracted with an exposed greater tuberosity. I then performed a subscapularis peel while rotating the humerus externally. I tagged the subscapularis for possible repair later with a tag (more content not included)... Normal [facility] Shoulder min 2 Viewson 06-16 Shoulder min 2 [address] [facility] Imaging Services [address] [place] [address] Shoulder min 2 Views MR#: [id number] Acct: [id number] Name: EFRAIN CARTWRIGHT Rep #: [id number] : 1950 F 75 From: Geraldo Hernandez MD PCP: Dr. Blaire Ayala, Status: [facility] Study: Shoulder min 2 Views Date of Exam: 06/16/25 Exam# [id number] Ordering Dr: Slava Cantor DO EXAM: XR Right Shoulder Complete, 2 or More Views CLINICAL INDICATION: POST OP TECHNIQUE: Two or more views of the right shoulder. COMPARISON: No relevant prior studies available. FINDINGS: BONES/JOINTS: Shoulder replacement. Intact hardware. Anatomic position. No acute fracture. No dislocation. SOFT TISSUES: Soft tissue emphysema and swelling. RAD/Shoulder min 2 Views IMPRESSION: Postoperative changes as above. Reading Location: [facility] CC: Dr. Blaire Ayala DO; Dr. Slava Cantor DO Information Assurance Engineer: Signed Normal [facility] Electrocardiogram reportOrde red By: Jian Johnson on 05-31-2025 EKG study [facility] Cardiovascular Services [address] [place] [address] 12 Lead EKG 05/30/25 0823 MR#: [id number] Acct: [id number] Name: EFRAIN CARTWRIGHT Rep #:[id number] : 1950 75 From: Jian spain MD Attending Dr: Dr. Slava Cantor DO Status: PRE SDC Ordering Dr: Slava Cantor DO Date: 05/30/25 [place] [facility] [place]: F C Admitted: Test Reason : PREOP Blood Pressure : */* mmHG Vent. Rate : 58 BPM Atrial Rate : 58 BPM P-R Int : 158 ms QRS Dur : 80 ms QT Int : 402 ms P-R-T Axes : 33 27 52 degrees QTcB Int : 394 ms Sinus bradycardia Otherwise normal ECG Confirmed by Jian Johnson ([id number]), lead former MIO SOTO ([id number]) on 55:42:12 AM Referred By: Slava Cantor Confirmed By: Jian Johnson 05/31/25 0542 Date _ Jian Johnson MD CC: Dr. Blaire Ayala DO; Dr. Slava Cantor DO ~ Signed [facility] Work Phone: MRSA/SAID NASAL SCREENon MRSA+SAID SCRN Reason for Exam: PREOP MRSA MRSA Negative S. AUREUS S. aureus Negative Normal [facility] Comment on above: Performed By: #### L 100.0100, L501.1800, M100.651, L500.2500 ####[facility] [id number] [place], [place], [address] 12 Lead EKGon 05-30-2025 12 Lead EKG [facility] Cardiovascular Services [address] [place] [address] 12 Lead EKG 05/30/25 0823 MR#: [id number] Acct: [id number] Name: EFRAIN CARTWRIGHT Rep #: [id number] : 1950 75 From: Jian Johnson MD Attending Dr: Dr. Slava Cantor DO Status: PRE [facility] Order[place]: Slava Cantor DO Date: 05/30/25 [place] [facility] [place] Sex: F C Admitted: Test Reason : PREOP Blood Pressure : */* mmHG Vent. Rate : 58 BPM Atrial Rate : 58 BPM P-R Int : 158 ms QRS Dur : 80 ms QT Int : 402 ms P-R-T Axes : 33 27 52 degrees QTcB Int : 394 ms Sinus bradycardia Otherwise normal ECG Confirmed by Jian Johnson ([id number]), lead former MIO SOTO ([id number]) on 05/31/2025 5:42:12 AM Referred By: Slava Cantor Confirmed By: Jian Johnson 05/31/25 0542 Date Jian Johnson MD CC: Dr. Blaire Ayala DO; Dr. Slava Cantor DO Signed Normal [facility] Absolute lymphocyte countOrd ered By: Slava Cantor on 05-30-2025 Lymphocytes Auto (Unsp spec) [#/Vol] 1.70 10*3/uL 0.83-4.51 [facility] Absolute neutrophil countOrd ered By: Slava Cantor on 05-30-2025 Neutrophils (Bld) [#/Vol] 3.2 10*3/uL 2.0-7.7 [facility] Albumin, Serumon 05-30-2025 Albumin [Mass/Vol] 4.3 g/dL Normal 3.4-4.8 [facility] Comment on above: Performed By: #### L 100.0100, L501.1800, M100.651, L500.2500 ####[facility] [address] [place], [address] Anion gap in Serum or Plasma Ordered By: Slava Cantor on 05-30-2025 Anion gap [Moles/Vol] 12 mmol/L - [facility] Automated lymphocyte count a s percentage of total leukocytesOrdered By: Slava Cantor on 05-30-2025 Lymphocytes/100 WBC Auto (Unsp spec) 30.7 % [facility] BUN/creatinine ratioOrdered By: Slava Cantor on 05-30-2025 Urea nitrogen/Creatinine [Mass ratio] 32.9 mg/mg High 08-29 [facility] Basic Metabolic Profile (BMP )on 05-30-2025 BUN/CRE 32.9 RATIO High 08-29 [facility] Comment on above: Performed By: #### L 100.0100, L501.1800, M100.651, L500.2500 #### [facility] Laboratory [address] [place], [address] Calcium [Mass/Vol] 9.6 mg/dL Normal 7.6-11.0 [facility] Comment on above: Performed By: #### L 100.0100, L501.1800, M100.651, L500.2500 #### [facility] [address] [place], [address] Chloride [Moles/Vol] 103 mmol/L Normal 98-108 [facility] Comment on above: Performed By: #### L 100.0100, L501.1800, M100.651, L500.2500 #### [facility] [address] [place], [address] CO2 [Moles/Vol] 23.2 mmol/L Normal 21.0-32.0 [facility] Comment on above: Performed By: #### L 100.0100, L501.1800, M100.651, L500.2500 #### [facility] [address] [place], [address] Creatinine [Mass/Vol] 0.90 mg/dL Normal 0.70-1.20 [facility] Comment on above: Performed By: #### L 100.0100, L501.1800, M100.651, L500.2500 #### [facility] [address] [place], [address] GAP 12 Normal 5-15 [facility] Comment on above: Performed By: #### L 100.0100, L501.1800, M100.651, L500.2500 #### [facility] [address] [place], [address] GFR/1.73 sq M.predicted among non-blacks MDRD (S/P/Bld) [Vol rate/Area] 67 mL/min/{1.73_m2} Normal >60 [facility] Comment on above: Result Comment: mL/m in/1.73m2 CKD-EPI Creatinine Equation (2020) Performed By: #### L 100.0100, L501.1800, M100.651, L500.2500 #### [facility] [address] [place], [address] Glucose [Mass/Vol] 69 mg/dL Low 70-99 [facility] Comment on above: Performed By: #### L 100.0100, L501.1800, M100.651, L500.2500 #### [facility] [address] [place], [address] Potassium [Moles/Vol] 4.3 mmol/L Normal 3.3-5.1 [facility] Comment on above: Result Comment: Hemo lysis present, Results??could be affected. ?? Performed By: #### L 100.0100, L501.1800, M100.651, L500.2500 #### [facility] [address] [place], [address] Sodium [Moles/Vol] 139 mmol/L Normal 133-145 [facility] Comment on above: Performed By: #### L 100.0100, L501.1800, M100.651, L500.2500 #### [facility] [address] [place], [address] Urea nitrogen [Mass/Vol] 30 mg/dL High 4-19 [facility] Comment on above: Performed By: #### L 100.0100, L501.1800, M100.651, L500.2500 #### [facility] [address] [place], [address] Basophil percentageOrdered B y: Slava Cantor on 05-30-2025 Basophils/100 WBC (Bld) 0.9 % 0-1 [facility] CBC W/Diff, Automatedon 05-11 Absolute Lymph 1.70 X10 3/uL Normal 0.83-4.51 [facility] Comment on above: Performed By: #### L 100.0100, L501.1800, M100.651, L500.2500 #### [facility] [address] [place], [address] Absolute Neut 3.2 X10 3/uL Normal 2.0-7.7 [facility] Comment on above: Performed By: #### L 100.0100, L501.1800, M100.651, L500.2500 #### [facility] [address] [place], [address] Basophils/100 WBC (Bld) 0.9 % Normal 0-1 [facility] Comment on above: Performed By: #### L 100.0100, L501.1800, M100.651, L500.2500 #### [facility] [address] [place], [address] Eosinophils/100 WBC (Bld) 2.4 % Normal 0-5 [facility] Comment on above: Performed By: #### L 100.0100, L501.1800, M100.651, L500.2500 #### [facility] [address] [place], [address] Erythrocyte distribution width (RBC) [Ratio] 12.3 % Normal 11.6-14.6 [facility] Comment on above: Performed By: #### L 100.0100, L501.1800, M100.651, L500.2500 #### [facility] [address] [place], [address] Hematocrit (Bld) [Volume fraction] 39.9 % Normal 37-47 [facility] Comment on above: Performed By: #### L 100.0100, L501.1800, M100.651, L500.2500 #### [facility] [address] [place], [address] Hemoglobin (Bld) [Mass/Vol] 13.3 g/dL Normal 12.0-15.0 [facility] Comment on above: Performed By: #### L 100.0100, L501.1800, M100.651, L500.2500 #### [facility] [address] [place], [address] IG% 0.200 Normal 0.0-0.9 [facility] Comment on above: Result Comment: IG% - Immature Granulocytes (promyelocytes, myelocytes and metamyelocytes) > 1% indicates that a LEFT SHIFT is Present. Performed By: #### L 100.0100, L501.1800, M100.651, L500.2500 #### [facility] [address] [place], [address] Lymphocytes/100 WBC (Bld) 30.7 % Normal 19-41 [facility] Comment on above: Performed By: #### L 100.0100, L501.1800, M100.651, L500.2500 #### [facility] [address] [place], [address] MCH (RBC) [Entitic mass] 31.1 pg Normal 27.0-32.0 [facility] Comment on above: Performed By: #### L 100.0100, L501.1800, M100.651, L500.2500 #### [facility] [address] [place], [address] MCHC (RBC) [Mass/Vol] 33.3 g/dL Normal 32-36 [facility] Comment on above: Performed By: #### L 100.0100, L501.1800, M100.651, L500.2500 #### [facility] [address] [place], [address] MCV (RBC) [Entitic vol] 93.4 fL Normal 81-99 [facility] Comment on above: Performed By: #### L 100.0100, L501.1800, M100.651, L500.2500 #### [facility] [address] [place], [address] Monocytes/100 WBC (Bld) 7.6 % Normal 0-10 [facility] Comment on above: Performed By: #### L 100.0100, L501.1800, M100.651, L500.2500 #### [facility] [address] [place], [address] Neutrophils/100 WBC (Bld) 58.2 % Normal 47-70 [facility] Comment on above: Performed By: #### L 100.0100, L501.1800, M100.651, L500.2500 #### [facility] [address] [place], [address] Nucleated RBC (Bld) [#/Vol] 0 10*3/uL Normal 0-5 [facility] Comment on above: Performed By: #### L 100.0100, L501.1800, M100.651, L500.2500 #### [facility] [address] [place], [address] Platelet mean volume (Bld) [Entitic vol] 10.5 fL Normal 6.2-12.0 [facility] Comment on above: Performed By: #### L 100.0100, L501.1800, M100.651, L500.2500 #### [facility] [address] [place], [address] Platelets (Bld) [#/Vol] 206 10*3/uL Normal 150-450 [facility] Comment on above: Performed By: #### L 100.0100, L501.1800, M100.651, L500.2500 #### [facility] [address] [place], [address] RBC (Bld) [#/Vol] 4.27 10*6/uL Normal 4.2-5.4 [facility] Comment on above: Performed By: #### L 100.0100, L501.1800, M100.651, L500.2500 #### [facility] [address] [place], [address] RDW SD 42.1 fl Normal 35.1-43.9 [facility] Comment on above: Performed By: #### L 100.0100, L501.1800, M100.651, L500.2500 #### [facility] [address] [place], [address] WBC (Bld) [#/Vol] 5.5 10*3/uL Normal 4.4-11.0 [facility] Comment on above: Performed By: #### L 100.0100, L501.1800, M100.651, L500.2500 #### [facility] [address] [place], [address] Carbon dioxide, total [Moles /volume] in Central venous bloodOrdered By: Slava Cantor on 05-30-2025 CO2 [Moles/Vol] 23.2 mmol/L 21.0-32.0 [facility] Chloride assayOrdered By: Alena Cantor on 05-30-2025 Chloride [Moles/Vol] 103 mmol/L 98-108 [facility] Eosinophil percentageOrdered By: Slava Cantor on 05-30-2025 Eosinophils/100 WBC (Bld) 2.4 % 0-5 [facility] Erythrocyte distribution wid th ratioOrdered By: Slava Cantor on 05-30-2025 Erythrocyte distribution width (RBC) [Ratio] 12.3 % 11.6-14.6 [facility] Erythrocyte distribution wid th standard deviationOrdered By: Slava Cantor on 05-30-2025 Erythrocyte distribution width (RBC) [Ratio] 42.1 fl 35.1-43.9 [facility] Glomerular filtration rate ( GFR) estimation/1.73 sq m using serum, plasma, or whole bOrdered By: Slava Cantor on 05-30-2025 GFR/1.73 sq M.predicted among non-blacks MDRD (S/P/Bld) [Vol rate/Area] 67 mL/min/{1.73_m2} >60 [facility] Comment on above: mL/min/1.73m2 CKD-EP I Creatinine Equation (2020) Hematocrit Auto (Bld) [Volum e fraction]Ordered By: Slava Cantor on 05-30-2025 Hematocrit (Bld) [Volume fraction] 39.9 % 37-47 [facility] Hemoglobin measurementOrdere d By: Slava Cantor on 05-30-2025 Hemoglobin (Bld) [Mass/Vol] 13.3 g/dL 12.0-15.0 [facility] Immature granulocytes/100 WB C Auto (Bld)Ordered By: Slava Cantor on 05-30-2025 Immature granulocytes/100 WBC (Bld) 0.200 % 0.0-0.9 [facility] Comment on above: IG% - Immature Granu locytes (promyelocytes, myelocytes and metamyelocytes) > 1% indicates that a LEFT SHIFT is Present. MCV (mean corpuscular volume ) determinationOrdered By: Slava Cantor on 05-30-2025 MCV (RBC) [Entitic vol] 93.4 fL 81-99 [facility] MRSA screenOrdered By: Herson Cantor on 05-30-2025 MRSA DNA INESSA+probe Ql (Unsp spec) [facility] Mean corpuscular hemoglobin (MCH) determinationOrdered By: Slava Cantor on 05-30-2025 MCH (RBC) [Entitic mass] 31.1 pg 27.0-32.0 [facility] Mean corpuscular hemoglobin concentration (MCHC) determinationOrdered By: Slava Cantor on 05-30-2025 MCHC (RBC) [Mass/Vol] 33.3 g/dL 32-36 [facility] Mean platelet volume determi nationOrdered By: Slava Cantor on 05-30-2025 Platelet mean volume (Bld) [Entitic vol] 10.5 fL 6.2-12.0 [facility] Monocyte percentageOrdered B y: Slava Cantor on 05-30-2025 Monocytes/100 WBC (Bld) 7.6 % 0-10 [facility] Neutrophil percentageOrdered By: Slava Cantor on 05-30-2025 Neutrophils/100 WBC (Bld) 58.2 % 47-70 [facility] Nucleated red blood cell per centageOrdered By: Slava Cantor on 05-30-2025 Nucleated RBC/100 WBC (Bld) [Ratio] 0 % 0-5 [facility] Platelet countOrdered By: Alena Cantor on 05-30-2025 Platelets (Bld) [#/Vol] 206 10*3/uL 150-450 [facility] Potassium measurement (mass/ volume)Ordered By: Slvaa Cantor on 05-30-2025 Potassium (Unsp spec) [Mass/Vol] 4.3 mmol/L 3.3-5.1 [facility] Comment on above: Hemolysis present, R esults could be affected. RBC Auto (Bld) [#/Vol]Ordere d By: Slava Cantor on 05-30-2025 RBC (Bld) [#/Vol] 4.27 10*6/uL 4.2-5.4 [facility] Serum creatinine measurement (mass/volume)Ordered By: Slava Cantor on 05-30-2025 Creatinine [Mass/Vol] 0.90 mg/dL 0.70-1.20 [facility] Serum glucose measurement (m ass/volume)Ordered By: Slava Cantor on 05-30-2025 Glucose [Mass/Vol] 69 mg/dL Low 70-99 [facility] Serum or plasma albumin natalia urement (mass/volume)Ordered By: Slava Cantor on 05-30-2025 Albumin [Mass/Vol] 4.3 g/dL 3.4-4.8 [facility] Serum or plasma calcium natalia urement (mass/volume)Ordered By: Slava Cantor on 05-30-2025 Calcium [Mass/Vol] 9.6 mg/dL 7.6-11.0 [facility] Serum or plasma urea nitroge n measurement (mass/volume)Ordered By: Slava Cantor on 05-30-2025 Urea nitrogen [Mass/Vol] 30 mg/dL High 4-19 [facility] Sodium levelOrdered By: Israel Cantor on 05-30-2025 Sodium [Moles/Vol] 139 mmol/L 133-145 [facility] White blood cell (WBC) count Ordered By: Slava Cantor on 05-30-2025 WBC (Bld) [#/Vol] 5.5 10*3/uL 4.4-11.0 [facility] Extremity Upper without Cont raon 05-26-2025 Extremity Upper without Contra [facility] Imaging Services [address] [place] [address] Extremity Upper without Contra MR#: [id number] Acct: [id number] Name: EFRAIN CARTWRIGHT Rep #: [id number] : [id number] F [id number] From: Sea Sanchez MD PCP: Dr. Blaire Ayala, DO Status: REG CLI Study: Extremity Upper without Contra Date of Exam: 0 05/26/25 Exam# [id number] Ordering Dr: Spittle,Slava DO PROCEDURE: EXTREMITY UPPER WITHOUT CONTRA 05/26/2025 [...] at the inferomedial humeral head. Reading Location: MIS-[facility]-N CC: Dr. Blaire Ayala, DO; Dr. Slava Cantor, DO Information Assurance Engineer: Signed Normal [facility] 02-16-2025 U Creatinine 65.1 mg/dL Normal [facility] Comment on above: Performed By: #### M ALBR #### [address] [place], [place] [address] U Microalb 5.4 mg/L Normal [facility] Comment on above: Performed By: #### M ALBR #### [address] [address] U Ratio Alb/Cre 8 mg/G Normal 0-30 [facility] Comment on above: Performed By: #### M ALBR #### [address] [address] .Auto Diffon 08-25-2024 Basophil, Absolute 0.0 10 3/mcL Normal 0.0-0.2 [facility] Comment on above: Performed By: #### C MP, LIPID, TSH, ANEU, ADIFF, VIDH, GFR, CBC #### [address] [address] #### HCV1 #### [address] [address] Basophils/100 WBC (Bld) 0.8 % Normal 0.0-2.5 [facility] Comment on above: Performed By: #### C MP, LIPID, TSH, ANEU, ADIFF, VIDH, GFR, CBC #### [address] [address] #### HCV1 #### [address] [address] Eosinophil, Absolute 0.2 10 3/mcL Normal 0.0-0.7 [facility] Comment on above: Performed By: #### C MP, LIPID, TSH, ANEU, ADIFF, VIDH, GFR, CBC #### [address] [address] #### HCV1 #### [address] [address] Eosinophils/100 WBC (Bld) 2.9 % Normal 0.0-7.0 [facility] Comment on above: Performed By: #### C MP, LIPID, TSH, ANEU, ADIFF, VIDH, GFR, CBC #### [address] [address] #### HCV1 #### [address] [address] Lymphocyte, Absolute 1.9 10 3/mcL Normal 0.9-4.3 [facility] Comment on above: Performed By: #### C MP, LIPID, TSH, ANEU, ADIFF, VIDH, GFR, CBC #### [place] [address] #### HCV1 #### [address] [address] Lymphocytes/100 WBC (Bld) 35.5 % Normal 20.0-40.0 [facility] Comment on above: Performed By: #### C MP, LIPID, TSH, ANEU, ADIFF, VIDH, GFR, CBC #### [place] [address] #### HCV1 #### [address] [address] Monocyte, Absolute 0.5 10 3/mcL Normal 0.1-1.4 [facility] Comment on above: Performed By: #### C MP, LIPID, TSH, ANEU, ADIFF, VIDH, GFR, CBC #### [place] [address] #### HCV1 #### [address] [address] Monocytes/100 WBC (Bld) 9.1 % Normal 2.0-13.0 [facility] Comment on above: Performed By: #### C MP, LIPID, TSH, ANEU, ADIFF, VIDH, GFR, CBC #### [place] [address] #### HCV1 #### [address] [address] Neutrophils/100 WBC (Bld) 51.7 % Normal 50.0-75.0 [facility] Comment on above: Performed By: #### C MP, LIPID, TSH, ANEU, ADIFF, VIDH, GFR, CBC #### [place] [address] #### HCV1 #### [address] [address] .GFRon 08-25-2024 GFR Non- 68 ml/min/1.73sqm Normal [facility] Comment on above: Result Comment: GFR [...] TSH, ANEU, ADIFF, VIDH, GFR, CBC #### [address] [address] #### HCV1 #### [address] [address] GFR 83 ml/min/1.73sqm Normal [facility] Comment on above: Result Comment: GFR [...] TSH, ANEU, ADIFF, VIDH, GFR, CBC #### [address] [address] #### HCV1 #### [address] [address] .NEUABSon 08-25-2024 Neutrophil, Absolute 2.8 10 3/mcL Normal 2.3-8.1 [facility] Comment on above: Performed By: #### C MP, LIPID, TSH, ANEU, ADIFF, VIDH, GFR, CBC #### [address] [address] #### HCV1 #### [address] [address] CBCon 08-25-2024 Erythrocyte distribution width (RBC) [Ratio] 12.3 % Normal 11.5-15.5 [facility] Comment on above: Performed By: #### C MP, LIPID, TSH, ANEU, ADIFF, VIDH, GFR, CBC #### [place] [address] #### HCV1 #### [place] [address] Hematocrit (Bld) [Volume fraction] 39.8 % Normal 34.0-46.0 [facility] Comment on above: Performed By: #### C MP, LIPID, TSH, ANEU, ADIFF, VIDH, GFR, CBC #### [place] [address] #### HCV1 #### [place] [address] Hgb 13.5 G/dL Normal 12.0-16.0 [facility] Comment on above: Performed By: #### C MP, LIPID, TSH, ANEU, ADIFF, VIDH, GFR, CBC #### [place] [address] #### HCV1 #### [place] [address] MCH (RBC) [Entitic mass] 32.0 pg Normal 27.0-33.0 [facility] Comment on above: Performed By: #### C MP, LIPID, TSH, ANEU, ADIFF, VIDH, GFR, CBC #### [place] [address] #### HCV1 #### [place] [address] MCHC 34.0 G/dL Normal 32.0-36.0 [facility] Comment on above: Performed By: #### C MP, LIPID, TSH, ANEU, ADIFF, VIDH, GFR, CBC #### [address] [address] #### HCV1 #### [place] [address] MCV (RBC) [Entitic vol] 94.1 fL Normal 80.0-99.0 [facility] Comment on above: Performed By: #### C MP, LIPID, TSH, ANEU, ADIFF, VIDH, GFR, CBC #### [place] [address] #### HCV1 #### [place] [address] Platelet 204 10 3/mcL Normal 150-450 [facility] Comment on above: Performed By: #### C MP, LIPID, TSH, ANEU, ADIFF, VIDH, GFR, CBC #### [place] [address] #### HCV1 #### [place] [address] Platelet mean volume (Bld) [Entitic vol] 8.6 fL Normal 6.6-10.5 [facility] Comment on above: Performed By: #### C MP, LIPID, TSH, ANEU, ADIFF, VIDH, GFR, CBC #### [place] [address] #### HCV1 #### [place] [address] RBC 4.23 10 6/mcL Normal 4.10-5.30 [facility] Comment on above: Performed By: #### C MP, LIPID, TSH, ANEU, ADIFF, VIDH, GFR, CBC #### [place] [address] #### HCV1 #### [place] [address] WBC 5.3 10 3/mcL Normal 4.5-10.8 [facility] Comment on above: Performed By: #### C MP, LIPID, TSH, ANEU, ADIFF, VIDH, GFR, CBC #### [address] [address] #### HCV1 #### [address] [address] CMPon 08-25-2024 Albumin Level 3.8 G/dL Normal 3.4-4.8 [facility] Comment on above: Performed By: #### C MP, LIPID, TSH, ANEU, ADIFF, VIDH, GFR, CBC #### [address] [address] #### HCV1 #### [address] [address] Albumin/Globulin [Mass ratio] 1.4 {ratio} Normal 1.1-2.5 [facility] Comment on above: Performed By: #### C MP, LIPID, TSH, ANEU, ADIFF, VIDH, GFR, CBC #### [address] [address] #### HCV1 #### [address] [address] ALP [Catalytic activity/Vol] 86 U/L Normal 40-135 [facility] Comment on above: Performed By: #### C MP, LIPID, TSH, ANEU, ADIFF, VIDH, GFR, CBC #### [address] [address] #### HCV1 #### [address] [address] ALT [Catalytic activity/Vol] 32 U/L Normal 14-59 [facility] Comment on above: Performed By: #### C MP, LIPID, TSH, ANEU, ADIFF, VIDH, GFR, CBC #### [address] [address] #### HCV1 #### [address] [address] AST [Catalytic activity/Vol] 14 U/L Normal 10-40 [facility] Comment on above: Performed By: #### C MP, LIPID, TSH, ANEU, ADIFF, VIDH, GFR, CBC #### [place] [address] #### HCV1 #### [address] [address] Bili Total 0.7 mg/dL Normal 0.2-1.0 [facility] Comment on above: Result Comment: Use of this assay is not recommended for patients undergoing treatment with eltrombopag due to the potential for falsely elevated results. Performed By: #### C MP, LIPID, TSH, ANEU, ADIFF, VIDH, GFR, CBC #### [place] [address] #### HCV1 #### [place] [address] BUN/Creatinine Ratio 28 ratio High 7-27 [facility] Comment on above: Performed By: #### C MP, LIPID, TSH, ANEU, ADIFF, VIDH, GFR, CBC #### [place] [address] #### HCV1 #### [place] [address] Calcium [Mass/Vol] 9.3 mg/dL Normal 8.4-10.2 [facility] Comment on above: Performed By: #### C MP, LIPID, TSH, ANEU, ADIFF, VIDH, GFR, CBC #### [place] [address] #### HCV1 #### [place] [address] Chloride [Moles/Vol] 102 mmol/L Normal 98-107 [facility] Comment on above: Performed By: #### C MP, LIPID, TSH, ANEU, ADIFF, VIDH, GFR, CBC #### [place] [address] #### HCV1 #### [place] [id number] CO2 [Moles/Vol] 31 mmol/L Normal 23-31 [facility] Comment on above: Performed By: #### C MP, LIPID, TSH, ANEU, ADIFF, VIDH, GFR, CBC #### [address] [address] #### HCV1 #### [address] [address] Creatinine [Mass/Vol] 0.82 mg/dL Normal 0.55-1.02 [facility] Comment on above: Result Comment: Test ing performed on Siemens Dimension EXL analyzer using a modified kinetic Kevin technique. Performed By: #### C MP, LIPID, TSH, ANEU, ADIFF, VIDH, GFR, CBC #### [address] [address] #### HCV1 #### [address] [address] Electrolyte Balance 5.0 mEq/L Normal 4.0-15.0 [facility] Comment on above: Performed By: #### C MP, LIPID, TSH, ANEU, ADIFF, VIDH, GFR, CBC #### [address] [address] #### HCV1 #### [address] [address] Globulin 2.7 G/dL Normal [facility] Comment on above: Performed By: #### C MP, LIPID, TSH, ANEU, ADIFF, VIDH, GFR, CBC #### [address] [address] #### HCV1 #### [address] [address] Glucose [Mass/Vol] 82 mg/dL Low 83-110 [facility] Comment on above: Performed By: #### C MP, LIPID, TSH, ANEU, ADIFF, VIDH, GFR, CBC #### [address] [address] #### HCV1 #### [address] [address] Potassium [Moles/Vol] 4.4 mmol/L Normal 3.5-5.1 [facility] Comment on above: Performed By: #### C MP, LIPID, TSH, ANEU, ADIFF, VIDH, GFR, CBC #### [address] [address] #### HCV1 #### [place] [address] Sodium [Moles/Vol] 138 mmol/L Normal 136-145 [facility] Comment on above: Performed By: #### C MP, LIPID, TSH, ANEU, ADIFF, VIDH, GFR, CBC #### [place] [address] #### HCV1 #### [place] [address] Total Protein 6.5 G/dL Normal 6.4-8.2 [facility] Comment on above: Performed By: #### C MP, LIPID, TSH, ANEU, ADIFF, VIDH, GFR, CBC #### [place] [address] #### HCV1 #### [place] [address] Urea nitrogen [Mass/Vol] 23 mg/dL High 7-18 [facility] Comment on above: Performed By: #### C MP, LIPID, TSH, ANEU, ADIFF, VIDH, GFR, CBC #### [place] [address] #### HCV1 #### [place] [address] HCVon 08-25-2024 Hep C Ab Non-Reactive Normal Non-Reactive [facility] Comment on above: Performed By: #### C MP, LIPID, TSH, ANEU, ADIFF, VIDH, GFR, CBC #### [address] [address] #### HCV1 #### [place] [address] Hep C Ab Int Normal [facility] Comment on above: Result Comment: Nonr [...] TSH, ANEU, ADIFF, VIDH, GFR, CBC #### [facility] [address] [place], [place] [address] #### HCV1 #### [facility] [address] [place] [address] LABORATORYOrdered By: SYSTEM SYSTEM on 08-25-2024 25-hydroxyvitamin [...] 08-25-2024 Cholesterol [Mass/Vol] 182 mg/dL Normal 0-200 [facility] Comment on above: Result Comment: Chol esterol Reference Interval: Less than 200 Desirable 200-239 Borderline high risk 240 and above High risk Performed By: #### C MP, LIPID, TSH, ANEU, ADIFF, VIDH, GFR, CBC #### [address] [address] #### HCV1 #### [address] [address] Cholesterol in HDL [Mass/Vol] 50 mg/dL Normal 40-60 [facility] Comment on above: Performed By: #### C MP, LIPID, TSH, ANEU, ADIFF, VIDH, GFR, CBC #### [address] [address] #### HCV1 #### [address] [address] Cholesterol in LDL [Mass/Vol] 94 mg/dL Normal 0-130 [facility] Comment on above: Performed By: #### C MP, LIPID, TSH, ANEU, ADIFF, VIDH, GFR, CBC #### [place] [address] #### HCV1 #### [address] [address] Triglyceride [Mass/Vol] 189 mg/dL High 0-150 [facility] Comment on above: Result Comment: Trig lyceride Reference Interval: Less than 150 Normal 150-199 Borderline high risk 200-499 High risk 500 or higher Very high risk Performed By: #### C MP, LIPID, TSH, ANEU, ADIFF, VIDH, GFR, CBC #### [address] [address] #### HCV1 #### [address] [address] TSHon 08-25-2024 TSH Qn 1.59 m[IU]/L Normal 0.36-3.74 [facility] Comment on above: Performed By: #### C MP, LIPID, TSH, ANEU, ADIFF, VIDH, GFR, CBC #### [place] [address] #### HCV1 #### [address] [address] VIDHon 08-25-2024 Vit. D 25-Hydroxy 60.7 ng/mL Normal [facility] Comment on above: Result Comment: Inte rpretive Values Based on Total 25(OH) Vitamin D: Deficient <20 ng/mL Insufficient 20 - <30 ng/mL Sufficient 30-100 ng/mL Performed By: #### C MP, LIPID, TSH, ANEU, ADIFF, VIDH, GFR, CBC #### [address] [address] #### HCV1 #### [place] [id number] MALBRon 04-16-2024 U Creatinine 76.3 mg/dL Normal 28.0-117.0 Replaced By [facility]) Comment on above: Performed By: #### M ALBR #### [address] [address] U Microalb 1406 mcg/dL Normal [facility]placed [facility] ([place]) Comment on above: Performed By: #### M ALBR #### [address] [address] U Ratio Alb/Cre 18 mcg/mg Normal 0-30 [facility]placed [facility] ([place]) Comment on above: Performed By: #### M ALBR #### [address] [address] LABORATORYOrdered By: Micheal Arredondo on 04-15-2024 Albumin [...] on 07-18-2023 Chloride [Moles/Vol] 109 mmol/L 98-[address] [facility] Glucose [Mass/Vol] 87 mg/dL 74-106 [facility] Potassium [Moles/Vol] 4.0 mmol/L 3.5-5.1 [facility] Sodium [Moles/Vol] 139 mmol/L 136-145 [facility] - Chemistry and C hemistry - challengeOrdered By: Vazquez Crowley on 07-18-2023 CO2 [Moles/Vol] 26.0 mmol/L 21.0-32.0 [facility] Urea nitrogen/Creatinine [Mass ratio] 18.9 mg/mg 10-20 [facility] No Panel InformationOrdered By: Vazquez Crowley on 07-18-2023 Estimated Creatinine Clearance Calc 62.52 ml/min [facility] Estimated GFR (MDRD) Amer 85 mL/min >60 [facility] Comment on above: GFR Calc Estimated GFR (MDRD) Non-Af Amer 70 mL/min >60 [facility] Comment on above: Non- GFR Calc Serum or plasma calcium natalia urement (mass/volume)Ordered By: Vazquez Crowley on 07-18-2023 Calcium [Mass/Vol] 8.9 mg/dL 8.5-10.1 [facility] Serum or plasma creatinine m easurement (mass/volume)Ordered By: Vazquez Crowley on 07-18-2023 Creatinine [Mass/Vol] 0.85 mg/dL 0.55-1.02 [facility] Comment on above: The validity of the calculated GFR & GFRAA in patients over 70 years has not been determined. Clinical correlation is essential. Serum or plasma urea nitroge n measurement (mass/volume)Ordered By: Vazquez Crowley on 07-18-2023 Urea nitrogen [Mass/Vol] 16 mg/dL 7-18 [facility] Thin prep Papanicolaou smear with manual screeningOrdered By: Vazquez Crowley on 07-18-2023 Thin prep Papanicolaou smear with manual screening 4 5-15 [facility] Absolute lymphocyte countOrd ered By: Vicente Jasso on 07-17-2023 Lymphocytes Auto (Unsp spec) [#/Vol] 1.85 10*3/uL 0.83-4.51 [facility] Basophil percentageOrdered B y: Vicente Jasso on 07-17-2023 Basophils/100 WBC (Bld) 0.6 % 0-1 [facility] Bilirubin [Mass/Vol] 0.70 mg/dL 0.20-1.00 [facility] Comment on above: For patients on eltr ombopag therapy, use of Dimension Humble TBIL is not recommended. Chloride [Moles/Vol] 107 mmol/L 98-107 [facility] Eosinophils/100 WBC (Bld) 1.4 % 0-5 [facility] Glucose [Mass/Vol] 100 mg/dL 74-106 [facility] Comment on above: Fasting Glucose resu lt from 100 to 125 mg/dL suggests IMPAIRED HOMEOSTASIS per A.D.A. criteria. Neutrophils (Bld) [#/Vol] 3.9 10*3/uL 2.0-7.7 [facility] Neutrophils/100 WBC (Bld) 60.5 % 47-70 [facility] Potassium [Moles/Vol] 4.1 mmol/L 3.5-5.1 [facility] Protein [Mass/Vol] 6.9 g/dL 6.4-8.2 [facility] Sodium [Moles/Vol] 137 mmol/L 136-145 [facility] WBC (Bld) [#/Vol] 6.4 10*3/uL 4.4-11.0 [facility] Blood erythrocytes count (nu mber/volume)Ordered By: Vicente Jasso on 07-17-2023 RBC (Bld) [#/Vol] 3.22 10*6/uL 4.2-5.4 [facility] Blood hemoglobin measurement (mass/volume)Ordered By: Vazquez Crowley on 07-17-2023 Hemoglobin (Bld) [Mass/Vol] 9.0 g/dL 12.0-15.0 [facility] Blood hemoglobin measurement (mass/volume)Ordered By: Vicente Jasso on 07-17-2023 Hemoglobin (Bld) [Mass/Vol] 10.2 g/dL 12.0-15.0 [facility] Blood lymphocytes/100 leukoc ytesOrdered By: Vicente Jasso on 07-17-2023 Lymphocytes/100 WBC (Bld) 28.9 % 19-41 [facility] Blood monocytes/100 leukocyt esOrdered By: Vicente Jasso on 07-17-2023 Monocytes/100 WBC (Bld) 8.1 % 0-10 [facility] Blood platelet mean volumeOr dered By: Vicente Jasso on 07-17-2023 Platelet mean volume (Bld) [Entitic vol] 10.3 fL 6.2-12.0 [facility] Determination of erythrocyte mean corpuscular volume (MCV)Ordered By: Vicente Jasso on 07-17-2023 MCV (RBC) [Entitic vol] 95.3 fL 81-99 [facility] Hematocrit Auto (Bld) [Volum e fraction]Ordered By: Vazquez Crowley on 07-17-2023 Hematocrit (Bld) [Volume fraction] 28.0 % 37-47 [facility] Hematocrit Auto (Bld) [Volum e fraction]Ordered By: Vicente Jasso on 07-17-2023 Hematocrit (Bld) [Volume fraction] 30.7 % 37-47 [facility] INR in Blood by Coagulation assayOrdered By: Vazquez Crowley on 07-17-2023 INR Coag (Bld) [Relative time] 1.1 {INR} [facility] Laboratory - Chemistry and C hemistry - challengeOrdered By: Vicente Jasso on 07-17-2023 ALP [Catalytic activity/Vol] 79 U/L 45-117 [facility] ALT [Catalytic activity/Vol] 24 U/L 13-56 [facility] CO2 [Moles/Vol] 24.0 mmol/L 21.0-32.0 [facility] Globulin (S) [Mass/Vol] 3.3 g/dL 2.2-4.2 [facility] Urea nitrogen/Creatinine [Mass ratio] 26.0 mg/mg 10-20 [facility] Laboratory - Chemistry and C hemistry - challengeOrdered By: Vazquez Crowley on 07-17-2023 Magnesium [Mass/Vol] 2.0 mg/dL 1.6-2.6 [facility] - CoagulationOrde red By: Vazquez Crowley on 07-17-2023 PT Coag (PPP) [Time] 13.8 s 11.7-14.9 [facility] - Hematology and Cell countsOrdered By: Vicente Jasso on 07-17-2023 Erythrocyte distribution width (RBC) [Entitic vol] 45.2 fL 35.1-43.9 [facility] Erythrocyte distribution width (RBC) [Ratio] 13.2 % 11.6-14.6 [facility] Immature granulocytes/100 WBC (Bld) 0.500 % 0.0-0.9 [facility] Comment on above: IG% - Immature Granu locytes (promyelocytes, myelocytes and metamyelocytes) > 1% indicates that a LEFT SHIFT is Present. MCH (RBC) [Entitic mass] 31.7 pg 27.0-32.0 [facility] Nucleated RBC/100 WBC (Bld) [Ratio] 0 % 0-5 [facility] MCHC Auto (RBC) [Mass/Vol]Or dered By: Vicente Jasso on 07-17-2023 MCHC (RBC) [Mass/Vol] 33.2 g/dL 32-36 [facility] No Panel InformationOrdered By: Vicente Jasso on 07-17-2023 Estimated Creatinine Clearance Calc 2.30 ml/min [facility] Estimated GFR (MDRD) Amer 81 mL/min >60 [facility] Comment on above: GFR Calc Estimated GFR (MDRD) Non-Af Amer 67 mL/min >60 [facility] Comment on above: Non- GFR Calc Platelets bldOrdered By: Arsen Jasso on 07-17-2023 Platelets (Bld) [#/Vol] 248 10*3/uL 150-450 [facility] Serum or plasma albumin natalia urement (mass/volume)Ordered By: Vicente Jasso on 07-17-2023 Albumin [Mass/Vol] 3.6 g/dL 3.2-5.0 [facility] Serum or plasma albumin/glob ulin mass ratioOrdered By: Vicente Jasso on 07-17-2023 Albumin/Globulin [Mass ratio] 1.1 {ratio} 0.9-2.4 [facility] Serum or plasma calcium natalia urement (mass/volume)Ordered By: Vicente Jasso on 07-17-2023 Calcium [Mass/Vol] 9.4 mg/dL 8.5-10.1 [facility] Serum or plasma creatinine m easurement (mass/volume)Ordered By: Vicente Jasso on 07-17-2023 Creatinine [Mass/Vol] 0.88 mg/dL 0.55-1.02 [facility] Comment on above: The validity of the calculated GFR & GFRAA in patients over 70 years has not been determined. Clinical correlation is essential. Serum or plasma urea nitroge n measurement (mass/volume)Ordered By: Vicente Jasso on 07-17-2023 Urea nitrogen [Mass/Vol] 23 mg/dL 7-18 [facility] Thin prep Papanicolaou smear with manual screeningOrdered By: Vicente Jasso on 07-17-2023 Thin prep Papanicolaou smear with manual screening 17 U/L 15 [facility] Thin prep Papanicolaou smear with manual screening 6 5-15 [facility] LABORATORYOrdered By: Natalia Duenas on 01-22-2023 [...] the ages of 18-89 years. Clinical Summary: Chris carter 02-05-2022 [facility] OP Visit Invalid Interpretation Code [facility] Work Phone: Clinical Summary: BeenaAlexey emma 12-25-2021 [facility] OP Visit Invalid Interpretation Code [facility] Work Phone: VLVDon 04-19-2019 VENOUS DUPLEX REPORT Normal [facility] VASCULAR MEDSTREAMING REPORT -------- Patient: EFRAIN CARTWRIGHT Account [id number] Ordering Phy: MR: [id number] Reason for Visit: RLE PAIN and SWELLING [...] Full Report is available via link to mphoria in [facility] under [facility] Lab Image Viewer. [facility] PATIENT NAME: EFRAIN CARTWRIGHT [address] [place] MEDICAL REC #: [id number] [place] [address] ADMIT DATE: DISCHARGE DATE: VENOUS DUPLEX REPORT ATTENDING PHY: Francia Mccauley Electronically Signed by: Ernie Conrad MD Esign Date: 04/20/19 [facility] IR ASPIRATION OR INJ. LARGE [...] PM Sign Date: 05/22/2017 1:28:38 PM Normal Replaced By [facility] Vital Signs Date Time Vital Sign Value Performing Clinician Facility 06-16-2025 11:55-0400 Body temperature 97.5 [degF] Dr. Blaire Ayala DO Work Phone: [facility] 06-16-2025 11:55-0400 Diastolic blood pressure 62 mm[Hg] Dr. Blaire Ayala DO Work Phone: [facility] 06-16-2025 11:55-0400 Heart rate 72 /min Dr. Blaire Ayala DO Work Phone: [facility] 06-16-2025 11:55-0400 Respiratory rate 16 /min Dr. Blaire Ayala DO Work Phone: [facility] 06-16-2025 11:55-0400 SaO2% (BldA) [Mass fraction] 98 % Dr. Blarie Ayala DO Work Phone: [facility] 06-16-2025 11:55-0400 Systolic blood pressure 126 mm[Hg] Dr. Blaire Ayala DO Work Phone: [facility] 06-16-2025 10:15-0400 Inhaled oxygen flow rate 4 L/min Dr. Blaire Ayala DO Work Phone: [facility] 06-16-2025 06:05-0400 Body height 175.[address] Blaire Ayala DO Work Phone: [facility] 06-16-2025 06:05-0400 Body mass index (BMI) [Ratio] 29.3 kg/m2 Dr. Blaire Ayala DO Work Phone: [facility] 06-16-2025 06:05-0400 Body weight 90.[address] Blaire Ayala DO Work Phone: [facility] 11-11-2023 00:18-0500 Body height 175.[address] Blaire Ayala Work Phone: [facility] 11-11-2023 00:18-0500 Body mass index (BMI) [Ratio] 29 kg/m2 Dr. Blaire Ayala Work Phone: [facility] 11-11-2023 00:18-0500 Body temperature 97.3 [degF] Dr. Blaire Ayala Work Phone: [facility] 11-11-2023 00:18-0500 Body weight 89.[address] Blaire Ayala Work Phone: [facility] 11-11-2023 00:18-0500 Diastolic blood pressure 105 mm[Hg] Dr. Blaire Ayala Work Phone: [facility] 11-11-2023 00:18-0500 Heart rate 54 /min Dr. Blaire Ayala Work Phone: [facility] 11-11-2023 00:18-0500 Respiratory rate 16 /min Dr. Blaire Ayala Work Phone: [facility] 11-11-2023 00:18-0500 SaO2% (BldA) [Mass fraction] 99 % Dr. Blaire Ayala Work Phone: [facility] 11-11-2023 00:18-0500 Systolic blood pressure 155 mm[Hg] Dr. Blaire Ayala Work Phone: [facility] 07-18-2023 09:15-0400 Body temperature 97.8 [degF] Dr. Blaire Ayala Work Phone: [facility] 07-18-2023 09:15-0400 Diastolic blood pressure 74 mm[Hg] Dr. Blaire Ayala Work Phone: [facility] 07-18-2023 09:15-0400 Heart rate 68 /min Dr. Blaire Ayala Work Phone: [facility] 07-18-2023 09:15-0400 Respiratory rate 15 /min Dr. Blaire Ayala Work Phone: [facility] 07-18-2023 09:15-0400 SaO2% (BldA) [Mass fraction] 97 % Dr. Blaire Ayala Work Phone: [facility] 07-18-2023 09:15-0400 Systolic blood pressure 108 mm[Hg] Dr. Blaire Ayala Work Phone: [facility] 07-17-2023 16:11-0400 Body height 175.[address] Blaire Ayala Work Phone: [facility] 07-17-2023 16:11-0400 Body weight 86.[address] Blaire Ayala Work Phone: [facility] 07-17-2023 13:39-0400 Body mass index (BMI) [Ratio] 28.2 kg/m2 Dr. Blaire Ayala Work Phone: [facility] 07-17-2023 13:08-0400 Diastolic blood pressure 98 mm[Hg] [facility] 07-17-2023 13:08-0400 Heart rate 58 /min [facility] 07-17-2023 13:08-0400 Respiratory rate 19 /min [facility] 07-17-2023 13:08-0400 Systolic blood pressure 111 mm[Hg] [facility] 07-17-2023 12:26-0400 Body temperature 97.8 [degF] [facility] 07-17-2023 11:05-0400 SaO2% (BldA) [Mass fraction] 95 % [facility] 07-17-2023 09:40-0400 Body height 175.26 cm [facility] 07-17-2023 09:40-0400 Body mass index (BMI) [Ratio] 0.8 kg/m2 [facility] 07-17-2023 09:40-0400 Body weight 2.52 kg [facility] 01-01-2023 16:24-0500 Diastolic Blood Pressure Non-Invasive 88 1 SLAVA SPITTLE DO [facility] 01-01-2023 16:24-0500 Heart rate 54 /min SLAVA SPITTLE DO [facility] 01-01-2023 16:24-0500 Respiratory rate 14 /min SLAVA SPITTLE DO [facility] 01-01-2023 16:24-0500 Systolic Blood Pressure Non-Invasive 143 1 SLAVA SPITTLE DO [facility] 01-01-2023 16:00-0500 Diastolic Blood Pressure Non-Invasive 80 1 SLAVA SPITTLE DO [facility] 01-01-2023 16:00-0500 Respiratory rate 12 /min SLAVA SPITTLE DO [facility] 01-01-2023 16:00-0500 Systolic Blood Pressure Non-Invasive 139 1 SLAVA SPITTLE DO [facility] 01-01-2023 15:45-0500 Diastolic Blood Pressure Non-Invasive 81 1 SLAVA SPITTLE DO [facility] 01-01-2023 15:45-0500 Heart rate 52 /min SLAVA SPITTLE DO [facility] 01-01-2023 15:45-0500 Respiratory rate 14 /min SLAVA SPITTLE DO [facility] 01-01-2023 15:45-0500 Systolic Blood Pressure Non-Invasive 151 1 SLAVA SPITTLE DO [facility] 01-01-2023 15:07-0500 Body temperature 95.18 [degF] SLAVA SPITTLE DO [facility] 01-01-2023 15:00-0500 Respiratory Rate - Anes 3 br/min SLAVA SPITTLE DO [facility] 01-01-2023 14:55-0500 Respiratory Rate - Anes 10 br/min SLAVA SPITTLE DO [facility] 01-01-2023 14:50-0500 Respiratory Rate - Anes 16 br/min SLAVA SPITTLE DO [facility] 01-01-2023 12:01-0500 Heart rate 59 /min SLAVA SPITTLE DO [facility] 01-01-2023 11:18-0500 Blood Pressure Cuff Size SLAVA SPITTLE DO [facility] 01-01-2023 11:18-0500 Blood Pressure Location SLAVA SPITTLE DO [facility] 01-01-2023 11:18-0500 Blood Pressure Method SLAVA SPITTLE DO [facility] 01-01-2023 11:18-0500 Body height 175.3 cm SLAVA SPITTLE DO [facility] 01-01-2023 11:18-0500 Body temperature 96.08 [degF] SLAVA SPITTLE DO [facility] 01-01-2023 11:18-0500 Body weight 88 kg SLAVA SPITTLE DO [facility] 01-01-2023 11:18-0500 Body weight 28.64 kg/m2 SLAVA SPITTLE DO [facility] 01-01-2023 11:18-0500 Heart rate 62 /min SLAVA SPITTLE DO [facility] 12-23-2022 13:15-0500 Blood Pressure Location SLAVA SPITTLE DO [facility] 12-23-2022 13:15-0500 Body height 175.3 cm SLAVA SPITTLE DO [facility] 12-23-2022 13:15-0500 Body weight 88.6 kg SLAVA SPITTLE DO [facility] 12-23-2022 13:15-0500 Body weight 28.83 kg/m2 SLAVA SPITTLE DO [facility] 12-23-2022 13:15-0500 Diastolic Blood Pressure Non-Invasive 68 1 SLAVA SPITTLE DO [facility] 12-23-2022 13:15-0500 Heart rate 66 /min SLAVA CANTOR DO [facility] 12-23-2022 13:15-0500 Respiratory rate 18 /min SLAVA STANTONLE DO [facility] 12-23-2022 13:15-0500 Systolic Blood Pressure Non-Invasive 108 1 SLAVA STANTONLE DO [facility] NEGATED: Highlighted [id number] 09:47-0400 Body height 175.26 cm Lia Lucio AT [facility] Work Phone: NEGATED: Highlighted [id number] 09:47-0400 Body height 175 cm Lia Lucio AT [facility] Work Phone: NEGATED: Highlighted [id number] 09:47-0400 Body mass index (BMI) [Ratio] 28.9 kg/m2 Lia Lucio AT [facility] Work Phone: NEGATED: Highlighted [id number] 09:47-0400 Body weight 88.45 kg Lia Lucio AT [facility] Work Phone: NEGATED: Highlighted [id number] 09:47-0400 Body weight 89 kg Lia Lucio AT [facility] Work Phone: NEGATED: Highlighted [id number] 09:12-0500 Body height 175.26 cm Lia Lucio AT [facility] Work Phone: NEGATED: Highlighted [id number] 09:12-0500 Body height 175 cm Lia Lucio AT [facility] Work Phone: NEGATED: Highlighted [id number] 09:12-0500 Body mass index (BMI) [Ratio] 28.9 kg/m2 Lia Lucio AT [facility] Work Phone: NEGATED: Highlighted [id number] 09:12-0500 Body weight 88.45 kg Lia Valdes AT [facility] Work Phone: NEGATED: Highlighted [id number] 09:12-0500 Body weight 89 kg Lia Valdes AT [facility] Work Phone: Encounters Encounter Date Encounter Type Care Provider Facility Start: 07-04-2025 ambulatory Blaire Ayala Facility :[facility] Start: 07-01-2025 ambulatory Blaire Ayala Facility :[facility] Start: 06-16-2025 End: 06-16-2025 Admission to same day surgery center Dr. Slava Cantor DO -[facility] Start: 06-16-2025 End: 06-16-[address] Blaire Ayala DO Work Phone: -[facility] Start: 05-30-2025 End: 05-30-2025 ambulatory Blaire Ayala Facility:[facility] Start: 05-30-2025 End: 05-30-2025 Non-patient / Non-visit Dr. Jian Johnson MD -[facility] Work Phone: Start: 05-26-2025 End: 05-26-[address] Blaire Ayala DO Work Phone: -Cat Scan [facility] Start: 05-26-2025 End: 05-26-[address] Slava Cantor DO -Cat Scan [facility] Work Phone: Start: 05-26-2025 End: 05-26-2025 ambulatory Blaire Ayala Facility:[facility] Start: 02-16-2025 End: 02-20-2025 ambulatory BLAIRE AYALA DO [facility] Start: 11-17-2024 End: 11-17-2024 ambulatory BLAIRE AYALA DO Facility[facility] Start: 11-17-2024 End: 11-17-2024 Patient encounter procedure BLAIRE AYALA DO [facility] Start: 08-25-2024 End: 08-25-2024 ambulatory BLAIRE AYALA DO Facility:[facility] [place] Start: 08-25-2024 End: 08-25-2024 Patient encounter procedure BLAIRE AYALA DO [facility] Start: 04-15-2024 End: 04-19-2024 ambulatory BLAIRE AYALA DO Facility: Start: 04-15-2024 End: 04-19-2024 Outreach Lab BLAIRE AYALA DO [facility] Start: 11-11-2023 End: 11-11-2023 Emergency department patient visit Dr. Blaire Ayala Work Phone: [facility]-Emergency Department Work Phone: Start: 08-19-2023 End: 08-19-[address] Blaire Ayala Work Phone: [facility] Work Phone: Start: 07-18-2023 Non-patient / Non-visit Dr. Joe Ayala Work Phone: [facility] Work Phone: Start: 07-17-2023 Non-patient / Non-visit Dr. Joe Ayala Work Phone: [facility] Start: 07-17-2023 Non-patient / Non-visit Dr. Joe Ayala Work Phone: [facility] Work Phone: Start: 07-17-2023 End: 07-18-2023 Evaluation and management of inpatient [facility]-Progressive Care Unit Work Phone: Start: 07-17-2023 End: 09-08-[address] Blaire Ayala Work Phone: [facility] Work Phone: Start: 01-22-2023 End: 01-26-2023 Outreach Lab BLAIRE AYALA DO [facility] Start: 01-01-2023 End: 01-01-2023 SAME DAY STAY SLAVA CANTOR DO [facility] Start: 12-23-2022 End: 12-23-2022 Admission to establishment SLAVA CANTOR DO [facility] Start: 05-09-2022 End: 05-09-2022 Patient encounter procedure BLAIRE AYALA DO [facility] Start: 05-22-2017 Ambulatory PHY WO ID REFERRING Fac ility:[facility] Procedures Date Procedure Procedure Detail Performing Clinician Start: 06-16-2025 Plain X-ray of shoulder Dr. Blaire Ayala DO Work Phone: Start: 06-16-2025 Reverse prosthetic t otal arthroplasty of right shoulder Dr. Blaire Ayala DO Work Phone: Start: 05-30-2025 Methicillin resistan t Staphylococcus aureus screening test Dr. Blaire Ayala DO Work Phone: Start: 05-26-2025 CT of upper limb without contrast Dr. Blaire Ayala DO Work Phone: Start: 11-11-2023 X-ray of chest poste roanterior view Dr. Blaire Ayala Work Phone: Start: 07-17-[address] Blaire Ayala Work Phone: Start: 01-01-2023 Arthroscopy of shoulder SLAVA CANTOR DO Start: 02-05-2022 End: 02-05-2022 Arthrocentesis aspir&/inj major jt/bursa w/o us Chris Gil PA-C Work Phone: Start: 02-05-2022 End: 02-05-2022 Betamethasone acet&sod phosp Chris MATSON-Heather Work Phone: Start: 02-05-2022 End: 02-05-2022 BP scrn no perf at interval Chris NASHC Work Phone: Start: 02-05-2022 End: 02-05-2022 Calc BMI abv up volodymyr f/u Chris MATSON-C Work Phone: Start: 02-05-2022 End: 02-05-2022 Current tobacco non-user cad cap copd pv dm Chris [facility] Work Phone: Start: 02-05-2022 End: 02-05-2022 Docrev cur meds by elig clin Chris pardo PA-C Work Phone: Start: 02-05-2022 End: 02-05-2022 Pain doc pos and plan Chris Gil PA-C Work Phone: Start: 02-05-2022 End: 02-05-2022 Patient encounter procedure Chris zuniga PA-C Work Phone: Start: 12-25-2021 End: 12-25-2021 BP scrn no perf at interval Chris [facility] Work Phone: Start: 12-25-2021 End: 12-25-2021 Calc BMI abv up volodymyr f/u Chris [facility] Work Phone: Start: 12-25-2021 End: 12-25-2021 Current tobacco non-user cad cap copd pv dm Chris Gil PA-C Work Phone: Start: 12-25-2021 End: 12-25-2021 Docrev cur meds by elmira pardo PA-C Work Phone: Start: 12-25-2021 End: 12-25-2021 Pain neg no plan Chris Gil PA-C Work Phone: Start: 12-25-2021 End: 12-25-2021 Patient encounter procedure Chris zuniga PA-C Work Phone: Start: 04-17-2021 Arthroplasty of knee JOE MORSE LUCY DO Comment on above: Right, with bursecto my Start: 02-08-2018 Cystoscopy BLAIRE MIRYAM PEDRO DO Comment on above: w/ removal of left u reteral stent, bilateral retrograde ureteral pyelograms Start: 10-10-2017 Excision of bunion PACO KING LUCY DO Comment on above: right and left Start: 09-24-2016 Hysterectomy BLAIRE BRAVO DO Start: 10-13-2010 Osteoplasty of carpa l or metacarpal BLAIRE AYALA DO Comment on above: LEFT THUMB Arthroplasty of knee SHAYLA S SPITTLE DO Comment on above: right Bleeding ulcer (morp hologic abnormality) BLAIRE AYALA DO Comment on above: CAUTERIZED 8 BLEEDIN G ULCERS IN DUODENUM section BLAIRE COOPER DO Comment on above: TWO Colonoscopy BLAIRE AYALA DO Entire thumb (body structure) BLAIRE AYALA DO Comment on above: RIGHT Hamstring release procedure BLAIRE AYALA DO Comment on above: left Hamstring release procedure SLAVA SPITTLE DO Comment on above: done twice left History of tonsillectomy TATYANA ANDREWS LUCY DO Open reduction of fr acture with internal fixation BLAIRE LUCY DO Comment on above: RFA right forearm Small incision phacoemulsification of cataract and insertion of intraocular lens BLAIRE LUCY DO Comment on above: both eyes NEGATED: Highlighted rowStart: 02-05-2022 End: 02-05-2022 Documentation of current medications Lia Lucio AT NEGATED: Highlighted rowStart: 12-25-2021 End: 12-25-2021 Documentation of current medications Lia Lucio AT Plan of Treatment Date Care Activity Detail Author Start: 06-16-2025 Patient discharge [facility] Start: 06-16-2025 Ambulation therapy management [facility] Start: 06-16-2025 Application of device [facility] Start: 06-16-2025 Assessment of risk of venous thromboembolism [facility] Start: 06-16-2025 Catheterization of vein [facility] Start: 06-16-2025 Following clinical pathway protocol [facility] Start: 06-16-2025 Incentive spirometry [facility] Start: 06-16-2025 Introduction of urinary catheter [facility] Start: 06-16-2025 Measuring intake and output [facility] Start: 06-16-2025 Neurovascular assessment [facility] Start: 06-16-2025 Patient education [facility] Start: 06-16-2025 Procedure discontinued [facility] Start: 06-16-2025 Provision of activity privileges [facility] Start: 06-16-2025 Vital signs measurements [facility] Start: 06-16-2025 Wound care [facility] Start: 06-16-2025 [facility] Start: 11-11-2023 [facility] Start: 11-11-2023 Incentive spirometry [facility] Start: 07-18-2023 Patient discharge [facility] Start: 07-17-2023 Verification routine [facility] Start: 07-17-2023 Application of intermittent pneumatic compression device [facility] Start: 07-17-2023 Egd transoral biopsy single/multiple EGD BIOPSY SINGLE/MULTIPLE [facility] Start: 07-17-2023 Egd transoral control bleeding any method EGD CONTROL BLEEDING ANY [facility] Start: 07-17-2023 Following clinical pathway protocol [facility] Start: 07-17-2023 Ambulation without limitation [facility] Start: 07-17-2023 Assessment of risk of venous thromboembolism [facility] Start: 07-17-2023 Documentation procedure [facility] Start: 07-17-2023 Incentive spirometry [facility] Start: 07-17-2023 Insertion of catheter into peripheral vein [facility] Start: 07-17-2023 Measuring intake and output [facility] Start: 07-17-2023 Oxygen therapy [facility] Start: 07-17-2023 Providing care according to standard [facility] Start: 07-17-2023 Referral to gastroenterology service [facility] Start: 07-17-2023 [facility] Start: 07-17-2023 Catheterization of vein [facility] Start: 07-17-2023 Verification routine [facility] Start: 07-17-2023 Admission procedure [facility] Start: 07-17-2023 [facility] Start: 07-17-2023 Patient referral to dietitian [facility] Start: 02-05-2022 End: 02-05-2022 Patient encounter procedure Appointment [facility] Work Phone: Start: 12-25-2021 End: 12-25-2021 Patient encounter procedure Appointment [facility] Work Phone: Start: 12-25-2021 End: 12-25-2021 Radex hip unilateral with pelvis 2-3 views XR PELVIS W HIP 2-3 VWS-LT [facility] Work Phone: Bilirubin measurement, urine [facility] Electrocardiographic procedure [facility] Hematocrit [Volume F raction] of Blood [facility] Hemoglobin [Mass/vol ume] in Blood [facility] Hemoglobin [Presence] in Urine [facility] Leukocytes [#/volume] in Blood [facility] Mean corpuscular hem oglobin concentration determination [facility] Mean corpuscular hem oglobin determination [facility] Measurement of keton es in urine using dipstick [facility] Microscopic urinalysis [facility] Neutrophil count [facility] Neutrophil percent differential count [facility] Patient Education ED Rib Fracture [facility] Work Phone: Patient referral [facility] Work Phone: pH of Urine [facility] Platelets [#/volume] in Blood [facility] Red blood cell count [facility] Red cell distributio n width determination [facility] Specific gravity of Urine [facility] Urinalysis, blood, qualitative [facility] Urine dipstick for glucose [facility] Urine dipstick for l eukocyte esterase [facility] Urine dipstick for nitrite [facility] Urine dipstick for protein [facility] Urine examination [facility] Urine microscopy: ep ithelial cells [facility] Urine Microscopy: white cells [facility] Urobilinogen [Presen ce] in Urine [facility] Immunizations Immunization Date Immunization Notes Care Provider Gema carrera 08-27-2023 influenza virus vacc ine, unspecified formulation BLAIRE AYALA DO [facility] Comment on above: Result Comment: [facility] 08-30-2021 pneumococcal polysaccharide vaccine, 23 valent; Translations: [Pneumovax 23] BLAIRE AYALA DO [facility] 12-12-2020 SARS-CoV-2 (COVID-19 ) mRNA-1273 vaccine BLAIRE AYALA DO [facility] Comment on above: Result Comment: 2020: [id number] 11-16-2020 SARS-CoV-2 (COVID-19 ) mRNA-1273 vaccine BLAIRE AYALA DO [facility] [facility] Comment on above: Result Comment: 2020: TPV17 08-10-2017 influenza virus vacc ine, unspecified formulation BLARIE AYALA DO [facility] 08-10-2016 influenza virus vacc ine, unspecified formulation BLAIRE AYALA DO [facility] 01-09-2016 zoster vaccine, live BLAIRE AYALA DO [facility] Payers Date Payer Category Payer Self-pay [id number] 2024 Unknown [id number] 2024 Medicare [id number] 2023 Unknown [id number] 2012 Unknown [id number] 1950 Unknown [id number] 1950 Unknown [id number] .627 1950 Unknown [id number] .627 1950 Unknown [id number] .627 Medicare MEDICARE PART A B [id number] Private Health Insurance [id number] Unknown VA AUTH REQUIR ED SEE NOTE [id number] Unknown VA AUTH REQUIR ED SEE NOTE [id number] Unknown [id number] Unknown [id number] .462 Unknown [id number] .462 Unknown [id number] .462 Unknown [id number] .462 Social History Date Type Detail Facility Start: 07-17-2023 End: 11-11-2023 Assertion Unknown if ever smoked [facility] Work Phone: Start: 07-25-2020 Tobacco smoking status Never s moked tobacco (finding) [facility] Start: 1950 Sex Assigned At Female A [facility] Sexual Orientation [facility] Start: 07-04-2020 Sex Female (finding) [facility] Start: 05-27-2025 Tobacco smoking stat us NHIS Ex-smoker (finding) [facility] Not [facility] NEGATED: Highlighted rowStart: 12-25-2021 End: 02-05-2022 Employment detail Employment detail [facility] Work Phone: Goals Date Patient Goal Desired Activity /State Functional Status Date Assessment Result Facility 07-18-2023 Functional status Up ad kaleb [facility] Work Phone: 01-01-2023 Functional Status Activity Statu s ADL Up to bathroom [facility] 01-01-2023 Functional Status ice on [facility] 01-01-2023 Functional Status Maintained [facility] Mental Status Date Assessment Result Facility 06-16-2025 Cognitive function Level Of Consciousness Drowsy [facility] Work Phone: 06-16-2025 Cognitive function Voice/Name [facility] Work Phone: 11-11-2023 Cognitive function Level Of Cons ciousness Awake;Alert;Appropriate [facility] Work Phone: 07-17-2023 Cognitive function Awake;Alert;F ollows Commands;Disoriented [facility] Work Phone: 01-01-2023 Mental Status Oriented x 4 [facility] Clinical Notes 01-01-2023 to 06-16-2025 Note Date & Type Note Facility 06-16-2025 Consult note [facility] 06-16-2025 Consult note Note Date/Time June 16, 2025 12:50pm [facility] Medical Records Department [address] [place] [address] Anesthesia Postop Eval II 06/16/25 [facility] MR#: [id number] Acct: [id number] Name: EFRAIN CARTWRIGHT Rep #:[id number] : 1950 75 From: Sergei Betancourt MD PCP: Dr. Blaire Ayala, DO Status:REG SDC Y Race: C Location: [place] [address] Anesthesia Postop Eval I Sum Postop Eval Completion status Anesthesia document: Postop Eval 1 completed: Yes Anesthesia Postop Eval I Summary Anesthesia Postop Eval I Summary: Anesthesia Postop Eval I: Assessment Summary Airway patent Yes 06/16/25 09:32 PERSONNEL SCHEDULER.TNES Spontaneous unlabored Yes 06/16/25 09:32 PERSONNEL SCHEDULER.TNES respirations Mental status nausea No 06/16/25 09:32 PERSONNEL SCHEDULER.TNES Vomiting No 06/16/25 09:32 PERSONNEL SCHEDULER.TNES Anesthesia Postop Eval I: Fluid Summary Crystalloid volume administer 1,000 06/16/25 09:32 PERSONNEL SCHEDULER.TNES (ml) Colloids volume administered ( ml) Blood Product volume administered (ml) Total IV fluid infused 1,000 06/16/25 09:32 PERSONNEL SCHEDULER.TNES Anesthesia Postop Eval I: Summary Notes Anesthesia Complication No 06/16/25 09:32 PERSONNEL SCHEDULERONIEL Anesthesia Complication Comment: Post-operative progress note Anesthesia: Postop Eval II Evaluation Mental status: Awake Pain Level: 0 nausea: No Vomiting: No 06/16/25 1037 <Electronically signed by Sergei Betancourt MD> Date _ Sergei Betancourt MD Cosigner Signature: Date CC: ~ Signed [facility] Work Phone: 1(511) 345-984808-07-2025 Consult note Author Rik Taylor [facility] Note Date/Time June 16, 2025 9:3 [address] [facility] Medical Records Department [address] [place] [address] Anesthesia Postop Eval I 06/16/2532 MR#: [id number] Acct: [id number] Name: EFRAIN CARTWRIGHT Rep #:[id number] : 1950 75 From: Rik CHRISTENSEN PCP: Dr. Blaire Ayala, DO Status:REG SDC Y Race: C Location: [place] [address] Anesthesia: Postop Eval I Current Vital Signs Temperature: 97 F Pulse Rate: 71 Blood Pressure: 138/70 Respiratory Rate: 16 Pulse Ox: 94 Assessment Airway patent: Yes Spontaneous unlabored respirations: Yes nausea: No Vomiting: No Anesthesia Complication: No Fluid Hydration Crystalloid volume administer (ml): 1,000 Total IV fluid infused: 1,000 Progress Note Anesthesia document: Postop Eval 1 completed: Yes 06/16/25 0933 <Electronically signed by Rik Taylor CRNA> Date _ Rik Taylor PERSONNEL SCHEDULER Cosigner Signature: Date CC: ~ Signed [facility] Work Phone: 1(880) 879-429208-07-2025 Radiology Diagnostic study note [facility] Imaging Services [address] [place] [address] Shoulder min 2 Views MR#: [id number] Acct: [id number] Name: EFRAIN CARTWRIGHT Rep #: [id number] : 1950 F 75 From: Jackie Hernandez MD PCP: Dr. Blaire Ayala DO [place] [facility] [place]:Shoulder min 2 Views Date of Exam: 06/16/25 Exam# [id number] Ordering Dr: Slava Cantor DO EXAM: XR Right Shoulder Complete, 2 or More Views CLINICAL INDICATION: POST OP TECHNIQUE: Two or more views of the right shoulder. COMPARISON: No relevant prior studies available. FINDINGS: BONES/JOINTS: Shoulder replacement. Intact hardware. Anatomic position. No acute fracture. No dislocation. SOFT TISSUES: Soft tissue emphysema and swelling. RAD/Shoulder min 2 Views IMPRESSION: Postoperative changes as above. Reading Location: [facility] CC: Dr. Blaire Ayala DO; Dr. Slava Cantor DO ~ Information Assurance Engineer: Signed [facility]08-07-2025 Procedure note [facility] Medical Records Department [address] [place] [address] Operative Report 06/16/25 1016 MR#: [id number] Acct: [id number] Name: EFRAIN CARTWRIGHT Rep #:[id number] : 1950 75 From: Slava mccall DO PCP: Dr. Blaire Ayala DO Status:[place] [facility] Location: [place] [address] Operative Report (Standard) Operative Information Date of Procedure: 06/16/25 Pre-Operative Diagnosis: 1. Right shoulder primary glenohumeral joint osteoarthritis 2. Right shoulder rotator cuff tear Post-Operative Diagnosis: 1. Right shoulder primary glenohumeral joint osteoarthritis 2. Right shoulder rotator cuff tear Surgery/Procedure Performed: Right reverse total shoulder arthroplasty logistics planning manager: Yes Head Track Coach: Nova Lua Tasks completed by communications assistant: Opening & closing, Removing tissue, Implanting device and Hemostasis: Electrocautery Additional operating room assistant?: No Type of Anesthesia: General/Regional RN Documented Start/Stop Times: Operation Date: 06/16/25 07:30 Case Time Into Pre-Op 06/16/25 05:47 Anesthesia Start 06/16/25 07:30 Into Room 06/16/25 07:30 Out of Pre-Op 06/16/25 07:30 Procedure Start 06/16/25 08:03 Procedure End 06/16/25 09:22 Anesthesia End 06/16/25 09:28 Out of Room 06/16/25 09:28 Into Recovery 06/16/25 09:30 Procedure Start Time: 08:03 Procedure Stop Time: 09:22 Select all DRAINS/GRAFTS/IMPLANTS that apply: Implanted device Implanted device details: Tornier Aequalis PerFORM+ reversed baseplate 25 mm diameter +3 mm lateralization, +3 glenosphere cobalt [id number] mm diameter, Tornier perform inlay stem size #3, + 0 mm retentive size number 3 36mm diameter polyethylene insert with 9 mm body spacer, short central post and peripheral screws x4. Estimated Blood Loss: 100 cc Specimen collected: No Description of surgery: Patient arrived to [facility] morning of the procedure and was greeted by the same day surgery staff. Prior to his procedure, I greeted the patient in the preoperative holding area I identified the patient by name, record number, and date of . Informed consent was confirmed. The operative extremity was marked. All questions were answered to patient satisfaction. An interscalene block was administered prior to procedure by anesthesia staff for postoperative and intraoperative analgesia. At time of his procedure, patient was brought to the operative suite and positioned supine on a standard table with a beachchair attachment. General anesthesia was induced after all bony prominences were well-padded. Endotracheal tube was placed. After adequate anesthesia and securing the tube, we prepared the patient to be positioned in the beachchair position. A well-padded hogshead cooper was applied. The nonoperative extremity was placed in a wellarm aquino. He was then brought into the beachchair position after we confirmedan appropriate blood pressure. We then spun the bed 45 degrees. The operative extremity was then prepared. Then the butterfly wing of the bed was removed rick well-padded torso strap was applied to secure the patient to the bed. The operative extremity was now free. Yayahen prepped and draped the right upper extremity in normal, sterile orthopedic fashion. We then performed a timeout with all parties in attendance in agreement with theside, site, and operation be performed. 2 g Ancef was administered prior to incision by anesthesia staff, as well as 1 g TXA IV. No concerns were voiced and we elected to proceed. I first marked a standard deltopectoral incision just lateral to the coracoid process in line with the long axis of the humerus. Skin was sharply incised with 10 blade scalpel. There was a suspected AC joint ganglion cyst noted as well which was excised by extending the incision proximally and laterally in a curvilinear fashion. I then dissected bluntly through the subcutaneous layers and found the fat stripe between the deltoid and pectoralis major. I turned my attention to the cyst. The cyst was cleared from surrounding adhesions measuring approximately 3 x 3 x 3 cm. The cyst was punctured and gelatinous fluid was expelled consistent with ganglion cyst. The totality of the cyst was noted. 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 The cephalic vein was then identified and protected. It was retracted laterally with the deltoid. I then bluntly dissected underneath the deltoid with a Dominguez elevator. Rosmery retractor was placed. The upper 1 cm of the pectoralis major was released. Remote biceps tenotomy was noted and biceps was not identified. Identified the lesser tuberosity. The supraspinatus was completely torn and retracted with an exposed greater tuberosity. I thenperformed a subscapularis peel while rotating the humerus externally. I tagged the subscapularis for possible repair later with a tagging suture. Humeral head was then dislocated anteriorly. Appropriate access to the humeral head was confirmed. I then subluxed the humeral head posteriorly with a Fukuda retractor placed around the posterior lipof the glenoid. Inferior capsule was tension. I was able to palpate the axillary nerve. Inferior capsule was then released to the 4 o'clock position of the glenoid face. 3 sided subscapularis releasewas performed with Bovie cautery. I then remove the Fukuda retractor and redislocated the shoulder anteriorly. I then made a anatomic neck cut of the cartilaginous surface of the humeral head. Sizing plate for a size # 3 stem was utilized to determine appropriate reaming size. A central pin was placed engaging the lateral cortex of the humerus. A size # 3 reamer was used to ream the humeral metaphysis and prepare for the inlay stem. A canal finding reamer was utilized prior to sequential broaching to a size # 3 short stem with excellent rotational and axial purchase in the humerus. I remove the broach handle left the size # [address] I then subluxed the humerus posterior to the glenoid. I then placed retractors around the posterior and anterior glenoid to expose theglenoid. Glenoid labrum was removed with Bovie cautery protecting the axillary nerve. We then used the 25 mm guide fromTornier to position our centering pin,exiting approximately 25 mm from the joint surface along the a nterior scapula. Guide was removed and pin was analyzed and compared to preoperative planning. It appeared to be in appropriate position. The Nautilus shaped reamer was then placed over top of the centering pin. I reamed a flat surface of the glenoid. We then removed the reamer and used the cannulated drill for the short central post. Post and baseplate was assembled on the back table. We then inserted thebaseplate and central post the assembled baseplate to an appropriate depth with good press-fit purchase. A Baxley was used to confirm depth. Cortical screws then were placed in the peripheralholes with good purchase. The baseplate had excellent purchase and the entire scapula would rotate with rotation of the baseplate. We then impacted the 36 mm glenosphere with a standard eccentricity and tightened the locking screw mechanism. We then removed retractors and turned our attention back to the humerus. I trialed multiple polyethylene options. There is significant laxity noted. I placed the 9 mm spacer and achieved appropriate tension with a 0 mm polyethylene. There was excellent range of motion and stability in all planes of motion. We selected this as our final size. We removed trials from the humerus after final dislocation. I copiously irrigated the canal. Broach was placed on hand and then impacted to an appropriate depth. Final + 0 mm retentive polyethylene insert was placed with the 9 mm spacer. Final reduction was then performed. The subscapularis was then identified with a tagging suture. Repair would have been likely under undue tension and likely failed. I elected to not perform a subscapularis repair. We then copiously irrigated the wound with sterile Betadine and normal saline solution. We reapproximated the interval with 0 Vicryl suture. Subcutaneous layers were reapproximated with 2 -0 Vicryl suture. Skin was finally running V- Loc 3-0 Monocryl suture and Dermabond. A sterile silver Mepilex dressing was applied. Patient was then placed in an ultra sling. Patient tolerated procedure well without complication. He was positioned back in the supine position extubated in the operative suite. He was transferred to the ralexandria and subsequently to PACU in stable condition. Need for skilled operating room assistant: Nova Lua PA-C was critical to the outcome of thecase. During the course of the procedure the physician operating room assistant played a vitalrole. Her intimate knowledge of my stepsin the procedure aided in safe and expedient completion of the procedure. The PA played a vital role in positioning particularly in obtaining the appropriate positioning. The PA was also vital in theretraction of soft tissues during the exposure and protecting vitalstructures. The PA was also vital and protecting soft tissues during times of bony cuts. She also played a vital role in closure with my direct supervision. The PA was also important during reduction and dislocation of the joint andtrials intraoperatively. Intraoperative medications: 2 g Ancef IV, 1 g TXA IV x2 Post Operative Plan: Plan for discharge home today. Weightbearing: Nonweightbearing left upper extremity, okay for pendulums. Rangeof motion of wrist elbow and hand as tolerated. Antibiotics: 2 g Ancef IV prior to incision, 1 dose prior to discharge DVT Prophylaxis: Aspirin enteric-coated 81 mg twice daily starting tomorrow Camargo: None Dressing: Maintain silver dressing x5 days. Okay to shower dressing on started on day 4 X-Rays: 2 weeks postop in the office Pain Medication: Patient declined oxycodone. Plan for tramadol, Tylenol and meloxicam oxycodone Rx upon discharge Follow-up: 2 weeks post-operatively with me in the office Surgical Findings: AC joint ganglion cyst 3 x 3 x 3 cm. Completely torn supraspinatus. Stable right shoulder followingfinal reduction Complications Complications: No Admit VTE Documentation VTE Present on Admission: No VTE Mechan Device Prophylaxis: SCD's VTE Pharm Prophylaxis ordered?: Yes 06/16/25 1021 Cosigner Signature (if applicable): CC: Dr. Blaire Ayala, DO; Dr. Slava Cantor, DO~ Signed [facility]08-07-2025 Consult note [facility] Medical Records Department [address] [place] [address] Anesthesia Postop Eval I 06/16/25 0932 MR#: [id number] Acct: [id number] Name: EFRAIN CARTWRIGHT Rep #:[id number] : 1950 75 From: Rik CHRISTENSEN PCP: Dr. Blaire Ayala, Status:REG SDC Y Race: C Location: [place] [address] Anesthesia: Postop Eval I Current Vital Signs Temperature: 97 F Pulse Rate: 71 Blood Pressure: 138/70 Respiratory Rate: 16 Pulse Ox: 94 Assessment Airway patent: Yes Spontaneous unlabored respirations: Yes nausea: No Vomiting: No Anesthesia Complication: No Fluid Hydration Crystalloid volume administer (ml): 1,000 Total IV fluid infused: 1,000 Progress Note Anesthesia document: Postop Eval 1 completed: Yes 06/16/25 09 PERSONNEL SCHEDULER> Date _ Rik Taylor PERSONNEL SCHEDULER Cosigner Signature: Date CC: ~ Signed [facility]08-07-2025 Consult note Author Sergei Betancourt [facility] Note Date/Time June 16, 2025 6:5 [address] [facility] Medical Records Department [address] [place] [address] Pre-Anesthesia Evaluation 06/16/25 0659 MR#: [id number] Acct: [id number] Name: EFRAIN CARTWRIGHT Rep #:[id number] : 1950 75 From: Sergei Betancourt MD PCP: Dr. Blaire Ayala, DO Status:REG SDC Y Race: C Location: [place] [address] ASA Classification* ASA Classification ASA Classification: 2 Assessment & Plan Anesthesia* Anesthesia Assessment Anesthesia Assessment: Discussed sedation and/or anesthesia options, risks, benefits, and alternatives with patient/parents/legal guardian/POA. Questions invited. The patient/parents/legal guardian/POA seems to understand and agrees to proceedwith anesthesia plan. Reviewed the physical assessment, medical history, allergy history and patient home medications list prior to surgery/procedure/anesthetic and documented any changes. Performed airway and anesthesia risk assessments. Anesthesia Type Anesthesia Type: General Anesthesia Focused Assessment* Temperature: 98.6 F Pulse Rate: 75 Blood Pressure: 118/65 Respiratory Rate: 18 Pulse Ox: 96 Airway Assessment Mouth opens: >3 cm Mallampati Score: II Labs Anesthesia Preop lab: CBC WBC 5.5 K/mm3 (4.4-11.0) 05/30/25 08:34 05/30/25 RBC 4.27 M/mm3 (4.2-5.4) 05/30/25 08:34 05/30/25 Hgb 13.3 g/dL (12.0-15.0) 05/30/25 08:34 05/30/25 Hct 39.9 % (37-47) 05/30/25 08:34 05/30/25 Plt Count 206 K/mm3 (150-450) 05/30/25 08:34 05/30/25 CHEMISTRY Potassium 4.3 mmol/L (3.3-5.1) 05/30/25 08:34 05/30/25 Sodium 139 mmol/L (133-145) 05/30/25 08:34 05/30/25 Magnesium 1.8 mg/dL (1.5-2.2) 06/16/25 06:28 06/16/25 BUN 30 mg/dL (4-19) H 05/30/25 08:34 05/30/25 Creatinine 0.90 mg/dL (0.70-1.20) 05/30/25 08:34 05/30/25 Glucose 69 mg/dL (70-99) L 05/30/25 08:34 05/30/25 COAG PT 13.8 SECONDS (11.7-14.9) 07/17/23 12:23 Pre-Assessment Diagnosis/Proposed Procedure Planned Operative Procedure(s): (R) RIGHT REVERSE TOTAL SHOULDER ARTHROPLASTY, ERAS Anesthesia History 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 When Was Last Pacemaker Check QUESTION #4 FULL TEXT: You/Your Family Experience fever (hyperthermia) with Anesthesia Last Oral Intake Last Oral intake: Last Oral Intake NPO since 21:00 06/16/25 06:05 Meds taken in AM with sips of No 06/16/25 06:05 water? 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 Female Yes 05/27/25 08:38 HX of Motion Sickness No 05/27/25 08:38 HX of N/V After Surgery Yes 05/27/25 08:38 Non-Smoker Yes 05/27/25 08:38 Duration of Surgery greater Yes 05/27/25 08:38 than 60 minutes Number of Risk Factors 4 05/27/25 08:38 PONV Score Severe Risk 05/27/25 08:38 Height & Weight Height & Weight: Anesthesia: Height & Weight Height 5 ft 9 in 06/16/25 06:05 Weight: 90.265 kg 06/16/25 06:05 Body Mass Index (BMI) 29.3 06/16/25 06:05 Respiratory Assessment Respiratory Assessment - 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 Has anyone observed you stop breathing during sleep? STOP Results Positive 05/27/25 08:38 QUESTION #5 FULL TEXT : Do you snore loudly (louder than talking or can be heard through closed doors)? 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 Specify any problems Hx of Preganancy in last 3 No 05/27/25 08:38 Months Nurse Filling Out Transfusion MGRIFFITH 05/27/25 08:38 & Questions: Date: 05/27/25 05/27/25 08:38 Time: 08:41 05/27/25 08:38 Patient unable to answer at this time (ie. confused, unrespo /Reproduction History /Reproductive History - berry picker machine operator: /Reproductive Hx- berry picker machine operator Hx Now No 05/27/25 08:38 Gestational Age (in weeks): EDC: Hx Hx Para Hx Section SAB No 05/27/25 08:38 Active Medications Active Medications: Current Medications Generic Name Dose Route Start Last Admin Trade Name Freq PRN Reason Stop Dose Admin Acetaminophen 1,000 mg 06/16/25 07:30 06/16/25 06:53 Acetaminophen 500 Mg Tablet PO 06/16/25 07:31 1,000 mg PREOP ONE Administration Celecoxib 400 mg 06/16/25 07:30 06/16/25 06:53 Celecoxib 200 Mg Capsule PO 06/16/25 07:31 400 mg PREOP ONE Administration Dexamethasone Sodium Phosphate 10 mg 06/16/25 07:30 Dexamethasone 10 Mg/Ml Vial IV 06/16/25 07:31 INTRAOP ONE Gabapentin 600 mg 06/16/25 07:30 06/16/25 06:53 Gabapentin 600 Mg Tablet PO 06/16/25 07:31 600 mg PREOP ONE Administration Lactated Ringer's 1,000 mls @ 999 mls/hr 06/16/25 07:30 06/16/25 06:15 IV 06/16/25 08:30 999 mls/hr .Q1H1M MARVIN Administration Cefazolin Sodium 2 gm/ Sodium 110 mls @ 150 mls/hr 06/16/25 07:30 Chloride IV 06/16/25 08:13 INTRAOP ONE Tranexamic Acid 1,000 mg/ 110 mls @ 660 mls/hr 06/16/25 07:30 Sodium Chloride IV 06/16/25 07:39 INTRAOP ONE Lactated Ringer's 1,000 mls @ 999 mls/hr 06/16/25 08:30 IV 06/16/25 09:30 .Q1H1M MARVIN Lactated Ringer's 1,000 mls @ 125 mls/hr 06/16/25 09:30 IV 06/16/25 17:29 .Q8H MARVIN Insulin Human Lispro 1 - 6 unit 06/16/25 07:30 Insulin Lispro 100 Unit/Ml Insuln.Pen SC 06/16/25 13:30 Q4H PRN PRN BG>/= 180, SEE PROTOCOL Protocol PFSH Medical History Wears hearing aid Wears glasses Alcohol use Ambulates with cane Bladder disease History of ulceration Former smoker On home oxygen therapy Asthma Shortness of breath on exertion Seasonal allergies Arthritis Nightmare disorder GERD (gastroesophageal reflux disease) PTSD (post-traumatic stress disorder) Depression Anxiety Hypercholesteremia HTN (hypertension) Home Medications ?Medication ?Instructions ?Recorded ?Last Taken ?Type omega-3 fatty acids-fish oil 300 1 ea PO DAILY 4 06/09/25 History mg-1,000 mg capsule atorvastatin 10 mg tablet 10 mg PO QHS 07/10/21 History hydrochlorothiazide 25 mg tablet 25 mg PO DAILY 07/17/23 History lisinopril 20 mg tablet 20 mg PO DAILY 07/10/2105/02 History sertraline 50 mg tablet 50 mg PO DAILY 07/10/2105/02 History albuterol sulfate 90 mcg/actuation 2 puff inhalation Q 6H PRN 07/17/23 07/17/23 History aerosol inhaler shortness of breath or wheez ing cetirizine 10 mg tablet (All Day 10 mg PO DAILY 07/17/23 History Allergy (cetirizine)) dextromethorphan-guaifenesin 30 1 tab PO BID PRN cough 07/17/23 07/17/23 History mg-600 mg tablet extended gexpmge27 hr (Mucinex DM) docusate sodium 100 mg capsule 100 mg PO BID 07/17/23 07/17/23 History (Colace) fluticasone propionate 50 1 spray intranasal DAILY PRN 07/17/23 07/17/23 History mcg/actuation nasal allergy symptoms spray,suspension trospium 20 mg tablet 20 mg PO BID 07/17/23 History acetaminophen 325 mg capsule 650 mg PO BID 05/27/25 Un known History multivitamin 1 tab PO DAILY 05/27/25 Unkn own History pantoprazole 40 mg tablet,delayed 40 mg PO QHS 5 Unknown History release (Protonix) Allergy/AdvReac Type Severity Reaction Status Date / Time amoxicillin (Amoxicillin) Allergy Rash Verified 06/16/25 06:46 codeine Allergy Rash Verified 06/16/25 06:46 Penicillins Allergy Rash Verified 06/16/25 06:46 naproxen (From Naprosyn) AdvReac Nausea Verified 06/16/25 06:46 Surgical History History of eye surgery History of foot surgery History of surgery History of surgery on lower extremity History of thumb surgery History of surgery on arm History of hysterectomy History of cystoscopy History of arthroscopy of right shoulder History of gastric surgery History of hip surgery History of tubal ligation History of tonsillectomy H/O toe surgery S/P TKR (total knee replacement) Social History Smoking Status: Former smoker Review of Systems (Anesthesia) ROS Narrative System reviewed and no additional complaints, except as documented. 06/16/25 0659 <Electronically signed by Sergei Betancourt MD> Date _ Sergei Betancourt MD Cosigner Signature: Date CC: ~ Signed [facility] Work Phone: [phone]) 911-986108-07-2025 Consult note [facility] Medical Records Department [address] [place] [address] Pre-Anesthesia Evaluation 06/16/25 0659 MR#: [id number] Acct: [id number] Name: EFRAIN CARTWRIGHT Rep #:[id number] : 1950 75 From: Sergei Betancourt MD PCP: Dr. Blaire Ayala, DO Status:REG SDC Y Race: C Location: [place] [address] ASA Classification* ASA Classification ASA Classification: 2 Assessment & Plan Anesthesia* Anesthesia Assessment Anesthesia Assessment: Discussed sedation and/or anesthesia options, risks, benefits, and alternatives with patient/parents/legal guardian/POA. Questions invited. The patient/parents/legal guardian/POA seems to understand and agrees to proceedwith anesthesia plan. Reviewed the physical assessment, medical history, allergy history and patient home medications list prior to surgery/procedure/anesthetic and documented any changes. Performed airway and anesthesia risk assessments. Anesthesia Type Anesthesia Type: General Anesthesia Focused Assessment* Temperature: 98.6 F Pulse Rate: 75 Blood Pressure: 118/65 Respiratory Rate: 18 Pulse Ox: 96 Airway Assessment Mouth opens: >3 cm Mallampati Score: II Labs Anesthesia Preop lab: CBC WBC 5.5 K/mm3 (4.4-11.0) 05/30/25 08:34 05/30/25 RBC 4.27 M/mm3 (4.2-5.4) 05/30/25 08:34 05/30/25 Hgb 13.3 g/dL (12.0-15.0) 05/30/25 08:34 05/30/25 Hct 39.9 % (37-47) 05/30/25 08:34 05/30/25 Plt Count 206 K/mm3 (150-450) 05/30/25 08:34 05/30/25 CHEMISTRY Potassium 4.3 mmol/L (3.3-5.1) 05/30/25 08:34 05/30/25 Sodium 139 mmol/L (133-145) 05/30/25 08:34 05/30/25 Magnesium 1.8 mg/dL (1.5-2.2) 06/16/25 06:28 06/16/25 BUN 30 mg/dL (4-19) H 05/30/25 08:34 05/30/25 Creatinine 0.90 mg/dL (0.70-1.20) 05/30/25 08:34 05/30/25 Glucose 69 mg/dL (70-99) L 05/30/25 08:34 05/30/25 COAG PT 13.8 SECONDS (11.7-14.9) 07/17/23 12:23 Pre-Assessment Diagnosis/Proposed Procedure Planned Operative Procedure(s): (R) RIGHT REVERSE TOTAL SHOULDER ARTHROPLASTY, ERAS Anesthesia History 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 When Was Last Pacemaker Check QUESTION #4 FULL TEXT: You/Your Family Experience fever (hyperthermia) with Anesthesia Last Oral Intake Last Oral intake: Last Oral Intake NPO since 21:00 06/16/25 06:05 Meds taken in AM with sips of No 06/16/25 06:05 water? 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 Female Yes 05/27/25 08:38 HX of Motion Sickness No 05/27/25 08:38 HX of N/V After Surgery Yes 05/27/25 08:38 Non-Smoker Yes 05/27/25 08:38 Duration of Surgery greater Yes 05/27/25 08:38 than 60 minutes Number of Risk Factors 4 05/27/25 08:38 PONV Score Severe Risk 05/27/25 08:38 Height & Weight Height & Weight: Anesthesia: Height & Weight Height 5 ft 9 in 06/16/25 06:05 Weight: 90.265 kg 06/16/25 06:05 Body Mass Index (BMI) 29.3 06/16/25 06:05 Respiratory Assessment Respiratory Assessment - 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 Has anyone observed you stop breathing during sleep? STOP Results Positive 05/27/25 08:38 QUESTION #5 FULL TEXT : Do you snore loudly (louder than talking or can be heard through closeddoors)? 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 Specify any problems Hx of Preganancy in last 3 No 05/27/25 08:38 Months Nurse Filling Out Transfusion MGRIFFITH 05/27/25 08:38 & Questions: Date: 05/27/25 05/27/25 08:38 Time: 08:41 05/27/25 08:38 Patient unable to answer at this time (ie. confused, unrespo /Reproduction History /Reproductive History - berry picker machine operator: /Reproductive Hx- berry picker machine operator Hx Now No 05/27/25 08:38 Gestational Age (in weeks): EDC: Hx Hx Para Hx Section SAB No 05/27/25 08:38 Active Medications Active Medications: Current Medications Generic Name Dose Route Start Last Admin Trade Name Freq PRN Reason Stop Dose Admin Acetaminophen 1,000 mg 06/16/25 07:30 06/16/25 06:53 Acetaminophen 500 Mg Tablet PO 06/16/25 07:31 1,000 mg PREOP ONE Administration Celecoxib 400 mg 06/16/25 07:30 06/16/25 06:53 Celecoxib 200 Mg Capsule PO 06/16/25 07:31 400 mg PREOP ONE Administration Dexamethasone Sodium Phosphate 10 mg 06/16/25 07:30 Dexamethasone 10 Mg/Ml Vial IV 06/16/25 07:31 INTRAOP ONE Gabapentin 600 mg 06/16/25 07:30 06/16/25 06:53 Gabapentin 600 Mg Tablet PO 06/16/25 07:31 600 mg PREOP ONE Administration Lactated Ringer's 1,000 mls @ 999 mls/hr 06/16/25 07:30 06/16/25 06:15 IV 06/16/25 08:30 999 mls/hr .Q1H1M MARVIN Administration Cefazolin Sodium 2 gm/ Sodium 110 mls @ 150 mls/hr 06/16/25 07:30 Chloride IV 06/16/25 08:13 INTRAOP ONE Tranexamic Acid 1,000 mg/ 110 mls @ 660 mls/hr 06/16/25 07:30 Sodium Chloride IV 06/16/25 07:39 INTRAOP ONE Lactated Ringer's 1,000 mls @ 999 mls/hr 06/16/25 08:30 IV 06/16/25 09:30 .Q1H1M MARVIN Lactated Ringer's 1,000 mls @ 125 mls/hr 06/16/25 09:30 IV 06/16/25 17:29 .Q8H MARVIN Insulin Human Lispro 1 - 6 unit 06/16/25 07:30 Insulin Lispro 100 Unit/Ml Insuln.Pen SC 06/16/25 13:30 Q4H PRN PRN BG>/= 180, SEE PROTOCOL Protocol PFSH Medical History Wears hearing aid Wears glasses Alcohol use Ambulates with cane Bladder disease History of ulceration Former smoker On home oxygen therapy Asthma Shortness of breath on exertion Seasonal allergies Arthritis Nightmare disorder GERD (gastroesophageal reflux disease) PTSD (post-traumatic stress disorder) Depression Anxiety Hypercholesteremia HTN (hypertension) Home Medications ?Medication ?Instructions ?Recorded ?Last Taken ?Type omega-3 fatty acids-fish oil 300 1 ea PO DAILY 4 06/09/25 History mg-1,000 mg capsule atorvastatin 10 mg tablet 10 mg PO QHS 07/10/21 History hydrochlorothiazide 25 mg tablet 25 mg PO DAILY 07/17/23 History lisinopril 20 mg tablet 20 mg PO DAILY 07/10/2105/02 History sertraline 50 mg tablet 50 mg PO DAILY 07/10/2105/02 History albuterol sulfate 90 mcg/actuation 2 puff inhalation Q 6H PRN 07/17/23 07/17/23 History aerosol inhaler shortness of breath or wheez ing cetirizine 10 mg tablet (All Day 10 mg PO DAILY 07/17/23 History Allergy (cetirizine)) dextromethorphan-guaifenesin 30 1 tab PO BID PRN cough 07/17/23 07/17/23 History mg-600 mg tablet extended ambqrrj48 hr (Mucinex DM) docusate sodium 100 mg capsule 100 mg PO BID 07/17/23 07/17/23 History (Colace) fluticasone propionate 50 1 spray intranasal DAILY PRN 07/17/23 07/17/23 History mcg/actuation nasal allergy symptoms spray,suspension trospium 20 mg tablet 20 mg PO BID 07/17/23 History acetaminophen 325 mg capsule 650 mg PO BID 05/27/25 Un known History multivitamin 1 tab PO DAILY 05/27/25 Unkn own History pantoprazole 40 mg tablet,delayed 40 mg PO QHS 5 Unknown History release (Protonix) Allergy/AdvReac Type Severity Reaction Status Date / Time amoxicillin (Amoxicillin) Allergy Rash Verified 06/16/25 06:46 codeine Allergy Rash Verified 06/16/25 06:46 Penicillins Allergy Rash Verified 06/16/25 06:46 naproxen (From Naprosyn) AdvReac Nausea Verified 06/16/25 06:46 Surgical History History of eye surgery History of foot surgery History of surgery History of surgery on lower extremity History of thumb surgery History of surgery on arm History of hysterectomy History of cystoscopy History of arthroscopy of right shoulder History of gastric surgery History of hip surgery History of tubal ligation History of tonsillectomy H/O toe surgery S/P TKR (total knee replacement) Social History Smoking Status: Former smoker Review of Systems (Anesthesia) ROS Narrative System reviewed and no additional complaints, except as documented. 06/16/25 0659 MD> Date _ Sergei Betancourt MD Cosigner Signature: Date CC: ~ Signed [facility]07-21-2025 Hospital Discharge instructionsAmbulatory Orders* 12 Lead EKG [[facility]] Time Frame: 05/30/25, Location: None Selected [facility] Work Phone: 1(988) 966-985307-19-2025 Radiology Diagnostic study note [facility] Imaging Services [address] [place], [place] [address] Extremity Upper without Contra MR#: [id number] Acct: [id number] Name: EFRAIN CARTWRIGHT Rep #: [id number] : 1950 F 75 From: Louisa Sanchez MD PCP: Dr. Blaire Ayala DO Status: REG CLI Study:Extremity Upper without Contra Date of Exam: 05/26/25 Exam# [id number] Ordering Dr: Slava Cantor DO PROCEDURE: EXTREMITY [...] traumatic malalignment. Chronic appearing right-sided rib fractures, includingan unfused fracture of the 9th rib. Moderate [...] measuring up to 2.4 cm, suggestive of full- thickness rotator cuff tear (geyser sign). There is atrophy of the supraspinatus muscle body. 2. 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 Of note, there is a large osteophyte at the inferomedial humeral head. Reading Location: [id number] CC: Dr. Blaire Ayala DO; Dr. Slava Cantor DO ~ Information Assurance Engineer: Signed [facility]09-08-2023 Discharge summary Author Vazquez Crowley [facility] July 18, 2023 10:16am Note Date/Time July 18, 2023 10:16am [facility] Medical Records Department [address] [place] [address] Discharge Summary 07/18/23 0844 MR#: [id number] Acct: [id number] Name: EFRAIN CARTWRIGHT Rep #:[id number] : 1950 73 From: Vazquez Montilla PCP: Dr. Blaire Ayala DO Status:ADM LILY Location: [facility] [place] [address] Providers Date of Admission: 07/17/23 Date of Discharge: 07/18/23 Primary Care Physician: Dr. Blaire Ayala DO Consultations 07/17/23 13:38 Consult: Gastroenterology Routine Consulting Provider: [facility] Reason for Consult: GI bleed EMERGENT [...] Her at the bedside is power of employment law attorney for health. after discussion of benefits/risks procedures [...] 07/17/23 dextromethorphan-guaifenesin 30 mg-600 mg tablet extended tedqdue73 hr (Mucinex DM) 1 tab PO BID [...] % (Auto) 60.5, Lymph % (Auto) 28.9, Mccracken % (Auto) 8.1, Eos % (Auto) 1.4, [...] Provider: Vazquez Crowley Primary Care Provider: Blaire Ayala Discharge Orders/Prescriptions Prescriptions: New sucralfate 1 gram [...] PO DAILY Referrals / Follow Up: Blaire Ayala DO [Primary Care Provider] - Within 2 Weeks FriendAmador DO [Med Staff - Active Staff] - Within 1 Month (Repeat EGD in 3 months to check duodenal ulcer healing.) Disposition Disposition (needs filled in before D/C Order can be placed): Home, Self Care Charges/Coding Visit Charges Inpatient E&M: 64655 Disch Hosp >30min 07/18/23 1016 <Electronically signed by Vazquez Crowley MD> Cosigner Signature (if applicable): CC: Dr. Blaire Ayala DO; Dr. Vazquez Crowley MD~ Signed [facility] Work Phone: [phone]) 945-196609-08-2023 Discharge summary Author Vazquez Crowley [facility] July 18, 2023 8:42am Note Date/Time July 18, 2023 8:37am [facility] Medical Records Department [address] [place] [address] Instructions for Home/Discharge Instructions 07/18/23 0836 MR#: [id number] Acct: [id number] Name: EFRAIN CARTWRIGHT Rep #:[id number] : 1950 73 From: Vazquez Montilla PCP: Dr. Blaire Ayala, DO Status:ADM LILY Discharge Instructions Diet Discharge Diet: Light diet [...] Provider: Vazquez Crowley Primary Care Provider: Blaire Ayala Discharge Orders/Prescriptions Prescriptions: New sucralfate 1 gram [...] PO DAILY Referrals / Follow Up: Blaire Ayala DO [Primary Care Provider] - Within 2 Weeks FriendAmador DO [Med Staff - Active Staff] - Within 1 Month (Repeat EGD in 3 months to check duodenal ulcer healing.) Disposition Disposition (needs filled in before D/C Order can be placed): Home, Self Care 07/18/23 0842<Electronically signed by Vazquez Crowley MD>Vazquez Crowley MD CC: Dr. Blaire Ayala DO ~ Signed [facility] Work Phone: [phone]) 343-553609-07-2023 Consult note Author Amador Montano [facility] July 17, 2023 3:13pm Note Date/Time July 17, 2023 3:13pm [facility] Medical Records Department [address] [place] [address] Consultation - GI 07/17/23 1509 MR#: [id number] Acct: [id number] Name: EFRAIN CARTWRIGHT Rep #:[id number] : 1950 73 From: Amador Montano DO PCP: Dr. Blaire Ayala, DO Status:ADM LILY Location: [place] [id number]- HPI Consult Data Date of Consult: 07/17/23 HPI Narrative Reason for Consultation: GI bleeding HPI Narrative: EFRAIN CARTWRIGHT, is a 73 yo womanwith history of anxiety, depression, PTSD, hypertension. She is not on any blood thinners. Her and her were vacationing up in [place]. She had nausea and vomiting. No hematemesis. [...] has never been checked for H. pylori. [facility] Medical History Anxiety Depression GERD (gastroesophageal reflux [...] 07/17/23] dextromethorphan-guaifenesin 30 mg-600 mg tablet extended xgqsphi44 hr (Mucinex DM) 1 tab PO BID [...] % (Auto) 60.5, Lymph % (Auto) 28.9, Mccracken % (Auto) 8.1, Eos % (Auto) 1.4, [...] baby aspirin. Charges/Coding Visit Charges Inpatient E&M: 20332 Init Hosp L3 07/17/23 1513 <Electronically signed by Amador Montano DO> Cosigner Signature (if applicable): CC: Dr. Blaire Ayala DO~ Signed [facility] Work Phone: 1(740) 489-816609-07-2023 Procedure [facility] 07-17-2023 Procedure [facility]09-07-2023 History and physical note Author Vazquez Crowley [facility] July 17, 2023 2:40pm Note Date/Time July 17, 2023 2:35pm [facility] Medical Records Department [address] [place] [address] [place] [address] H&P Exam - Hospitalist 07/17/23 1212 MR#: [id number] Acct: [id number] Name: EFRAIN CARTWRIGHT Rep #:[id number] : 1950 73 From: Vazquez Montilla PCP: Dr. Blaire Ayala, DO Status:ADM LILY Location: [place] [address] HPI - General General Date of Admission: [...] Liver chemistry unremarkable. 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 [facility] Medical History Anxiety Depression GERD (gastroesophageal reflux [...] 07/17/23] dextromethorphan-guaifenesin 30 mg-600 mg tablet extended sabalpr90 hr (Mucinex DM) 1 tab PO BID [...] % (Auto) 60.5, Lymph % (Auto) 28.9, Mccracken % (Auto) 8.1, Eos % (Auto) 1.4, [...] Her at the bedside is power of employment law attorney for health. after discussion of benefits/risks procedures involved with full code, DNR CC arrest and DNR CC, the patient opted for DNRCC arrest with no intubation Patient does't want artificial life support including intubation, tube feed, ventilator and/chest compression, central venous catheter, vasopressor and DC shock if needed Total time spent in lqbo-qy-xmjo encounter in discussion of advanced directive 17 minutes. Charges/Coding Visit Charges Inpatient E&M: 24198 Init Hosp L3 Procedures Hospitalists Procedures: 67143 Advncd Care Plan 30 Min 07/17/23 1440 <Electronically signed by Vazquez Crowley MD> Cosigner Signature (if applicable): CC: Dr. Blaire Ayala DO; Dr. Vazquez Crowley MD~ Signed [facility] Work Phone: [phone]) [phone] Discharge summary Author Vicente Jasso [facility] July 17, 2023 12:07pm Note Date/Time July 17, 2023 10:20am [facility] Medical Records Department [address] [place] [address] Emergency Department Summary 07/17/23 MR#: [id number] Acct: [id number] Name: EFRAIN CARTWRIGHT Rep #:[id number] : 1950 73 From: Vicente Jasso MD PCP: Dr. Blaire Ayala, DO Status:REG ER Location: ED [facility] History of Present Illness Chief Complaint: General Illness Detail of Chief Complaint: Black stool. Nausea and vomiting. Informant: patient and spouse/S.O. Onset/Context/Timing Onset: Days Context: Gradual Onset Timing: Continuous Current Severity: Mild Maximum Severity: Mild Narrative Narrative: 73-year-old female history of anxiety, depression, PTSD, hypertension. She is not on any blood thinners. Her and her were vacationing up in [place]. She had nausea and vomiting. No hematemesis. Says for the last 5 to 6 days she has had black stool. Is never had a GI bleed. Denies abdominal pain. Prior similar symptoms: No Recent [facility] Medical History Anxiety Depression GERD (gastroesophageal reflux [...] % (Auto) 60.5 Lymph % (Auto) 28.9 Mccracken % (Auto) 8.1 Eos % (Auto) 1.4 [...] capsule once daily Primary Care Provider: Blaire Ayala Referrals: Blaire Ayala, DO [Primary Care Provider] - What to do if you have Problems For any increased pain, shortness of breath, bleeding, nausea or vomiting, chestpain, or any unexpected problems, contact your Primary Care Provider. Call [facility] ([phone]) or report to the closest Emergency Room. Call 911 if necessary. 07/17/23 1207 <Electronically signed by Vicente Jasso MD> Cosigner Signature (if applicable): CC: Dr. Blaire Ayala, DO ~ Signed [facility] Work Phone: [phone]) 491-569509-07-2023 Discharge summary Author Vicente Jasso [facility] July 17, 2023 12:07pm Note Date/Time July 17, 2023 10:20am [facility] Medical Records Department [address] [place] [address] Emergency Department Summary 07/17/23 MR#: [id number] Acct: [id number] Name: EFRAIN CARTWRIGHT Rep #:[id number] : 1950 73 From: Vicente Jasso MD PCP: Dr. Blaire Ayala DO Status:REG ER Location: ED HPI History [...] Her and her were vacationing up in [place]. She had nausea and vomiting. No hematemesis. Says for the last 5 to 6 days she has had black stool. Is never had a GI bleed. Denies abdominal pain. Prior similar symptoms: No Recent Illness/Hospitalization: No PFSH [facility] Medical History Anxiety Depression GERD (gastroesophageal reflux [...] % (Auto) 60.5 Lymph % (Auto) 28.9 Mccracken % (Auto) 8.1 Eos % (Auto) 1.4 [...] capsule once daily Primary Care Provider: Blaire Ayala Referrals: Blaire Ayala, [Primary Care Provider] - What to do if you have Problems For any increased pain, shortness of breath, bleeding, nausea or vomiting, chestpain, or any unexpected problems, contact your Primary Care Provider. Call [facility] ([phone]) or report to the closest Emergency Room. Call 911 if necessary. 07/17/23 1207 <Electronically signed by Vicente Jasso MD> Cosigner Signature (if applicable): CC: Dr. Blaire Ayala DO ~ Signed [facility] Work Phone: 1(433) 759-628202-22-2023 Hospital Discharge instructions Patient Education 01/01/2023 16:19:16 [...] water added (diluted fruit juice). Eat bland, rrnw-pm-jcmjug foods in small amounts as you are able. These foods include bananas, applesauce, rice, lean meats, toast, and crackers. Avoid fluids that contain a lot of sugar or caffeine, such as energy drinks, sports drinks, and soda. Avoid alcohol. Avoid spicy or fatty foods. General instructions Take mkaj-mlr-qkdvxak and prescription medicines only as told by your health care provider. Drink enough fluid to keep your urine pale yellow. Wash your hands often using soap and water. If soap and water are not available, use hand analyst. Make sure that all people in your [...] eating and drinking to prevent dehydration. Take biag-xph-oycxzht and prescription medicines only as told by [...] 10/27/2006 Document Revised: 02/18/2020 Document Reviewed: 04/06/2019 [employer] Patient Education 2020 [employer]. 01/01/2023 16:19:03 General Anesthesia, Adult, Care After [...] what activities are safe for you. Take bqxz-hsp-fgqigdn and prescription medicines only as told by [...] 02/02/2002 Document Revised: 10/30/2018 Document Reviewed: 06/12/2018 [employer] Patient Education 2020 [employer]. 01/01/2023 16:18:39 Shoulder Arthroscopy, Care After Shoulder [...] and water are not available, use hand analyst. ?Change your dressing as told by your [...] and to lessen swelling. General instructions Take rumq-vgm-fntlgyb and prescription medicines only as told by [...] as fried or sweet foods. ?Take an mmjn-fla-dqdykqe or prescription medicine for constipation. Do not [...] 05/24/2015 Document Revised: 10/09/2018 Document Reviewed: 09/11/2018 [employer] Patient Education 2020 [employer]. Follow Up Care 12/18/2022 08:00:59 With:SLAVA CANTOR Address: [address] [place] [phone] Business (1) When:01/17/2023 09:15:00 [facility] 02-22-2023 Summary of episode note Discharge Instructions Thank you for allowing [place] to assist you with your healthcare needs. The following is importantdischarge information regarding your hospital visit. Your Care Team BLAIRE AYALA DO, DR. Your Diagnosis Other acute postprocedural pain What to do next Scheduled Follow-Up Appointments Appointment Type When With Where Contact InformationPC OV Follow Up 01/22/2023 11:00 AM EDT BLAIRE AYALA DO [address] [id number] Follow Up Appointments Follow Up with SLAVA CANTOR When 01/17/2023 09:15 AM EST Where: [address] [place] [phone] Business (1) The Following Activity and Diet [...] for nausea/vomiting Duration: [address] [facility]/pharmacy #3322 New oxyCODONE (oxyCODONE 5 mg oral tablet ( IMMEDIATE release )) See instructions Other acute postprocedural pain 1-2 tablets by mouth every 6 hours as needed for pain Pickup at [facility]/pharmacy #3321 Unchanged albuterol (albuterol MDI (90 mcg/ [...] Every day Unchanged omega-3 polyunsaturated fatty acids (Avella-3 1000 mg oral capsule) 1 cap by [...] Two (2) times a day Pharmacy Information [facility]/pharmacy #[id number]: [address] [place], [place] [phone] Please take this list to your next [...] water added (diluted fruit juice). Eat bland, xgns-hz-amqisk foods in small amounts as you are able. These foods include bananas, applesauce, rice, lean meats, toast, and crackers. Avoid fluids that contain a lot of sugar or caffeine, such as energy drinks, sports drinks, and soda. Avoid alcohol. Avoid spicy or fatty foods. General instructions Take exyb-fwa-fmbafqd and prescription medicines only as told by your health care provider. Drink enough fluid to keep your urine pale yellow. Wash your hands often using soap and water. If soap and water are not available, use hand analyst. Make sure that all people in your [...] eating and drinking to prevent dehydration. Take iiac-rpe-lbcsrom and prescription medicines only as told by [...] 10/27/2006 Document Revised: 02/18/2020 Document Reviewed: 04/06/2019 [employer] Patient Education 2020 [employer]. General Anesthesia, Adult, Care After This sheet [...] what activities are safe for you. Take meyh-vkj-kfcwagt and prescription medicines only as told by [...] 02/02/2002 Document Revised: 10/30/2018 Document Reviewed: 06/12/2018 [employer] Patient Education 2020 [employer] Shoulder Arthroscopy, Care After This sheet [...] and water are not available, use hand analyst. ? Change your dressing as told by [...] and to lessen swelling. General instructions Take ajrt-xhm-eufwkjt and prescription medicines only as told by [...] fried or sweet foods. ? Take an kukc-qwb-gywkizx or prescription medicine for constipation. Do not [...] 05/24/2015 Document Revised: 10/09/2018 Document Reviewed: 09/11/2018 [employer] Patient Education 2020 [employer]. Additional Information VACCINATE! IT SAVES LIVES! Members of the community who have not yet received the COVID-19 vaccine and would like to receive it can visit one of [facility] vaccine clinics. There are many vaccine clinic locations within the [facility]. For locations and available times, please visit [email or web address]/. It is important to note that some COVID mobile vaccine clinics are held outdoors and may be canceled in rainy or stormy conditions. To learn more about pediatric vaccinations (ages 5-11), we invite you to visit the [facility] webpage. https://www.[email or web address].org/pages/6128-Tefnv-Jpahjgantcp-Yrfdafxdpy-Fhioo-Twk stions.htmlTo learn more about the COVID-19 vaccine, we invite you to visit the CDC website for a list of frequently asked questions. https://www.cdc.gov/coronavirus/2019-ncov/vaccines/faq.html [facility] [place] [facility] Patient Portal Access Instructions: Stay connected with your healthcare team and access your personal medical information anytime with the [place] [facility] Patient Portal.If you would like a full copy of your medical records, please contact the [facility] Medical Records Department, Friday through Friday between 8a.m. and 4:30p.m. Please follow the directions below to access the portal: 1.Access the email account you provided upon registration to the [facility].2.Look for an invitation email from [facility].3.Open the email and access the invitation link: Accept Invitation to [facility]4.Fill in the required reyes to create your account. Sign into [email or web address] with your username and password that you [...] you will allow to register on the [facility] Patient Portal for access to your information. You can also access the [employer] Patient Portal on the Shout[employer]matic. Simply click on Health Records under [facility] and then click on the [employer] logo. HOW TO SAFELY DISPOSE OF PRESCRIPTION [...] Call your local pharmacy or go to [email or web address] to find one close to you.3.Make use of household items: Use cat litter or old coffee grounds to dispose medications if other options arenot available. Mix your drugs with these household products, seal them in an airtight container andthrow it into the garbage. Call [facility]: [phone] to be sure your drugs can be [...] aware that I should contact my doctor. Patient/Floor Hand Signature: Date/Time: Relationship to Patient: Witness Name/Signature: Date/Time: [facility]02-22-2023 Anesthesiology Consult note Patient: EFRAIN CARTWRIGHT Age: 72 years Sex: Female : 1950 Associated Diagnoses: None Author: CHELLE STEARNS LACE MACHINE OPERATOR-PERSONNEL SCHEDULER Preoperative Information Time of last food or [...] Multivitamin: 1 tab(s), Oral, Daily, 0 Refill(s) Avella-3 1000 mg oral capsule: 1,000 mg, 1 [...] pain of unknown etiology / SNOMED CT 293946896 / Confirmed Allergy-induced asthma / SNOMED CT 2466213675 / Confirmed Anxiety / SNOMED CT 94849513 / Confirmed 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 / SNOMED CT 8533880200 / Confirmed GI symptoms / SNOMED CT 5616857707 / Confirmed Glasses / SNOMED CT 0385507840 / Confirmed H/O osteopenia / SNOMED CT 557148288 / Confirmed Tear of left hamstring / SNOMED CT 121109314 / Confirmed Headache / SNOMED CT 01307816 / Confirmed Pain in left hip / SNOMED CT 77622680 / Confirmed Hypercholesterolemia / SNOMED CT 71476127 / Confirmed Hypertension / SNOMED CT 4080167456 / Confirmed Right knee pain / SNOMED CT 52376910 / Confirmed Need for influenza vaccination / SNOMED CT 627110183 / Confirmed Never used tobacco / SNOMED CT 2411565450 / Confirmed Osteoarthritis / SNOMED CT 6392820816 / Confirmed Osteopenia / SNOMED CT 291302844 / Confirmed BMI 29.0-29.9,adult / SNOMED CT 2843728047 / Confirmed Pain of finger of right hand / SNOMED CT 30477583 / Confirmed Preop examination / SNOMED CT 454689829 / Confirmed Medicare annual wellness visit, initial / SNOMED CT 390961821 / Confirmed Screening for ischemic heart disease / SNOMED CT 750044898 / Confirmed Screening for diabetes mellitus / SNOMED CT 722653458 / Confirmed Screening for breast cancer / SNOMED CT 566254569 / Confirmed Screening for osteoporosis / SNOMED CT 183803405 / Confirmed Screening for colon cancer / SNOMED CT 584861522 / Confirmed Medicare annual wellness visit, subsequent / SNOMED CT 331598758 / Confirmed PPD positive / SNOMED CT 96499845 / Confirmed Post traumatic stress disorder (PTSD) / SNOMED CT 29825002 / Confirmed 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 Comments: 03/02/2018 EDT 12:23 FLOR Francisco was treated 03/02/2018 EDT 12:32 FLOR Francisco 04/13/2012 CXR [facility]: NO EVIDENCE OF ACTIVE PULMONARY TUBERCULOSIS, MILD CHRONIC CHANGES ARE STABLE, NO ACUTE PROCESS Hypercholesterolemia (23260680) Seasonal allergy (9181948287) Headache (57274950) Comments: 09/12/2016 EDT 10:39 FLOR Barnes SINUS Glasses (4954212280) Post traumatic stress disorder (PTSD) (85519568) Comments: 03/02/2018 EDT 12:32 FLOR Francisco IS IN THERAPY, NO MEDS TMJ (temporomandibular joint disorder) (04917443) Osteoarthritis (5667515767) Urinary calculus (1574496564) Allergy-induced asthma (2180116139) Comments: 03/02/2018 EDT 12:18 FLOR Francisco no inhaler H/O osteopenia (668636201) Anxiety (03943373) Tear of left hamstring (341205953) Resolved Sinusitis (98724406): Resolved. Comments: 09/12/2016 EDT 10:37 FLOR Barnes ALLERGY INDUCED Constipation (26860153): Resolved. Urinary incontinence (4908686848): Resolved. Increased urinary frequency (788698867): Resolved. Comments: 03/02/2018 EDT 12:16 FLOR Francisco had a sling Cataract (596174224): Resolved. Family History: Kidney stone Brother Heart disease Father Arthritis Mother Brother Stroke Father HTN - Hypertension Father Procedure history: Arthroscopy of shoulder (134329855) on 01/01/2023 at 72 Years. Arthroplasty of knee (72656689) on 04/17/2021 at 70 Years. Comments: 04/17/2021 8:09 Heaven Monge RN Right, with bursectomy Cystoscopy (41979247) in the month of 02/2018 at 67 Years. Comments: 07/25/2020 15:34 Nikki Smith LPN w/ removal of left ureteral stent, bilateral retrograde ureteral pyelograms Bunionectomy (52001706) in the month of 10/2017 at 67 Years. Comments: 07/25/2022 11:21 Nikki Smith LPN and left 03/02/2018 12:20 FLOR Francisco right Hysterectomy (708132564) on 09/24/2016 at 66 Years. Osteoplasty of carpal or metacarpal (210061807) on 10/13/2010 at 60 Years. Comments: 02/26/2018 15:00 FLOR Francisco LEFT THUMB Phacoemulsification with intraocular lens implantation (1529368478). Comments: 03/02/2018 12:21 FLOR Francisco both eyes section (70200288). Comments: 09/12/2016 10:42 FLOR Barnes TWO ORIF - Open reduction and internal fixation of fracture (466214400). Comments: 03/02/2018 12:21 FLOR Francisco right forearm 09/12/2016 10:43 FLOR Barnes RFA Thumb (766176763). Comments: 09/12/2016 10:44 FLOR Barnes RIGHT Colonoscopy (786073014). History of tonsillectomy (9681398901). Hamstring release procedure (7172716496). Comments: 07/25/2022 11:20 Nikki Smith LPN done twice 07/25/2020 15:09 Nikki Smith LPN left Knee replacement (381232173). Comments: 07/25/2022 11:22 Nikki Smith LPN right [...] hrs) Last Charted Temp OralL 35.6DegC (JAN 01:18) Heart Rate Amcvdgvul82 bpm (JAN 01 12:45) Resp Rate C 10br/min (JAN 01:18) SBP74 mmHg (JAN 01 12:45) DBP50 mmHg (JAN 01 12:45) BMI28.64 (JAN 01:18) Measurements from flowsheet : Measurements 01/01/2023 11:18 EST Height 175.3 cm Admission Weight 88 kg Weight Method Stated [place] Body Weight 66.24 kg BSA Admission 2.04 [...] - Irl - Additive EPINEPHRINE 1ML PF ([place] [facility] 01/01/2023 12:49 EST SN - SP - Prep Agents Chloraprep SN - SP - HR - Method N/A 01/01/2023 12:48 EST SN - CAt - Case Attendee SN - CAt - Case Attendee SN - CAt - Role Performed Clerk Checker 2 01/01/2023 12:47 EST SN - CTm [...] Start Time Anesthesia Start 01/01/2023 12:20 EST [place] History and Physical History and Physical Update [...] Surgeon SN - CAt - Role Performed PERSONNEL SCHEDULER SN - CAt - Role Performed [place] Cutting Machine Operator 1 SN - CAt - Role Performed Scrub 1 SN - CAt - Role Performed Clerk Checker 1 SN - CAt - Role Performed Cannery Worker 01/01/2023 12:01 EST Apical Heart Rate 59 [...] Provider #2 Bedside Time Out CHELLE STEARNS APRN-PERSONNEL SCHEDULER NPO Status Maintained Allergy Band on and [...] Admission Weight 88 kg Weight Method Stated [place] Body Weight 66.24 kg BSA Admission 2.04 [...] Weeks No Weight Loss No Allergies Yes Impregnator And Drier On Yes Consent Form Signed Yes Patient [...] evident Teaching Method Explanation Preferred Written Language Scottish Preferred Spoken Language Scottish Information Given by Patient Patient's Current Physicians [...] Note-Nursing Procedure/Therapy Intake . Assessment and Plan [place] Society of Anesthesiologists (ASA) physical status classification: Class III. Anesthetic Preoperative Plan Premedication: intravenous. Anesthetic technique: General. Induction: intravenously. Maintenance airway: Oral endotracheal tube. Regional: Interscalene Block. Postoperative pain management: Per surgeon. Risks discussed: nausea, vomiting, sore throat. Informed consent: signed by patient. Digitally Signed by CHELLE STEARNS on 01/01/2023 12:57 PM [facility]02-22-2023 Note Date of Service 01/01/23 History and Physical Update I have examined the patient; reviewed the History and Physical and there are no changes to the History and Physical unless noted below. Digitally Signed by SLAVA CANTOR DO on 01/01/2023 12:21 PM [facility]02-22-2023 Anesthesiology Consult note* CHELLE STEARNS: PERFORM, SIGN, VERIFY Event Display: Anesthesiology Consultation Authored Date: [id number] Patient: EFRAIN CARTWRIGHT Age: 72 years Sex: Female : 1950 Associated Diagnoses: None Author: CHELLE STEARNS LACE MACHINE OPERATOR-PERSONNEL SCHEDULER Preoperative Information Time of last food or [...] Multivitamin: 1 tab(s), Oral, Daily, 0 Refill(s) Avella-3 1000 mg oral capsule: 1,000 mg, 1 [...] pain of unknown etiology / SNOMED CT 792883833 / Confirmed Allergy-induced asthma / SNOMED CT 5767149341 / Confirmed Anxiety / SNOMED CT 25070945 / Confirmed 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 / SNOMED CT 5597033533 / Confirmed GI symptoms / SNOMED CT 2608914379 / Confirmed Glasses / SNOMED CT 3910888498 / Confirmed H/O osteopenia / SNOMED CT 411886059 / Confirmed Tear of left hamstring / SNOMED CT 580715995 / Confirmed Headache / SNOMED CT 72697294 / Confirmed Pain in left hip / SNOMED CT 09847783 / Confirmed Hypercholesterolemia / SNOMED CT 23278648 / Confirmed Hypertension / SNOMED CT 0976310064 / Confirmed Right knee pain / SNOMED CT 19786404 / Confirmed Need for influenza vaccination / SNOMED CT 657249567 / Confirmed Never used tobacco / SNOMED CT 2929108732 / Confirmed Osteoarthritis / SNOMED CT 7168560267 / Confirmed Osteopenia / SNOMED CT 947281591 / Confirmed BMI 29.0-29.9,adult / SNOMED CT 4946999041 / Confirmed Pain of finger of right hand / SNOMED CT 76526528 / Confirmed Preop examination / SNOMED CT 496192749 / Confirmed Medicare annual wellness visit, initial / SNOMED CT 017467505 / Confirmed Screening for ischemic heart disease / SNOMED CT 918703614 / Confirmed Screening for diabetes mellitus / SNOMED CT 145675510 / Confirmed Screening for breast cancer / SNOMED CT 914734913 / Confirmed Screening for osteoporosis / SNOMED CT 307423740 / Confirmed Screening for colon cancer / SNOMED CT 646524618 / Confirmed Medicare annual wellness visit, subsequent / SNOMED CT 564876582 / Confirmed PPD positive / SNOMED CT 21846694 / Confirmed Post traumatic stress disorder (PTSD) / SNOMED CT 20111773 / Confirmed Pudendal neuralgia / SNOMED CT 8920527278 / Confirmed Need for Streptococcus pneumoniae vaccination / SNOMED CT 0044140693 / Confirmed Seasonal allergy / SNOMED CT 8050551865 / Confirmed TMJ (temporomandibular joint disorder) / SNOMED CT 92710299 / Confirmed Urinary calculus / SNOMED CT 2479020374 / Confirmed Need for hepatitis C screening test / SNOMED CT 971855018 / Confirmed Viral wart on finger / SNOMED CT 4883656809 / Confirmed, Active Problems (36) Allergy-induced asthma [...] Histories Past Medical History: 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 Comments: 03/02/2018 EDT 12:23 FLOR Francisco was treated 03/02/2018 EDT 12:32 FLOR Francisco 04/13/2012 CXR [facility]: NO EVIDENCE OF ACTIVE PULMONARY TUBERCULOSIS, MILD CHRONIC CHANGES ARE STABLE, NO ACUTE PROCESS Hypercholesterolemia (90521800) Seasonal allergy (9452202480) Headache (48884399) Comments: 09/12/2016 EDT 10:39 EDT Chepe Weber RN [place] SINUS Glasses (5442049377) Post traumatic stress disorder (PTSD) (10890630) Comments: 03/02/2018 EDT 12:32 FLOR Francisco IS IN THERAPY, NO MEDS TMJ (temporomandibular joint disorder) (20501047) Osteoarthritis (1396962067) Urinary calculus (2662585893) Allergy-induced asthma (2471799032) Comments: 03/02/2018 EDT 12:18 FLOR Francisco no inhaler H/O osteopenia (518638078) Anxiety (94528359) Tear of left hamstring (084997566) Resolved Sinusitis (88555520): Resolved. Comments: 09/12/2016 EDT 10:37 FLOR Barnes ALLERGY INDUCED Constipation (63070357): Resolved. Urinary incontinence (3920345075): Resolved. Increased urinary frequency (426176160): Resolved. Comments: 03/02/2018 EDT 12:16 FLOR Francisco had a sling Cataract (455127673): Resolved. Family History: Kidney stone Brother Heart disease Father Arthritis Mother Brother Stroke Father HTN - Hypertension Father Procedure history: Arthroscopy of shoulder (809798419) on 01/01/2023 at 72 Years. Arthroplasty of knee (41800314) on 04/17/2021 at 70 Years. Comments: 04/17/2021 8:09 Heaven Monge RN Right, with bursectomy Cystoscopy (91348552) in the month of 02/2018 at 67 Years. Comments: 07/25/2020 15:34 Nikki Smith LPN w/ removal of left ureteral stent, bilateral retrograde ureteral pyelograms Bunionectomy (08814155) in the month of 10/2017 at 67 Years. Comments: 07/25/2022 11:21 Nikki Smith LPN and left 03/02/2018 12:20 FLOR Francisco right Hysterectomy (289002362) on 09/24/2016 at 66 Years. Osteoplasty of carpal or metacarpal (956533269) on 10/13/2010 at 60 Years. Comments: 02/26/2018 15:00 FLOR Francisco LEFT THUMB Phacoemulsification with intraocular lens implantation (9729365081). Comments: 03/02/2018 12:21 FLOR Francisco both eyes section (40478776). Comments: 09/12/2016 10:42 FLOR Barnes TWO ORIF - Open reduction and internal fixation of fracture (466164349). Comments: 03/02/2018 12:21 FLOR Francisco Lindsay right forearm 09/12/2016 10:43 NAKITAT - FLOR Weber RFA Thumb (140317577). Comments: 09/12/2016 10:44 FLOR Barnes RIGHT Colonoscopy (585311451). History of tonsillectomy (4709258888). Hamstring release procedure (7070830594). Comments: 07/25/2022 11:20 Nikki Smith LPN done twice 07/25/2020 15:09 Nikki Smith LPN left Knee replacement (897682773). Comments: 07/25/2022 11:22 Nikki Smith LPN right [...] OralL 35.6DegC (JAN 01 11:18) Heart Rate Fxedatteh70 bpm (JAN 01 12:45) Resp Rate C 10br/min (JAN 01 11:18) SBP74 mmHg (JAN 01 12:45) DBP50 mmHg (JAN 01 12:45) BMI28.64 (JAN 01 11:18) Measurements from flowsheet : Measurements 01/01/2023 11:18 EST Height 175.3 cm Admission Weight 88 kg Weight Method Stated [place] Body Weight 66.24 kg BSA Admission 2.04 [...] - Irl - Additive EPINEPHRINE 1ML PF ([place] 01/01/2023 12:49 EST SN - SP - Prep Agents Chloraprep SN - SP - HR - Method N/A 01/01/2023 12:48 EST SN - CAt - Case Attendee SN - CAt - Case Attendee SN - CAt - Role Performed Clerk Checker 2 01/01/2023 12:47 EST SN - CTm [...] Start Time Anesthesia Start 01/01/2023 12:20 EST [place] History and Physical History and Physical Update [...] Surgeon SN - CAt - Role Performed PERSONNEL SCHEDULER SN - CAt - Role Performed [place] Cutting Machine Operator 1 SN - CAt - Role Performed Scrub 1 SN - CAt - Role Performed Clerk Checker 1 SN - CAt - Role Performed Cannery Worker 01/01/2023 12:01 EST Apical Heart Rate 59 [...] Provider #2 Bedside Time Out CHELLE STEARNS APRN-PERSONNEL SCHEDULER NPO Status Maintained Allergy Band on and [...] EST Designated Person #1 We May Share [facility] Designated Person #1 We May Share [facility] Designated Person #1 Relationship Spouse Height 175.3 cm Admission Weight 88 kg Weight Method Stated [place] Body Weight 66.24 kg BSA Admission 2.04 [...] Weeks No Weight Loss No Allergies Yes Impregnator And Drier On Yes Consent Form Signed Yes Patient [...] evident Teaching Method Explanation Preferred Written Language Scottish Preferred Spoken Language Scottish Information Given by Patient Patient's Current Physicians [...] Note-Nursing Procedure/Therapy Intake . Assessment and Plan [place] Society of Anesthesiologists (ASA) physical status classification: Class III. Anesthetic Preoperative Plan Premedication: intravenous. Anesthetic technique: General. Induction: intravenously. Maintenance airway: Oral endotracheal tube. Regional: Interscalene Block. Postoperative pain management: Per surgeon. Risks discussed: nausea, vomiting, sore throat. Informed consent: signed by patient. Digitally Signed by CHELLE STEARNS on 01/01/2023 12:57 PM [facility] Evaluation + Plan note Future Appointments Appointment Date:07/25/2022 11:00:00 AM Scheduled Provider:BLAIRE AYALA DO Location:[facility] Appointment Type:PC Wellness Medicare [facility] Evaluation + Plan note Future Appointments Appointment Date:01/22/2023 11:00:00 AM Scheduled Provider:BLAIRE AYALA DO Location:[facility] Appointment Type: OV Follow Up Future Scheduled Tests Laboratory* Thyroid Stimulating Hormone 07/25/22 * Lipid Profile 07/25/22 * Hepatitis C Antibody IgG 07/25/22 * Complete Metabolic Panel 07/25/22 [facility] Evaluation + Plan note Future Appointments Appointment Date:07/29/2023 11:00:00 AM Scheduled Provider:BLAIRE AYALA DO Location:[facility] Appointment Type:PC Wellness Medicare Future Scheduled Tests Laboratory* Thyroid Stimulating Hormone 07/25/22 * Lipid Profile 07/25/22 * Hepatitis C Antibody IgG 07/25/22 * Complete Metabolic Panel 07/25/22 [facility] Evaluation + Plan note Future Appointments Appointment Date:08/18/2024 09:30:00 AM Scheduled Provider:BLAIRE AYALA DO Location:[facility] Appointment Type: OV Future Scheduled Tests Laboratory* Basic Metabolic Panel 08/01/23 * Thyroid Stimulating Hormone 10/07/23 * Complete Blood Count 08/01/23 * Complete Blood Count 10/07/23 * Lipid Profile 10/07/23 * Hepatitis C Antibody IgG 10/07/23 * Complete Metabolic Panel 10/07/23 Radiology* [place] Mammo Screening Bilateral w/ Matthew 08/26/23 * BD Bone Density DEXA Axial Skeleton 08/26/23 [facility] Evaluation + Plan note Future Appointments Appointment Date:02/16/2025 10:00:00 AM Scheduled Provider:BLAIRE AYALA DO Location:[facility] Appointment Type: OV Future Scheduled Tests Laboratory* Thyroid Stimulating Hormone 10/07/23 * Complete Blood Count 10/07/23 * Lipid Profile 10/07/23 * Complete Metabolic Panel 10/07/23 [facility] Evaluation + Plan note Future Appointments Appointment Date:02/16/2025 10:00:00 AM Scheduled Provider:BLAIRE AYALA DO Location:[facility] Appointment Type:PC OV [facility] Evaluation noteThere may be information available, but it has not been provided by the sender.[facility] Work Phone: Evaluation noteNo assessment information available [facility] Work Phone: Evaluation note* Diagnosis Onset Date Resolution Status Acute upper GI bleed acute [facility] Work Phone: Evaluation note* Diagnosis Onset Date Resolution Status Acute upper GI bleed resolve d GI bleed acute [facility] Work Phone: Hospital course Narrative No data available for this section [facility] Hospital Discharge instructions No data available for this section [facility] Hospital Discharge instructions Additional Instructions Your [...] 4 to 6 weeks for ribs to heal.[facility] Work Phone: Instructions* Instruction Description Start Date CompletedPatient advised to follow-up with Primary Care Physician for BMI management. [facility] Work Phone: Instructions* Instruction Description Start Date CompletedPatient advised to follow-up with Primary Care Physician for BMI management. [facility] Work Phone: Progress note No data available for this section [facility] Reason for referral (narrative)No reason for referral information [facility] Work Phone: Summary Purpose Family History No [...] July 17, 2 023 11:06am Power of Periodicals Library Assistant Yes July 17, 2023 11:06am Name of Medical Power of Periodicals Library Assistant MARGARITA CARTWRIGHT - SPOUSE July 17, 2023 11:06am Advance Directive Response Recorded Date/ Time Name of Medical Power of Periodicals Library Assistant MARGARITA CARTWRIGHT - SPOUSE July 17, 2023 2:03pm Advance Directives Yes June 10, 2 014 3:13pm Living Will Yes July 17, 2 023 2:03pm Power of Periodicals Library Assistant Yes July 17, 2023 2:03pm Advance Directive Response Recorded Date/ Time Name of Medical Power of Periodicals Library Assistant MARGARITA CARTWRIGHT - SPOUSE July 17, 2023 1:03pm Name of Medical Power of Periodicals Library Assistant , Jose Cartwright November 11, 2023 12:21am Advance Directives Yes June 10, 2 014 2:13pm Living Will Yes November 11 12:21am Power of Periodicals Library Assistant Yes November 11 024 12:21am Advance Directive Response Recorded Date/ Time Advance Directives Yes June 10 2 014 3:13pm Advance Directive Response Recorded Date/ Time Do you have a Healthcare Power of Periodicals Library Assistant? Yes May 27, 2025 8:38am Advance Directives Yes June 10 014 3:13pm Chief Complaint Chief Complaint Description [...] BLUEPRINT PROTOCOL RIGHT SHOULDER May 102024 3:48pm Chief Complaint Admit Date BLUEPRINT PROTOCOL RIGHT SHOULDER May 102024 3:48pm PREOP May 30, 2025 8:23 am RIGHT REVERSE TOTAL SHOULDER ARTHROPLAST Y, ERAS June 16, 2025 5:44am Additional Source Comments INFORMATION SOURCE (unrecogn ized section and content) DATE CREATED AUTHOR 05/06/2018 [employer] DATE CREATED AUTHOR AUTHOR'S ORGANIZ ATION 07/16/2019 [facility] [place] DATE CREATED AUTHOR AUTHOR'S ORGANIZ ATION 06/11/2024 [facility] ([place]) DATE CREATED AUTHOR AUTHOR'S ORGANIZ ATION 02/21/2025 [facility] DATE CREATED AUTHOR AUTHOR'S ORGANIZ ATION 07/02/2025 [facility] [place] Reason for Visit (unrecogniz ed section and [...] Personnel Name: APOORVA LOPEZ PA-C Position: Physician Systems Security Analyst Med Service: Admitting Member Role: Orthopaedist Address: Address: [facility] [address] [place], [place] [address] [address]- Name: RICCARDO ROGERS MD Member Role: Surgeon Address: Address: [address] [place] [id number] [place] [address] Name: BLAIRE AYALA DO Position: P4 Physician - Primary Care Med Service: Active Provider Member Role: Primary Care Physician Address: Address: [address] [place] [address] Name: [facility]ONNIE NAVARRO [facility] Med Service: Hospitalist Medicine Member Role: Family Medicine Address: Address: [place] [address]- Name: KEYONA POST MD Position: P3 Physician - Orthopedics Med Service: Admitting Member Role: Orthopaedist Address: Address: [address] [place] [address] [facility] [place] [address]- Care Team Related Persons Name: MARGARITA CARTWRIGHT Address: Home [address] [place] [phone] Care Team Personnel Name: APOORVA LOPEZ PA-C Position: Physician Systems Security Analyst Member Role: Orthopaedist Address: Address: [facility] [facility] [address]- Name: RICCARDO ROGERS MD Member Role: Surgeon Address: Address: [address] [place] [id number]- Name: BLAIRE AYALA DO Position: P4 Physician - Primary Care Member Role: Primary Care Physician Address: Address: [address] [place] [id number] [place] [address] Name: NIYA NAVARRO [facility], ACID PLANT HELPER Member Role: Family Medicine Address: Address: [address] [address]- Name: MELVIN NAVARRO DPM Position: Physician Member Role: Crystallographer Address: Address: [address] [place] [address], [address] [facility] [place] [address]- Name: KEYONA POST MD Position: P3 Physician - Orthopedics Member Role: Orthopaedist Address: Address: [address] [place] [address] [address] [facility] [place] [address]- Care Team Related Persons Name: MARGARITA CARTWRIGHT Address: Home [address] [facility], [phone] Care Team Personnel Name: APOORVA LOPEZ PA-C Position: Physician Systems Security Analyst Member Role: Orthopaedist Address: Address: [facility] [address] [place] [id number]- Name: RICCARDO ROGERS MD Member Role: Surgeon Address: Address: [address] [place] [id number]- Name: BLAIRE AYALA DO Position: P4 Physician - Primary Care Member Role: Primary Care Physician Address: Address: [address] [place] [address] [place] [address]- Name: NIYA NAVARRO MSN, ACID PLANT HELPER Member Role: Family Medicine Address: Address: [place] [id number]- Name: MELVIN NAVARRO DPM Position: Physician Member Role: Crystallographer Address: Address: [address] [place] [address], [address] [facility] [place] [id number]- Name: KEYONA POST MD Position: P3 Physician - Orthopedics Member Role: Orthopaedist Address: Address: [address] [place] [address] [address] [facility] [place] [place] [address]- Care Team Related Persons Name: MARGARITA CARTWRIGHT Address: Home [address] [place], [place] [id number] Patient Care team informatio n (unrecognized section and content) Team Status: Active Member Role Status Dates Chucho Hand MD Family Provider Active Dr. Blaire Ayala DO Primary Care Provider Active Team Status: Active Member Role Status Dates Dr. Blaire Ayala DO Primary Care Provider Active Dr. Vicente Jasso MD Emergency Provider Active Dr. Vazquez Crowley MD Admit Provider, Attending Provi arabella Active Team Status: Active Member Role Status Dates Dr. Blaire Ayala DO Primary Care Provider Active Dr. Vicente Jasso MD Emergency Provider Active Dr. Vazquez Crowley MD Admit Provider, A ttending Provider, Other Provider Active Team Status: Active Member Role Status Dates Dr. Blaire Ayala DO Primary Care Provider Active Dr. Vicente Jasso MD Emergency Provider Active Dr. Vazquez Crowley MD Admit Provider, Other Provider Active Dr. Amador Montano DO Attending Provider Active Team Status: Inactive Member Role Status Dates Dr. Blaire Ayala DO Primary Care Provider Active Dr. Vicente Jasso MD Emergency Provider Active Dr. Vazquez Crowley MD Admit Provider, Attending Provi arabella Active Team Status: Active Member Role Status Dates Dr. Blaire Ayala DO Primary Care Provider Active Dr. Vicente Jasso MD Emergency Provider Active Dr. Vazquez Crowley MD Admit Provider, R eferring Provider, Other Provider Active Dr. Amador Montano DO Attending Provider Active Team Status: Inactive Member Role Status Dates Dr. Blaire Ayala DO Primary Care Provider, Referri ng Provider Active Dr. Amador Montano DO Attending Provider Active Team Status: Inactive Member Role Status Dates Dr. Blaire Ayala DO Primary Care Provider Active Dr. Bijan Odell DO Emergency Provider Active Team Status: Active Member Role/Relationship Status Dates Dr. Blaire Ayala DO Primary Care Provider Active Team Status: Inactive Member Role/Relationship Status Dates Dr. Blaire Ayala DO Primary Care Provider Active Start: May 26, 2025 End: May 26, 2025 Dr. Slava Cantor DO Attending Provider Active Start: May 26, 2025 End: May 26, 2025 Dr. Slava Cantor DO Referring Provider Active Start: May 26, 2025 End: May 26, 2025 Team Status: Active Member Role/Relationship Status Dates Dr. Blaire Ayala DO Primary Care Provider Active Start: May 30, 2025 End: May 30, 2025 Dr. Jain Johnson MD Attending Provider Active Start: May 30, 2025 End: May 30, 2025 Dr. Salva Cantor , DO Referring Provider Active Start: May 30, 2025 End: May 30, 2025 Team Status: Inactive Member Role/Relationship Status Dates Dr. Blaire Ayala DO Primary Care Provider Active Start: June 16, 2025 End: June 16, 2025 Dr. Slava Cantor DO Attending Provider Active Start: June 16, 2025 End: June 16, 2025 Dr. Slava Cantor DO Referring Provider Active Start: June 16, 2025 End: June 16, 2025 Goals (unrecognized section and content) Goals [...] BE BASED ON THE PRIMARY CLINICAL RECORDS. [facility]. provides no warranty or guarantee of the accuracy or completeness of information in this document.
[2025-07-04] MEDS: Senna/Docusate Sodium 1 Tablet 2 TABLET PO (22:31)
[2025-07-04] MEDS: 0.9% Normal Saline (250mL Bag) 250 ML 15 ML IV (23:19)
[2025-07-04] MEDS: Cefazolin 1 GM/50 ML BAG IV (23:21)
[2025-07-04] MEDS: 0.9% Saline Lock 10 ML Syringe IV (23:21)
[2025-07-05 01:29] VITALS: BP 98/60; PULSE 80; RESP 16; TEMP 36.8; O2SAT 92
[2025-07-05 05:09] VITALS: BP 111/77; PULSE 78; RESP 18; TEMP 36.4; O2SAT 98
[2025-07-05] MEDS: Cefazolin 1 GM/50 ML BAG IV (06:42)
[2025-07-05 07:40] LABS: Hematocrit 27.0 % (37-47); Hemoglobin 9.2 g/dL (12.0-15.0); Mean Corp Hgb Conc 34.1 g/dL (32-36); Mean Corpuscular Volume 92.8 fL (81-99); Mean Platelet Vol. 10.2 fl (6.2-12.0); Platelet Count 233 K/mm3 (150-450); RBC Distribution Width CV 12.4 % (11.6-14.6); RBC Distribution Width SD 42.4 fl (35.1-43.9); Red Blood Count 2.91 M/mm3 (4.2-5.4); White Blood Count 5.8 K/mm3 (4.4-11.0)
[2025-07-05 08:18] VITALS: BP 98/77; PULSE 74; RESP 18; TEMP 36.7; O2SAT 99
[2025-07-05 08:21] LABS: Anion Gap 10 (5-15); BUN 22 mg/dL (4-19); BUN/Creat Ratio 24.6 RATIO (10-20); Calcium,Total 8.6 mg/dL (7.6-11.0); Carbon Dioxide 24.9 mmol/L (21.0-32.0); Chloride 98 mmol/L (98-108); Estimated Creatinine Clearance 65.93 ml/min (50-250); Glucose 108 mg/dL (70-99); Potassium 4.6 mmol/L (3.3-5.1)
[2025-07-05] MEDS: Senna/Docusate Sodium 1 Tablet 2 TABLET PO (08:22)
[2025-07-05] MEDS: Ensure Surgery 237 ML LIQUID PO (08:23)
[2025-07-05] MEDS: Aspirin E.C. 81 MG Tablet PO (08:23)
--- NOTE | 2025-07-05 11:07 | PCM.DC.SUM ---
Providers Date of Admission: 07/04/25 Date of Discharge: 07/05/25 Primary Care Physician: Dr. Ramya Ayala DO Reason For Visit: RIGHT PROXIMAL HUMERUS Diagnosis Discharge Diagnosis (1) Periprosthetic fracture around internal prosthetic right shoulder joint, initial encounter: Status: Acute Code(s): M97.31XA - Periprosthetic fracture around internal prosthetic right shoulder joint, initial encounter Plan 1. Will continue PT today. Nonweightbearing right upper extremity. Sling at all times. Okay for elbow range of motion and pendulums only 2. plan for discharge this afternoon following PT 3. Patient will follow up for post op appointment in 2 weeks postoperatively. Confirmed that this scheduled. 4. Patient has outpatient PT appointment 2 weeks postoperatively. 5. WBC 5.8 down acute reactive leukocytosis 6. H/H 9.2/.0: post operavtive anemia secondary to acute blood loss intraoperatively. Patient is asymptomatic at this time. No intraoperative complications. will continue to monitor. no acute interventions. 7. DVT prophylaxis : Aspirin 81 mg twice daily 8. Pain control: patient instructed to take tylenol 500mg 2 tablets TID. and oxycodone 1-2 tablets every 4-6 hours only as needed for pain control. 9. Patient also given a prescription of doxycycline 100 mg twice daily x 1 week 10. ok to remove post op dressing. post op day 5 Medications at Discharge Home Medications omega-3 fatty acids-fish oil 300 mg-1,000 mg capsule 1 ea PO DAILY 06/10/14 atorvastatin 10 mg tablet 10 mg PO QHS 07/10/21 hydrochlorothiazide 25 mg tablet 25 mg PO DAILY 07/10/21 lisinopril 20 mg tablet 20 mg PO DAILY 07/10/21 sertraline 50 mg tablet 50 mg PO DAILY 07/10/21 albuterol sulfate 90 mcg/actuation aerosol inhaler 2 puff inhalation Q6H PRN shortness of breath or wheezing 07/17/23 cetirizine 10 mg tablet (All Day Allergy (cetirizine)) 10 mg PO DAILY 07/17/23 dextromethorphan-guaifenesin 30 mg-600 mg tablet extended hr (Mucinex DM) 1 tab PO BID PRN cough 07/17/23 docusate sodium 100 mg capsule (Colace) 300 mg PO BID 09/07/23 fluticasone propionate 50 mcg/actuation nasal spray,suspension 1 spray intranasal DAILY PRN allergy symptoms 07/17/23 trospium 20 mg tablet 20 mg PO BID 07/17/23 multivitamin 1 tab PO DAILY 05/27/25 pantoprazole 40 mg tablet,delayed release (Protonix) 40 mg PO QHS 05/27/25 ondansetron HCl 4 mg tablet 4 mg PO Q8H PRN PRN nausea 07/01/25 tramadol 50 mg tablet 50 mg PO Q6H PRN PRN pain 07/01/25 aspirin 81 mg tablet 81 mg PO DAILY 07/04/25 Held on 07/05/25. Instructions: Resume on 07/12/25. meloxicam 15 mg tablet 15 mg PO DAILY 07/04/25 acetaminophen 500 mg tablet 1,000 mg (2 x 500 mg) PO Q8 #180 tabs 07/05/25 aspirin 81 mg tablet,delayed release 81 mg PO BID 2 weeks #28 tabs 07/05/25 doxycycline hyclate 100 mg tablet 100 mg PO BID 1 week #14 tabs 07/05/25 sennosides 8.6 mg-docusate sodium 50 mg tablet (Stimulant Laxative Plus) 2 tab PO BID #20 tabs 07/05/25 Hospital Course Operations - (Right revision total shoulder arthroplasty with revision of both humeral and glenoid components. Open reduction) Summary of Care Provided Hospital Course: Patient is 75-year-old female s/p revision right reverse total shoulder arthroplasty with revision of left humeral and glenoid components as well as open reduction internal fixation right proximal with Dr. Salinas 07/04/2025.. Patient resting comfortably in bed. Rates pain 5/10. States taking Tylenol and oxycodone and ice help to relieve pain. Patient has been up with therapy. Sling in place at all times. Nonweightbearing. Afebrile, no chest pain, shortness of breath, negative calf pain/ erythema, and no other signs of DVT. Physical Exam Narrative Patient resting comfortably in bed Sling in place No signs of acute distress Satting well on room air Limb is warm to touch, Sensation intact throughout entire upper extremity, Motor intact to radial, median, ulnar nerve distribution Radial pulses palpable Dressing clean dry intact Calf nontender to palpation, no erythema, no edema. Negative Homans Weight / BMI Weight Weight: 93.2 kg Body Mass Index (BMI) 30.3 ABG / Lab / Microbiology Data 07/05/25 06:28 07/05/25 06:28 Laboratory: Laboratory Results - last 24 hr 07/05/25 06:28: WBC 5.8, RBC 2.91 L, Hgb 9.2 L, Hct 27.0 L, MCV 92.8, MCH 31.6, MCHC 34.1, RDW Std Deviation 42.4, RDW Coeff of Gisela 12.4, Plt Count 233, MPV 10.2, Sodium 133, Potassium 4.6, Chloride 98, Carbon Dioxide 24.9, Anion Gap 10, BUN 22 H, Creatinine 0.91, Estim Creat Clear Calc 65.93, Est GFR (MDRD) Non-Af 66, BUN/Creatinine Ratio 24.6 H, Glucose 108 H, Calcium 8.6 Radiography Diagnostic Testing: Radiology Impression Shoulder X-Ray 07/04/25 16:15 IMPRESSION: As above. Reading Location: [id number] Humerus X-Ray 07/04/25 19:35 IMPRESSION: Total reverse right shoulder arthroplasty as described above. No unexpected findings. Reading Location: [id number] D/C Instructions Discharge Activity: May Shower Weight Bearing Status: No weight bearing (Right upper extremity. Sling at all times.) Call your doctor if your incision/area has: Continuous Slow Oozing, Sudden Increased Bleeding, Increased Pain/ Swelling, Increased Redness, Foul Smelling Discharge and Swelling at the incision site Call your doctor if you observe: Fever of 101 or Higher, Inability to have a bowel movement, Chest pain, Increased palpitations (irregular heartbeat), Calf discomfort and Uncontrolled pain Remove Dressing in: 1 week Cleanse incision/area with: Soap & Water and Keep Dressing Clean & Dry DC O2, CPAP, BIPAP Needs Home O2 Discharge instructions: No DC home with Oxygen: No When: 2 weeks postoperatively in the office Meaningful Use Info Meaningful Use Meaningful Use Diagnoses (Choose all that apply): None applicable Discharge Plan Admission Admit Date/Time: 07/04/25 19:23 Attending Provider: Slava Salinas Primary Care Provider: Ramya Ayala Discharge Orders/Prescriptions Prescriptions: New acetaminophen 500 mg Tablet 1,000 mg PO Q8 Qty: 180 0RF aspirin 81 mg Tablet,Delayed Release (Dr/Ec) 81 mg PO BID 14 Days Qty: 28 0RF sennosides-docusate sodium [Stimulant Laxative Plus] 8.6-50 mg Tablet 2 tab PO BID Qty: 20 0RF doxycycline hyclate 100 mg tablet 100 mg PO BID 7 Days Qty: 14 0RF Continued omega-3 fatty acids-fish oil 1 EACH capsule 1 ea PO DAILY hydrochlorothiazide 25 mg tablet 25 mg PO DAILY Patient Comments: TAKE 1 TABLET BY MOUTH EVERY DAY atorvastatin 10 mg tablet 10 mg PO QHS Patient Comments: 1 tablet once daily lisinopril 20 mg tablet 20 mg PO DAILY Patient Comments: TAKE 1 TABLET BY MOUTH EVERY DAY sertraline 50 mg tablet 50 mg PO DAILY Patient Comments: 1 tablet once daily Mucinex DM 30-600 mg tablet extended release 12 hr 1 tab PO BID PRN (Reason: cough) trospium 20 mg tablet 20 mg PO BID Rx Instructions: administer on an empty stomach fluticasone propionate 50 mcg/actuation spray,suspension 1 spray intranasal DAILY PRN (Reason: allergy symptoms) Rx Instructions: administer into each nostril albuterol sulfate 90 mcg/actuation HFA aerosol inhaler 2 puff INHALATION Q6H PRN (Reason: shortness of breath or wheezing) Patient Comments: INHALE 2 PUFFS BY MOUTH EVERY 6 HOURS NEEDED FOR WHEEZING docusate sodium [Colace] 100 mg capsule 300 mg PO BID cetirizine [All Day Allergy (cetirizine)] 10 mg tablet 10 mg PO DAILY multivitamin Tablet 1 tab PO DAILY pantoprazole [Protonix] 40 mg tablet,delayed release (DR/EC) 40 mg PO QHS Rx Instructions: 40 mg twice daily for 12 weeks. ondansetron HCl 4 mg tablet 4 mg PO Q8H PRN PRN (Reason: nausea) tramadol 50 mg tablet 50 mg PO Q6H PRN PRN (Reason: pain) meloxicam 15 mg tablet 15 mg PO DAILY Held aspirin 81 mg tablet 81 mg PO DAILY Hold Instructions: Resume on 07/12/25. Discontinued acetaminophen 325 mg capsule 650 mg PO BID Referrals / Follow Up: Lucy,Ramya, DO [Primary Care Provider] - Disposition Disposition (needs filled in before D/C Order can be placed): Home, Self Care
--- NOTE | 2025-07-05 13:01 | CASEMGMT ---
Pt has an order for DC placed. FLOR CM to the pt room at this time. Pt's at bedside. Pt states that she feels safe returning home today with her SO. Pt states that she has a cane, FWW, and sling and denies DME needs. Pt states that she plans to follow up with Dinesh Horn as an OP in 2 weeks. Subsequently, pt plans to attend OP therapy and prefers [facility]. Pt's states that he will get the pt scheduled and denies any current needs with this. Pt and pt's decline any further questions, concerns, or needs at this time.
--- NOTE | 2025-07-05 14:38 | PHA.DC.MR.R ---
Pharmacy [place] Med Reconciliation Pharmacy Service has performed discharge medication reconciliation for this patient. Medication education papers prepared, patient discharged when counseling was attempted. The patient's discharge medication list was reviewed for discrepancies and discrepancies were resolved. Medications at Discharge Home Medications omega-3 fatty acids-fish oil 300 mg-1,000 mg capsule 1 ea PO DAILY 06/10/14 atorvastatin 10 mg tablet 10 mg PO QHS 07/10/21 hydrochlorothiazide 25 mg tablet 25 mg PO DAILY 07/10/21 lisinopril 20 mg tablet 20 mg PO DAILY 07/10/21 sertraline 50 mg tablet 50 mg PO DAILY 07/10/21 albuterol sulfate 90 mcg/actuation aerosol inhaler 2 puff inhalation Q6H PRN shortness of breath or wheezing 07/17/23 cetirizine 10 mg tablet (All Day Allergy (cetirizine)) 10 mg PO DAILY 07/17/23 dextromethorphan-guaifenesin 30 mg-600 mg tablet extended [id number] hr (Mucinex DM) 1 tab PO BID PRN cough 07/17/23 docusate sodium 100 mg capsule (Colace) 300 mg PO BID 07/17/23 fluticasone propionate 50 mcg/actuation nasal spray,suspension 1 spray intranasal DAILY PRN allergy symptoms 07/17/23 trospium 20 mg tablet 20 mg PO BID 07/17/23 multivitamin 1 tab PO DAILY 05/27/25 pantoprazole 40 mg tablet,delayed release (Protonix) 40 mg PO QHS 05/27/25 ondansetron HCl 4 mg tablet 4 mg PO Q8H PRN PRN nausea 07/01/25 tramadol 50 mg tablet 50 mg PO Q6H PRN PRN pain 07/01/25 aspirin 81 mg tablet 81 mg PO DAILY 07/04/25 Held on 07/05/25. Instructions: Resume on 07/12/25. meloxicam 15 mg tablet 15 mg PO DAILY 07/04/25 acetaminophen 500 mg tablet 1,000 mg (2 x 500 mg) PO Q8 #180 tabs 07/05/25 aspirin 81 mg tablet,delayed release 81 mg PO BID 2 weeks #28 tabs 07/05/25 doxycycline hyclate 100 mg tablet 100 mg PO BID 1 week #14 tabs 07/05/25 sennosides 8.6 mg-docusate sodium 50 mg tablet (Stimulant Laxative Plus) 2 tab PO BID #20 tabs 07/05/25
--- NOTE | 2025-07-05 15:58 | CHAPLAIN ---
Type of Pastoral Visit ___ Initial Visit ___ Follow-up Visit ___ On-call Visit ___ General Patient Visit ___ Spiritual Assessment ___ Family Conference ___ Bereavement ___ Rapid Response ___ Code Blue ___ Other (describe below) Pastoral Care Referral From ___ Patient ___ Family ___ Nurse ___ Physician ___ Healthcare Consulting Manager ___ Jeep Mechanic ___ Other (describe below) Sacrament/Intervention ___ Active listening ___ Anointing ___ Christian ___ Bereavement ___ Communion ___ Ashley exploration ___ ___ Life review ___ Prayer ___ Reconciliation ___ Sacrament of Sick ___ Supportive presence ___ Wedding ___ Other (describe below) Pastoral Comments patient was discharged before she could be seen by this surveyor oil well directional;
== END 2025-07-05 14:12 | disposition home or self-care (01) ==
LOC: SDC 20:15 → MS3 20:15
PROVIDERS: Admitting Provider Student in an Organized Health Care Education/Training Program; PCP Family Medicine; Referring Provider Student in an Organized Health Care Education/Training Program; Visit Provider Student in an Organized Health Care Education/Training Program
PROC: (CPT 23472; principal; 2025-07-04 13:45)
DX: M97.31XA Periprosthetic fracture around internal prosthetic right shoulder joint, initial encounter (principal); Z79.899 Other long term (current) drug therapy; Z79.82 Long term (current) use of aspirin; I10 Essential (primary) hypertension; M19.011 Primary osteoarthritis, right shoulder; M71.311 Other bursal cyst, right shoulder; Z96.611 Presence of right artificial shoulder joint; S42.201A Unspecified fracture of upper end of right humerus, initial encounter for closed fracture; W01.0XXA Fall on same level from slipping, tripping and stumbling without subsequent striking against object, initial encounter
CPT/HCPCS: 23474; 01638; 36415; 73030; 73060; 76000; 80048; 82962; 85027; 94668; 96365; 96366; 97166; 99221; C1713; C1776; A4216; G0378; J2405